=== PATIENT | female | born 1940 | race Caucasian/White ===

== ENCOUNTER 2023-01-08 13:36 | Outpatient (CLI) | payer MEDICARE, SELFPAY | END 2023-01-08 13:37 | disposition home or self-care (01) | LOC: NFLDREF 01-11 08:54 | PROVIDERS: PCP Internal Medicine; Referring Provider Internal Medicine; Visit Provider Advanced Practice Midwife | DX: N89.8 Other specified noninflammatory disorders of vagina (principal); R30.9 Painful micturition, unspecified | CPT/HCPCS: 87086 ==

== ENCOUNTER 2023-02-09 12:08 | Outpatient (CLI) | payer MEDICARE, SELFPAY | END 2023-02-09 12:09 | disposition home or self-care (01) | LOC: NFLDREF 02-10 09:38 | PROVIDERS: PCP Internal Medicine; Referring Provider Internal Medicine; Visit Provider Nurse Practitioner Family | DX: Z00.00 Encounter for general adult medical examination without abnormal findings (principal); R53.82 Chronic fatigue, unspecified; F41.9 Anxiety disorder, unspecified; G89.29 Other chronic pain; Z79.899 Other long term (current) drug therapy; E66.9 Obesity, unspecified | CPT/HCPCS: 80053; 82306; 84443 ==

== ENCOUNTER 2023-03-13 16:26 | Emergency (ER) | payer MEDICARE, SELFPAY ==
[2023-03-13 16:36] VITALS: BP 166/85; PULSE 86; RESP 18; TEMP 36.4; O2SAT 95; BMI 30.5
--- NOTE | 2023-03-13 17:07 | CRLHL7_ITS ---
For Patients: As a result of the Century Cures Act, medical imaging exams and procedure reports are released immediately into your electronic medical record. You may view this report before your referring provider. If you have questions, please contact your health care provider. INDICATION: Abdominal pain TECHNIQUE: CT abdomen and pelvis acquired with IV contrast. COMPARISON: CT 03/13/2021 FINDINGS: Lower chest: Unremarkable. Liver: Unremarkable. Spleen: Unremarkable. Pancreas: Unremarkable. Gallbladder and bile ducts: Unremarkable. Kidneys: Too small to characterize low-attenuation lesions in kidneys nonobstructing small left renal calculus. Adrenal glands: Nodularity and nodules within the adrenal glands appear unchanged from the prior study. GI tract: Hiatal hernia. Diverticulosis. Normal appendix appeared Vascular structures: Negative. No sign of aneurysm. Lymph nodes: Unremarkable. Miscellaneous: Small fat containing inguinal hernias. Small fat containing umbilical hernia. Pelvic Organs: Unremarkable. Bones: Unremarkable for age. IMPRESSION: 1. No acute findings in the abdomen or pelvis. Please note that all CT scans at this facility use dose modulation, iterative reconstruction, and/or weight-based dosing when appropriate to reduce radiation dose to as low as reasonably achievable. Dictated by Linn Baron MD @ 03/13/2023 8:05:13 PM (Electronically Signed)
--- NOTE | 2023-03-13 17:09 | ED.ABDPAIN ---
HPI - Abdominal Pain General Chief Complaint: Abdominal Pain Stated Complaint: stomach pain,nausea,fatigue,eye pain Time Seen by Provider: 03/13/23 16:38 History of Present Illness HPI narrative: This 82-year-old female comes in reporting worsening abdominal pain over the past couple days. She states that she has been having persistent abdominal pain that seems to come and go but over the past few days that is worsened. This morning she awoke at 2:30 a.m. in the morning and did not sleep thereafter because of this abdominal pain. She also reports some urinary frequency. She does not have any diarrhea or vomiting but does have some nausea symptoms. She has anxiety regarding her health and did start BuSpar own a couple weeks ago but this did not sit well with her so she discontinued it after a couple days. He also has [place] syndrome but is not currently taking any treatments for this. Related Data Home Medications Medication Instructions Recorded Confirmed famotidine 20 mg tablet 20 mg PO .Bedtime 04/30/22 02/09/23 hydrochlorothiazide 12.5 mg tablet 12.5 mg PO QAM 04/30/22 02/09/23 multivitamin (Multiple Vitamins 1 tab PO QAM 04/30/22 02/09/23 tablet) polyethylene glycol 3350 17 g PO DAILY 04/30/22 02/09/23 gram/dose oral powder acetaminophen 500 mg capsule 500 mg PO DAILY PRN 07/02/22 02/09/23 cholecalciferol (vitamin D3) 25 25 mcg PO QDAY PRN 07/02/22 02/09/23 mcg (1,000 unit) capsule melatonin 3 mg capsule 3 mg PO QHS 07/02/22 02/09/23 rosuvastatin 40 mg tablet 40 mg PO QDAY 07/02/22 02/09/23 vit C 250 mg-vit E 90 mg-zinc 40 1 tab PO BID 07/02/22 02/09/23 mg-copper 1 en-cywnfd-odiual capsule (PreserVision AREDS-2) valsartan 160 mg tablet 160 mg PO QDAY 07/06/22 02/09/23 Previous Rx's Medication Instructions Recorded clopidogrel 75 mg tablet 75 mg PO QDAY #90 tabs 04/30/22 omeprazole 20 mg tablet,delayed 20 mg PO DAILY #90 tabs 05/06/22 release amlodipine 10 mg tablet 10 mg PO QDAY #30 tabs 10/27/22 buspirone 7.5 mg tablet 7.5 mg PO BID #60 tabs 03/09/23 Allergies Allergy/AdvReac Type Severity Reaction Status Date / Time tramadol Allergy Intermediate nausea, Verified 03/13/23 16:36 vomiting codeine AdvReac Unknown Nausea Verified 03/13/23 16:36 Review of Systems Status of ROS Reports: 10 or more systems reviewed and unremarkable except as noted in History and below Narrative Constitutional: No fevers, no weight gain or loss. Eyes: No discharge. No vision changes. HENT: No congestion, no sore throat, no ear pain. Cardiovascular: No chest pain, no palpitations. Respiratory: No shortness of breath, no wheezes, no cough. Gastrointestinal: Chronic abdominal pain. Nausea. No vomiting or diarrhea. Genitourinary: No hematuria. Increased urinary frequency. Musculoskeletal: Normal range of motion. She has history of back pain but this is improved with some recent treatments. Skin: No rashes, no pruritis. Neurological: No dizziness, weakness, sensory change, speech change. Endo/Heme/Allergies: No bruising or bleeding. No polydipsia. Pysch: She reports anxiety regarding her health. All other systems reviewed and are negative. [facility] Medical History (Updated 03/13/23 @ 20:07 by Ash Hagen MD) Pes planus of both feet ?M21.41 - Flat foot [pes planus] (acquired), right foot (ICD-10) ?M21.42 - Flat foot [pes planus] (acquired), left foot (ICD-10) Adductor tendinitis of both hips ?M76.891 - Other specified enthesopathies of right lower limb, excluding foot (ICD-10) ?M76.892 - Other specified enthesopathies of left lower limb, excluding foot (ICD-10) Greater trochanteric bursitis of both hips ?M70.61 - Trochanteric bursitis, right hip (ICD-10) ?M70.62 - Trochanteric bursitis, left hip (ICD-10) Lumbar degenerative disc disease ?M51.36 - Other intervertebral disc degeneration, lumbar region (ICD-10) History of renal calculi ?Z87.442 - Personal history of urinary calculi (ICD-10) Surgical History History of cataract surgery ?Z98.49 - Cataract extraction status, unspecified eye (ICD-10) 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.2 - Postprocedural hypoparathyroidism (ICD-10) Social History Smoking Status: Never smoker Do you use any of these nicotine containing products: None Second hand tobacco smoke exposure: Yes (youth) How often do you have a drink containing alcohol: 4 or more times a week How many standard drinks containing alcohol do you have on a typical day: 1 or 2 How often do you have six or more drinks on one occasion: Never AUDIT-C Alcohol total score: 4 Non-prescribed substance use: denies use Little interest or pleasure in doing things: not at all Feeling down, depressed, or hopeless: not at all service: No Exam Narrative: Exam Narrative: Constitutional: Well-developed, well-nourished, no acute distress. HEENT: Normocephalic, atraumatic. Neck: Normal range of motion. Nontender. Supple. Heart: Regular. No murmurs. Normal rate. Intact distal pulses. Lungs: Clear to auscultation. No chest discomfort. No wheezes, rhonchi, or rales. Abdomen: Normal bowel sounds. Mild tenderness. No rebound tenderness. Genitalia: Deferred. Back: No midline tenderness. Normal range of motion. Extremities: Normal range of motion. No injury. Skin: Intact. No rash. Warm. No erythema or pallor. Neurologic: No altered sensation. No weakness. Alert and oriented. Psychiatric: No suicidality. Nursing notes and vitals signs are reviewed. Const: Vital Signs, click to edit/add: Vital Signs - 24 hr 03/13/23 16:36 03/13/23 18:51 Temperature 97.5 F L Pulse Rate [Pulse Oximeter] 86 78 Respiratory Rate 18 18 Blood Pressure [Ri ght Upper Arm] 166/85 H 179/96 H Pulse Oximetry 95 99 Oxygen Delivery Me thod Room Air Room Air Course Vital Signs Vital signs: Initial Vital Signs Temperature 97.5 F L 03/13/23 16:36 Temperature Source Temporal Artery Scan 03/13/23 16:36 Pulse Rate 86 03/13/23 16:36 Pulse Rhythm Regular 03/13/23 16:36 Respiratory Rate 18 03/13/23 16:36 Blood Pressure 166/85 H 03/13/23 16:36 Blood Pressure Mean 112 H 03/13/23 16:36 Blood Pressure Position Sitting 03/13/23 16:36 Pulse Oximetry 95 03/13/23 16:36 Oxygen Delivery Method Room Air 03/13/23 16:36 Vital Signs Temperature 97.5 F L 03/13/23 16:36 Pulse Rate 86 03/13/23 16:36 Respiratory Rate 18 03/13/23 16:36 Blood Pressure 166/85 H 03/13/23 16:36 Pulse Oximetry 95 03/13/23 16:36 Oxygen Delivery Method Room Air 03/13/23 16:36 Temperature 97.5 F L 03/13/23 16:36 Pulse Rate 78 03/13/23 18:51 Respiratory Rate 18 03/13/23 18:51 Blood Pressure 179/96 H 03/13/23 18:51 Pulse Oximetry 99 03/13/23 18:51 Oxygen Delivery Method Room Air 03/13/23 18:51 MDM - Abdominal Pain MDM Narrative Medical decision making narrative: This patient comes in with some diffuse abdominal pain and generalized malaise. She does feel some fatigue also. She has some anxiety about her health. An IV was established and labs are acquired. These returned with reassuring results except she does have potassium this is a bit low at 3.0. She is taking hydrochlorothiazide which is likely contributing to this. This may explain some of her fatigue. CT imaging of the abdomen and pelvis by my review shows no acute findings to explain her symptoms. Radiology report is pending and the overnight physician will look after results for any remarkable findings that would need some attention. The patient is otherwise encouraged to follow-up with her primary physician and to take foods that are rich in potassium. Lab Data Labs: Lab Results 03/13/23 03/13/23 Range/Units 17:47 19:00 WBC 9.29 (4.50-11.00) K/uL RBC 4.75 (4.00-5.20) m/uL Hgb 14.6 (12.0-16.0) gm/dL Hct 44.6 (33.0-51.0) % MCV 94 (80-100) fL MCH 31 (26-34) pg MCHC 33 (32-36) gm/dL RDW Coeff of Fidencio 15.1 (11.5-15.5) % Plt Count 456 H (140-440) K/uL Neut % (Auto) 72.9 H (42.0-72.0) % Lymph % (Auto) 16.1 L (20-44) % Bates % (Auto) 10.0 (0.0-11.0) % Eos % (Auto) 0.2 (0.0-7.0) % Baso % (Auto) 0.2 (0.0-3.0) % Neut # (Auto) 6.80 (1.7-7.0) K/uL Lymph # (Auto) 1.50 (0.90-2.90) K/uL Bates # (Auto) 0.90 (0.00-0.90) K/UL Eos # (Auto) 0.02 (0.00-0.50) K/uL Baso # (Auto) 0.02 (0.00-0.30) K/uL Abs Immat Gran (auto) 0.06 (0.00-0.30) K/uL Imm/Tot Granulo (auto) 0.6 % Sodium 130 L (135-149) mmol/L Potassium 3.9 (3.6-5.1) mmol/L Chloride 93 L (96-114) mmol/L Carbon Dioxide 27 (20-32) mmol/L BUN 22 (7-30) mg/dL Creatinine 1.2 (0.5-1.5) mg/dL Estimated Creat Clear 30.42 Estimated GFR 45 ml/min Glucose 114 (60-115) mg/dL Calcium 10.3 (8.4-10.6) mg/dL Magnesium 2.2 (1.5-2.6) mg/dL Total Bilirubin 0.8 (0.1-1.5) mg/dL Direct Bilirubin 0.1 (0.0-0.5) mg/dL AST 26 (12-35) U/L ALT 26 (4-35) U/L Alkaline Phosphatase 71 (40-150) U/L Total Protein 8.2 (6.0-8.3) g/dL Albumin 4.8 (3.3-5.0) g/dL Urine Color Yellow (Yellow) Urine Appearance Clear (Clear) Urine pH 6.0 (5.0-8.5) Ur Specific [place] 1.010 (1.000-1.030) Urine Protein Negative (Negative) Urine Glucose (UA) Negative (Negative) Urine Ketones Negative (Negative) Urine Blood Negative (Negative) Urine Nitrite Negative (Negative) Urine Bilirubin Negative (Negative) Urine Urobilinogen 0.2 (0.2-1.0) Ur Leukocyte Esterase Trace A (Negative) Urine RBC 0-2 (0-2) Urine WBC 5-10 A (0-5) Ur Squamous Epith Cells Few (None-Few) Urine Bacteria None (None) Discharge Plan Discharge Clinical Impression: Hypokalemia Patient Disposition: Home, Self-Care Condition: Stable Additional Instructions: Take foods and liquids that have extra of sources of potassium. Follow-up with primary physician for ongoing management. Return if worsening. Prescriptions: No Action multivitamin [Multiple Vitamins] Tablet 1 tab PO QAM famotidine 20 mg tablet 20 mg PO .Bedtime polyethylene glycol 3350 17 gram/dose powder PO DAILY hydrochlorothiazide 12.5 mg tablet 12.5 mg PO QAM clopidogrel 75 mg tablet 75 mg PO QDAY Qty: 90 3RF omeprazole 20 mg tablet,delayed release (DR/EC) 20 mg PO DAILY Qty: 90 3RF rosuvastatin 40 mg tablet 40 mg PO QDAY PreserVision AREDS-2 250-90-40-1 mg capsule 1 tab PO BID melatonin 3 mg capsule 3 mg PO QHS acetaminophen 500 mg capsule 500 mg PO DAILY PRN cholecalciferol (vitamin D3) 25 mcg (1,000 unit) capsule 25 mcg PO QDAY PRN Patient Comments: only in the winter valsartan 160 mg tablet 160 mg PO QDAY amlodipine 10 mg tablet 10 mg PO QDAY Qty: 30 5RF buspirone 7.5 mg tablet 7.5 mg PO BID Qty: 60 0RF Follow Up/Referrals: Annie Brown MD [Primary Care Provider] - Stand Alone Forms: [employer] Info Instructions
[2023-03-13 17:56] LABS: Basophils Absolute Auto 0.02 K/uL (0.00-0.30); Basophils Percent Auto 0.2 % (0.0-3.0); Eosinophils Absolute Auto 0.02 K/uL (0.00-0.50); Eosinophils Percent Auto 0.2 % (0.0-7.0); Hematocrit 44.6 % (33.0-51.0); Hemoglobin* 14.6 gm/dL (12.0-16.0); Immature Granulocytes Abs Auto 0.06 K/uL (0.00-0.30); Immature Granulocytes Pct Auto 0.6 %; Lymphocytes Percent Auto 16.1 % (20-44); Mean Corpuscular HGB Conc 33 gm/dL (32-36); Mean Corpuscular Hemoglobin 31 pg (26-34); Mean Corpuscular Volume 94 fL (80-100); Neutrophils Percent Auto 72.9 % (42.0-72.0); Platelet Count* 456 K/uL (140-440); RDW Coefficient of Variation % 15.1 % (11.5-15.5); Red Blood Count 4.75 m/uL (4.00-5.20); White Blood Count* 9.29 K/uL (4.50-11.00)
[2023-03-13 17:57] LABS: Slide Review Reflex No
[2023-03-13 18:08] LABS: Albumin* 4.8 g/dL (3.3-5.0); Chloride* 93 mmol/L (96-114); Sodium* 130 mmol/L (135-149)
[2023-03-13 18:09] LABS: Potassium* 3.9 mmol/L (3.6-5.1)
[2023-03-13 18:11] LABS: Alanine Aminotransferase* 26 U/L (4-35); Alkaline Phosphatase* 71 U/L (40-150); Aspartate Amino Transferase* 26 U/L (12-35); Bilirubin Direct* 0.1 mg/dL (0.0-0.5); Bilirubin Total* 0.8 mg/dL (0.1-1.5); Blood Urea Nitrogen* 22 mg/dL (7-30); Carbon Dioxide* 27 mmol/L (20-32); Creatinine* 1.2 mg/dL (0.5-1.5); Est. Creatinine Clearance* 30.42; Estimated Glomerular Filt Rate 45 ml/min; Glucose* 114 mg/dL (60-115); Total Protein* 8.2 g/dL (6.0-8.3)
[2023-03-13 18:12] LABS: Calcium* 10.3 mg/dL (8.4-10.6); Magnesium* 2.2 mg/dL (1.5-2.6)
[2023-03-13 18:51] VITALS: BP 179/96; PULSE 78; RESP 18; O2SAT 99
--- NOTE | 2023-03-13 19:05 | ED.NURSE ---
was able to urinate and ua was sent to lab. denies pain at present.
[2023-03-13 19:07] LABS: Appearance Urine Clear (Clear); Bilirubin Urine Negative (Negative); Blood Urine Negative (Negative); Color Urine Yellow (Yellow); Glucose Urine Negative (Negative); Ketones Urine Negative (Negative); Leukocyte Esterase Urine Trace (Negative); Nitrite Urine Negative (Negative); Protein Urine Negative (Negative); Urobilinogen Urine 0.2 (0.2-1.0)
[2023-03-13 19:14] LABS: RBC Urine 0-2 (0-2); Squamous Epithelial Cell Urine Few (None-Few)
--- NOTE | 2023-03-13 20:00 | ED.NURSE ---
wanted to go home to sleep and eat. denies pain now.
[2023-03-16 21:28] LABS: Cortisol, Serum 26.3 ug/dL
== END 2023-03-13 20:23 | disposition home or self-care (01) ==
PROVIDERS: Emergency Provider Emergency Medicine Emergency Medical Services; PCP Internal Medicine
DX: E87.6 Hypokalemia (principal); R53.83 Other fatigue
CPT/HCPCS: 36415; 74177; 80048; 80076; 81001; 82533; 83735; 85025; 87086; 99283; 99284; Q9967

== ENCOUNTER 2023-04-02 16:21 | Outpatient (RCR) | payer SELFPAY | END 2024-03-28 09:37 | disposition home or self-care (01) | LOC: MOW 16:21 | PROVIDERS: PCP Internal Medicine; Visit Provider Internal Medicine | DX: Z76.0 Encounter for issue of repeat prescription (principal) | CPT/HCPCS: S5170 ==

== ENCOUNTER 2023-04-05 10:43 | Outpatient (RCR) | payer MEDICARE, SELFPAY ==
[2023-01-19 12:39] LABS: Potassium* 4.4 mmol/L (3.6-5.1)
[2023-01-21 01:53] LABS: Adrenocorticotropic Hormone 1.8 pg/mL (7.2-63.3)
[2023-01-21 13:07] LABS: Cortisol, Serum 21.4 ug/dL
[2023-03-17 13:59] LABS: Potassium* 4.3 mmol/L (3.6-5.1)
[2023-03-19 01:39] LABS: Adrenocorticotropic Hormone 2.6 pg/mL (7.2-63.3)
[2023-03-19 06:05] LABS: Cortisol, Serum 21.2 ug/dL
[2023-04-05 12:37] LABS: Potassium* 4.5 mmol/L (3.6-5.1)
[2023-04-05 12:41] LABS: Magnesium* 2.2 mg/dL (1.5-2.6)
[2023-04-07 01:06] LABS: Cortisol, Serum 25.4 ug/dL
[2023-04-07 07:59] LABS: Adrenocorticotropic Hormone 3.1 pg/mL (7.2-63.3)
== END 2024-03-28 09:00 | disposition home or self-care (01) ==
LOC: LAB 10:43
PROVIDERS: Internal Medicine; PCP Internal Medicine
DX: N89.8 Other specified noninflammatory disorders of vagina (principal); R30.9 Painful micturition, unspecified
CPT/HCPCS: 36415; 82024; 82533; 83735; 84132

== ENCOUNTER 2023-04-23 14:33 | Outpatient (CLI) | payer MEDICARE, SELFPAY | END 2023-04-23 14:34 | disposition home or self-care (01) | LOC: NFLDREF 04-25 08:24 | PROVIDERS: PCP Internal Medicine; Referring Provider Internal Medicine; Visit Provider Internal Medicine | DX: E87.1 Hypo-osmolality and hyponatremia (principal) | CPT/HCPCS: 80048 ==

== ENCOUNTER 2023-06-08 11:08 | Outpatient (CLI) | payer MEDICARE, SELFPAY | END 2023-06-08 11:09 | disposition home or self-care (01) | LOC: NFLDREF 22:51 | PROVIDERS: PCP Internal Medicine; Referring Provider Internal Medicine; Visit Provider Internal Medicine | DX: I10 Essential (primary) hypertension (principal) | CPT/HCPCS: 80048 ==

== ENCOUNTER 2023-07-25 21:49 | Emergency (ER) | payer MEDICARE, SELFPAY ==
[2023-07-25 22:05] VITALS: BP 154/98; RESP 16; TEMP 36.7; O2SAT 99; BMI 32.3
--- NOTE | 2023-07-25 22:58 | ED_ITS ---
HPI - Syncope General Chief Complaint: Syncope/Fainted Stated Complaint: syncope Time Seen by Provider: 07/25/23 22:38 History of Present Illness HPI narrative: This 82-year-old female comes in for evaluation of a brief syncopal event that occurred prior to arrival. She states that she was up to get a glass of wine and as she was returning to the chair she started to feel hot and lightheaded. She did have brief loss of consciousness and her saw her laying on the floor. She recovered very quickly and regained consciousness. She did not have any injury because of this. She was able to get up and ambulate eventually. Her did measure her blood pressure with a systolic value of 118 initially and a few minutes later it was 138. Her heart rate was in normal range. The patient feels back to normal at this time. Related Data Home Medications Medication Instructions Recorded Confirmed famotidine 20 mg tablet 20 mg PO .Bedtime 04/30/22 06/10/23 multivitamin (Multiple Vitamins 1 tab PO QAM 04/30/22 06/10/23 tablet) polyethylene glycol 3350 17 g PO DAILY 04/30/22 06/10/23 gram/dose oral powder acetaminophen 500 mg capsule 500 mg PO DAILY PRN 07/02/22 06/10/23 cholecalciferol (vitamin D3) 25 25 mcg PO QDAY PRN 07/02/22 06/10/23 mcg (1,000 unit) capsule melatonin 3 mg capsule 3 mg PO QHS 07/02/22 06/10/23 rosuvastatin 40 mg tablet 40 mg PO QDAY 07/02/22 06/10/23 vit C 250 mg-vit E 90 mg-zinc 40 1 tab PO BID 07/02/22 06/10/23 mg-copper 1 go-peaezm-lmvjpx capsule (PreserVision AREDS-2) valsartan 160 mg tablet 160 mg PO QDAY 07/06/22 06/10/23 osilodrostat 1 mg tablet (Isturisa) 0.5 mg PO BID 05/04/23 06/10/23 Previous Rx's Medication Instructions Recorded clopidogrel 75 mg tablet 75 mg PO QDAY #90 tabs 04/28/23 omeprazole 20 mg capsule,delayed 20 mg PO DAILY #90 caps 05/25/23 release amlodipine 10 mg tablet 10 mg PO DAILY #90 tabs 07/16/23 Allergies Allergy/AdvReac Type Severity Reaction Status Date / Time tramadol Allergy Intermediate nausea, Verified 06/10/23 15:34 vomiting codeine AdvReac Unknown Nausea Verified 06/10/23 15:34 Review of Systems Status of ROS: Reports: 10 or more systems reviewed and unremarkable except as noted in History and below Narrative: Constitutional: No fevers, no weight gain or loss. Eyes: No discharge. No vision changes. HENT: No congestion, no sore throat, no ear pain. Cardiovascular: No chest pain, no palpitations. Respiratory: No shortness of breath, no wheezes, no cough. Gastrointestinal: No abdominal pain, no vomiting, no diarrhea. Genitourinary: No dysuria, no hematuria. Musculoskeletal: Normal range of motion. Skin: No rashes, no pruritis. Neurological: No weakness, sensory change, speech change. Endo/Heme/Allergies: No bruising or bleeding. No polydipsia. Pysch: no suicidality, no anxiety, no insomnia. All other systems reviewed and are negative. [facility] Medical History (Updated 06/10/23 @ 16:03 by Annie Brown MD) Pes planus of both feet ?M21.41 - Flat foot [pes planus] (acquired), right foot (ICD-10) ?M21.42 - Flat foot [pes planus] (acquired), left foot (ICD-10) Adductor tendinitis of both hips ?M76.891 - Other specified enthesopathies of right lower limb, excluding foot (ICD-10) ?M76.892 - Other specified enthesopathies of left lower limb, excluding foot (ICD-10) Greater trochanteric bursitis of both hips ?M70.61 - Trochanteric bursitis, right hip (ICD-10) ?M70.62 - Trochanteric bursitis, left hip (ICD-10) Lumbar degenerative disc disease ?M51.36 - Other intervertebral disc degeneration, lumbar region (ICD-10) History of renal calculi ?Z87.442 - Personal history of urinary calculi (ICD-10) Surgical History (Updated 05/10/23 @ 10:39 by Laurita Vang) History of cataract surgery (2017) ?Z98.49 - Cataract extraction status, unspecified eye (ICD-10) 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.2 - Postprocedural hypoparathyroidism (ICD-10) Family History (Updated 05/10/23 @ 10:36 by Laurita Vang) Father Heart disease Son Heart disease Mother High blood pressure Social History Smoking Status: Never smoker Do you use any of these nicotine containing products: None Second hand tobacco smoke exposure: Yes (youth) How often do you have a drink containing alcohol: 4 or more times a week How many standard drinks containing alcohol do you have on a typical day: 1 or 2 How often do you have six or more drinks on one occasion: Never AUDIT-C Alcohol total score: 4 Non-prescribed substance use: denies use Little interest or pleasure in doing things: not at all Feeling down, depressed, or hopeless: not at all service: No Exam Narrative: Exam Narrative: Constitutional: Well-developed, well-nourished, no acute distress. HEENT: Normocephalic, atraumatic. Neck: Normal range of motion. Nontender. Supple. Heart: Regular. No murmurs. Normal rate. Intact distal pulses. Lungs: Clear to auscultation. No chest discomfort. No wheezes, rhonchi, or rales. Abdomen: Normal bowel sounds. Nontender. No rebound tenderness. Genitalia: Deferred. Back: No midline tenderness. Normal range of motion. Extremities: Normal range of motion. No injury. Skin: Intact. No rash. Warm. No erythema or pallor. Neurologic: No altered sensation. No weakness. Alert and oriented. Psychiatric: No suicidality. No anxiety or depression. No insomnia. Nursing notes and vitals signs are reviewed. Const: Vital Signs, click to edit/add: Vital Signs - 24 hr 07/25/23 22:05 Temperature 98.0 F Respiratory Rate 16 Blood Pressure [Ri ght Upper Arm] 154/98 H Pulse Oximetry 99 Oxygen Delivery Me thod Room Air Course Vital Signs Vital signs: Initial Vital Signs Temperature 98.0 F 07/25/23 22:05 Temperature Source Temporal Artery Scan 07/25/23 22:05 Respiratory Rate 16 07/25/23 22:05 Blood Pressure 154/98 H 07/25/23 22:05 Blood Pressure Mean 116 H 07/25/23 22:05 Blood Pressure Position Sitting 07/25/23 22:05 Pulse Oximetry 99 07/25/23 22:05 Oxygen Delivery Method Room Air 07/25/23 22:05 Vital Signs Temperature 98.0 F 07/25/23 22:05 Respiratory Rate 16 07/25/23 22:05 Blood Pressure 154/98 H 07/25/23 22:05 Pulse Oximetry 99 07/25/23 22:05 Oxygen Delivery Method Room Air 07/25/23 22:05 Temperature 98.0 F 07/25/23 22:05 Respiratory Rate 16 07/25/23 22:05 Blood Pressure 154/98 H 07/25/23 22:05 Pulse Oximetry 99 07/25/23 22:05 Oxygen Delivery Method Room Air 07/25/23 22:05 MDM - Syncope MDM Narrative Medical decision making narrative: This 82-year-old female had a brief syncopal event and now feels back to normal. She did have a normal looking EKG and now has normal exam and vital signs and does not have any complaints. She states that she wants to go home. I did discuss other lab and imaging options which the patient declined. She was able to get up and ambulate without any symptoms of lightheadedness. ECG Data Attestation: I personally reviewed and interpreted this ECG as follows: Interpretation: Normal sinus rhythm. Rate is 83 beats per minute. There are no specific ST or T-wave abnormalities. Discharge Plan Discharge Additional Instructions: Continue current plans. Follow up with MD as scheduled or return if symptoms are recurrent. Prescriptions: No Action multivitamin [Multiple Vitamins] Tablet 1 tab PO QAM famotidine 20 mg tablet 20 mg PO .Bedtime polyethylene glycol 3350 17 gram/dose powder PO DAILY Isturisa 1 mg tablet 0.5 mg PO BID rosuvastatin 40 mg tablet 40 mg PO QDAY PreserVision AREDS-2 250-90-40-1 mg capsule 1 tab PO BID melatonin 3 mg capsule 3 mg PO QHS acetaminophen 500 mg capsule 500 mg PO DAILY PRN cholecalciferol (vitamin D3) 25 mcg (1,000 unit) capsule 25 mcg PO QDAY PRN Patient Comments: only in the winter valsartan 160 mg tablet 160 mg PO QDAY clopidogrel 75 mg tablet 75 mg PO QDAY Qty: 90 0RF omeprazole 20 mg capsule,delayed release(DR/EC) 20 mg PO DAILY Qty: 90 3RF amlodipine 10 mg tablet 10 mg PO DAILY Qty: 90 2RF Follow Up/Referrals: Annie Brown MD [Primary Care Provider] - Stand Alone Forms: [employer] Info Instructions
--- NOTE | 2023-07-25 23:01 | ED.NURSE ---
Patient able to ambulate with minimal assist.
[2023-07-25 23:08] LABS: PCR FLU A Negative PCR FLU A (Negative); PCR FLU B Negative PCR FLU B (Negative); PCR RSV Negative PCR RSV (Negative)
[2023-07-25 23:11] LABS: SARS PCR* Negative SARS-CoV-2 (Negative)
== END 2023-07-25 23:15 | disposition home or self-care (01) ==
PROVIDERS: Emergency Provider Emergency Medicine Emergency Medical Services; PCP Internal Medicine
DX: R55 Syncope and collapse (principal)
CPT/HCPCS: 87631; 99283; 99284

== ENCOUNTER 2023-09-16 16:05 | Outpatient (CLI) | payer MEDICARE, SELFPAY | END 2023-09-16 16:06 | disposition home or self-care (01) | LOC: NFLDREF 16:06 | PROVIDERS: PCP Internal Medicine; Visit Provider Internal Medicine | DX: M81.0 Age-related osteoporosis without current pathological fracture (principal) | CPT/HCPCS: 82306 ==

== ENCOUNTER 2023-10-15 13:45 | Outpatient (REF) | payer MEDICARE, SELFPAY ==
[2023-10-15 14:49] LABS: Calcium* 10.3 mg/dL (8.4-10.6); Phosphorus* 3.6 mg/dL (2.5-4.5)
== END 2023-10-15 13:46 | disposition home or self-care (01) ==
LOC: NPINS 13:45
PROVIDERS: PCP Internal Medicine; Visit Provider Internal Medicine
DX: M81.0 Age-related osteoporosis without current pathological fracture (principal)
CPT/HCPCS: 82310; 84100

== ENCOUNTER 2023-11-28 12:44 | Outpatient (CLI) | payer MEDICARE, SELFPAY ==
--- OUTSIDE RECORDS SUMMARY | 2023-12-02 06:05 | XMS_ITS ---
Author Name Unknown Organization [facility] Address [address] [place] [address] Care Team Providers Care Oil Burner Name Role Phone Unavailable Unavailable Unavailable Surgery Details Not on file Complications Check Surgery Details section. Procedure Estimated Blood Loss Check Surgery Details section. Procedure Findings Check Surgery Details section. Procedure Specimens Taken Check Surgery Details section.
--- OUTSIDE RECORDS SUMMARY | 2023-12-02 06:05 | XMS_ITS | Patient Health Record ---
Author Name Unknown Organization [facility] Address [address] [place] [address] Care Team Providers Care Salvage Machine Operator Name Role Phone KAIT DONATO Primary Care Provider JimmyLolis ochoa Unavailable [phone] ALLERGIES Allergen (clinical drug ingredient) Drug/Non Drug [...] Constipation, unspecified constipation type (K59.00) Active confirmed 14601693 Problem DDD (degenerative disc disease), lumbar (M51.36) Active confirmed 08203881 VITAL SIGNS Heart Rate 80 /min 07/30/2023 Temperature 97.2 degrees Fahrenheit 07/30/2023 Blood pressure diastolic 80 mm Hg 07/30/2023 Oximetry 95 % 07/30/2023 Height 63 in 07/30/2023 Blood pressure systolic 140 mm Hg 07/30/2023 Encounters Encounter Location Date Provider Diagnosis [facility] [address] [place] [address] 07/30/2023 Lolis Jimmy Lumbar pain M54.50 ; [...] Date MEDICARE PART B [address] [place] [address] [phone] [id number] December Self - patient is the insured 7 MEDICATIONS ADMINISTERED Medication Instructions Date of Administration Dosage Notes *Decadron 8mg Inj. 07/30/2023 2 mL *Depo Medrol 80MG Inj. 07/30/2023 1 mL
--- OUTSIDE RECORDS SUMMARY | 2023-12-02 06:05 | XMS_ITS | Clinical Summary ---
Author Name Unknown Organization [facility] Address [address] [place] [address] Care Team Providers Care Environmental Engineering Aide Name Role Phone Elsewhere, Pcp Primary Care Provider Unavailabl e Source Comments Patient records contain information from all sites at [facility]. For routine questions regarding patient records, call [phone] during business hours, M-F 8:00 AM - 5:00 PM Central Time. Record requests for emergency care only can be directed to [phone] at any time.[facility] Allergies Active Allergy Reactions Criticality Noted Date [...] Clinical Communication Department of Infusion Therapy in [place], [place] [address] [place] [address] Joy Cooper, RDavon 10/26/2023 Clinical Communication Division of Endocrinology in [place], [place] [address] [place] [address] Margi Avila M.D. 10/20/2023 Clinical Communication Division of Endocrinology in [place], [place] [address] [place] [address] Margarita, Margi M, M.D. [employer] - Outside Materials 10/20/2023 Clinical Communication Division of Endocrinology in [place], [place] [address] [place] [phone] Margi Avila M.D. Questions 10/19/2023 Orders Only Division of Endocrinology in [place], [place] [address] [place] [phone] Margi Avila M.D. 10/19/2023 Orders Only Division of Endocrinology in [place], [place] [address] [place] [phone] Margi Avila M.D. Osteopenia (Primary Dx); Osteoporosis 10/14/2023 Clinical Communication Division of Endocrinology in [address] [address] Sahra Hester R.N. 10/13/2023 Orders Only Division of Endocrinology in [place], [place] [address] [place] [phone] Margi Avila M.D. Osteoporosis (Primary Dx) 10/07/2023 Clinical Communication Division of General Internal Medicine in [place], [place] [address] [place] [phone] Prescheduling, Provider Triage 10/04/[address] [address] Annie Brown M.D. Malaise (Primary Dx); Fatigue 09/22/2023 12:00 PM [employer] Telemedicine Division of Endocrinology in [place], [place] [address] [place] [phone] Margi Avila M.D. Mass Adrenal (HCC); Hypercortisolemia 09/20/2023 8:15 AM G[employer] Clinical Communication Virtual Review in [address] [phone] Pre-visit Intake from Last 3 Months Family [...] drink = 0.6 oz pur e alcohol) [facility] Utilities Answer Date Recorded In the past 12 months has e electric, gas, oil, or water [employer] threatened to shut off services in your [...] How often do you attend chur or alevism services? Never 08/24/2022 Do you belong to any clubs o r organizations such as rastafarian groups, unions, fraternal or athletic groups, or [...] and heating? Not hard at all 12/24/2022 [facility] Occupat community healthal Health - Occupational Stress Questionnaire Answer Date [...] history exists Medical Devices Implanted Type Area Audit Manager Device Identifier Shelf Expiration Date Model / Serial / Lot Ocular Lens Ocular Lens Bilateral : Eye Procedures Procedure Name Priority Date/Time Associated Diagnosis Comments CREATININE, U Routine 10/13/2023 8:00 AM CDT Mass Adrenal (HCC) Hypercortisolemia CORTISOL, FREE, U Routine 10/13/2023 8:0 0 AM CDT Mass Adrenal (HCC) Hypercortisolemia EXTI BASIC METABOLIC PANEL, S/P Routine 06/24/2022 10:25 AM [employer] from Last 3 Months or Most Recently [...] Margi Avila M.D. LAB URINE ORDERABL ES [facility] [address] [place] [address], [facility] DTL [facility] [address] [place] [address] * Cortisol, Free, 24 hour, Urine (10/13/2023 8:00 AM CDT) Cortisol, U 35 3.5 - 45 mcg/24 h 10/18/2023 8:37 PM CDT [facility] Collection Duration 24 h 10/17 8:37 PM CDT SDSC Urine Volume 1650 mL 10/18/2023 8:37 PM CDT [facility] Comment: ----ADDITIONAL INFORMATION---- This test was developed and its performance characteristics determined by [facility] in a manner consistent with CLIA requirements. This test has not been cleared or approved by the U.S. Food and Drug Administration. Urine (Urine, 24 Hours) 10/13/2023 8:00 AM CDT 10/15/2023 11:42 AM CDT Narrative Resulting Agency Comment Mailed In Specimen Margi Avila M.D. LAB URINE ORDERABL ES [facility] [address] [place] [address] [facility] [address] [place] [address] [place] [address] from Last 3 Months or Most Recently Relevant to Health Maintenance Advance Directives For more information, please contact: [phone] Documents on File Type Date Recorded Patient Smt Operator Expl anation Advance Directives 05/12/2017 12:00 AM Bella rothman document. See document viewer. Care Teams Environmental Engineering Aide Relationship Specialty Start Date End Date Elsewhere, Pcp PCP - General Internal Medicine 12/29/22
--- OUTSIDE RECORDS SUMMARY | 2023-12-02 06:05 | XMS_ITS | Referral Summary ---
Author Name Unknown Organization [facility] Address [address] [place] [address] Care Team Providers Care Solar Designer/Installer Name Role Phone Elsewhere, Pcp Primary Care Provider Unavailabl e Source Comments Patient records contain information from all sites at [facility]. For routine questions regarding patient records, call [phone] during business hours, M-F 8:00 AM - 5:00 PM Central Time. Record requests for emergency care only can be directed to [phone] at any time.[facility] Encounters Date Type Department Care Team Description 11/15/2023 Clinical Communication Department of Infusion Therapy in [place], [place] [address] [place] [address] Joy Cooper, RDavon 10/26/2023 Clinical Communication Division of Endocrinology in [place], [place] [address] [place] [address] Margi Avila M.D. 10/20/2023 Clinical Communication Division of Endocrinology in [place], [place] [address] [place] [address] Margi Avila M.D. [employer]SM - Outside Materials 10/20/2023 Clinical Communication Division of Endocrinology in [place], [place] [address] [place] [address] Margi Avila M.D. Questions 10/19/2023 Orders Only Division of Endocrinology in [place], [place] [address] [place] [phone] Margi Avila M.D. 10/19/2023 Orders Only Division of Endocrinology in [place], [place] [address] [place] [phone] Margi Avila M.D. Osteopenia (Primary Dx); Osteoporosis 10/14/2023 Clinical Communication Division of Endocrinology in [address] [address] Sahra Hester R.N. 10/13/2023 Orders Only Division of Endocrinology in [place], [place] [address] [place] [phone] Margi Avila M.D. Osteoporosis (Primary Dx) 10/07/2023 Clinical Communication Division of General Internal Medicine in [address] [address] Prescheduling, Provider Triage 10/04/[address] [address] Annie Brown M.D. Malaise (Primary Dx); Fatigue 09/22/2023 12:00 PM MACHINE CRATER Telemedicine Division of Endocrinology in [address] [address] Margi Avila M.D. Mass Adrenal (HCC); Hypercortisolemia 09/20/2023 8:15 AM MACHINE CRATER Clinical Communication Virtual Review in [place], [place] [address] [place] [address] Pre-visit Intake from Last 3 Months Allergies [...] drink = 0.6 oz pur e alcohol) [facility] Utilities Answer Date Recorded In the [...] How often do you attend chur or episcopalian services? Never 08/24/2022 Do you belong to any clubs o r organizations such as orthodoxy groups, unions, fraternal or athletic groups, or [...] and heating? Not hard at all 12/24/2022 [facility] of Occupat ional Health - Occupational [...] your living situation today? I have a [facility] place to live 09/17/2023 Education Answer [...] on file Medical Devices Implanted Type Area Process Coach Device Identifier Shelf Expiration Date Model / Serial / Lot Ocular Lens Ocular Lens Bilateral : Eye Procedures Procedure Name Priority Date/Time Associated Diagnosis Comments CREATININE, U Routine 10/13/2023 8:00 AM CDT Mass Adrenal (HCC) Hypercortisolemia CORTISOL, FREE, U Routine 10/13/2023 8:0 0 AM CDT Mass Adrenal (HCC) Hypercortisolemia EXTI BASIC METABOLIC PANEL, S/P Routine 06/24/2022 10:25 AM MACHINE CRATER from Last 3 Months or Most Recently [...] Margi Avila M.D. LAB URINE ORDERABL ES [facility] [address] [place] [address], [facility] DTL [facility] [address] [place] [address] * Cortisol, Free, 24 hour, Urine (10/13/2023 8:00 AM CDT) Cortisol, U 35 3.5 - 45 mcg/24 h 10/18/2023 8:37 PM CDT [facility] Collection Duration 24 h 10/17 8:37 PM CDT [facility] Urine Volume 1650 mL 10/18/2023 8:37 PM CDT [facility] Comment: ----ADDITIONAL INFORMATION---- This test was developed and its performance characteristics determined by [facility] in a manner consistent with CLIA requirements. This test has not been cleared or approved by the U.S. Food and Drug Administration. Urine (Urine, 24 Hours) 10/13/2023 8:00 AM CDT 10/15/2023 11:42 AM CDT Narrative Resulting Agency Comment Mailed In Specimen Margi Avila M.D. LAB URINE ORDERABL ES [facility] [place] [address] [place] [address] [facility] [address] [place] [address] [place] [address] from Last 3 Months or Most Recently Relevant to Health Maintenance Advance Directives For more information, please contact: [phone] Documents on File Type Date Recorded Patient Borematic Machine Operator Expl anation Advance Directives 05/12/2017 12:00 AM Bella rothman document. See document viewer. Care Teams Solar Designer/Installer Relationship Specialty Start Date End Date Elsewhere, Pcp PCP - General Internal Medicine 12/29/22
--- OUTSIDE RECORDS SUMMARY | 2023-12-02 06:06 | XMS_ITS | Encounter Summary ---
Author Name Unknown Organization [facility] Address [address] [place] [address] Care Team Providers Care Sheet Finisher Name Role Phone Elsewhere, Pcp Primary Care Provider Unavailabl e Reason for Visit * Reason Onset Date Comments [employer] - Outside Materials 08/20/2023 Encounter Details Date Type Department Care Team (Latest Contact Info) Description 08/20/2023 Clinical Communication Division of Endocrinology in [place], [place] [address] [place] [address] Margi Avila M.D. [address] [place] [address] [employer] - Outside Materials Social History Tobacco Use Types Packs/Day Years Used Date Smoking Tobacco: Never Passive Smoke Exposure: Never Smokeless Tobacco: Never Comments:As a child Alcohol Use Standard Drinks/Week Comments Yes 7 (1 standard drink = 0.6 oz pur e alcohol) [facility] Utilities Answer Date Recorded In the past [...] How often do you attend chur or adventist services? Never 08/24/2022 Do you belong to any clubs o r organizations such as temple groups, unions, fraternal or athletic groups, or [...] and heating? Not hard at all 12/24/2022 [facility] of Occupat ional Health - Occupational Stress [...] your living situation today? I have a [facility] place to live 09/17/2023 Education Answer [...] on filedocumented in this encounter Care Teams Sheet Finisher Relationship Specialty Start Date End Date Elsewhere, Pcp PCP - General Internal Medicine 12/29/22 documented as of this encounter
--- OUTSIDE RECORDS SUMMARY | 2023-12-02 06:06 | XMS_ITS | Clinical Summary ---
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 Abnormal cardiovascular stress test 04/08/2022 Hyperlipidemia LDL goal <70 04/08/2022 Skin cancer 02/19/2022 Overview: 02/12/22 left wrist , Invasive squamous cell carcinoma, excised 04/29/22 Rosalia Crawford MD Hypertension Osteoporosis Overview: History of hyperparathyroid, status post parathyroidectomy Fosamax begun 2006 GERD (gastroesophageal reflux disease) Overview: EGD 01/2017 large hiatal hernia, Reactive gastropathy, try carafate Urolithiasis Encounters Date Type Department Care Team Description 11/29/2023 4:00 PM CDT Ancillary Procedure [facility] [address] [place] [address] Arrived 11/25/[address] [place] [address] [place] [address] Deep Monzon MD Refill Request (Valsartan) 11/22/2023 2:05 PM CDT Office Visit [facility] [address] [place] [address] Zoran Mosher MD Consult (Fatigue, dizziness and crummy feeling, started about 7 years ago) 11/21/2023 Travel 10/20/2023 10:00 AM CDT Orders Only [facility] [address] [facility] [address] [facility], [place] [facility] 10/20/2023 Travel 10/01/[address] [place] [address] Deep Monzon MD Refill Request (Rosuvastatin) from Last 3 Months Immunizations Name Administration Dates Next Due Amb Influenza, Inactivated A IIV4 (Age 65+ Years) Preserv Free 04/22/2020 COVID-19 Vaccine Spikevax (M oderna 50mcg/0.5mL) 12YO+ 9823-3687 Formula PF 04/22/2023 COVID-19 vaccine (Michael Bieker-Bio NTech 30mcg/0.3mL) WENDY FOSTER 09/25/2020,09/04/2020 Hepatitis A (Adult) 06/12/1998,11/14/1997 Hepatitis A, [...] Comments Blood Pressure 152/77 06/30/2023 1:46 PM UTILITIES OPERATOR Pulse 83 06/30/2023 1:46 PM UTILITIES OPERATOR Temperature 36.6 ??C (97.9 ??F) 04/14/2023 2:25 PM CD T Respiratory Rate 20 04/14/2023 2:25 PM CDT Oxygen Saturation 98% 06/30/2023 1:46 PM UTILITIES OPERATOR Inhaled Oxygen Concentration - - Weight 76.2 kg (168 lb) 04/13/2023 11:22 AM CDT Height 160 cm (5' 3) 04/13/2023 11:22 AM CDT Body Mass Index 29.76 04/13/2023 11:22 AM CDT Plan of Treatment Upcoming Encounters Date Type Department Care Team (Late st Contact Info) Description 12/03/2023 2:00 PM CDT Office Visit [facility] [address] [place] [address] Rico Hunt MD [address] [place] [address] 04/13/2024 1:40 PM CDT Office Visit [facility] [address] [place], [place] [address] Rosalia Crawford MD [address] [place], [place] [id number] Health Maintenance Due Date Last Done Comments [...] Completed 11/28/2021, 09/02/2012 COVID-19 vaccine series Completed 04/22/20 23, 12/01/2022, 05/05/2022, Additional history exists Medical Devices Implanted Type Area Tanning Solution Maker Device Identifier Shelf Expiration Date Model / Serial / Lot Log [id number] - Rossi Zcb00 Lens Iol - 1 - Lens Iol Zcb00 21.0 Implanted:Qty: 1 on 11/09/2011 at [facility] Left: Eye [employer] ZCB00# / [id number] / Iol [place] +21 Tecnis Zcb00 - [id number] Implanted:Qty: 1 on 10/01/2016 by Tian Huggins MD at [facility] Right: Eye [employer] 06/29/2020 ZCB00# / [id number] / Procedures Procedure Name Priority Date/Time Associated Diagnosis Comments ECHO TTE COMPLETE WO CONTRAST Routine 11/29/2023 11:40 AM CDT Near syncope FOLIC ACID Routine 11/22/2023 3:28 PM CDT Nutritional deficiency LYME SCREEN W/REFLEX Routine 11/22/2023 3:28 PM CDT Myalgia [facility] 84 Routine 10/20/2023 9:10 AM CDT Pancreatic insufficiency from Last 3 Months Results * ECHO TTE COMPLETE WO CONTRAST (11/29/2023 11:40 AM CDT) AORTIC VALVE MEAN PG 9 mmHg EJECTION FRACTION 78 % LVEDD 3.2 cm Anatomical Region Laterality Modality Ultrasound 11/29/2023 10:5 9 AM CDT Narrative 11/29/2023 1:10 PM CDT ECHOCARDIOGRAM December BESSIE ? Accession#: ?? [id number] : ?1940 83 years Study Date: ?? 11/29/2023 10:59:00 AM Gender: F ?BP: ? 143/76 mmHg Height: 160.00 cm ?BSA: ?1.78 m? ? ? Weight: 75.00 kg ? Tech: ? MCK ? Referring MD: TESS WEST Site: ? [facility] Reading Location: [facility] Patient Location: Inpatient. Procedure: 2D, Color Doppler and Spectral Doppler. Indication for study: Near syncope Cardiac Rhythm: Regular and with premature ventricular contractions.Study quality: Fair. Final Impressions: 1. Normal left ventricular size, moderately increased wall thickness, hyperdynamic global systolic function, calculated EF of 78 %. 2. Right ventricular cavity size is normal, global systolic RV function is normal. 3. Normal left atrium size. 4. The aortic valve is sclerotic, no stenosis and mild regurgitation. 5. The mitral valve is sclerotic, mild mitral regurgitation. 6. Tricuspid valve is normal. 7. No pericardial effusion. Chamber Sizes and Function Normal left ventricular size, moderately increased wall thickness, hyperdynamic global systolic function, calculated EF of 78 %. Left atrial size is normal. Right ventricular cavity size is normal, global systolic RV function is normal. RV wall thickness is normal. The right atrium is normal. Right atrial volume index is 18 ml/m? ? ?. Right atrial area is 12 cm? ? ?. The pulmonary artery is not well visualized. The sinus of Valsalva is normal sized. The ascending aorta is normal sized. Valves, RV Pressures and Diastolic Function The aortic valve is sclerotic, no stenosis and mild regurgitation. The mitral valve is sclerotic, mild mitral regurgitation. Spectral Doppler shows Grade 1 pattern of LV diastolic filling. The tricuspid valve is normal in structure. Tricuspid regurgitation is trace regurgitation. The pulmonic valve is not well visualized. Trace pulmonary regurgitation. Masses, Effusion, Shunts There is no pericardial effusion. The inferior vena cava is normal sized, respiratory size variation greater than 50%. Interatrial septum is not well visualized. MEASUREMENTS AND CALCULATIONS 2-D Measurements and LV Function: LVID (d) 3.2 cm Planimetered EF 78 % LVID (s) 1.7 cm LV FS% (2D) ? 48 % IVS (d) ??1.5 cm LVOT diameter ?? 2.1 cm LVPW (d) 1.4 cm HR ?71 bpm Ao Sinus 3.2 cm LA Vol index ?17 ml/m2 Asc Ao ?? 3.6 cm RA Vol index ?18 ml/m2 LA ? 3.3 cm RA area ? 12 cm?RV Max 4C (d) ?? 3.3 cm Diastology: Mitral ?Tissue Doppler E Peak 1.2 m/s ??e', Septum ? 0.07 m/s A Peak 1.3 m/s ??e', Lateral ?0.07 m/s E/A ?0.9 ?E/e' Average ?? 16.53 DT ? 243 msec Aortic Valve: Vmax ? 2.0 m/s ??PAUL (V) ?? 2.70 cm? AI P 1/2 295 msec VTI ?0.44 m ?? APUL (I) ?? 3.01 cm? ? ? LVOT V max 1.6 m/s ??Max PG ?16 mmHg LVOT VTI ?? 0.39 m ?? Mean PG ?? 9 mmHg SV ? 132 ml ?? Dim Index 0.90 SV index ?? 74 ml/m? ? ? CO ?9.4 l/min ?CI ?5.3 l/min/m? ? ? Mitral Valve: MVA ?3.1 cm? ? ? MV P 1/2 70 msec Tricuspid Valve and estimated PA pressures: TAPSE 1.8 cm . This study was interpreted by an [facility] accredited facility. CC: HIM (med records) [facility], Med/Surg - IP [facility]. ??Final ?? Procedure Note Tonya Gregory, [facility] - 11/29/2023 ECHOCARDIOGRAM MARIAN LUX : 1940 83 years Study Date: 11/29/2023 10:59:00 AM Gender: F BP: 143/76 mmHg Height: 160.00 cm BSA: 1.78 m? ? ? Weight: 75.00 kg Tech: IZABELA Referring MD: TESS WEST Site: [facility] Reading Location: [facility] Patient Location: Inpatient. Procedure: 2D, Color Doppler and Spectral Doppler. Indication for study: Near syncope Cardiac Rhythm: Regular and with premature ventricular contractions.Studyquality: Fair. Final Impressions: 1. Normal left ventricular size, moderately increased wall thickness,hyperdynamic global systolic function, calculated EF of 78 %. 2. Right ventricular cavity size is normal, global systolic RV functionis normal. 3. Normal left atrium size. 4. The aortic valve is sclerotic, no stenosis and mild regurgitation. 5. The mitral valve is sclerotic, mild mitral regurgitation. 6. Tricuspid valve is normal. 7. No pericardial effusion. Chamber Sizes and Function Normal left ventricular size, moderately increased wall thickness,hyperdynamic global systolic function, calculated EF of 78 %. Left atrialsize is normal. Right ventricular cavity size is normal, global systolicRV function is normal. RV wall thickness is normal. The right atrium isnormal. Right atrial volume index is 18 ml/m? ? ?. Right atrial area is 12cm? ? ?. The pulmonary artery is not well visualized. The sinus of Valsalvais normal sized. The ascending aorta is normal sized. Valves, RV Pressures and Diastolic Function The aortic valve is sclerotic, no stenosis and mild regurgitation. Themitral valve is sclerotic, mild mitral regurgitation. Spectral Dopplershows Grade 1 pattern of LV diastolic filling. The tricuspid valve isnormal in structure. Tricuspid regurgitation is trace regurgitation. Thepulmonic valve is not well visualized. Trace pulmonary regurgitation. Masses, Effusion, Shunts There is no pericardial effusion. The inferior vena cava is normal sized,respiratory size variation greater than 50%. Interatrial septum is notwell visualized. MEASUREMENTS AND CALCULATIONS 2-D Measurements and LV Function: LVID (d) 3.2 cm Planimetered EF 78 % LVID (s) 1.7 cm LV FS% (2D) 48 % IVS (d) 1.5 cm LVOT diameter 2.1 cm LVPW (d) 1.4 cm HR 71 bpm Ao Sinus 3.2 cm LA Vol index 17 ml/m2 Asc Ao 3.6 cm RA Vol index 18 ml/m2 LA 3.3 cm RA area 12 cm? ? ? RV Max 4C (d) 3.3 cm Diastology: Mitral Tissue Doppler E Peak 1.2 m/s e', Septum 0.07 m/s A Peak 1.3 m/s e', Lateral 0.07 m/s E/A 0.9 E/e' Average 16.53 DT 243 msec Aortic Valve: Vmax 2.0 m/s PAUL (V) 2.70 cm? ? ? AI P 1/2 295 msec VTI 0.44 m PAUL (I) 3.01 cm? ? ? LVOT V max 1.6 m/s Max PG 16 mmHg LVOT VTI 0.39 m Mean PG 9 mmHg SV 132 ml Dim Index 0.90 SV index 74 ml/m? ? ? CO 9.4 l/min CI 5.3 l/min/m? ? ? Mitral Valve: MVA 3.1 cm? ? ? MV P 1/2 70 msec Tricuspid Valve and estimated PA pressures: TAPSE 1.8 cm . This study was interpreted by an [facility] accredited facility. CC: HIM (med records) [facility], Med/Surg - IP [facility]. Final Tess West MD ECHO ORD * LYME SCREEN W/REFLEX (11/22/2023 3:28 PM CDT) [facility] LYME SCREEN W/REFLEX Negative Negative 11/24/2023 9:53 AM CD[address] [facility] Comment: No laboratory evidence of infection [...] PM CDT Zoran Mosher MD SEND OUTS Performing Organization Address [facility] Co de Phone Number [facility] [address] [place] [address], * (ABNORMAL) FOLIC ACID (11/22/2023 3:28 PM CDT) Pathologist [facility] FOLIC ACID 35.1(H) 4.6 - 34.8 ng/mL 11/23/2023 4:08 PM CDT [facility] Blood BLOOD SPECIMEN / Unknown Venipuncture / Unknown 11/22/2023 3:28 PM CDT 11/22/2023 3:28 PM CDT Narrative [facility] - 11/23/2023 4:08 PM CDT Biotin supplements may cause clinically significant interference for this test assay. ??If interference is suspected, it is strongly recommended that biotin is discontinued for at least one week prior to retesting. Zoran Mosher MD CHEMISTRY Performing Organization Address [facility] Co de Phone Number [facility] [address] [place] [address], * (ABNORMAL) PANCREATIC ELASTASE FECAL (10/20/2023 9:10 AM CDT) Pathologist [facility] Pancreatic Elast Fecal 117(L) >200 ug Elast./g 10/25/2023 3:06 AM CDT [facility] Comment: ? Severe Pancreatic Insufficiency: ?<100 ? Moderate Pancreatic Insufficiency: ?? 100 - 200 ? Normal: ? >200 Stool STOOL SPECIMEN / Unknown Non-Blood / Unknown 10/20/2023 9:10 AM CDT 10/20/2023 9:52 AM CDT Narrative [facility] ([facility] - 10/25/2023 3:06 AM CDT Performed at: ??01 - [facility] [address] [place] [address] ??[id number] Samples And Repairs Preparer: Koffi Sanches MD, Phone: ??[phone] Rico Hunt MD MICROBIOLOGY Performing Organization Address City/State/[facility] Co de Phone Number [facility] [address] [place] [phone], from Last 3 Months Advance Directives * Full Code (Latest Code Status on File) Date Activated Date Inactivated Comments 10/01/2016 12:21 PM 10/01/2016 5:23 PM * Full Code Date Activated Date Inactivated Comments 11/09/2011 6:35 AM 11/09/2011 11:00 AM Care Teams Employment And Claims Aide Relationship Specialty Start Date End Date Annie Brown MD [address] [place] [address] PCP - General Internal Medicine 03/19/14
--- OUTSIDE RECORDS SUMMARY | 2023-12-02 06:06 | XMS_ITS | Encounter Summary ---
Author Name Unknown Organization [facility] Address [address] [place] [address] Care Team Providers Care Parts Control Clerk Name Role Phone Elsewhere, Pcp Primary Care Provider Unavailabl e Reason for Visit * Reason Onset Date Comments Pre-visit Intake 09/20/2023 Encounter Details Date Type Department Care Team (Latest Contact Info) Description 09/20/2023 8:15 AM CONVERSION MAN Clinical Communication Virtual Review in [place], [place] [address] [place] [address] Pre-visit Intake Social History Tobacco Use Types Packs/Day Years Used Date Smoking Tobacco: Never Passive Smoke Exposure: Never Smokeless Tobacco: Never Tobacco Cessation:Counseling Given: Not Answered Comments:As a child Alcohol Use Standard Drinks/Week Comments Yes 7 (1 standard drink = 0.6 oz pur e alcohol) [facility] Utilities Answer Date Recorded In the past 12 months has [employer] gas, oil, or water [employer] threatened to shut off services in [...] How often do you attend chur or hinduism services? Never 08/24/2022 Do you belong to any clubs o r organizations such as yarsani groups, unions, fraternal or athletic groups, or [...] and heating? Not hard at all 12/24/2022 [facility]at ionnj Health - Occupational Stress Questionnaire Answer Date [...] your living situation today? I have a [facility] place to live 09/17/2023 Education Answer [...] on filedocumented in this encounter Care Teams Parts Control Clerk Relationship Specialty Start Date End Date Elsewhere, Pcp PCP - General Internal Medicine 12/29/22 documented as of this encounter
--- OUTSIDE RECORDS SUMMARY | 2023-12-02 06:06 | XMS_ITS | Encounter Summary ---
Author Name Unknown Organization [facility] Address [address] [place] [address] Care Team Providers Care Pottery Decorator Name Role Phone Elsewhere, Pcp Primary Care Provider Unavailabl e Reason for Visit * Reason Onset Date Comments Triage 10/07/2023 Encounter Details Date Type Department Care Team (Late st Contact Info) Description 10/07/2023 Clinical Communication Division of General Internal Medicine in [place], [place] [address] [place] [address] Prescheduling, Provider Triage Social History Tobacco Use Types Packs/Day Years Used Date Smoking Tobacco: Never Passive Smoke Exposure: Never Smokeless Tobacco: Never Comments:As a child Alcohol Use Standard Drinks/Week Comments Yes 7 (1 standard drink = 0.6 oz pur e alcohol) [facility] Utilities Answer Date Recorded In the past 12 months has [facility] [employer], gas, oil, or water [email or web address] threatened to shut off services in your [...] often do you attend chur ch or pentecostalism services? Never 08/24/2022 Do you belong to [...] and heating? Not hard at all 12/24/2022 [facility] of Occupat ional Health - Occupational Stress [...] your living situation today? I have a [facility] place to live 09/17/2023 Education Answer [...] 10/07/2023 7:09 AM CDT marian lux [id number] years Height: 5 ft. 3 in. Weight: 172 Gender: Female PCP: nena Brown [facility] Who filled out ARF: Patient Request: I have medical symptoms without a clear diagnosis MAIN SYMPTOM Malaise Description: I describe it overall as feeling crummy. I have fatigue, feel dizzy some nausea, eyes often feel weird. I just don't feel good. It is a major problem. 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 Suárez, and now by [...] than 12 months Previous Eval: Yes Location: [facility] locations in [facility], and [facility], Gastroenterology and ENT Have had: Images (X-Rays, [...] causes that either. I have seen an [facility] prenatal nurse and also one visit to [place] to see one also. Duration: More than 12 months Previous Eval: Yes Location: PCP is at [facility]. Dr. Stephanie Bernal in [place] & [place] to see prenatal nurse Dr. Rico Hunt. [facility] in [place] to see prenatal nurse. Have had: Procedures (surgeries, colonoscopies, biopsies, etc.), [...] DIAGNOSIS: Yes Willing to attend [facility] or [facility] appointments - Probably not DAILY MEDS: 14 OPIOIDS: No CURRENT DIALYSIS: No CURRENT HEALTH/PAST YEAR: Fair CONFIDENCE: Somewhat agree NOT AVAILABLE: September, 10/31-11/08, 12/06, 12/30-01/06, 01/30-02/14 PHONE: [phone] documented in this encounter Plan of Treatment Not on file documented as of this encounter Visit Diagnoses Not on filedocumented in this encounter Care Teams Pottery Decorator Relationship Specialty Start Date End Date Elsewhere, Pcp PCP - General Internal Medicine 12/29/22 documented as of this encounter
--- OUTSIDE RECORDS SUMMARY | 2023-12-02 06:06 | XMS_ITS | Encounter Summary ---
Author Name Unknown Organization [facility] Address [address] [place] [address] Care Team Providers Care Mental Telepathist Name Role Phone Elsewhere, Pcp Primary Care Provider Unavailabl e Reason for Visit * Reason Onset Date Comments Questions 10/20/2023 Encounter Details Date Type Department Care Team (Latest Contact Info) Description 10/20/2023 Clinical Communication Division of Endocrinology in [place], [place] [address] [place] [phone] Margi Avila M.D. [address] [place] [phone] Questions Social History Tobacco Use Types Packs/Day Years Used Date Smoking Tobacco: Never Passive Smoke Exposure: Never Smokeless Tobacco: Never Comments:As a child Alcohol Use Standard Drinks/Week Comments Yes 7 (1 standard drink = 0.6 oz pur e alcohol) [facility] Utilities Answer Date Recorded In [...] How often do you attend chur or church services? Never 08/24/2022 Do you [...] heating? Not hard at all 12/24/2022 [facility] of Occupat ional Health - [...] your living situation today? I have a [facility] place to live 09/17/2023 Education Answer [...] on filedocumented in this encounter Care Teams Mental Telepathist Relationship Specialty Start Date End Date Elsewhere, Pcp PCP - General Internal Medicine 12/29/22 documented as of this encounter
--- OUTSIDE RECORDS SUMMARY | 2023-12-02 06:06 | XMS_ITS | Encounter Summary ---
Author Name Unknown Organization [facility] Address [address] [place] [address] Care Team Providers Care Veneer Production Machine Operator Name Role Phone Elsewhere, Pcp Primary Care Provider Unavailabl e Encounter Details Date Type Department Care Team (Late st Contact Info) Description 10/13/2023 Orders Only Division of Endocrinology in [place], [place] [address] [place] [phone] Margi Avila M.D. [address] [place] [phone] Osteoporosis (Primary Dx) Social History Tobacco Use Types Packs/Day Years Used Date Smoking Tobacco: Never Passive Smoke Exposure: Never Smokeless Tobacco: Never Comments:As a child Alcohol Use Standard Drinks/Week Comments Yes 7 (1 standard drink = 0.6 oz pur e alcohol) [facility] Utilities Answer Date Recorded In the past 12 months has [facility] [employer], gas, oil, or water [employer] threatened to shut off services in your [...] 08/24/2022 How often do you attend chur [employer] or moravian services? Never 08/24/2022 Do you belong to any clubs o r organizations such as congregational groups, unions, fraternal or athletic groups, or [...] and heating? Not hard at all 12/24/2022 [facility] of Occupat ional Health - [...] Primary documented in this encounter Care Teams Veneer Production Machine Operator Relationship Specialty Start Date End Date Elsewhere, Pcp PCP - General Internal Medicine 12/29/22 documented as of this encounter
--- OUTSIDE RECORDS SUMMARY | 2023-12-02 06:06 | XMS_ITS | Encounter Summary ---
Author Name Unknown Organization [facility] Address [address] [place] [address] Care Team Providers Care Warp Preparer Name Role Phone Elsewhere, Pcp Primary Care Provider Unavailabl e Encounter Details Date Type Department Care Team (Late st Contact Info) Description 11/15/2023 Clinical Communication Department of Infusion Therapy in [place], [place] [address] [place] [phone] Joy Cooper, R.N. Social History Tobacco Use Types Packs/Day Years Used Date Smoking Tobacco: Never Passive Smoke Exposure: Never Smokeless Tobacco: Never Comments:As a child Alcohol Use Standard Drinks/Week Comments Yes 7 (1 standard drink = 0.6 oz pur e alcohol) [facility] Utilities Answer Date Recorded In the past 12 months has [employer], gas, oil, or water [employer] threatened to shut off services in your [...] often do you attend chur ch or holiness services? Never 08/24/2022 Do you belong to any clubs o r organizations such as scientology groups, unions, fraternal or athletic groups, or [...] and heating? Not hard at all 12/24/2022 [facility] of Occupat ionpr Health - Occupational Stress Questionnaire Answer Date [...] your living situation today? I have a [facility] place to live 09/17/2023 Education Answer [...] on filedocumented in this encounter Care Teams Warp Preparer Relationship Specialty Start Date End Date Elsewhere, Pcp PCP - General Internal Medicine 12/29/22 documented as of this encounter
--- OUTSIDE RECORDS SUMMARY | 2023-12-02 06:06 | XMS_ITS | Encounter Summary ---
Author Name Unknown Organization [facility] Address [address] [place] [address] Care Team Providers Care Optical Lathe Operator Name Role Phone Elsewhere, Pcp Primary Care Provider Unavailabl e Encounter Details Date Type Department Care Team (Latest Contact Info) Description 10/14/2023 Clinical Communication Division of Endocrinology in [place], [place] [address] [place] [phone] Sahra Hester, RAllyssaN. Social History Tobacco Use Types Packs/Day Years Used Date Smoking Tobacco: Never Passive Smoke Exposure: Never Smokeless Tobacco: Never Comments:As a child Alcohol Use Standard Drinks/Week Comments Yes 7 (1 standard drink = 0.6 oz pur e alcohol) [facility] Utilities Answer Date Recorded In the past 12 months has [facility] [employer], gas, oil, or water [employer] threatened to shut off services in your [...] How often do you attend chur or anabaptist services? Never 08/24/2022 Do you belong to any clubs o r organizations such as worship groups, unions, fraternal or athletic groups, or [...] and heating? Not hard at all 12/24/2022 [facility] of Occupat ional Health - Occupational [...] your living situation today? I have a [facility] place to live 09/17/2023 Education [...] on filedocumented in this encounter Care Teams Optical Lathe Operator Relationship Specialty Start Date End Date Elsewhere, Pcp PCP - General Internal Medicine 12/29/22 documented as of this encounter
--- OUTSIDE RECORDS SUMMARY | 2023-12-02 06:06 | XMS_ITS | Encounter Summary ---
Author Name Unknown Organization [facility] Address [address] [place] [address] Care Team Providers Care Furniture Assembler Name Role Phone Elsewhere, Pcp Primary Care Provider Unavailabl e Encounter Details Date Type Department Care Team (Late st Contact Info) Description 10/04/2023 [facility] [address] [place] [address] Annie Brown M.D. [address] [place] [phone] Malaise (Primary Dx); Fatigue Social History Tobacco Use Types Packs/Day Years Used Date Smoking Tobacco: Never Passive Smoke Exposure: Never Smokeless Tobacco: Never Comments:As a child Alcohol Use Standard Drinks/Week Comments Yes 7 (1 standard drink = 0.6 oz pur e alcohol) [facility] Utilities Answer Date Recorded In the past 12 months has [employer], gas, oil, or water [employer] threatened to shut off services in your [...] often do you attend chur ch or orthodoxy services? Never 08/24/2022 Do you belong to any clubs o r organizations such as rastafarian groups, unions, fraOplerno or athletic groups, or school groups? No [...] your living situation today? I have a [facility] place to live 09/17/2023 Education Answer [...] Fatigue documented in this encounter Care Teams Furniture Assembler Relationship Specialty Start Date End Date Elsewhere, Pcp PCP - General Internal Medicine 12/29/22 documented as of this encounter
--- OUTSIDE RECORDS SUMMARY | 2023-12-02 06:06 | XMS_ITS | Encounter Summary ---
Author Name Unknown Organization [facility] Address [address] [place] [address] Care Team Providers Care Dial Refinisher Name Role Phone Elsewhere, Pcp Primary Care Provider Unavailabl e Reason for Visit * Reason Onset Date Comments [employer] 10/20/2023 Encounter Details Date Type Department Care Team (Latest Contact Info) Description 10/20/2023 Clinical Communication Division of Endocrinology in [place], [place] [address] [place] [phone] Margi Avila M.D. [address] [place] [phone] [facility] [employer] Social History Tobacco Use Types Packs/Day Years Used Date Smoking Tobacco: Never Passive Smoke Exposure: Never Smokeless Tobacco: Never Comments:As a child Alcohol Use Standard Drinks/Week Comments Yes 7 (1 standard drink = 0.6 oz pur e alcohol) [facility] Utilities Answer Date Recorded In [...] any clubs o r organizations such as nondenominational groups, unions, fraternal or athletic groups, or [...] and heating? Not hard at all 12/24/2022 [facility] [employer] of Occupat ional Health - Occupational Stress [...] your living situation today? I have a [facility] place to live 09/17/2023 Education Answer [...] on filedocumented in this encounter Care Teams Dial Refinisher Relationship Specialty Start Date End Date Elsewhere, Pcp PCP - General Internal Medicine 12/29/22 documented as of this encounter
--- OUTSIDE RECORDS SUMMARY | 2023-12-02 06:06 | XMS_ITS | Encounter Summary ---
Author Name Unknown Organization [facility] Address [address] [place] [address] Care Team Providers Care Residential Pest Control Technician Name Role Phone Elsewhere, Pcp Primary Care Provider Unavailabl e Reason for Visit * Outpatient (Routine) - Closed Specialty Diagnoses / Procedures Referred By Celena bradley Referred To Contact Endocrinology Diagnoses Mass Adrenal (HCC) Hypercortisolemia Margi Avila M.D. [address] [place] [phone] [facility] Referral ID Status Reason Start Date Expiration Date Visits Re quested Visits Authorized [id number] Closed 07/12/2023 07/11/2026 1 1 Encounter Details Date Type Department Care Team (Latest Contact Info) Description 09/22/2023 12:00 PM POCKETED SPRING MACHINE OPERATOR Telemedicine Division of Endocrinology in [place], [place] [address] [place] [phone] Margi Avila M.D. [address] [place] [phone] Mass Adrenal (HCC); Hypercortisolemia Social History Tobacco Use Types Packs/Day Years Used Date Smoking Tobacco: Never Passive Smoke Exposure: Never Smokeless Tobacco: Never Comments:As a child Alcohol Use Standard Drinks/Week Comments Yes 7 (1 standard drink = 0.6 oz pur e alcohol) [facility] Utilities Answer Date Recorded In the past 12 months has th e [employer], gas, oil, or water [employer] threatened to shut off services in your [...] often do you attend chur ch or latter day services? Never 08/24/2022 Do you belong to [...] and heating? Not hard at all 12/24/2022 [facility] of Occupat ional Health - Occupational Stress [...] your living situation today? I have a [facility] place to live 09/17/2023 Education [...] ACTH (Adrenocorticotropic Hormone); Future; Expected date: 05/22/2024 ETED SPRING MACHINE OPERATOR documented in this encounter Plan of Treatment Scheduled Orders Name Type Priority Associated Diagnoses Orde r Schedule Cortisol Lab Routine Mass Adrenal (HCC) Hypercortisolemia Expected: 05/22/2024, Expires: 09/22/2024 ACTH (Adrenocorticotropic Hormone) Lab Routine Mass Adrenal (HCC) Hypercortisolemia Expected: 05/22/2024, Expires: 09/22/2024 documented as of this encounter Visit Diagnoses Diagnosis Mass Adrenal (HCC) Hypercortisolemia documented in this encounter Care Teams Residential Pest Control Technician Relationship Specialty Start Date End Date Elsewhere, Pcp PCP - General Internal Medicine 12/29/22 documented as of this encounter
--- OUTSIDE RECORDS SUMMARY | 2023-12-02 06:06 | XMS_ITS | Encounter Summary ---
Author Name Unknown Organization [facility] Address [address] [place] [address] Care Team Providers Care Ems Helicopter Pilot Name Role Phone Elsewhere, Pcp Primary Care Provider Unavailabl e Encounter Details Date Type Department Care Team (Latest Contact Info) Description 10/26/2023 Clinical Communication Division of Endocrinology in [place], [place] [address] [place] [phone] Margi Avila M.D. [address] [place] [phone] Social History Tobacco Use Types Packs/Day Years Used Date Smoking Tobacco: Never Passive Smoke Exposure: Never Smokeless Tobacco: Never Comments:As a child Alcohol Use Standard Drinks/Week Comments Yes 7 (1 standard drink = 0.6 oz pur e alcohol) [facility] Utilities Answer Date Recorded In the past 12 months has e [employer], gas, oil, or water [employer] threatened to shut off services in your [...] 08/24/2022 How often do you attend chur [employer] or church services? Never 08/24/2022 Do you belong to any clubs o r organizations such as druze groups, unions, fraternal or athletic groups, or [...] and heating? Not hard at all 12/24/2022 [facility] of Occupat ional Health - [...] your living situation today? I have a [facility] place to live 09/17/2023 Education Answer Date [...] Subsequent documented in this encounter Care Teams Ems Helicopter Pilot Relationship Specialty Start Date End Date Elsewhere, Pcp PCP - General Internal Medicine 12/29/22 documented as of this encounter
--- OUTSIDE RECORDS SUMMARY | 2023-12-02 06:06 | XMS_ITS | Encounter Summary ---
Author Name Unknown Organization [facility] Address [address] [place] [address] Care Team Providers Care Consultant Nurse Name Role Phone Elsewhere, Pcp Primary Care Provider Unavailabl e Encounter Details Date Type Department Care Team (Late st Contact Info) Description 10/19/2023 Orders Only Division of Endocrinology in [place], [place] [address] [place] [phone] Margi Avila M.D. [address] [place] [phone] Osteopenia (Primary Dx); Osteoporosis Social History Tobacco Use Types Packs/Day Years Used Date Smoking Tobacco: Never Passive Smoke Exposure: Never Smokeless Tobacco: Never Comments:As a child Alcohol Use Standard Drinks/Week Comments Yes 7 (1 standard drink = 0.6 oz pur e alcohol) [facility] Utilities Answer Date Recorded In the past [address] [facility] [employer], gas, oil, or water [employer] threatened to shut off services in your [...] 08/24/2022 How often do you attend chur [employer] or zoroastrianism services? Never 08/24/2022 Do you belong to any clubs o r organizations such as oriental orthodox groups, unions, fraShipEarly or athletic groups, or school groups? No [...] and heating? Not hard at all 12/24/2022 [facility] of Occupat ional Health - Occupational [...] your living situation today? I have a [facility] place to live 09/17/2023 Education [...] Osteoporosis documented in this encounter Care Teams Consultant Nurse Relationship Specialty Start Date End Date Elsewhere, Pcp PCP - General Internal Medicine 12/29/22 documented as of this encounter
--- OUTSIDE RECORDS SUMMARY | 2023-12-02 06:06 | XMS_ITS | Encounter Summary ---
Author Name Unknown Organization [facility] Address [address] [place] [address] Care Team Providers Care Manager Activities Name Role Phone Elsewhere, Pcp Primary Care Provider Unavailabl e Encounter Details Date Type Department Care Team (Late st Contact Info) Description 10/19/2023 Orders Only Division of Endocrinology in [place], [place] [address] [place] [phone] Margi Avila M.D. [address] [place] [phone] Social History Tobacco Use Types Packs/Day Years Used Date Smoking Tobacco: Never Passive Smoke Exposure: Never Smokeless Tobacco: Never Comments:As a child Alcohol Use Standard Drinks/Week Comments Yes 7 (1 standard drink = 0.6 oz pur e alcohol) [facility] Utilities Answer Date Recorded In the past 12 months has [employer], gas, oil, or water [employer] threatened to shut off services in your [...] 08/24/2022 How often do you attend chur [employer] or tenriism services? Never 08/24/2022 Do you belong to any clubs o r organizations such as taoism groups, unions, fraternal or athletic groups, or [...] and heating? Not hard at all 12/24/2022 [facility] of Occupat ional Health - [...] your living situation today? I have a [facility] place to live 09/17/2023 Education Answer [...] on filedocumented in this encounter Care Teams Manager Activities Relationship Specialty Start Date End Date Elsewhere, Pcp PCP - General Internal Medicine 12/29/22 documented as of this encounter
== END 2023-11-28 12:45 | disposition home or self-care (01) ==
LOC: AMB 12-02 06:04
PROVIDERS: PCP Internal Medicine; Visit Provider Family Medicine
DX: R55 Syncope and collapse (principal)
CPT/HCPCS: A0425; A0429

== ENCOUNTER 2023-11-28 13:09 | Observation (INO) | payer MEDICARE, SELFPAY ==
[2023-11-28 13:17] VITALS: BP 140/70; PULSE 74; RESP 18; TEMP 36.3; O2SAT 97; BMI 29.2
--- NOTE | 2023-11-28 13:38 | ED_ITS ---
HPI - General Adult General Date Seen: 11/28/23 Chief complaint: Weakness Stated complaint: fainting Time Seen by Provider: 11/28/23 13:26 History of Present Illness HPI narrative: This is an 83-year-old female with a complex past history. Per clinic note from 11/22/2023, past history includes History of parathyroidectomy (Acute) ?E89.2 - Postprocedural hypoparathyroidism (ICD-10)Osteoporosis (Chronic) By DEXA scan in [place] 09/03/23 R femoral neck T-score -2.3. T11 osteoporotic compression fx on 07/25/23 (she had T10 and T11 kyphoplasty through outside spine clinic 09/18 and 08/18), abaloparatide/Tymlos (for 2 years, then needs to go on bisphosphonate) started 09/18, changed to Evenity through [facility] (to be given in [place]), 10/16, but she decided she did want to get things scheduled in [place] and asked to go back on alendronate 11/16 which was done 11/16 ?M81.0 - Age-related osteoporosis without current pathological fracture (ICD- 10)History of compression fracture of spine (Acute) osteoporotic fx T11 from fall on 07/25/23. Had T11 kyphoplasty on 08/13/23 and T10 kyphoplasty on 08/27/23, both in [place]. ?Z87.81 - Personal history of (healed) traumatic fracture (ICD-10)Anxiety (Acute) saw bias machine operator helper, Malika Flores, 02/14, who started duloxetine ?F41.9 - Anxiety disorder, unspecified (ICD-10)Spinal stenosis (Acute) ?M48.00 - Spinal stenosis, site unspecified (ICD-10)Lumbar degenerative disc disease (Acute) ?M51.36 - Other intervertebral disc degeneration, lumbar region (ICD-10)Coronary artery disease (Acute) NM cardiac stress test 02/13 showed medium-sized area of mild ischemia involving the mid and apical anterior and anteroseptal bobby and apex, [facility] cardiology recommended imdur as of 04/16 ?I25.10 - Atherosclerotic heart disease of [place] coronary artery without angina pectoris (ICD-10)Obesity with body mass index 30 or greater (Acute) BMI 31.5 (patient report weight, refused to be weighed on 12/08/2022) ?E66.9 - Obesity, unspecified (ICD-10)Chronic fatigue (Acute) Chronic (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 Suárez 08/14, now seeing Dr. 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 Hunt, GI, 03/11 with reportedly normal EGD (IBS/non-ulcerative dyspepsia) also has nausea, on sucralfate in past, chronic LUQ pain, also saw [facility] 05/12 who felt that she was interpreting malasie as nausea, and no further GI work-up was needed, has especially chronic LUQ pain, Iberogast (herbal preparation) recommended 10/11 ?K58.9 - Irritable bowel syndrome without diarrhea (ICD-10)Gastroesophageal reflux disease (Acute) ?K21.9 - Gastro-esophageal reflux disease without esophagitis (ICD- 10)Exophthalmos of left eye (Acute 2020) See summary letter of Dr. Trey Arnett, ophthalmology, 01/27/2021 indicating the diagnosis of this condition dating back to January 2019. Dr. Arnett recommends MRI of the brain and treatment for Deadwood's which patient refused. ?H05.20 - Unspecified exophthalmos (ICD-10)Excessive daytime sleepiness (Acute) ?G47.19 - Other hypersomnia (ICD-10)Essential hypertension (Acute) on medication since around 1993, HCTZ started 11/14 by underwater welder, Dr. Newby, unable to increase further since Cr 1.1 went to 1.49, [facility] cardiology recommended imdur, underwater welder started HCTZ, which was stopped 05/17 due to hyponatremia ?I10 - Essential (primary) hypertension (ICD-10)Chronic abdominal pain (Acute) 2017, has had a CT scan, endoscopy, and consultation with Dr. Hunt (through 2016), also saw [facility] 05/12 who felt that she was interpreting malaise as nausea, and no further GI work-up was needed, has especially chronic LUQ pain, Iberogast (herbal preparation) recommended 10/11, saw Dr. Hunt 09/17 and he was ruling out maldigestion with fecal elastase, Dr. 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 Suárez recommended CT recheck 03/15 which was stable). ?D35.00 - Benign neoplasm of unspecified adrenal gland (ICD-10)Hyperlipidemia (Acute) Statin started 08/09 after stroke ?E78.5 - Hyperlipidemia, unspecified (ICD-10) She presents to the ER today from her home by EMS, accompanied by her and son. She notes that she has really been feeling unwell for years. Symptoms would include fatigue, dizzy spells, nausea, body aches. 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 She is on a cortisol kristyn medication for. She also has significant osteoporosis and has had falls in the past with compression fractures due to osteoporosis. She had a syncopal event that occurred on 2022 that brought her to the ER here at [place]. She had a preliminary workup that was negative. At the time of her ER visit she was anemic having any pain or injuries. She then traveled to [place], where she spends the winter with her . A few days later, while in for [place] she started having back pain and was diagnosed with a T11 compression fracture. She underwent a kyphoplasty for that and then had ongoing back pain and was diagnosed with a T10 fracture as well. She is now finally recovering from her back pain. She still has ongoing fatigue and achiness. 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 She has not had any further fainting spells or dizzy spells since then. She has been having some new spells of intermittent right posterior ribcage discomfort and then left posterior rib cage discomfort for the past few weeks. She has not had any recent deterioration in her health. No recent respiratory illness or fever or cough or cold. No vomiting or diarrhea. No new fevers or chills. No new swelling in her legs. No new medications other than she started on Fosamax a couple of days ago. She had been on other medications for her osteoporosis but is switching to Fosamax. She was feeling poorly this morning. It sounds like she was at her baseline with fatigue and weakness and dizziness. She was well enough that she was in the kitchen this afternoon fixing lunch which she began to feel very dizzy and presyncopal. She felt her body in getting weak and she felt herself about to pass out. She was barely strong enough but she managed to get herself to a couch where she sat down. Her was with her and responded. He recalls that she seemed to be in and out of consciousness. He grabbed her home pulse oximeter and put it on for her. After some difficulty a did give him a reading of a pulse rate of 35 and an oxygen saturation in the 80s. He checked it on his own finger to make sure it was accurate and it read normally for him. She remained like this for a couple of minutes. He called 911. After a less than 10 minutes she gradually regained consciousness. She does not recall any chest pain, shortness of breath, palpitations, or other symptoms with this event. Since the event she is now feeling back to normal which is somewhat weak, dizzy. She is having achiness in her back and in her right knee. These are fairly chronic problems for her Related Data Home Medications Medication Instructions Recorded Confirmed famotidine 20 mg tablet 20 mg PO .Bedtime 04/30/22 11/22/23 multivitamin (Multiple Vitamins 1 tab PO QAM 04/30/22 11/22/23 tablet) polyethylene glycol 3350 17 g PO DAILY 04/30/22 11/22/23 gram/dose oral powder acetaminophen 500 mg capsule 500 mg PO DAILY PRN 07/02/22 11/22/23 melatonin 3 mg capsule 3 mg PO QHS 07/02/22 11/22/23 rosuvastatin 40 mg tablet 40 mg PO QDAY 07/02/22 11/22/23 vit C 250 mg-vit E 90 mg-zinc 40 1 tab PO BID 07/02/22 11/22/23 mg-copper 1 sw-ldctcc-twicna capsule (PreserVision AREDS-2) valsartan 160 mg tablet 160 mg PO QDAY 07/06/22 11/22/23 osilodrostat 1 mg tablet (Isturisa) 0.5 mg PO BID 05/04/23 11/22/23 gabapentin 100 mg capsule 100 mg PO 3XD 09/16/23 11/22/23 ondansetron 4 mg disintegrating 4 mg PO PRN 09/16/23 11/22/23 tablet calcium citrate 200 mg 3 tab PO QDAY 11/22/23 11/22/23 calcium-vitamin D3 6.25 mcg (250 unit) tablet (Citracal-D3 Petites) Previous Rx's Medication Instructions Recorded omeprazole 20 mg capsule,delayed 20 mg PO DAILY #90 caps 05/25/23 release amlodipine 10 mg tablet 10 mg PO DAILY #90 tabs 07/16/23 clopidogrel 75 mg tablet 75 mg PO QDAY #90 tabs 07/27/23 abaloparatide (Tymlos) 80 mcg (0.04 mL) subcut QDAY #1.56 09/16/23 mL alendronate 70 mg tablet 70 mg PO QWEEK #12 tabs 11/22/23 Allergies Allergy/AdvReac Type Severity Reaction Status Date / Time tramadol Allergy Intermediate nausea, Verified 11/28/23 16:30 vomiting codeine AdvReac Unknown Nausea Verified 11/28/23 16:30 PFSH [facility] Medical History (Updated 11/28/23 @ 18:46 by Roldan West MD) Aortic valve regurgitation ?I35.1 - Nonrheumatic aortic (valve) insufficiency (ICD-10) Chronic hyponatremia ?E87.1 - Hypo-osmolality and hyponatremia (ICD-10) Osteoporosis ?M81.0 - Age-related osteoporosis without current pathological fracture (ICD- 10) History of compression fracture of spine ?Z87.81 - Personal history of (healed) traumatic fracture (ICD-10) Anxiety ?F41.9 - Anxiety disorder, unspecified (ICD-10) Spinal stenosis ?M48.00 - Spinal stenosis, site unspecified (ICD-10) Coronary artery disease ?I25.10 - Atherosclerotic heart disease of [place] coronary artery without angina pectoris (ICD-10) Obesity with body mass index 30 or greater ?E66.9 - Obesity, unspecified (ICD-10) Chronic fatigue ?R53.82 - Chronic fatigue, unspecified (ICD-10) Premature atrial contractions ?I49.1 - Atrial premature depolarization (ICD-10) 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) History of ischemic stroke ?Z86.73 - Personal history of transient ischemic attack (TIA), and cerebral infarction without residual deficits (ICD-10) Unsteady gait ?R26.81 - Unsteadiness on feet (ICD-10) Irritable bowel syndrome ?K58.9 - Irritable bowel syndrome without diarrhea (ICD-10) Gastroesophageal reflux disease ?K21.9 - Gastro-esophageal reflux disease without esophagitis (ICD-10) Exophthalmos of left eye (2020) ?H05.20 - Unspecified exophthalmos (ICD-10) Excessive daytime sleepiness ?G47.19 - Other hypersomnia (ICD-10) Essential hypertension ?I10 - Essential (primary) hypertension (ICD-10) Chronic abdominal pain ?R10.9 - Unspecified abdominal pain (ICD-10) ?G89.29 - Other chronic pain (ICD-10) Adrenal adenoma ?D35.00 - Benign neoplasm of unspecified adrenal gland (ICD-10) Hyperlipidemia ?E78.5 - Hyperlipidemia, unspecified (ICD-10) Pes planus of both feet ?M21.41 - Flat foot [pes planus] (acquired), right foot (ICD-10) ?M21.42 - Flat foot [pes planus] (acquired), left foot (ICD-10) Adductor tendinitis of both hips ?M76.891 - Other specified enthesopathies of right lower limb, excluding foot (ICD-10) ?M76.892 - Other specified enthesopathies of left lower limb, excluding foot (ICD-10) Greater trochanteric bursitis of both hips ?M70.61 - Trochanteric bursitis, right hip (ICD-10) ?M70.62 - Trochanteric bursitis, left hip (ICD-10) Lumbar degenerative disc disease ?M51.36 - Other intervertebral disc degeneration, lumbar region (ICD-10) History of renal calculi ?Z87.442 - Personal history of urinary calculi (ICD-10) Surgical History 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 - Acquired absence of eye (ICD-10) History of kyphoplasty (08/13/23) ?Z98.890 - Other specified postprocedural states (ICD-10) History of cataract surgery (2017) ?Z98.49 - Cataract extraction status, unspecified eye (ICD-10) 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.2 - Postprocedural hypoparathyroidism (ICD-10) Family History Father Heart disease Son Heart disease Mother High blood pressure Social History What is your current living situation?: I presently have a place to live Problems where you live: no known problems Problems where you live details: NA In the past 12 months, utilities in danger of being shut off: no In past 12 months, lack of transportation kept you from medical appts, meetings, work, or getting things needed for daily living: no In the past 12 mos, have been you worried that your food would run out before you had money to buy more?: never true In the past 12 mos, the food you bought just didn't last and you didn't have money to buy more?: never true Highest level of school completed/degree received: Associate degree: academic program Smoking Status: Never smoker Do you use any of these nicotine containing products: None Second hand tobacco smoke exposure: Yes (youth) How often do you have a drink containing alcohol: 4 or more times a week Alcohol type: wine Alcohol type details: one glass of wine per night How many standard drinks containing alcohol do you have on a typical day: 1 or 2 How often do you have six or more drinks on one occasion: Never AUDIT-C Alcohol total score: 4 Non-prescribed substance use: denies use Caffeine: Yes (Coffee in AM) How often does anyone, including family, friends and others, physically hurt you : never How often does anyone, including family, friends and others, insult or talk down to you: never How often does anyone, including family, friends and others, threaten you with harm: never How often does anyone, including family, friends and others, scream or curse at you: never Little interest or pleasure in doing things: not at all Feeling down, depressed, or hopeless: not at all service: No Exam Narrative: Exam Narrative: Constitutional: Appears well-developed and well-nourished. Alert. Conversant. Non toxic. HENT: Head: Atraumatic. Nose: Nose normal. Mouth/Throat: Oral mucosa is clear and moist. no trismus. Pharynx normal. Tonsils symmetric. No tonsillar enlargement, erythema, or exudate. Eyes: Conjunctivae normal. EOM normal. Pupils equal, round, and reactive to light. No scleral icterus. Neck: Normal range of motion. Neck supple. No tracheal deviation present. Cardiovascular: Normal rate, regular rhythm. No gallop. No friction rub. Soft systolic murmur heard. Symmetric radial and PT artery pulses . No JVD Pulmonary/Chest: Effort normal. No stridor. No respiratory distress. No wheezes. No rales. No rhonchi . No tenderness. Abdominal: Soft. No distension. No mass. No tenderness. No rebound. No guarding. Musculoskeletal: RUE: Normal range of motion. No tenderness. No deformity LUE: Normal range of motion. No tenderness. No deformity RLE: Normal range of motion. No edema. No tenderness. No deformity LLE: Normal range of motion. No edema. No tenderness. No deformity No posterior bruising. No midline step-off in the back Neurological: Alert and oriented to person, place, and time. Normal strength. CN II-VII intact. No sensory deficit. GCS eye subscore is 4. GCS verbal subscore is 5. GCS motor subscore is 6. Normal coordination Skin: Skin is warm and dry. No rash noted. No pallor. Normal capillary refill. Psychiatric: Normal mood. Normal affect. Const: Vital Signs, click to edit/add: Vital Signs - 24 hr 11/28/23 13:17 Temperature 97.4 F L Pulse Rate [Right Pulse Oximeter] 74 Respiratory Rate 18 Blood Pressure [Ri t Upper Arm] 140/70 H Pulse Oximetry 97 Oxygen Delivery Me thod Room Air Course Vital Signs Vital signs: Initial Vital Signs Temperature 97.4 F L 11/28/23 13:17 Temperature Source Temporal Artery Scan 11/28/23 13:17 Pulse Rate 74 11/28/23 13:17 Pulse Rhythm Regular 11/28/23 13:17 Pulse Strength 3+ Normal 11/28/23 13:17 Respiratory Rate 18 11/28/23 13:17 Blood Pressure 140/70 H 11/28/23 13:17 Blood Pressure Mean 93 11/28/23 13:17 Blood Pressure Position Sitting 11/28/23 13:17 Pulse Oximetry 97 11/28/23 13:17 Oxygen Delivery Method Room Air 11/28/23 13:17 Vital Signs Temperature 97.4 F L 11/28/23 13:17 Pulse Rate 74 11/28/23 13:17 Respiratory Rate 18 11/28/23 13:17 Blood Pressure 140/70 H 11/28/23 13:17 Pulse Oximetry 97 11/28/23 13:17 Oxygen Delivery Method Room Air 11/28/23 13:17 Temperature 98.0 F 11/28/23 18:34 Pulse Rate 84 11/28/23 18:50 Respiratory Rate 18 11/28/23 18:34 Blood Pressure 146/71 H 11/28/23 18:50 Pulse Oximetry 97 11/28/23 18:34 Oxygen Delivery Method Room Air 11/28/23 18:34 Medications Administered Medications: Generic Name Dose Route Start Last Admin Trade Name Freq PRN Reason Stop Dose Admin Famotidine 20 mg 11/28/23 21:00 11/28/23 21:19 Famotidine 20 Mg Tablet PO 20 mg BEDTIME JARETH Administration Gabapentin 100 mg 11/28/23 21:00 11/28/23 21:18 Gabapentin 100 Mg Capsule PO 100 mg TID JARETH Administration Sodium Chloride 1,000 mls @ 75 mls/hr 11/28/23 18:26 11/28/23 21:17 0.9 % Sodium Chloride 1000 Ml IV 11/29/23 07:45 75 mls/hr .[id number] JARETH Administration Melatonin 3 mg 11/28/23 21:00 11/28/23 21:18 Melatonin 3 Mg Tablet PO 3 mg BEDTIME JARETH Administration Sodium Chloride 5 ml 11/28/23 21:00 11/28/23 21:19 Sodium Chloride 0.9 % (Flush) 10 Ml Syringe IVF 5 ml BID JARETH Administration Discontinued Medications Generic Name Dose Route Start Last Admin Trade Name Ronq PRN Reason Stop Dose Admin Azithromycin 500 mg 11/28/23 18:26 11/28/23 21:18 Azithromycin 250 Mg Tablet PO 11/28/23 18:27 500 mg ONCE ONE Administration Sodium Chloride 1,000 mls @ 1,000 mls/hr 11/28/23 14:30 11/28/23 17:43 0.9 % Sodium Chloride 1000 Ml IV 11/28/23 15:29 Infused .Q1H JARETH Infusion Azithromycin 500 mg/ Sodium 255 mls @ 255 mls/hr 11/28/23 16:47 11/28/23 17:44 Chloride IVPB 11/28/23 16:48 Not Given ONCE ONE Ceftriaxone Sodium 1 gm/ 100 mls @ 200 mls/hr 11/28/23 16:47 11/28/23 17:45 Sodium Chloride IVPB 11/28/23 16:48 Not Given ONCE ONE Medical Decision Making MDM Narrative Medical decision making narrative: This patient presents for evaluation of a near syncopal event. A broad differential was considered. She does have chronic questions disease, parathyroid deficiency, osteoporosis, and long-term fatigue. did a pulse oximetry reading for the patient while she was semiconscious and she had a pulse rate in the 30s suggesting either a marked vagal event with bradycardia or possibly a high-degree AV block. Unfortunately were not able to get any rhythm strip a recording of that event to determine true rhythm. Initial ECG shows normal sinus rhythm and no dysrhythmogenic abnormality such as WPW, prolonged QT, Brugada syndrome, and no ischemia. No symptoms/findings concerning for cardiac ischemia or ACS . EKG nonischemic and troponin normal. She did not have any chest pain. She has been having a lot of posterior thorax pain over recent days or weeks. It sounds like this is increased from her baseline. Symmetric pulses on exam but consider possible dissection causing her syncopal event. CT scan shows no evidence for dissection. No new thoracic fractures. No headache or other neurologic symptoms to suggest subarachnoid , stroke . No reported seizure-like activity or postictal phase. media monitor while the patient here in the ER showed no dysrhythmia or ectopy, episodes of bradycardia, or high-degree AV block. She does have leukocytosis with white count of 19, which is new for her. Urinalysis is abnormal with 10-25 WBC. Few squamous epithelial cells so this is likely a true UTI. Also CT scan of the patient's long shows a left upper lobe infiltrate, possibly a pneumonia. reported that she was hypoxic at home, but she has normal oxygen sats here in the ER. She does not have any r ecent cough. Nonetheless with leukocytosis and weakness and near-syncope, consider possible infection leading to sepsis. She does not have any tachycardia or hypotension here in the ER other clear sepsis physiology. Venous lactic acid is normal at 1.6. Will start antibiotics to treat her UTI and for community-acquired pneumonia. Discussed with our hospitalist, Dr. West, who will accept for admission. Lab Data Labs: Lab Results 11/28/23 11/28/23 11/28/23 Range/Units 14:45 15:00 15:30 WBC 19.65 H (4.50-11.00) K/uL RBC 4.21 (4.00-5.20) m/uL Hgb 12.6 (12.0-16.0) gm/dL Hct 39.8 (33.0-51.0) % MCV 95 (80-100) fL MCH 30 (26-34) pg MCHC 32 (32-36) gm/dL RDW Coeff of Fidencio 15.2 (11.5-15.5) % Plt Count 494 H (140-440) K/uL Neut % (Auto) 79.8 H (42.0-72.0) % Lymph % (Auto) 8.7 L (20-44) % [place] % (Auto) 9.9 (0.0-11.0) % Eos % (Auto) 0.2 (0.0-7.0) % Baso % (Auto) 0.2 (0.0-3.0) % Neut # (Auto) 15.70 H (1.7-7.0) K/uL Lymph # (Auto) 1.70 (0.90-2.90) K/uL [place] # (Auto) 1.90 H (0.00-0.90) K/UL Eos # (Auto) 0.00 (0.00-0.50) K/uL Baso # (Auto) 0.00 (0.00-0.30) K/uL Abs Immat Gran (auto) 0.20 (0.00-0.30) K/uL Imm/Tot Granulo (auto) 1.2 % Sodium 133 L (135-149) mmol/L Potassium 4.1 (3.6-5.1) mmol/L Chloride 100 (96-114) mmol/L Carbon Dioxide 26 (20-32) mmol/L Anion Gap 7 (7-15) mEq/L BUN 24 (7-30) mg/dL Creatinine 1.0 (0.5-1.5) mg/dL Estimated Creat Clear 35.88 Estimated GFR 56 ml/min Glucose 103 (60-115) mg/dL Lactate 1.6 (0.5-1.9) mmol/L Calcium 10.0 (8.4-10.6) mg/dL Troponin I < 0.01 L (0.01-0.04) ng/mL TSH 3.210 (0.270-4.200) uIU/mL Urine Color Yellow (Yellow) Urine Appearance Cloudy A (Clear) Urine pH 7.0 (5.0-8.5) Ur Specific [place] 1.020 (1.000-1.030) Urine Protein 1+ A (Negative) Urine Glucose (UA) Negative (Negative) Urine Ketones Negative (Negative) Urine Blood Negative (Negative) Urine Nitrite Negative (Negative) Urine Bilirubin Negative (Negative) Urine Urobilinogen 0.2 (0.2-1.0) Ur Leukocyte Esterase 1+ A (Negative) Urine RBC 0-2 (0-2) Urine WBC 10-25 A (0-5) Ur Squamous Epith Cells Few (None-Few) Urine Bacteria Few A (None) SARS-CoV-2 (PCR) (Negative) Influenza Type A (PCR) (Negative) Influenza Type B (PCR) (Negative) RSV (PCR) (Negative) 11/28/23 Range/Units 16:55 WBC (4.50-11.00) K/uL RBC (4.00-5.20) m/uL Hgb (12.0-16.0) gm/dL Hct (33.0-51.0) % MCV (80-100) fL MCH (26-34) pg MCHC (32-36) gm/dL RDW Coeff of Fidencio (11.5-15.5) % Plt Count (140-440) K/uL Neut % (Auto) (42.0-72.0) % Lymph % (Auto) (20-44) % [place] % (Auto) (0.0-11.0) % Eos % (Auto) (0.0-7.0) % Baso % (Auto) (0.0-3.0) % Neut # (Auto) (1.7-7.0) K/uL Lymph # (Auto) (0.90-2.90) K/uL [place] # (Auto) (0.00-0.90) K/UL Eos # (Auto) (0.00-0.50) K/uL Baso # (Auto) (0.00-0.30) K/uL Abs Immat Gran (auto) (0.00-0.30) K/uL Imm/Tot Granulo (auto) % Sodium (135-149) mmol/L Potassium (3.6-5.1) mmol/L Chloride (96-114) mmol/L Carbon Dioxide (20-32) mmol/L Anion Gap (7-15) mEq/L BUN (7-30) mg/dL Creatinine (0.5-1.5) mg/dL Estimated Creat Clear Estimated GFR ml/min Glucose (60-115) mg/dL Lactate (0.5-1.9) mmol/L Calcium (8.4-10.6) mg/dL Troponin I (0.01-0.04) ng/mL TSH (0.270-4.200) uIU/mL Urine Color (Yellow) Urine Appearance (Clear) Urine pH (5.0-8.5) Ur Specific [place] (1.000-1.030) Urine Protein (Negative) Urine Glucose (UA) (Negative) Urine Ketones (Negative) Urine Blood (Negative) Urine Nitrite (Negative) Urine Bilirubin (Negative) Urine Urobilinogen (0.2-1.0) Ur Leukocyte Esterase (Negative) Urine RBC (0-2) Urine WBC (0-5) Ur Squamous Epith Cells (None-Few) Urine Bacteria (None) SARS-CoV-2 (PCR) Negative SARS-CoV-2 (Negative) Influenza Type A (PCR) Negative PCR FLU A (Negative) Influenza Type B (PCR) Negative PCR FLU B (Negative) RSV (PCR) Negative PCR RSV (Negative) Imaging Data CT Chest/Ab/Pelvis: Attestation: I have reviewed the pertinent imaging results. Radiologist's impression: IMPRESSION: 1. No evidence of intramural hematoma involving the thoracic aorta. 2. No evidence of acute or chronic pulmonary thromboembolism. 3. No evidence of aortic aneurysm or dissection. 4. Origin of the great vessels is unremarkable. 5. Pulmonary infiltrates left upper lobe; short-term follow-up suggested. 6. Nodular enlargement both adrenal glands; stable in appearance. 7. Cortical cysts left kidney. 8. Diverticulosis sigmoid colon without any CT evidence of diverticulitis or abscess. 9. Vertebroplasty T10 and T11 ECG Data Attestation: I personally reviewed and interpreted this ECG as follows: Interpretation: Normal sinus rhythm Rate: 68 MT: 186 QRS axis: Normal axis ST segment/T wave: No ST segment elevation or depression QTc: 423 Discharge Plan Discharge Clinical Impression: Near syncope, Acute UTI, Pneumonia
--- NOTE | 2023-11-28 14:26 | CT_ITS ---
Patient: RAUL LA Facility:?[facility] RIS Patient ID:?[id number] Site Patient ID:?[id number]. Site :?[id number] Study:?CT-Chest/Abd/Pelvis DISSECTION PROTOCOL-11/28/2023 4:27:12 PM Ordering Physician:?DR. MCDERMOTT Final Report: INDICATION: Upper back pain; syncope. COMPARISON: CT abdomen and pelvis without and with contrast March 09, 2019 and March 13, 2021; CT abdomen and pelvis with intravenous contrast March 13, 2023. TECHNIQUE: CT chest without intravenous contrast; CT angio chest, abdomen and pelvis with intravenous contrast; coronal and sagittal reformats. FINDINGS: Calcific tendinosis right shoulder. Loose joint bodies right shoulder. Osteoarthritis right shoulder. No intramural hematoma involving the thoracic aorta. Coronary artery calcifications. No evidence of aortic aneurysm or dissection. No evidence of pulmonary thromboembolism. Origin of the great vessels is unremarkable. Abdominal aorta and visceral arteries are normal. Pulmonary infiltrates upper lobe left lung. No evidence of pleural effusion or chest wall pathology. No focal hepatic or splenic pathology. No pancreatic pathology. The gallbladder is unremarkable. Nodular enlargement of both adrenal glands; stable dating back to 2019. multiple simple cortical cysts left kidney. Tiny nonobstructing renal calculus left lower pole calyx. No retroperitoneal lymphadenopathy. No evidence of abdominal or pelvic ascites. Diverticulosis sigmoid colon without any CT evidence of diverticulitis with abscess. Status post vertebroplasty T10 and T11. IMPRESSION: 1. No evidence of intramural hematoma involving the thoracic aorta. 2. No evidence of acute or chronic pulmonary thromboembolism. 3. No evidence of aortic aneurysm or dissection. 4. Origin of the great vessels is unremarkable. 5. Pulmonary infiltrates left upper lobe; short-term follow-up suggested. 6. Nodular enlargement both adrenal glands; stable in appearance. 7. Cortical cysts left kidney. 8. Diverticulosis sigmoid colon without any CT evidence of diverticulitis or abscess. 9. Vertebroplasty T10 and T11. Please note that all CT scans at this facility use dose modulation, iterative reconstruction, and/or weight-based dosing when appropriate to reduce radiation dose to as low as reasonably achievable. Dictated by Krzysztof La MD @ 11/28/2023 4:42:01 PM Signed by:?Krzysztof aL MD @11/28/2023 4:42:01 PM (Electronic Signature)
--- OUTSIDE RECORDS SUMMARY | 2023-11-28 14:27 | XMS_ITS | Patient Health Record ---
Author Name Unknown Organization [facility] Address [address] [place] [address] Care Team Providers Care Scalping Machine Operator Name Role Phone KAIT DONATO Primary Care Provider [phone] JimmyLolis ochoa Unavailable [phone] ALLERGIES Allergen (clinical drug ingredient) Drug/Non Drug Allergy documented on EMR Reaction Allergy Type Onset Date Status tramadol traMADol HCl Unknown Drug Allergy Acti ve codeine Codeine Unknown Drug Allergy Active REASON FOR REFERRAL No Information MEDICATIONS Medication SIG (Take, Route, Frequency, Duration) Notes Start Date End Date Status Clopidogrel Bisulfate 75 MG 1 tablet Ora lly Once a day Active MiraLax Active Valsartan 160 MG 1 tablet Orally Once a day Active Vitamin D 25 MCG (1000 UT) 1 tablet Oral ly Once a day Active Omeprazole 20 MG 1 capsule 30 minutes before morning meal Orally Once a day Active Melatonin 3 MG 1 tablet at bedtime as needed Orally Once a day Active hydroCHLOROthiazide 12.5 MG 1 capsule in the morning Orally Once a day Active Lactulose 10 GM/15ML 15 mL as needed Ora lly Once a day for 10 days 07/30/2023 Active Famotidine 20 MG 1 tablet at bedtime as needed Orally Once a day Active amLODIPine Besylate 10 MG 1 tablet Orall y Once a day Active methylPREDNISolone 4 MG as directed Oral ly once daily for 6 days 07/30/2023 Active Rosuvastatin Calcium 40 MG 1 tablet Oral ly Once a day Active SOCIAL HISTORY Tobacco Use: Social History Observation Description Date Details (start date - stop date) Never Smoker NA - NA Sex Assigned At : Social History Observation Description Sex Assigned At Unknown Tobacco Use/Smoking Question Answer Notes Are you a: never smoker PROBLEMS Problem Type ICD Code Onset Dates Problem Status W/U Status Risk SNOMED Code Notes Problem Constipation, unspecified constipation type (K59.00) Active confirmed 14399587 Problem DDD (degenerative disc disease), lumbar (M51.36) Active confirmed 43104475 VITAL SIGNS Heart Rate 80 /min 07/30/2023 Temperature 97.2 degrees Fahrenheit 07/30/2023 Blood pressure diastolic 80 mm Hg 07/30/2023 Oximetry 95 % 07/30/2023 Height 63 in 07/30/2023 Blood pressure systolic 140 mm Hg 07/30/2023 Encounters Encounter Location Date Provider Diagnosis [facility] [address] [place] [address] 07/30/2023 Lolis Jimmy Lumbar pain M54.50 ; DDD (degenerative disc disease), lumbar M51.36 and Constipation, unspecified constipation type K59.00 ASSESSMENTS Encounter Date Diagnosis Assessment Notes Treatment Notes Treatment Clinical Notes 07/30/2023 Lumbar pain (ICD-10 - M54.50) 07/30/2023 DDD (degenerative disc disease), lumbar (ICD-10 - M51.36) Injury has imflammed her chronic condition follow up for any worsening or recurrent symptoms. 07/30/2023 Constipation, unspecified constipation type (ICD-10 - K59.00) Chronic constipation worse with travel and illness. Will add Lactulos to normal bowel regeime. PLAN OF TREATMENT Pending Test Test Name Order Date X ray : Lumbar spine 4 VIEWS 07/30/2023 Insurance Providers Payer Name Payer Address Payer Phone Subscriber Number Group Number Insured Name Patient Relationship to Insured Coverage Start Date Coverage End Date MEDICARE PART B [address] [place] [address] [id number] December Self - patient is the insured 7 MEDICATIONS ADMINISTERED Medication Instructions Date of Administration Dosage Notes *Decadron 8mg Inj. 07/30/2023 2 mL *Depo Medrol 80MG Inj. 07/30/2023 1 mL
--- OUTSIDE RECORDS SUMMARY | 2023-11-28 14:28 | XMS_ITS | Clinical Summary ---
Author Name Unknown Organization [facility] Address [place], [place] [address] Care Team Providers Care Warehouse Order Selector Name Role Phone Annie Brown MD Primary Care Provider [phone] Allergies Active Allergy Reactions Criticality Noted Date Comments Codeine GI Upset 03/11/2010 Tramadol GI Upset,Vomiting 04/24/2019 Medications Medication Sig Dispensed Refills Start Date End Date Status multivitamin (MVI) tablet Take 1 tablet by mouth once daily. 0 2 Active amLODIPine (NORVASC) 10 mg tablet Take 10 mg by mouth once daily. Active clopidogrel (PLAVIX) 75 mg tablet Take 75 mg by mouth once daily. Active medication order composer 1 Drop 4 times daily if needed for Other (Specify). Long Lasting Lubricant Eye Drops (OTC) Active POLYETHYLENE GLYCOL 3350 (MIRALAX ORAL) Take by mouth. As directed, once daily as needed Active famotidine (PEPCID) 20 mg tablet Take 1 Tab by mouth once daily. 7 Active omeprazole (PRILOSEC) 20 mg Delayed-Release capsule Take 1 Capsule (20 mg) by mouth once daily before a meal. 0 1 Active osilodrostat (Isturisa) 1 mg tab 3 Active melatonin 3 mg tablet Take 3 mg by mouth. Active rosuvastatin (CRESTOR) 40 mg tabletIndications:H yperlipidemia, unspecified hyperlipidemia type TAKE 1 TABLET BY MOUTH AT BEDTIME 90 Tablet 2 4 Active calcium citrate/vitamin D3 (CITRACAL-D3 PETITES ORAL) 4 Active gabapentin (NEURONTIN) 100 mg capsule Take 100 mg by mouth 3 times daily if needed. Active ondansetron (ZOFRAN ODT) [address] 4 mg on the tongue every 8 hours if needed. 4 Active valsartan (DIOVAN) 160 mg tabletIndications:H TN (hypertension) Take 1 Tablet (160 mg) by mouth once daily. Due for appt in Mar 2024 90 Tablet 1 4 Active cholecalciferol (VITAMIN D3) 1,000 unit tablet Daily 11/22/19 24 Discontinued(*Pa tient states no longer taking) valsartan (DIOVAN) 160 mg tabletIndications:H TN (hypertension) TAKE 1 TABLET BY MOUTH EVERY DAY 90 Tablet 3 3 11/26/19 24 Discontinued Active Problems Problem Noted Date Diagnosed Date [place]'s disease 11/22/2023 Abnormal cardiovascular stress test 04/08/2022 Hyperlipidemia LDL goal <70 04/08/2022 Skin cancer 02/19/2022 Overview: 02/12/22 left wrist , Invasive squamous cell carcinoma, excised 04/29/22 Rosalia Crawford MD Hypertension Osteoporosis Overview: History of hyperparathyroid, status post parathyroidectomy Fosamax begun 2006 GERD (gastroesophageal reflux disease) Overview: EGD 01/2017 large hiatal hernia, Reactive gastropathy, try carafate Urolithiasis Encounters Date Type Department Care Team Description 11/25/2023 Refill [facility] [address] [place] [address] [address] [place] [address] Deep Monzon MD Refill Request (Valsartan) 11/22/2023 2:05 PM CDT Office Visit [facility] [address] [place], [place] [phone] Zoran Mosher MD Consult (Fatigue, dizziness and crummy feeling, started about 7 years ago) 11/21/2023 Travel 10/20/2023 10:00 AM CDT Orders Only [facility] [address] [place] [address] Lab, [facility] 10/20/2023 Travel 10/01/[address] [place] [address] Deep Monzon MD Refill Request (Rosuvastatin) from Last 3 Months Immunizations Name Administration Dates Next Due Amb Influenza, Inactivated A IIV4 (Age 65+ Years) Preserv Free 04/22/2020 COVID-19 Vaccine Spikevax (M oderna 50mcg/0.5mL) 12YO+ [id number] Formula PF 04/22/2023 COVID-19 vaccine (Pfizer-Bio NTech 30mcg/0.3mL) PF MDV 09/25/2020,09/04/2020 Hepatitis A (Adult) 06/12/1998,11/14/1997 Hepatitis A, Unspecified 06/12/1998,11/14/1997 Hepatitis B (Adult) 04/15/1998,11/14/1997 Hepatitis B, Unspecified 04/15/1998,11/14/1997 Influenza, High-dose Inactivated 05/17/2018,04/26 Influenza, High-dose Quadriv alent Inactivated 04/30/2022,04/22/2020,05/13/2017 Influenza, IIV3 (Age >=3 years) 05/12/20 13,05/01/2009,05/09/2008,05/02,05/20/2006,05/18/2005,05/02/2003 ,06/08/2002,05/23/2001,06/19/2000,04/25 Influenza, IIV4 05/04/2019,05/12/2016 Influenza, Inactivated AIIV4 (Age 65+ Years) Preserv Free 04/27/2023,05/06/2021 Meningococcal Vaccine (Menomune) 11/26/1997 Oral Polio Vaccine 11/14/1997 Pneumococcal Poly,23-Valent (Pneumovax) 05/02/2007 Pneumococcal conj 13-Valent (Prevnar 13) 05/22/2015 RSV, Recombinant ADJ Reconst ituted (Arexvy 120MCG/0.5mL) 05/20/2023 Td (Age >=7 Years) 11/14/1997 Td, Preservative Free (age >= 7 Years) 3 Tdap 11/28/2021,09/02/2012 Zoster (Shingrix-RZV, recombinant) 08/30/2018, Zoster (Zostavax-ZVL, live) 07/06/2006 Family History Medical History Relation Name Comments Heart Disease Father Rheumatic hear t disease Hypertension Mother Other Mother copd, +smoker Heart Disease Son complete heart block Relation Name Status Comments Father Mother Son Social History Tobacco Use Types Packs/Day Years Used Date Smoking Tobacco: Never Smokeless Tobacco: Never Tobacco Cessation:Counseling Given: No Comments:second hand smoke exposure as a child Alcohol Use Standard Drinks/Week Comments Yes 5.8 (1 standard drink = 0.6 oz p ure alcohol) glass of wine nightly Social Connections Answer Date Recorded Frequency of Communication with Friends and Fami ly 0 11/21/2023 Financial Resource Strain Answer Date R ecorded Difficulty of Paying Living Expenses 3 11/21/2023 Difficulty of Paying Living Expenses Not on file 11/21/2023 Food Insecurity Answer Date Recorded Worried About Running Out of Food in the Last Ye ar 1 11/21/2023 Transportation Needs Answer Date Record ed Lack of Transportation (Medical) 1 11/21/2023 Housing Stability Answer Date Recorded Unable to Pay for Housing in the Last Year 1 11/21/2023 Sex and Gender Information Value Date Recorded Sex Assigned at Not on file Gender Identity Not on file Sexual Orientation Not on file Obstetrics History Last Filed Vital Signs Vital Sign Reading Time Taken Comments Blood Pressure 152/77 06/30/2023 1:46 PM WEAVING INSTRUCTOR Pulse 83 06/30/2023 1:46 PM WEAVING INSTRUCTOR Temperature 36.6 ??C (97.9 ??F) 04/14/2023 2:25 PM CD T Respiratory Rate 20 04/14/2023 2:25 PM CDT Oxygen Saturation 98% 06/30/2023 1:46 PM WEAVING INSTRUCTOR Inhaled Oxygen Concentration - - Weight 76.2 kg (168 lb) 04/13/2023 11:22 AM CDT Height 160 cm (5' 3) 04/13/2023 11:22 AM CDT Body Mass Index 29.76 04/13/2023 11:22 AM CDT Plan of Treatment Upcoming Encounters Date Type Department Care Team (Late st Contact Info) Description 12/03/2023 2:00 PM CDT Office Visit [facility] [address] [facility] [address] Rico Hunt MD [address] [place] [address] 04/13/2024 1:40 PM CDT Office Visit [facility] [address] [facility] [address] [place], [place] [phone] Rosalia Crawford MD [address] [facility] [address] [place] [address] Health Maintenance Due Date Last Done Comments Depression screening for age 12+ 1952 DEXA/DXA scan for age 65+ 2006 Medicare Wellness for age 65+ 2006 Influenza for age 65+ 03/26/2024 04/27/2023 , 04/30/2022, 05/06/2021, Additional history exists BMI (ht and wt on same day) for age 18+ 04/13/2024 04/13/2023, 12/02/2021, 05/08/2021, Additional history exists Tetanus booster 11/29/2031 11/28/2021, 02/2013, 09/02/2012, Additional history exists Pneumococcal series for age 65+ Completed 5, 05/02/2007 Zoster (shingles) series for age 50+ Completed 08/30/2018, 04/06/2018, 07/06/2006 Tdap Completed 11/28/2021, 09/02/2012 COVID-19 vaccine series Completed 04/22/20, 12/01/2022, 05/05/2022, Additional history exists Medical Devices Implanted Type Area Microfilm Duplicating Unit Supervisor Device Identifier Shelf Expiration Date Model / Serial / Lot Log [id number] - Rossi Zcb00 Lens Iol - 1 - Lens Iol Zcb00 21.0 Implanted:Qty: 1 on 11/09/2011 at [facility] Left: Eye [employer] ZCB00# / [id number] / Iol [place] +21 Tecnis Zcb00 - [id number] Implanted:Qty: 1 on 10/01/2016 by Tian Huggins MD at [facility] Right: Eye [employer] 06/29/2020 ZCB00# / [id number] / Procedures Procedure Name Priority Date/Time Associated Diagnosis Comments FOLIC ACID Routine 11/22/2023 3:28 PM CDT Nutritional deficiency LYME SCREEN W/REFLEX Routine 11/22/2023 3:28 PM CDT Myalgia [facility] 84 Routine 10/20/2023 9:10 AM CDT Pancreatic insufficiency from Last 3 Months Results * LYME SCREEN W/REFLEX (11/22/2023 3:28 PM CDT) LYME SCREEN W/REFLEX Negative Negative 11/24/2023 9:53 AM CDT [facility] Comment: No laboratory evidence of infection with B. burgdorferi (Lyme disease). Negative results may occur in patients recently infected (less than or equal to 14 days) with B. burgdorferi. If recent infection is suspected, repeat testing on a new sample collected in 7-14 days is recommended. Blood BLOOD SPECIMEN / Unknown Venipuncture / Unknown 11/22/2023 3:28 PM CDT 11/22/2023 3:28 PM CDT Zoran Mosher MD SEND OUTS [facility] [address] [place] [address], * (ABNORMAL) FOLIC ACID (11/22/2023 3:28 PM CDT) FOLIC ACID 35.1(H) 4.6 - 34.8 ng/mL 11/23/2023 4:08 PM CDT [facility] Blood BLOOD SPECIMEN / Unknown Venipuncture / Unknown 11/22/2023 3:28 PM CDT 11/22/2023 3:28 PM CDT Narrative [facility] - 11/23/2023 4:08 PM CDT Biotin supplements may cause clinically significant interference for this test assay. ??If interference is suspected, it is strongly recommended that biotin is discontinued for at least one week prior to retesting. Zoran Mosher MD CHEMISTRY Performing Organization Address [facility] de Phone Number [facility] [address] * (ABNORMAL) PANCREATIC ELASTASE FECAL (10/20/2023 9:10 AM CDT) Pancreatic Elast Fecal 117(L) >200 ug Elast./g 10/25/2023 3:06 AM CDT [facility] Comment: ? Severe Pancreatic Insufficiency: ?<100 ? Moderate Pancreatic Insufficiency: ?? 100 - 200 ? Normal: ? >200 Stool STOOL SPECIMEN / Unknown Non-Blood / Unknown 10/20/2023 9:10 AM CDT 10/20/2023 9:52 AM CDT Narrative [facility] ([facility] - 10/25/2023 3:06 AM CDT Performed at: ??[address] ??[id number] Automatic Washer Mechanic: Koffi Sanches MD, Phone: ??[phone] Rico Hunt MD MICROBIOLOGY Performing Organization Address [facility] de Phone Number [facility] ([facility]) [address] [place] [phone], from Last 3 Months Advance Directives * Full Code (Latest Code Status on File) Date Activated Date Inactivated Comments 10/01/2016 12:21 PM 10/01/2016 5:23 PM * Full Code Date Activated Date Inactivated Comments 11/09/2011 6:35 AM 11/09/2011 11:00 AM Care Teams Warehouse Order Selector Relationship Specialty Start Date End Date Annie Brown MD [address] [place] [address] (work) PCP - General Internal Medicine 03/19/14
--- OUTSIDE RECORDS SUMMARY | 2023-11-28 14:28 | XMS_ITS | Referral Summary ---
Author Name Unknown Organization [facility] Address [address] [place] [address] Care Team Providers Care Beamer Helper Name Role Phone Elsewhere, Pcp Primary Care Provider Unavailabl e Source Comments Patient records contain information from all sites at [facility]. For routine questions regarding patient records, call [phone] during business hours, M-F 8:00 AM - 5:00 PM Central Time. Record requests for emergency care only can be directed to [phone] at any time.[facility] Encounters Date Type Department Care Team Description 11/15/2023 Clinical Communication Department of Infusion Therapy in [place], [place] [address] [place] [address] Joy Cooper, RDavon 10/26/2023 Clinical Communication Division of Endocrinology in [place], [place] [address] [place] [address] Margi Avila M.D. 10/20/2023 Clinical Communication Division of Endocrinology in [place], [place] [address] [place] [phone] Margi Avila M.D. [facility] - Outside Materials 10/20/2023 Clinical Communication Division of Endocrinology in [place], [place] [address] [place] [address] Margi Avila M.D. Questions 10/19/2023 Orders Only Division of Endocrinology in [place], [place] [address] [place] [phone] Margi Avila M.D. 10/19/2023 Orders Only Division of Endocrinology in [place], [place] [address] [place] [phone] Margi Avila M.D. Osteopenia (Primary Dx); Osteoporosis 10/14/2023 Clinical Communication Division of Endocrinology in [address] [address] Sahra Hester R.N. 10/13/2023 Orders Only Division of Endocrinology in [place], [place] [address] [place] [phone] Margi Avila M.D. Osteoporosis (Primary Dx) 10/07/2023 Clinical Communication Division of General Internal Medicine in [address] [address] Prescheduling, Provider Triage 10/04/[address] [address] Annie rBown M.D. Malaise (Primary Dx); Fatigue 09/22/2023 12:00 PM EXECUTIVE WELLNESS PROGRAMS DIRECTOR Telemedicine Division of Endocrinology in [address] [phone] Margi Avila M.D. Mass Adrenal (HCC); Hypercortisolemia 09/20/2023 8:15 AM EXECUTIVE WELLNESS PROGRAMS DIRECTOR Clinical Communication Virtual Review in [place], [place] [address] [place] [address] Pre-visit Intake from Last 3 Months Allergies Active Allergy Reactions Criticality Noted Date Comments Codeine Nausea Only 04/29/2017 vomiting, nausea, felt terrible, slept most of the day Tramadol GI intolerance 04/24/2019 Medications Medication Sig Dispensed Refills Start Date End Date Status amLODIPine (NORVASC) 10 mg tablet Take 1 tablet by mouth daily. 04/29/2017 Active clopidogrel (PLAVIX) 75 mg tablet Take 1 tablet by mouth daily. 04/29/2017 Active famotidine (PEPCID) 20 mg tablet Take 1 tablet by mouth daily. 04/29/2017 Active polyethylene glycol (MIRALAX) 17 gram powder packet Take 1 Package by mouth daily. 04/29/2017 Active multivitamin tablet Take 1 tablet by mouth daily. 04/29/2017 Active omeprazole (PriLOSEC) 20 mg capsule Take 1 capsule by mouth daily. 04/29/2017 Active ondansetron ODT (ZOFRAN-ODT) 4 mg disintegrating tablet Take 1 tablet by mouth every 6 (six) hours as needed. When needed 04/29/2017 Active vit A/vit C/vit E/zinc/copper (PRESERVISION AREDS ORAL) Take 1 tablet by mouth 2 (two) times a day. 04/29/2017 Active acetaminophen (TYLENOL 8 HOUR ORAL) Take 1 tablet by mouth as needed. When needed 04/29/2017 Active rosuvastatin (CRESTOR) 40 mg tablet Take 40 mg by mouth daily. Active valsartan (DIOVAN) 160 mg tablet Take 160 mg by mouth daily. 05/12/2021 Active peg 400-propylene glycol, PF, (SYSTANE) 0.4-0.3 % ophthalmic solution 1 drop 3 (three) times a day as needed for dry eyes. Active melatonin 3 mg tablet Take 3 mg by mouth at bedtime. Active cholecalciferol, vitamin D3, 25 mcg (1,000 Unit) tablet Take 25 mcg by mouth daily. Active diphenhydramine HCl (BENADRYL ORAL) Take 1 tablet by mouth as needed. Active osilodrostat 1 mg tablet Take 0.5 mg by mouth 2 (two) times a day. 30 tablet 11 03/11/2023 Active gabapentin (NEURONTIN) 100 mg capsule Take 100 mg by mouth 3 (three) times a day. 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 No 09/17/2023 Humiliation, Afraid, Rape, and Kick questionnair e Answer Date Recorded Within the last year, have y ou been afraid of your partner or ex-partner? No 12/24/2022 Within the last year, have y ou been humiliated or emotionally abused in other ways by your partner or ex-partner? No Within the last year, have y ou been kicked, hit, slapped, or otherwise physically hurt by your partner or ex-partner? No 12/24/2022 Within the last year, have y ou been raped or forced to have any kind of sexual activity by your partner or ex-partner? No 12/24/2022 Social Connection and Isolat ion Panel [NHANES] Answer Date Recorded In a typical week, how many times do you talk on the phone with family, friends, or neighbors? More than three times a week 08/24/2022 How often do you get togethe r with friends or relatives? Once a week 08/24/2022 How often do you attend chur or sikhism services? Never 08/24/2022 Do you belong to any clubs o r organizations such as catholic groups, unions, fraternal or athletic groups, or school groups? No 08/24/2022 How often do you attend meet ings of the clubs or organizations you belong to? Never 08/24/2022 Are you , , di vorced, , never , or living with a partner? 08/24/2022 AUDIT-C Answer Date Recorded Q1: How often do you have a drink containing alcohol? 4 or more times a week 08/24/2022 Q2: How many drinks containi ng alcohol do you have on a typical day when you are drinking? 1 or 2 3 Q3: How often do you have si x or more drinks on one occasion? Never 08/24/2022 Overall Financial Resource Strain (CARDIA) Answe r Date Recorded How hard is it for you to pa y for the very basics like food, housing, medical care, and heating? Not hard at all 12/24/2022 [facility] of Occupat ional Health - Occupational Stress Questionnaire Answer Date Recorded Do you feel stress - tense, restless, nervous, or anxious, or unable to sleep at night because your mind is troubled all the time - these days? To some extent 08/24/2022 Exercise Vital Sign Answer Date Recorde d On average, how many days pe r week do you engage in moderate to strenuous exercise (like a brisk walk)? 0 days 09/17/2023 On average, how many minutes do you engage in exercise at this level? 0 min 09/17/2023 Hunger Vital Sign Answer Date Recorded Within the past 12 months, y ou worried that your food would run out before you got the money to buy more. Never true 09/17/19 Within the past 12 months, t he food you bought just didn't last and you didn't have money to get more. Never true 09/17/2023 PRAPARE - Transportation Answer Date Re corded In the past 12 months, has l ack of transportation kept you from medical appointments or from getting medications? No 08/27 In the past 12 months, has l ack of transportation kept you from meetings, work, or from getting things needed for daily living? No 09/17/2023 Nutrition Answer Date Recorded Nutrition: EVOO Fat Source No 09/17 On average, how many serving s of fruits and vegetables do you eat per day (serving size is equal to 1 cup or approximately the size of a tennis ball)? 3-5 09/17/2023 Dental Answer Date Recorded Dental: Regular Dentist Yes 07/31/19 Employment Answer Date Recorded Employment status Retired 09/17/2023 Housing Stability Answer Date Recorded What is your living situation today? I have a [facility] place to live 09/17/2023 Education Answer Date Recorded What is the highest level of school you have completed or the highest degree you have received? Associate degree: academic program 04/21/2019 Sex and Gender Information Value Date Recorded Sex Assigned at Female 12/01/2017 11:21 AM CDT Gender Identity Female 12/01/2017 11:21 AM CDT Sexual Orientation Straight 12/01/2017 11 :21 AM CDT Last Filed Vital Signs Vital Sign Reading Time Taken Comments Blood Pressure 162/84 04/24/2019 10:33 AM CDT Pulse 69 04/24/2019 10:33 AM CDT Temperature 35.9 ??C (96.6 ??F) 10/22/2020 11:32 AM C DT Respiratory Rate - - Oxygen Saturation - - Inhaled Oxygen Concentration - - Weight 73.5 kg (162 lb 0.6 oz) 10/22/2020 11:32 AM CDT Height 159 cm (5' 2.6) 10/22/2020 11:32 AM CDT Body Mass Index 29.07 10/22/2020 11:32 AM CDT Plan of Treatment Not on file Medical Devices Implanted Type Area Electrical Prospecting Supervisor Device Identifier Shelf Expiration Date Model / Serial / Lot Ocular Lens Ocular Lens Bilateral : Eye Procedures Procedure Name Priority Date/Time Associated Diagnosis Comments CREATININE, U Routine 10/13/2023 8:00 AM CDT Mass Adrenal (HCC) Hypercortisolemia CORTISOL, FREE, U Routine 10/13/2023 8:0 0 AM CDT Mass Adrenal (HCC) Hypercortisolemia EXTI BASIC METABOLIC PANEL, S/P Routine 06/24/2022 10:25 AM EXECUTIVE WELLNESS PROGRAMS DIRECTOR from Last 3 Months or Most Recently Relevant to Health Maintenance Results * Creatinine, 24 hour, Urine (10/13/2023 8:00 AM CDT) Creatinine, 24 HR, U 759 603 - 1783 mg/24 h 10/15/2023 9:54 AM CDT DTL Collection Duration 24 h 10/15/2023 8:37 AM CDT DTL Urine Volume 1650 mL 10/15/2023 8:37 AM CDT DTL Creatinine Conc 46 mg/dL 9:54 AM CDT DTL Urine (Urine, 24 Hours) 10/13/2023 8:00 AM CDT 10/15/2023 8:36 AM CDT Narrative Resulting Agency Comment Mailed In Specimen Margi Avila M.D. LAB URINE ORDERABL ES [facility] [address] [place] [address], [facility] DTL [facility] [address] [place] [address] * Cortisol, Free, 24 hour, Urine (10/13/2023 8:00 AM CDT) Cortisol, U 35 3.5 - 45 mcg/24 h 10/18/2023 8:37 PM CDT SDSC Collection Duration 24 h 10/17 8:37 PM CDT SDSC Urine Volume 1650 mL 10/18/2023 8:37 PM CDT SDSC Comment: ----ADDITIONAL INFORMATION---- This test was developed and its performance characteristics determined by [facility] in a manner consistent with CLIA requirements. This test has not been cleared or approved by the U.S. Food and Drug Administration. Urine (Urine, 24 Hours) 10/13/2023 8:00 AM CDT 10/15/2023 11:42 AM CDT Narrative Resulting Agency Comment Mailed In Specimen Margi Avila M.D. LAB URINE ORDERABL ES [facility] SU[employer] [address] [place] [address] [facility] [address] [place] [address] [place] [address] from Last 3 Months or Most Recently Relevant to Health Maintenance Advance Directives For more information, please contact: [phone] Documents on File Type Date Recorded Patient Decoration Checker Expl anation Advance Directives 05/12/2017 12:00 AM Bella rothman document. See document viewer. Care Teams Beamer Helper Relationship Specialty Start Date End Date Elsewhere, Pcp PCP - General Internal Medicine 12/29/22
--- OUTSIDE RECORDS SUMMARY | 2023-11-28 14:28 | XMS_ITS | Encounter Summary ---
Author Name Unknown Organization [facility] Address [address] [place] [address] Care Team Providers Care Tube Cleaner Name Role Phone Elsewhere, Pcp Primary Care Provider Unavailabl e Reason for Visit * Reason Onset Date Comments [facility] - Outside Materials 10/20/2023 Encounter Details Date Type Department Care Team (Latest Contact Info) Description 10/20/2023 Clinical Communication Division of Endocrinology in [place], [place] [address] [place] [address] Margi Avila M.D. [address] [place] [address] [facility] - Outside Materials Social History Tobacco Use Types Packs/Day Years Used Date Smoking Tobacco: Never Passive Smoke Exposure: Never Smokeless Tobacco: Never Comments:As a child Alcohol Use Standard Drinks/Week Comments Yes 7 (1 standard drink = 0.6 oz pur e alcohol) [facility] Utilities Answer Date Recorded In the past 12 months has e electric, gas, oil, or water company [...] How often do you attend chur or protestant services? Never 08/24/2022 Do you belong to any clubs o r organizations such as buddhist groups, unions, fraternal or athletic groups, or [...] and heating? Not hard at all 12/24/2022 [facility] [place] of Occupat ional Health - Occupational Stress [...] money to buy more. Never true 09/17/19 24 Within the past 12 months, t he [...] your living situation today? I have a [facility] place to live 09/17/2023 Education Answer Date Recorded What is the highest level of school you have completed or the highest degree you have received? Associate degree: academic program 04/21/2019 Sex and Gender Information Value Date Recorded Sex Assigned at Female 12/01/2017 11:21 AM CDT Gender Identity Female 12/01/2017 11:21 AM CDT Sexual Orientation Straight 12/01/2017 11 :21 AM CDT documented as of this encounter Plan of Treatment Not on file documented as of this encounter Visit Diagnoses Not on filedocumented in this encounter Care Teams Tube Cleaner Relationship Specialty Start Date End Date Elsewhere, Pcp PCP - General Internal Medicine 12/29/22 documented as of this encounter
--- OUTSIDE RECORDS SUMMARY | 2023-11-28 14:28 | XMS_ITS | Encounter Summary ---
Author Name Unknown Organization [facility] Address [address] [place] [address] Care Team Providers Care Tariff Publishing Agent Name Role Phone Elsewhere, Pcp Primary Care Provider Unavailabl e Encounter Details Date Type Department Care Team (Late st Contact Info) Description 10/19/2023 Orders Only Division of Endocrinology in [place], [place] [address] [place] [phone] Margi Avila M.D. [address] [place] [address] Social History Tobacco Use Types Packs/Day Years Used Date Smoking Tobacco: Never Passive Smoke Exposure: Never Smokeless Tobacco: Never Comments:As a child Alcohol Use Standard Drinks/Week Comments Yes 7 (1 standard drink = 0.6 oz pur e alcohol) [facility] Utilities Answer Date Recorded In the past 12 months has [employer], gas, oil, or water [employer] threatened to shut off services in your [...] 08/24/2022 How often do you attend chur [employer] or baptism services? Never 08/24/2022 Do you belong to any clubs o r organizations such as baptism groups, unions, fraternal or athletic groups, or [...] and heating? Not hard at all 12/24/2022 [facility] of Occupat ional Health - [...] your living situation today? I have a [facility] place to live 09/17/2023 Education Answer [...] on filedocumented in this encounter Care Teams Tariff Publishing Agent Relationship Specialty Start Date End Date Elsewhere, Pcp PCP - General Internal Medicine 12/29/22 documented as of this encounter
--- OUTSIDE RECORDS SUMMARY | 2023-11-28 14:28 | XMS_ITS | Encounter Summary ---
Author Name Unknown Organization [facility] Address [address] [place] [address] Care Team Providers Care Sales Account Representative Name Role Phone Elsewhere, Pcp Primary Care Provider Unavailabl e Reason for Visit * Reason Onset Date Comments [facility] - Outside Materials 08/20/2023 Encounter Details Date Type Department Care Team (Latest Contact Info) Description 08/20/2023 Clinical Communication Division of Endocrinology in [place], [place] [address] [place] [address] Margi Avila M.D. [address] [place] [address] [facility] - Outside Materials Social History Tobacco Use Types Packs/Day Years Used Date Smoking Tobacco: Never Passive Smoke Exposure: Never Smokeless Tobacco: Never Comments:As a child Alcohol Use Standard Drinks/Week Comments Yes 7 (1 standard drink = 0.6 oz pur e alcohol) [facility] Utilities Answer Date Recorded In the past [...] How often do you attend chur or gnosticism services? Never 08/24/2022 Do you belong to any clubs o r organizations such as quaker groups, unions, fraternal or athletic groups, or [...] and heating? Not hard at all 12/24/2022 [facility] [place] of Occupat ional Health - Occupational Stress [...] your living situation today? I have a [facility] place to live 09/17/2023 Education Answer [...] on filedocumented in this encounter Care Teams Sales Account Representative Relationship Specialty Start Date End Date Elsewhere, Pcp PCP - General Internal Medicine 12/29/22 documented as of this encounter
--- OUTSIDE RECORDS SUMMARY | 2023-11-28 14:28 | XMS_ITS | Encounter Summary ---
Author Name Unknown Organization [facility] Address [address] [place] [address] Care Team Providers Care Health And Safety Trainer Name Role Phone Elsewhere, Pcp Primary Care Provider Unavailabl e Encounter Details Date Type Department Care Team (Late st Contact Info) Description 10/13/2023 Orders Only Division of Endocrinology in [place], [place] [address] [place] [phone] Margi Avila M.D. [address] [place] [phone] Osteoporosis (Primary Dx) Social History Tobacco Use Types Packs/Day Years Used Date Smoking Tobacco: Never Passive Smoke Exposure: Never Smokeless Tobacco: Never Comments:As a child Alcohol Use Standard Drinks/Week Comments Yes 7 (1 standard drink = 0.6 oz pur e alcohol) [facility] Utilities Answer Date Recorded In the past 12 months has [facility] [employer], gas, oil, or water [employer] threatened to shut off services in your [...] 08/24/2022 How often do you attend chur [employer] or adventist services? Never 08/24/2022 Do you belong to any clubs o r organizations such as episcopal groups, unions, fraternal or athletic groups, or [...] and heating? Not hard at all 12/24/2022 [facility] of Occupat ional Health - Occupational Stress [...] your living situation today? I have a [facility] place [facility] 09/17/2023 Education Answer Date [...] documented as of this encounter Visit Diagnoses Diagnosis Osteoporosis- Primary documented in this encounter Care Teams Health And Safety Trainer Relationship Specialty Start Date End Date Elsewhere, Pcp PCP - General Internal Medicine 12/29/22 documented as of this encounter
--- OUTSIDE RECORDS SUMMARY | 2023-11-28 14:28 | XMS_ITS ---
Author Name Unknown Organization [facility] Address [address] [place] [address] Care Team Providers Care Relief Salesperson Name Role Phone Unavailable Unavailable Unavailable Surgery Details Not on file Complications Check Surgery Details section. Procedure Estimated Blood Loss Check Surgery Details section. Procedure Findings Check Surgery Details section. Procedure Specimens Taken Check Surgery Details section.
--- OUTSIDE RECORDS SUMMARY | 2023-11-28 14:28 | XMS_ITS | Encounter Summary ---
Author Name Unknown Organization [facility] Address [address] [place] [address] Care Team Providers Care Insole Channeler Name Role Phone Elsewhere, Pcp Primary Care Provider Unavailabl e Reason for Visit * Reason Onset Date Comments Pre-visit Intake 09/20/2023 Encounter Details Date Type Department Care Team (Latest Contact Info) Description 09/20/2023 8:15 AM INSOLE TACK PULLER HAND Clinical Communication Virtual Review in [place], [place] [address] [place] [address] Pre-visit Intake Social History Tobacco Use Types Packs/Day Years Used Date Smoking Tobacco: Never Passive Smoke Exposure: Never Smokeless Tobacco: Never Tobacco Cessation:Counseling Given: Not Answered Comments:As a child Alcohol Use Standard Drinks/Week Comments Yes 7 (1 standard drink = 0.6 oz pur e alcohol) [facility] Utilities Answer Date Recorded In the past 12 months has [employer] gas, oil, or water [employer] threatened to shut off services in your [...] How often do you attend chur or mormonism services? Never 08/24/2022 Do you belong to any clubs o r organizations such as roman catholic groups, unions, fraternal or athletic groups, [...] and heating? Not hard at all 12/24/2022 [facility] of Occupat ionsd Health - Occupational Stress Questionnaire Answer Date [...] your living situation today? I have a [facility] place to live 09/17/2023 Education Answer [...] on filedocumented in this encounter Care Teams Insole Channeler Relationship Specialty Start Date End Date Elsewhere, Pcp PCP - General Internal Medicine 12/29/22 documented as of this encounter
--- OUTSIDE RECORDS SUMMARY | 2023-11-28 14:28 | XMS_ITS | Encounter Summary ---
Author Name Unknown Organization [facility] Address [address] [place] [address] Care Team Providers Care Director Industrial Name Role Phone Elsewhere, Pcp Primary Care Provider Unavailabl e Encounter Details Date Type Department Care Team (Latest Contact Info) Description 10/26/2023 Clinical Communication Division of Endocrinology in [place], [place] [address] [place] [address] Margi Avila M.D. [address] [place] [address] Social History Tobacco Use Types Packs/Day Years Used Date Smoking Tobacco: Never Passive Smoke Exposure: Never Smokeless Tobacco: Never Comments:As a child Alcohol Use Standard Drinks/Week Comments Yes 7 (1 standard drink = 0.6 oz pur e alcohol) [facility] Utilities Answer Date Recorded In the past 12 months has e [employer], gas, oil, or water [employer] threatened to shut off services in your [...] 08/24/2022 How often do you attend chur [employer]YU[employer] or church services? Never 08/24/2022 Do you belong to any clubs o r organizations such as christian groups, unions, fraternal or athletic groups, or [...] and heating? Not hard at all 12/24/2022 [facility] of Occupat ional Health - [...] your living situation today? I have a [facility] place to live 09/17/2023 Education [...] as of this encounter Visit Diagnoses Diagnosis Hypercortisolemia- Primary Osteoporosis Fracture Vertebra Compression Lumbar Closed Subsequent documented in this encounter Care Teams Director Industrial Relationship Specialty Start Date End Date Elsewhere, Pcp PCP - General Internal Medicine 12/29/22 documented as of this encounter
--- OUTSIDE RECORDS SUMMARY | 2023-11-28 14:28 | XMS_ITS | Clinical Summary ---
Author Name Unknown Organization [facility] Address [address] [place] [address] Care Team Providers Care Process Development Associate Name Role Phone Elsewhere, Pcp Primary Care Provider Unavailabl e Source Comments Patient records contain information from all sites at [facility]. For routine questions regarding patient records, call [phone] during business hours, M-F 8:00 AM - 5:00 PM Central Time. Record requests for emergency care only can be directed to [phone] at any time.[facility] Allergies Active Allergy Reactions Criticality Noted Date [...] Date Resolved Date Adenoma Adrenal Right 12/01/20172017 Encounters Date Type Department Care Team Description 11/15/2023 Clinical Communication Department of Infusion Therapy in [place], [place] [address] [place] [address] Joy Cooper, RDavon 10/26/2023 Clinical Communication Division of Endocrinology in [place], [place] [address] [place] [address] Margi Avila M.D. 10/20/2023 Clinical Communication Division of Endocrinology in [place], [place] [address] [place] [address] Margarita, Margi M, M.D. [facility] - Outside Materials 10/20/2023 Clinical Communication Division of Endocrinology in [place], [place] [address] [place] [phone] Margi Avila M.D. Questions 10/19/2023 Orders Only Division of Endocrinology in [place], [place] [address] [place] [phone] Margi Avila M.D. 10/19/2023 Orders Only Division of Endocrinology in [place], [place] [address] [place] [phone] Margi Avila M.D. Osteopenia (Primary Dx); Osteoporosis 10/14/2023 Clinical Communication Division of Endocrinology in [address] [phone] Sahra Hester R.N. 10/13/2023 Orders Only Division of Endocrinology in [place], [place] [address] [place] [phone] Margi Avila M.D. Osteoporosis (Primary Dx) 10/07/2023 Clinical Communication Division of General Internal Medicine in [place], [place] [address] [place] [phone] Prescheduling, Provider Triage 10/04/[address] [address] Annie Brown M.D. Malaise (Primary Dx); Fatigue 09/22/2023 12:00 PM CHURN OPERATOR MARGARINE Telemedicine Division of Endocrinology in [place], [place] [address] [place] [phone] Margi Avila M.D. Mass Adrenal (HCC); Hypercortisolemia 09/20/2023 8:15 AM CHURN OPERATOR MARGARINE Clinical Communication Virtual Review in [address] [phone] Pre-visit Intake from Last 3 Months Family History Medical History Relation Name Comments Obesity Brother joana nicolas Other cancer Brother joana nicolas Hodgkins, thymu s Ulcerative colitis Brother joana nicolas Coronary artery disease Father maggie nicolas Coronary artery disease Father's Brother ramana nicolas Hypertension Mother muna nicolas Stroke Paternal Grandfather darren nicolas Colon cancer Paternal Grandmother manju nicolas Migraines Sister kay regalado Asthma Son 1 shantal lux Sleep apnea Son 1 shantal lux Migraines Son 2 nely lux Relation Name Status Comments Brother joana nicolas Father maggie nicolas Father's Brother ramana nicolas Mother muna nicolas Paternal Grandfather darren nicolas Paternal Grandmother manju nicolas Sister kay regalado Son 1 shantal lux Son 2 nely lux Social History Tobacco Use Types Packs/Day Years Used Date Smoking Tobacco: Never Passive Smoke Exposure: Never Smokeless Tobacco: Never Tobacco Cessation:Counseling Given: Not Answered Comments:As a child Alcohol Use Standard Drinks/Week Comments Yes 7 (1 standard drink = 0.6 oz pur e alcohol) [facility] Utilities Answer Date Recorded In the past 12 months has e electric, gas, oil, or water [employer] threatened to shut off services in your [...] How often do you attend chur or voodoo services? Never 08/24/2022 Do you belong to any clubs o r organizations such as religion groups, unions, fraternal or athletic groups, or [...] when you are drinking? 1 or 2 Q3: How often do you have si x or more drinks on one occasion? Never 08/24/2022 Overall Financial Resource Strain (CARDIA) Answe r Date Recorded How hard is it for you to pa y for the very basics like food, housing, medical care, and heating? Not hard at all 12/24/2022 [facility] - Occupational Stress Questionnaire Answer Date [...] your living situation today? I have a [facility] place to live 09/17/2023 Education Answer Date [...] 10/22/2020 11:32 AM CDT Plan of Treatment Health Maintenance Due Date Last Done Comments Creatinine Level (Kidney Fun ction Test) 06/24/2023 06/24/2022, 03/31/2022, 12/16/2021, Additional history exists Potassium Level 06/24/2023 06/24/2022, 09/0 12/2021, 12/16/2021, Additional history exists Sodium Level 06/24/2023 06/24/2022, 09/0 12/2021, 12/16/2021, Additional history exists Depression Screening (Annual PHQ-2) 07/26/2023 Fall Risk Screen (Annual) 07/26/2023 COVID-19 Vaccine (2022-08 4 season) 2023 04/22/2023, 12/01/2022, 05/05/2022, Additional history exists DTaP,Tdap,and Td Vaccines (4 - Td or Tdap) 11/29/2031 11/28/2021, 09/02/2012, 09/02/2012 Pneumococcal vaccine (65+ years) Completed 05/22/20 15, 05/02/2007 Zoster Vaccines Completed 08/30/2018, 03/26, 07/06/2006 Influenza Vaccine Completed 04/27/2023, , 05/06/2021, Additional history exists Medical Devices Implanted Type Area Coffee Maker Servicer Device Identifier Shelf Expiration Date Model / Serial / Lot Ocular Lens Ocular Lens Bilateral : Eye Procedures Procedure Name Priority Date/Time Associated Diagnosis Comments CREATININE, U Routine 10/13/2023 8:00 AM CDT Mass Adrenal (HCC) Hypercortisolemia CORTISOL, FREE, U Routine 10/13/2023 8:0 0 AM CDT Mass Adrenal (HCC) Hypercortisolemia EXTI BASIC METABOLIC PANEL, S/P Routine 06/24/2022 10:25 AM CHURN OPERATOR MARGARINE from Last 3 Months or Most Recently [...] Margi Avila M.D. LAB URINE ORDERABL ES [facility] [place] [address] [place] [address], [facility] DTL [facility] [address] [place] [address] * Cortisol, Free, 24 hour, Urine (10/13/2023 8:00 AM CDT) Cortisol, U 35 3.5 - 45 mcg/24 h 10/18/2023 8:37 PM CDT [facility] Collection Duration 24 h 10/17 8:37 PM CDT [facility]SC Urine Volume 1650 mL 10/18/2023 8:37 PM CDT [facility] Comment: ----ADDITIONAL INFORMATION---- This test was developed and its performance characteristics determined by [facility] in a manner consistent with CLIA requirements. This test has not been cleared or approved by the U.S. Food and Drug Administration. Urine (Urine, 24 Hours) 10/13/2023 8:00 AM CDT 10/15/2023 11:42 AM CDT Narrative Resulting Agency Comment Mailed In Specimen Margi Avila M.D. LAB URINE ORDERABL ES [facility] [address] [place] [address] [facility] [address] [place] [address] [place] [address] from Last 3 Months or Most Recently Relevant to Health Maintenance Advance Directives For more information, please contact: [phone] Documents on File Type Date Recorded Patient Field Laborer Expl anation Advance Directives 05/12/2017 12:00 AM Bella rothman document. See document viewer. Care Teams Process Development Associate Relationship Specialty Start Date End Date Elsewhere, Pcp PCP - General Internal Medicine 12/29/22
--- OUTSIDE RECORDS SUMMARY | 2023-11-28 14:28 | XMS_ITS | Encounter Summary ---
Author Name Unknown Organization [facility] Address [address] [place] [address] Care Team Providers Care Pairer Name Role Phone Elsewhere, Pcp Primary Care Provider Unavailabl e Encounter Details Date Type Department Care Team (Latest Contact Info) Description 10/14/2023 Clinical Communication Division of Endocrinology in [place], [place] [address] [place] [address] Sahra Hester, RAllyssaN. Social History Tobacco Use Types Packs/Day Years Used Date Smoking Tobacco: Never Passive Smoke Exposure: Never Smokeless Tobacco: Never Comments:As a child Alcohol Use Standard Drinks/Week Comments Yes 7 (1 standard drink = 0.6 oz pur e alcohol) [facility] Utilities Answer Date Recorded In the past 12 months has [facility] [employer], gas, oil, or water [employer] threatened to shut off services in your [...] How often do you attend chur or amish services? Never 08/24/2022 Do you belong to [...] and heating? Not hard at all 12/24/2022 [facility] of Occupat ional Health - Occupational [...] your living situation today? I have a [facility] place to live 09/17/2023 Education Answer [...] on filedocumented in this encounter Care Teams Pairer Relationship Specialty Start Date End Date Elsewhere, Pcp PCP - General Internal Medicine 12/29/22 documented as of this encounter
--- OUTSIDE RECORDS SUMMARY | 2023-11-28 14:28 | XMS_ITS | Encounter Summary ---
Author Name Unknown Organization [facility] Address [address] [place] [address] Care Team Providers Care Hospital Fellow Name Role Phone Elsewhere, Pcp Primary Care Provider Unavailabl e Reason for Visit * Reason Onset Date Comments Questions 10/20/2023 Encounter Details Date Type Department Care Team (Latest Contact Info) Description 10/20/2023 Clinical Communication Division of Endocrinology in [place], [place] [address] [place] [phone] Margi Avila M.D. [address] [place] [address] Questions Social History Tobacco Use Types Packs/Day Years Used Date Smoking Tobacco: Never Passive Smoke Exposure: Never Smokeless Tobacco: Never Comments:As a child Alcohol Use Standard Drinks/Week Comments Yes 7 (1 standard drink = 0.6 oz pur e alcohol) [facility] Utilities Answer Date Recorded In the past [...] How often do you attend chur or roman catholic services? Never 08/24/2022 Do you belong to any clubs o r organizations such as restorationist groups, unions, fraternal or athletic groups, or [...] and heating? Not hard at all 12/24/2022 [facility] of Occupat ional Health - Occupational [...] your living situation today? I have a [facility] place to live 09/17/2023 Education Answer [...] on filedocumented in this encounter Care Teams Hospital Fellow Relationship Specialty Start Date End Date Elsewhere, Pcp PCP - General Internal Medicine 12/29/22 documented as of this encounter
--- OUTSIDE RECORDS SUMMARY | 2023-11-28 14:28 | XMS_ITS | Encounter Summary ---
Author Name Unknown Organization [facility] Address [address] [place] [address] Care Team Providers Care Brand Mgr Name Role Phone Elsewhere, Pcp Primary Care Provider Unavailabl e Encounter Details Date Type Department Care Team (Late st Contact Info) Description 10/19/2023 Orders Only Division of Endocrinology in [place], [place] [address] [place] [phone] Margi Avila M.D. [address] [place] [phone] Osteopenia (Primary Dx); Osteoporosis Social History Tobacco Use Types Packs/Day Years Used Date Smoking Tobacco: Never Passive Smoke Exposure: Never Smokeless Tobacco: Never Comments:As a child Alcohol Use Standard Drinks/Week Comments Yes 7 (1 standard drink = 0.6 oz pur e alcohol) [facility] Utilities Answer Date Recorded In the past 12 months has [facility] [employer], gas, oil, or water [employer] threatened to shut off services in your [...] 08/24/2022 How often do you attend chur [employer] or quaker services? Never 08/24/2022 Do you belong to any clubs o r organizations such as caodaism groups, unions, [employer] Yield or athletic groups, or school groups? No [...] and heating? Not hard at all 12/24/2022 [facility] of Occupat ional Health - Occupational [...] your living situation today? I have a [facility] place to live 09/17/2023 Education Answer [...] as of this encounter Plan of Treatment Scheduled Orders Name Type Priority Associated Diagnoses Orde r Schedule Calcium, Total Lab Routine Osteoporosis Expected: 01/19/2024, Expires: 01/18/2025 Calcium, Total Lab Routine Osteoporosis Expected: 04/20/2024, Expires: 01/18/2025 Calcium, Total Lab Routine Osteoporosis Expected: 07/20/2024, Expires: 01/18/2025 documented as of this encounter Visit Diagnoses Diagnosis Osteopenia- Primary Osteoporosis documented in this encounter Care Teams Brand Mgr Relationship Specialty Start Date End Date Elsewhere, Pcp PCP - General Internal Medicine 12/29/22 documented as of this encounter
--- OUTSIDE RECORDS SUMMARY | 2023-11-28 14:28 | XMS_ITS | Encounter Summary ---
Author Name Unknown Organization [facility] Address [address] [place] [address] Care Team Providers Care Eligibility And Occupancy Interviewer Name Role Phone Elsewhere, Pcp Primary Care Provider Unavailabl e Encounter Details Date Type Department Care Team (Late st Contact Info) Description 11/15/2023 Clinical Communication Department of Infusion Therapy in [place], [place] [address] [place] [phone] Joy Cooper, R.N. Social History Tobacco Use Types Packs/Day Years Used Date Smoking Tobacco: Never Passive Smoke Exposure: Never Smokeless Tobacco: Never Comments:As a child Alcohol Use Standard Drinks/Week Comments Yes 7 (1 standard drink = 0.6 oz pur e alcohol) [facility] Utilities Answer Date Recorded In the past 12 months has [employer], gas, oil, or water [employer] threatened to shut off services in your [...] 08/24/2022 How often do you attend chur ch or buddhism services? Never 08/24/2022 Do you belong to any clubs o r organizations such as taoist groups, unions, fraternal or athletic groups, or [...] 12/24/2022 [facility] - Occupational Stress Questionnaire Answer Date [...] on filedocumented in this encounter Care Teams Eligibility And Occupancy Interviewer Relationship Specialty Start Date End Date Elsewhere, Pcp PCP - General Internal Medicine 12/29/22 documented as of this encounter
--- OUTSIDE RECORDS SUMMARY | 2023-11-28 14:28 | XMS_ITS | Encounter Summary ---
Author Name Unknown Organization [facility] Address [address] [place] [address] Care Team Providers Care Community Arts Officer Name Role Phone Elsewhere, Pcp Primary Care Provider Unavailabl e Reason for Visit * Reason Onset Date Comments Triage 10/07/2023 Encounter Details Date Type Department Care Team (Late st Contact Info) Description 10/07/2023 Clinical Communication Division of General Internal Medicine in [place], [place] [address] [place] [address] Prescheduling, Provider Triage Social History Tobacco Use Types Packs/Day Years Used Date Smoking Tobacco: Never Passive Smoke Exposure: Never Smokeless Tobacco: Never Comments:As a child Alcohol Use Standard Drinks/Week Comments Yes 7 (1 standard drink = 0.6 oz pur e alcohol) [facility] Utilities Answer Date Recorded In the past 12 months has [facility], gas, oil, or water [employer] threatened to shut off services in your [...] often do you attend chur ch or voodoo services? Never 08/24/2022 Do you belong to any clubs o r organizations such as pentecostal groups, unions, fraternal or athletic groups, or [...] and heating? Not hard at all 12/24/2022 [facility] of Occupat ional Health - Occupational [...] your living situation today? I have a [facility] place to live 09/17/2023 Education Answer [...] AM CDT documented as of this encounter Miscellaneous Notes * Telephone Encounter - Mariluz De Guzman - 10/07/2023 7:09 AM CDT marian lux [id number] years Height: 5 ft. 3 in. Weight: 172 Gender: Female PCP: nena Brown [facility] Who filled out ARF: Patient Request: I have medical symptoms without a clear diagnosis MAIN SYMPTOM Malaise Description: I describe it overall as feeling crummy. I have fatigue, feel dizzy some nausea, eyes often feel weird. I just don't feel good. It is a major problem. 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 Initially it was thought that these symptoms were mostly or entirely caused by my Juan Pablo's syndrome. However, as testing and treatments with 2 medications have proceeded it has seemed more and more likely that there is some other problem or problems causing my malaise. We have done a lot of checking on possible causes with our PCPand other medical specialists without finding a likely cause or causes. Dr. Avila now thinks it islikely that there is some other undiagnosed problem and my PCP Dr. Brown (internal medicine training) thinks it would be useful to have a different internal medicine person(s) review my situation. Ihave a difficult situation and am hoping with your experience you can help me. Duration: More than 12 months Previous Eval: Yes Location: [facility] locations in [facility], and [facility], Gastroenterology and ENT Have had: Images (X-Rays, CT scan, MRI scan, etc.), Blood or urine tests Diagnosis: Outcome: We don't know the cause at this point. We hope to identify the cause or causes and hopefully cure the problem. Expectations: Hopefully discover what is making me feel so crummy and improve how I feel. ADDITIONAL - 1 G. I. issues Description: I have bloating almost all the time and no specific cause is known. I have GERD, but that is mostlyunder control with medications. I have Diarrhea occasionally, and don't know what causes that either. I have seen an [facility] order builder loader and also one visit to [facility] to see one also. Duration: More than 12 months Previous Eval: Yes Location: PCP is at [facility] Dr. Stephanie Bernal in [place] to see order builder loader Dr. Rico Hunt. [facility] in [place] to see order builder loader. Have had: Procedures (surgeries, colonoscopies, biopsies, etc.), Images (X-Rays, CT scan, MRI scan, etc.), Blood or urine tests Diagnosis: Outcome: The bloating is not diagnosed and is not under control. This is not painful so it is mostly mentally irritating and looks bad. Expectations: This is not a major issue for me, but if something could be done that would be a good thing. ADDITIONAL - 2 Description: Duration: Previous Eval: Location: Have had: Diagnosis: Outcome: Expectations: ADDITIONAL - 3 Description: Duration: Previous Eval: Location: Have had: Diagnosis: Outcome: Expectations: ADDITIONAL - 4 Description: Duration: Previous Eval: Location: Have had: Diagnosis: Outcome: Expectations: ADDITIONAL CONCERNS: LIFESTYLE MEDICINE CONSULTATION: Yes CONDITIONS: Depression, Anxiety, Pain, Fatigue BOTHERED BY: Feeling nervous, anxious or on edge - Several days Not being able to control or stop worrying - Several days Little interest or pleasure in doing things - Not at all Feeling down, depressed, or helpless - Several days Willing to speak to a mental health professional - PAIN LONGER THAN 3 MONTHS: Yes CARE PROVIDERS TO DATE: 5 or more LOWEST PAIN LAST 7 DAYS (0 to 10): 2 PAIN INTERFERENCE PAST 3 MONTHS (0 to 10): 8 PAIN AREAS: Lower BACK, Right HIP, Right KNEE FATIGUE A MAIN REASON FOR VISIT: Yes FATIGUE/HOW LONG: More than 12 months PROBLEMS WITH SLEEP: No SLEEP PROBLEMS LAST 2 WEEKS: SLEEP APNEA DIAGNOSIS: Yes Willing to attend [facility] or [facility] appointments - Probably not DAILY MEDS: 14 OPIOIDS: No CURRENT DIALYSIS: No CURRENT HEALTH/PAST YEAR: Fair CONFIDENCE: Somewhat agree NOT AVAILABLE: September, 10/31-11/08, 12/06, 12/30-01/06, 01/30-02/14 PHONE: [phone] documented in this encounter Plan of Treatment Not on file documented as of this encounter Visit Diagnoses Not on filedocumented in this encounter Care Teams Community Arts Officer Relationship Specialty Start Date End Date Elsewhere, Pcp PCP - General Internal Medicine 12/29/22 documented as of this encounter
--- OUTSIDE RECORDS SUMMARY | 2023-11-28 14:28 | XMS_ITS | Encounter Summary ---
Author Name Unknown Organization [facility] Address [address] [place] [id number] Care Team Providers Care Multi Slide Machine Tender Name Role Phone Elsewhere, Pcp Primary Care Provider Unavailabl e Reason for Visit * Outpatient (Routine) - Closed Specialty Diagnoses / Procedures Referred By Celena bradley Referred To Contact Endocrinology Diagnoses Mass Adrenal (HCC) Hypercortisolemia Margi Avila M.D. [address] [place] [phone] [facility] Referral ID Status Reason Start Date Expiration Date Visits Re quested Visits Authorized [id number] Closed 07/12/2023 07/11/2026 1 1 Encounter Details Date Type Department Care Team (Latest Contact Info) Description 09/22/2023 12:00 PM PSYCHOLOGIST Telemedicine Division of Endocrinology in [place], [place] [address] [place] [phone] Margi Avila M.D. [address] [place] [phone] Mass Adrenal (HCC); Hypercortisolemia Social History Tobacco Use Types Packs/Day Years Used Date Smoking Tobacco: Never Passive Smoke Exposure: Never Smokeless Tobacco: Never Comments:As a child Alcohol Use Standard Drinks/Week Comments Yes 7 (1 standard drink = 0.6 oz pur e alcohol) [facility] Utilities Answer Date Recorded In the past 12 months has th e electric, gas, oil, or water [employer] threatened to shut off services in your [...] often do you attend chur ch or jew services? Never 08/24/2022 Do you belong to any clubs o r organizations such as confucianism groups, unions, fraternal or athletic groups, or [...] and heating? Not hard at all 12/24/2022 [facility] Occupat [facility] - Occupational Stress [...] your living situation today? I have a [facility] place to live 09/17/2023 Education Answer [...] AM CDT documented as of this encounter Progress Notes * Margi Avila M.D. - 09/22/2023 12:00 PM CST SUBJECTIVE CHIEF COMPLAINT / REASON FOR VISIT Marian Lux is a 83 y.o. female who presents for evaluation of mild autonomous cortisol secretion and osteoporosis. HISTORY OF PRESENT ILLNESS Ms. Lux is an 82-year-old woman with a history of hypertension, prediabetes, low bone density, who presents for a follow-up visit. Please see my previous clinical notes for details. Essentially, Ms. 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 A 1 mg overnight dexamethasone suppression test is abnormal with a morning cortisol of 16 mcg/dL in 2017 and 14 mcg/dL in 2018. ACTH has been suppressed for the last several years. Workup on her last visit showed a 24 hour urine cortisol of 46.7 mcg/dL, morning cortisol of 22.5 mcg/dL. She is previously tried mifepristone, which had some symptom improvement but she developed side effects. She was having significant symptoms and signs of excess cortisol on physical exam. We discussed another trial of medical therapy. She has been on osilodrostat 0.5 mg twice daily since around March of 2023. Ms. Lux has been tolerating osilodrostat well. She has not noticed any symptom improvement though since starting the medication. Unfortunately, a few months ago she had a fall and developed worsening back pain in the following days. A CT scan showed a T11 compression fracture. She had a kyphoplasty completed by a neurosurgeon in [place]. Unfortunately, the kyphoplasty cause a subsequent fracture of the T10 vertebrae. She then had a kyphoplasty of this completed. Her back pain is improving since the procedures, but her mobility has been fairly limited. In terms of her bone health, she has been on alendronate in the past and took this for around 4-5 years. She thinks she started a bisphosphonate holiday around 2018 or 2018. Most recent bone mineral density in 2020 showed a lumbar spine T-score of-2.1, left femoral neck-1.9, total hip-1.4, right femoral neck-2.4, total hip-1.4. Last year, I recommended an updated bone mineral density with her primary care provider. She had a bone mineral density completed at a different facility a month or 2 ago. This showed a lumbar spine T-score of-1.8, right femur neck T-score of-2.3, and left femur neck T-score of- 1.4. She gets some calcium inher diet, as well as a little bit of calcium through her multivitamin. She does get vitamin-D with her multivitamin, and recent levels were normal. She also had normal calcium testing recently. The following portions of the patient's history were reviewed and updated as appropriate: allergies, current medications, family history, medical history, social history, surgical history, and problem list. OBJECTIVE Physical Exam General: Very pleasant woman in no acute distress ASSESSMENT / PLAN #1 Bilateral macronodular adrenal hyperplasia #2 Mild autonomous cortisol secretion #3 Hypertension #4 Prediabetes #5 Osteoporosis with T11, T10 compression fracture, high risk of fracture Ms. Lux presents today for follow-up. She is going to continue osilodrostat 0.5 mg twice daily for now. She is going to complete a 24 hour urine cortisol test. If the cortisol testing is normal, Iwould be inclined to stop the osilodrostat since she has not had any symptom improvement. Our goal was to use the medication to improve her quality of life, and if it is not helping, I think it is reasonable to stop this. We will see how the urine testing looks. Medical therapy for mild autonomous cortisol secretion is still evolving. We may find there are medical therapies available in the coming years, but I would be inclined to observe things for now if we decide to stop the osilodrostat. We spent the bulk of our discussion talking about her bone health. She does have osteoporosis and unfortunately had 2 fragility fractures. She is extremely high risk of fracture given these fracturesas well as her ongoing mild autonomous cortisol secretion. A prescription for abaloparatide has been sent to her insurance by her primary care provider. I do think an anabolic agent is best in this scenario given her recent fractures as well as the cortisol excess. We can see impaired function of osteoblast in cortisol excess, and this is best treated with anabolic therapy. It may be challenging to get abaloparatide approved based on her bone mineral density. I will add that she had radiation treatment to a plantar wart when she was 7 years old. This was a single treatment, and she has had nosequelae or complications from the radiation. Abaloparatide has been associated with osteosarcoma, and the risk maybe slightly increased because of her previous radiation. However, with her fracture risk being as high as it is an osteosarcoma risk being relatively low, it may still be a reasonable c onsideration. She is aware of the risk, and feels she would still use the medication if it is approved. Another consideration would be romosozumab (Evenity). This can help reduce the risk of fracture by 60% in postmenopausal women who are high risk for fracture. She has a remote history of stroke, but no contraindications to Evenity. She does have a molar which is being watched closely by her dentist, and we discussed the importance of dental health to reduce the risk of osteonecrosis. She will talk with her dentist about whether or not intervention is needed. Lastly, we discussed that if anabolic therapy is not approved, she would warrant some treatment. Zoledronic acid as a yearly infusion for 3 years would help reduce her risk of fracture. It would not be as impactful in helping with the cortisol effects, but would reduce her risk of fracture by 50%. We also discussed the importance of getting adequate calcium 1200 mg daily through some combination of diet and supplement. She can continue her vitamin-D supplement. Return Date: 8-9 months for repeat labs and in-person visit Telehealth: No Return to: Self Orders mail in: No Medications: None prescribed Refills requests: PCP Controlled substance prescriptions: No Additional recommendations: none Orders placed for next visit: #1 Mass Adrenal (HCC) #2 Hypercortisolemia Other orders - Endocrinology office visit (clinic) - Cortisol; Future; Expected date: 05/22/2024 - ACTH (Adrenocorticotropic Hormone); Future; Expected date: 05/22/2024 HOLOGIST documented in this encounter Plan of Treatment Scheduled Orders Name Type Priority Associated Diagnoses Orde r Schedule Cortisol Lab Routine Mass Adrenal (HCC) Hypercortisolemia Expected: 05/22/2024, Expires: 09/22/2024 ACTH (Adrenocorticotropic Hormone) Lab Routine Mass Adrenal (HCC) Hypercortisolemia Expected: 05/22/2024, Expires: 09/22/2024 documented as of this encounter Visit Diagnoses Diagnosis Mass Adrenal (HCC) Hypercortisolemia documented in this encounter Care Teams Multi Slide Machine Tender Relationship Specialty Start Date End Date Elsewhere, Pcp PCP - General Internal Medicine 12/29/22 documented as of this encounter
--- OUTSIDE RECORDS SUMMARY | 2023-11-28 14:28 | XMS_ITS | Encounter Summary ---
Author Name Unknown Organization [facility] Address [address] [place] [address] Care Team Providers Care Animal Groomer Name Role Phone Elsewhere, Pcp Primary Care Provider Unavailabl e Encounter Details Date Type Department Care Team (Late st Contact Info) Description 10/04/2023 [facility] [address] [place] [address] Annie Brown M.D. [address] [place] [phone] Malaise (Primary Dx); Fatigue Social History Tobacco Use Types Packs/Day Years Used Date Smoking Tobacco: Never Passive Smoke Exposure: Never Smokeless Tobacco: Never Comments:As a child Alcohol Use Standard Drinks/Week Comments Yes 7 (1 standard drink = 0.6 oz pur e alcohol) [facility] Utilities Answer Date Recorded In the past 12 months has [employer], gas, oil, or water [employer] threatened to shut off services in your [...] often do you attend chur ch or tenriism services? Never 08/24/2022 Do you belong to any clubs o r organizations such as jain groups, unions, fraciValue or athletic groups, or school groups? No [...] and heating? Not hard at all 12/24/2022 [facility] - Occupational [...] your living situation today? I have a [facility] place to live 09/17/2023 Education [...] as of this encounter Visit Diagnoses Diagnosis Malaise- Primary Fatigue documented in this encounter Care Teams Animal Groomer Relationship Specialty Start Date End Date Elsewhere, Pcp PCP - General Internal Medicine 12/29/22 documented as of this encounter
[2023-11-28 14:55] LABS: Appearance Urine Cloudy (Clear); Bilirubin Urine Negative (Negative); Blood Urine Negative (Negative); Color Urine Yellow (Yellow); Glucose Urine Negative (Negative); Ketones Urine Negative (Negative); Leukocyte Esterase Urine 1+ (Negative); Nitrite Urine Negative (Negative); Protein Urine 1+ (Negative); Urobilinogen Urine 0.2 (0.2-1.0)
[2023-11-28 15:02] LABS: Bacteria Urine Few; RBC Urine 0-2 (0-2); Squamous Epithelial Cell Urine Few (None-Few)
[2023-11-28 15:07] LABS: Lactate* 1.6 mmol/L (0.5-1.9)
[2023-11-28 15:39] LABS: Basophils Percent Auto 0.2 % (0.0-3.0); Eosinophils Percent Auto 0.2 % (0.0-7.0); Hematocrit 39.8 % (33.0-51.0); Hemoglobin* 12.6 gm/dL (12.0-16.0); Immature Granulocytes Pct Auto 1.2 %; Lymphocytes Percent Auto 8.7 % (20-44); Mean Corpuscular HGB Conc 32 gm/dL (32-36); Mean Corpuscular Hemoglobin 30 pg (26-34); Mean Corpuscular Volume 95 fL (80-100); Monocytes Percent Auto 9.9 % (0.0-11.0); Neutrophils Percent Auto 79.8 % (42.0-72.0); Platelet Count* 494 K/uL (140-440); RDW Coefficient of Variation % 15.2 % (11.5-15.5); Red Blood Count 4.21 m/uL (4.00-5.20); White Blood Count* 19.65 K/uL (4.50-11.00)
[2023-11-28 15:44] LABS: Slide Review Reflex No
[2023-11-28 15:53] LABS: Chloride* 100 mmol/L (96-114); Sodium* 133 mmol/L (135-149)
[2023-11-28 15:54] LABS: Potassium* 4.1 mmol/L (3.6-5.1)
[2023-11-28 15:56] LABS: Anion Gap 7 mEq/L (7-15); Carbon Dioxide* 26 mmol/L (20-32); Est. Creatinine Clearance* 35.88; Estimated Glomerular Filt Rate 56 ml/min
[2023-11-28 15:57] LABS: Blood Urea Nitrogen* 24 mg/dL (7-30); Glucose* 103 mg/dL (60-115)
[2023-11-28 16:10] LABS: Troponin I* < 0.01 ng/mL (0.01-0.04)
[2023-11-28] MEDS: 0.9 % SODIUM CHLORIDE 1000 ml 1,000 ML IV (16:39)
[2023-11-28 17:37] LABS: PCR FLU A Negative PCR FLU A (Negative); PCR FLU B Negative PCR FLU B (Negative); PCR RSV Negative PCR RSV (Negative); SARS PCR* Negative SARS-CoV-2 (Negative)
--- NOTE | 2023-11-28 18:15 | PM.IMHP1 ---
Hospitalist- H&P: [facility] History of Present Illness Date Seen: 11/28/23 Chief complaint: fainting Narrative: Marian Lux is a 83 year old woman presents to our emergency department this afternoon after a near syncopal episode in her home without fall or injury. She was in the kitchen preparing a meal when she had the sudden onset of lightheadedness and nausea. Denies chest heaviness, pressure, tightness, or pain. No vomiting. No palpitations or chest fluttering. Denies fevers, rigors, diaphoresis. As she was standing and working in the kitchen she suddenly felt weak and lightheaded. Walked about 10 steps to the couch and sat down. assisted her. She was not very responsive for a few minutes. In a relatively short period of time, placed home pulse oximeter on her finger. Initially unable to get any reading. He then place it on his own finger and was able to get a meaningful reading. He placed the device back on her finger and initially it did not read again but when it did start to read heart rate was around 35 and oxygen saturation reportedly in the mid 80s. He promptly called 911. By the time the EMS staff arrived at the home patient was essentially back to baseline. notes that the 1st blood pressure reading was reported as 85 over 50 mmHg. She is brought into the [facility] Emergency Department for further assessment. By the time she arrives here all her vitals have been stable and her ability to interact has been baseline. Review of Systems Status of ROS: Reports: 10 or more systems reviewed and unremarkable except as noted in History and below Narrative: No recent travel, trauma, or injury. No recent blood loss of any sort. Has fairly complex active medical problems including [place]'s disease and associated osteoporosis. Last echocardiogram obtained was on 06/11/2022 and demonstrated the followin. Normal LV chamber size, moderately increased wall thickness, normal global systolic function, EF 63%. 2. Grade 2 pattern LV diastolic dysfunction. 3. Right ventricular cavity size normal, global systolic RV function normal. 4. Sclerotic aortic valve with no stenosis and mild to moderate regurgitation. 5. Mild mitral regurgitation with normal mitral valve appearance. Denies gastrointestinal or genitourinary symptoms. Denies cough or dyspnea. No neurologic symptoms. Baseline level of aches and pains including in her back and legs. No new myalgias or arthralgias. Designates her , Alhaji, as her primary power of transactional attorney for health should that be required. Designates her son, Alhaji, as her secondary power of transactional attorney for health should that be required. Requests full resuscitation in the event of cardiopulmonary demise. Indicates she does not want to be kept in a persistent vegetative state. [facility] Medical History (Updated 11/28/23 @ 18:46 by Roldan West MD) Aortic valve regurgitation ?I35.1 - Nonrheumatic aortic (valve) insufficiency (ICD-10) Chronic hyponatremia ?E87.1 - Hypo-osmolality and hyponatremia (ICD-10) Osteoporosis ?M81.0 - Age-related osteoporosis without current pathological fracture (ICD-10) History of compression fracture of spine ?Z87.81 - Personal history of (healed) traumatic fracture (ICD-10) Anxiety ?F41.9 - Anxiety disorder, unspecified (ICD-10) Spinal stenosis ?M48.00 - Spinal stenosis, site unspecified (ICD-10) Coronary artery disease ?I25.10 - Atherosclerotic heart disease of jackson coronary artery without angina pectoris (ICD-10) Obesity with body mass index 30 or greater ?E66.9 - Obesity, unspecified (ICD-10) Chronic fatigue ?R53.82 - Chronic fatigue, unspecified (ICD-10) Premature atrial contractions ?I49.1 - Atrial premature depolarization (ICD-10) [place]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) History of ischemic stroke ?Z86.73 - Personal history of transient ischemic attack (TIA), and cerebral infarction without residual deficits (ICD-10) Unsteady gait ?R26.81 - Unsteadiness on feet (ICD-10) Irritable bowel syndrome ?K58.9 - Irritable bowel syndrome without diarrhea (ICD-10) Gastroesophageal reflux disease ?K21.9 - Gastro-esophageal reflux disease without esophagitis (ICD-10) Exophthalmos of left eye (2020) ?H05.20 - Unspecified exophthalmos (ICD-10) Excessive daytime sleepiness ?G47.19 - Other hypersomnia (ICD-10) Essential hypertension ?I10 - Essential (primary) hypertension (ICD-10) Chronic abdominal pain ?R10.9 - Unspecified abdominal pain (ICD-10) ?G89.29 - Other chronic pain (ICD-10) Adrenal adenoma ?D35.00 - Benign neoplasm of unspecified adrenal gland (ICD-10) Hyperlipidemia ?E78.5 - Hyperlipidemia, unspecified (ICD-10) Pes planus of both feet ?M21.41 - Flat foot [pes planus] (acquired), right foot (ICD-10) ?M21.42 - Flat foot [pes planus] (acquired), left foot (ICD-10) Adductor tendinitis of both hips ?M76.891 - Other specified enthesopathies of right lower limb, excluding foot (ICD-10) ?M76.892 - Other specified enthesopathies of left lower limb, excluding foot (ICD-10) Greater trochanteric bursitis of both hips ?M70.61 - Trochanteric bursitis, right hip (ICD-10) ?M70.62 - Trochanteric bursitis, left hip (ICD-10) Lumbar degenerative disc disease ?M51.36 - Other intervertebral disc degeneration, lumbar region (ICD-10) History of renal calculi ?Z87.442 - Personal history of urinary calculi (ICD-10) Surgical History 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 - Acquired absence of eye (ICD-10) History of kyphoplasty (08/13/23) ?Z98.890 - Other specified postprocedural states (ICD-10) History of cataract surgery (2017) ?Z98.49 - Cataract extraction status, unspecified eye (ICD-10) 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.2 - Postprocedural hypoparathyroidism (ICD-10) Family History Father Heart disease Son Heart disease Mother High blood pressure Social History Smoking Status: Never smoker Do you use any of these nicotine containing products: None Second hand tobacco smoke exposure: Yes (youth) How often do you have a drink containing alcohol: 4 or more times a week How many standard drinks containing alcohol do you have on a typical day: 1 or 2 How often do you have six or more drinks on one occasion: Never AUDIT-C Alcohol total score: 4 Non-prescribed substance use: denies use Little interest or pleasure in doing things: not at all Feeling down, depressed, or hopeless: not at all service: No Meds Home Medications and Allergies Home Medications Medication Instructions Recorded Confirmed Type famotidine 20 mg tablet 20 mg PO .Bedtime 04/30/22 11/22/23 History multivitamin (Multiple Vitamins 1 tab PO QAM 04/30/22 11/22/23 History tablet) polyethylene glycol 3350 17 g PO DAILY 04/30/22 11/22/23 History gram/dose oral powder acetaminophen 500 mg capsule 500 mg PO DAILY PRN 07/02/22 11/22/23 History melatonin 3 mg capsule 3 mg PO QHS 07/02/22 11/22/23 History rosuvastatin 40 mg tablet 40 mg PO QDAY 07/02/22 11/22/23 History vit C 250 mg-vit E 90 mg-zinc 40 1 tab PO BID 07/02/22 11/22/23 History mg-copper 1 pg-[id number]-[id number] capsule (PreserVision AREDS-2) valsartan 160 mg tablet 160 mg PO QDAY 07/06/22 11/22/23 History osilodrostat 1 mg tablet (Isturisa) 0.5 mg PO BID 05/04/23 11/22/23 History gabapentin 100 mg capsule 100 mg PO 3XD 09/16/23 11/22/23 History ondansetron 4 mg disintegrating 4 mg PO PRN 09/16/23 11/22/23 History tablet calcium citrate 200 mg 3 tab PO QDAY 11/22/23 11/22/23 History calcium-vitamin D3 6.25 mcg (250 unit) tablet (Citracal-D3 Petites) Allergies Allergy/AdvReac Type Severity Reaction Status Date / Time tramadol Allergy Intermediate nausea, Verified 11/28/23 16:30 vomiting codeine AdvReac Unknown Nausea Verified 11/28/23 16:30 Exam Narrative: Exam Narrative: Examined patient in the emergency department. Her Bill and her Bill are both with her. Patient appears comfortable and in no acute distress. Vision and hearing are grossly normal. Alert and oriented to self, place, time, situation. Articulate and cooperative. Well cared for. Has facial makeup on. Conjugate vision. No icterus or conjunctival injection. Pupils equally round and reactive to light and accommodation. Normal nasal and buccal mucosa. Dentition in good repair. Neck is supple. No JVD or hepatojugular reflux. No carotid bruits. No head and neck lymphadenopathy. No lymphadenopathy in the axilla. Lungs are clear to auscultation without wheezing, rhonchi, or rales. Chest wall excursions are full. No CVA tenderness. Heart tones with regular rhythm, normal S1-S2. Grade 2/6 systolic murmur in right upper sternal border. PMI not laterally displaced. Abdomen with active bowel sounds, soft, nontender. Extremities without edema. Moves all 4 extremities. Able to feed herself and drink without any difficulties. Cranial nerves 3-12 grossly normal. Skin is warm, dry, intact. No jaundice, cyanosis, petechiae, or rashes. Const: Vital Signs, click to edit/add: Vital Signs - 24 hr 11/28/23 13:17 Temperature 97.4 F L Pulse Rate [Right Pulse Oximeter] 74 Respiratory Rate 18 Blood Pressure [Ri ght Upper Arm] 140/70 H Pulse Oximetry 97 Oxygen Delivery Me thod Room Air Documenting provider has reviewed patient's vital signs: yes Hospitalist - H&P: Result Labs Labs: Short CBC 11/28/23 Range/Units 15:30 WBC 19.65 H (4.50-11.00) K/uL Hgb 12.6 (12.0-16.0) gm/dL Hct 39.8 (33.0-51.0) % Plt Count 494 H (140-440) K/uL BMP 11/28/23 15:30 Sodium 133 L Potassium 4.1 Chloride 100 Carbon Dioxide 26 BUN 24 Creatinine 1.0 Glucose 103 Calcium 10.0 Cardiac Enzymes 11/28/23 Range/Units 15:30 Troponin I < 0.01 L (0.01-0.04) ng/mL Urine 11/28/23 Range/Units 14:45 Urine Color Yellow (Yellow) Urine Appearance Cloudy A (Clear) Urine pH 7.0 (5.0-8.5) Ur Specific [place] 1.020 (1.000-1.030) Urine Protein 1+ A (Negative) Urine Glucose (UA) Negative (Negative) ECG Attestation: I personally reviewed and interpreted this ECG as follows: ECG interpretation date: 11/28/23 Interpretation: Normal sinus rhythm. No evidence for acute or prior infarction or ischemia. Imaging CT Chest/Ab/Pelvis: Radiologist's impression: IMPRESSION: 1. No evidence of intramural hematoma involving the thoracic aorta. 2. No evidence of acute or chronic pulmonary thromboembolism. 3. No evidence of aortic aneurysm or dissection. 4. Origin of the great vessels is unremarkable. 5. Pulmonary infiltrates left upper lobe; short-term follow-up suggested. 6. Nodular enlargement both adrenal glands; stable in appearance. 7. Cortical cysts left kidney. 8. Diverticulosis sigmoid colon without any CT evidence of diverticulitis or abscess. 9. Vertebroplasty T10 and T11. Assessment and Plan Assessment and plan (1) Near syncope: Problem comment: - etiology not yet determined. Differential diagnosis include cardiac dysrhythmia, evolution of aortic regurgitation with complications associated there with, progression of concentric left ventricular hypertrophy with possible outflow obstruction development, complications associated with Juan Pablo syndrome, etc. - admit for observation. Telemetry. Recheck echocardiogram. Monitor orthostatic blood pressures and pulses. Serial trop I and ECGs. - physical therapy and occupational therapy to assist with assessment and recommendations. - venous thromboembolism prophylaxis with compression stockings and sequential compression devices of calves at night. Status: Acute (2) Pneumonia: Problem comment: - CT scan of chest, abdomen, pelvis on 11/28/2023: IMPRESSION: 1. No evidence of intramural hematoma involving the thoracic aorta. 2. No evidence of acute or chronic pulmonary thromboembolism. 3. No evidence of aortic aneurysm or dissection. 4. Origin of the great vessels is unremarkable. 5. Pulmonary infiltrates left upper lobe; short-term follow-up suggested. 6. Nodular enlargement both adrenal glands; stable in appearance. 7. Cortical cysts left kidney. 8. Diverticulosis sigmoid colon without any CT evidence of diverticulitis or abscess. 9. Vertebroplasty T10 and T11. - white blood cell count 88878, with no fever, rigors, diaphoresis. - blood cultures ordered. - ceftriaxone 1 g IV started emergency department and then daily thereafter, plus started azithromycin 500 mg orally on day 1 then 250 mg daily starting on day 2 through day 5. Status: Acute (3) Acute UTI: Problem comment: - clean catch urinalysis on 11/28/2023 demonstrated the following: Negative nitrite, 1+ leukocyte esterase, 10-25 white blood cells per high-power field, many bacteria. - urine culture ordered, results pending. - initiated ceftriaxone 1 g IV daily. Status: Acute (4) Aortic valve regurgitation: Problem comment: - mild to moderate per echocardiogram obtained May 2022 with concentric LVH and EF of 63%. - recheck transthoracic echocardiogram while in hospital. Status: Acute (5) Chronic hyponatremia: Problem comment: - monitor serum sodium. Status: Acute (6) Essential hypertension: Problem comment: on medication since around 1993, HCTZ started 11/14 by computer recycling worker, Dr. 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 Suárez 08/14, now seeing Dr. Avila at [place], started on osilodrostat/Isturisa 04/17 Status: Acute Plan 1. Reviewed impression with patient, , and son. 2. Answered their questions. 3. They are agreeable with above stated plans and recommendations. Total Time Spent Total Time Spent: 70 minutes
[2023-11-28 18:34] VITALS: BP 155/70; PULSE 97; RESP 18; TEMP 36.7; O2SAT 97
[2023-11-28 18:50] VITALS: BP 125/71; BP 141/77; BP 146/71; PULSE 107; PULSE 84; PULSE 92
--- NOTE | 2023-11-28 19:33 | PC.NURSE ---
(Shift 18-193) Pt arrived to M/S floor at 1800. Pt accompanied by and son. Pt assist of one with walker and gait belt. Pt settled and admission started.
[2023-11-28] MEDS: 0.9 % SODIUM CHLORIDE 1000 ml 1,000 ML 75 ML IV (21:17)
[2023-11-28] MEDS: GABAPENTIN 100 MG CAPSULE PO (21:18)
[2023-11-28] MEDS: MELATONIN 3 MG TABLET PO (21:18)
[2023-11-28] MEDS: AZITHROMYCIN 250 MG TABLET 500 MG PO (21:18)
[2023-11-28] MEDS: FAMOTIDINE 20 MG TABLET PO (21:19)
[2023-11-28] MEDS: SODIUM CHLORIDE 0.9 % (FLUSH) 10 ML SYRINGE 5 ML IVF (21:19)
[2023-11-28] MEDS: ACETAMINOPHEN 325 MG TABLET 650 MG PO (22:27)
[2023-11-28] MEDS: AMLODIPINE 10 MG TABLET PO (22:29)
[2023-11-28] MEDS: VALSARTAN 160 MG TABLET PO (22:29)
[2023-11-28 23:00] VITALS: PULSE 82; RESP 16; O2SAT 91
[2023-11-29] VITALS (8 sets, daily range): BP systolic 118–147; BP diastolic 55–76; PULSE 70–92; RESP 16–18; TEMP 36.2–37.1; O2SAT 88–96
[2023-11-29] MEDS: ACETAMINOPHEN 325 MG TABLET 650 MG PO ×2 (04:29→15:39)
[2023-11-29 06:48] LABS: HCO3 VBG 27 mmol/L (21-28); Lactate* 0.7 mmol/L (0.5-1.9); PCO2 VBG 43 mmHG (40-50); PO2 VBG 53.5 mmHG (25-47); pH VBG 7.402 (7.32-7.43)
[2023-11-29 07:07] LABS: Hematocrit 34.1 % (33.0-51.0); Hemoglobin* 10.9 gm/dL (12.0-16.0); Mean Corpuscular HGB Conc 32 gm/dL (32-36); Mean Corpuscular Hemoglobin 30 pg (26-34); Mean Corpuscular Volume 95 fL (80-100); Platelet Count* 462 K/uL (140-440); White Blood Count* 10.03 K/uL (4.50-11.00)
[2023-11-29 07:12] LABS: Slide Review Reflex No
[2023-11-29 07:13] LABS: Chloride* 107 mmol/L (96-114); Potassium* 4.2 mmol/L (3.6-5.1); Sodium* 135 mmol/L (135-149)
[2023-11-29 07:16] LABS: Anion Gap 2 mEq/L (7-15); Carbon Dioxide* 26 mmol/L (20-32); Creatinine* 0.9 mg/dL (0.5-1.5); Est. Creatinine Clearance* 35.88; Estimated Glomerular Filt Rate 64 ml/min
[2023-11-29 07:17] LABS: Blood Urea Nitrogen* 19 mg/dL (7-30); Calcium* 9.1 mg/dL (8.4-10.6); Glucose* 96 mg/dL (60-115); Magnesium* 2.3 mg/dL (1.5-2.6); Phosphorus* 3.5 mg/dL (2.5-4.5)
[2023-11-29 07:20] LABS: C Reactive Protein* 3.2 mg/dL (0.5-1.0)
[2023-11-29 07:31] LABS: Procalcitonin* 0.64 ng/mL (<0.50)
[2023-11-29 07:32] LABS: NT Pro B Type NatriureticPept* 240 pg/mL; Troponin I* < 0.01 ng/mL (0.01-0.04)
[2023-11-29] MEDS: ROSUVASTATIN CALCIUM 10 MG TABLET 40 MG PO (08:35)
[2023-11-29] MEDS: AZITHROMYCIN 250 MG TABLET PO (08:35)
[2023-11-29] MEDS: CLOPIDOGREL 75 MG TABLET PO (08:36)
[2023-11-29] MEDS: OMEPRAZOLE 20 MG CAPSULE DR PO (08:36)
[2023-11-29] MEDS: polyethylene glycoL 3350 17 GM PACK PO (08:36)
--- NOTE | 2023-11-29 10:40 | PM.IMPN1 ---
Progress Note: A&P Assessment and plan (1) Pneumonia: Problem details: - CT scan of chest, abdomen, pelvis on 11/28/2023: IMPRESSION: 1. No evidence of intramural hematoma involving the thoracic aorta. 2. No evidence of acute or chronic pulmonary thromboembolism. 3. No evidence of aortic aneurysm or dissection. 4. Origin of the great vessels is unremarkable. 5. Pulmonary infiltrates left upper lobe; short-term follow-up suggested. 6. Nodular enlargement both adrenal glands; stable in appearance. 7. Cortical cysts left kidney. 8. Diverticulosis sigmoid colon without any CT evidence of diverticulitis or abscess. 9. Vertebroplasty T10 and T11. - white blood cell count [id number], with no fever, rigors, diaphoresis. - blood cultures ordered. - ceftriaxone 1 g IV started emergency department and then daily thereafter, plus started azithromycin 500 mg orally on day 1 then 250 mg daily starting on day 2 through day 5. - 11/28 Her white count on admission yesterday was markedly elevated (predominantly neutrophils), her prolactin and CRP are also elevated this morning. She has a left pulmonary infiltrate on CT yesterday. Continue ceftriaxone and azithromycin. Possible d/c tomorrow morning if she continues to do well. Stop IVF today. Status: Acute (2) Near syncope: Problem details: - etiology not yet determined. Differential diagnosis include cardiac dysrhythmia, evolution of aortic regurgitation with complications associated there with, progression of concentric left ventricular hypertrophy with possible outflow obstruction development, complications associated with Juan Pablo syndrome, etc. - admit for observation. Telemetry. Recheck echocardiogram. Monitor orthostatic blood pressures and pulses. Serial trop I and ECGs. - physical therapy and occupational therapy to assist with assessment and recommendations. - venous thromboembolism prophylaxis with compression stockings and sequential compression devices of calves at night. - 11/28 no events overnight, telemetry unremarkable. Serial troponins unremarkable. Echocardiogram pending, scheduled for today. Status: Acute (3) Acute UTI: Problem details: - clean catch urinalysis on 11/28/2023 demonstrated the following: Negative nitrite, 1+ leukocyte esterase, 10-25 white blood cells per high-power field, many bacteria. - urine culture showed mixed timur. Status: Ruled-out (4) Aortic valve regurgitation: Problem details: - mild to moderate per echocardiogram obtained May 2022 with concentric LVH and EF of 63%. - recheck transthoracic echocardiogram while in hospital. Status: Acute (5) Chronic hyponatremia: Problem details: - monitor serum sodium. 135 today. Status: Acute (6) Essential hypertension: Problem details: on medication since around 1993, HCTZ started 11/14 by felt finishing supervisor, Dr. 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 Suárez 08/14, now seeing Dr. Avila at [place], started on osilodrostat/Isturisa 04/17, self discontinued this 2 weeks ago. 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 Echocardiogram pending, serial troponins and telemetry unremarkable. UTI ruled out. Suspect pneumonia with left infiltrate seen on CT on admission along with leukocytosis, predominantly neutrophils, elevated prolactin, and elevated CRP. Treating with ceftriaxone and azithromycin. No hypoxia. Anticipate possible discharge tomorrow. PT and OT evaluations pending. Subjective Time Seen by Provider: 09:10 Date Seen: 11/29/23 Interval history: Marian feels well today and asked several times about going home. We discussed suspected pneumonia, suspected urinary tract infection, and ongoing workup for etiology of near syncope. She told me that this is her 2nd such event, the 1st being July 24 of last year when she had a very similar near syncopal event. She was seen in our ER that time. She denies any shortness of breath, cough, fever, or urinary symptoms. Her white count on admission yesterday was markedly elevated, her prolactin and CRP are also elevated this morning. She has a left pulmonary infiltrate on CT yesterday and an abnormal urinalysis. She has been following with Dr. Brown for osteoporosis, Juan Pablo's disease, osteoarthritis of the right knee, etc.. She also sees Dr. Avila at [facility] for Endocrinology. She tells me that she stopped taking Istersa (osilodrostat) about two weeks ago because feels she does not need it since her cortisol levels were normal on a few checks. She also feels that it has not made any difference in her symptoms which started about 7 years ago and think she needs to see somebody else in Internal Medicine at [place] for yet another opinion, although she admits she has had many different opinions over the years and still has not been able to figure out a diagnosis that has improved her symptoms. Exam Const: Vital Signs, click to edit/add: Vital Signs - 24 hr 11/28/23 13:17 11/28/23 18:34 11/28/23 18:50 Temperature 97.4 F L 98.0 F Pulse Rate Pulse Rate [Pulse Oximeter] 97 Pulse Rate [Right Pulse Oximeter] 74 Pulse Rate [orthos tatic lying Left P ulse Oximeter] 84 Pulse Rate [orthos tatic sitting Left Pulse Oximeter] 92 Pulse Rate [orthos tatic standing Lef t Pulse Oximeter] 107 H Respiratory Rate 18 18 Blood Pressure [Ri ght Arm] 155/70 H Blood Pressure [Ri ght Upper Arm] 140/70 H Blood Pressure [or thostatic lying Ri ght Arm] 146/71 H Blood Pressure [or thostatic sitting Right Arm] 141/77 H Blood Pressure [or thostatic standing Right Arm] 125/71 Pulse Oximetry 97 97 Oxygen Delivery Me thod Room Air Room Air 11/28/23 23:00 11/28/23 23:00 11/29/23 01:00 Temperature Pulse Rate 82 Pulse Rate [Pulse Oximeter] 92 Pulse Rate [Right Pulse Oximeter] Pulse Rate [orthos tatic lying Left P ulse Oximeter] Pulse Rate [orthos tatic sitting Left Pulse Oximeter] Pulse Rate [orthos tatic standing Lef t Pulse Oximeter] Respiratory Rate 16 16 Blood Pressure [Ri ght Arm] Blood Pressure [Ri ght Upper Arm] Blood Pressure [or thostatic lying Ri ght Arm] Blood Pressure [or thostatic sitting Right Arm] Blood Pressure [or thostatic standing Right Arm] Pulse Oximetry 91 Oxygen Delivery Me thod Room Air 11/29/23 01:00 11/29/23 01:00 11/29/23 06:00 Temperature 98.4 F 98.1 F Pulse Rate Pulse Rate [Pulse Oximeter] 87 79 Pulse Rate [Right Pulse Oximeter] Pulse Rate [orthos tatic lying Left P ulse Oximeter] Pulse Rate [orthos tatic sitting Left Pulse Oximeter] Pulse Rate [orthos tatic standing Lef t Pulse Oximeter] Respiratory Rate 16 16 16 Blood Pressure [Ri ght Arm] 136/72 140/70 H Blood Pressure [Ri ght Upper Arm] Blood Pressure [or thostatic lying Ri ght Arm] Blood Pressure [or thostatic sitting Right Arm] Blood Pressure [or thostatic standing Right Arm] Pulse Oximetry 91 92 91 Oxygen Delivery Me thod Room Air Room Air Room Air 11/29/23 07:00 11/29/23 07:00 11/29/23 07:00 Temperature 97.6 F Pulse Rate 72 Pulse Rate [Pulse Oximeter] 90 Pulse Rate [Right Pulse Oximeter] Pulse Rate [orthos tatic lying Left P ulse Oximeter] Pulse Rate [orthos tatic sitting Left Pulse Oximeter] Pulse Rate [orthos tatic standing Lef t Pulse Oximeter] Respiratory Rate 18 Blood Pressure [Ri ght Arm] 143/76 H Blood Pressure [Ri ght Upper Arm] Blood Pressure [or thostatic lying Ri ght Arm] Blood Pressure [or thostatic sitting Right Arm] Blood Pressure [or thostatic standing Right Arm] Pulse Oximetry 96 96 Oxygen Delivery Me thod Room Air Room Air Labs Labs: Laboratory Results - last 24 hr 11/28/23 11/28/23 11/28/23 14:45 15:00 15:30 WBC 19.65 H RBC 4.21 Hgb 12.6 Hct 39.8 MCV 95 MCH 30 MCHC 32 RDW Coeff of Fidencio 15.2 Plt Count 494 H Neut % (Auto) 79.8 H Lymph % (Auto) 8.7 L [place] % (Auto) 9.9 Eos % (Auto) 0.2 Baso % (Auto) 0.2 Neut # (Auto) 15.70 H Lymph # (Auto) 1.70 [place] # (Auto) 1.90 H Eos # (Auto) 0.00 Baso # (Auto) 0.00 Abs Immat Gran (auto) 0.20 Imm/Tot Granulo (auto) 1.2 VBG pH VBG pCO2 VBG pO2 VBG HCO3 Sodium 133 L Potassium 4.1 Chloride 100 Carbon Dioxide 26 Anion Gap 7 BUN 24 Creatinine 1.0 Estimated Creat Clear 35.88 Estimated GFR 56 Glucose 103 Lactate 1.6 Calcium 10.0 Phosphorus Magnesium Troponin I < 0.01 L C-Reactive Protein NT-Pro-B Natriuret Pep Procalcitonin TSH 3.210 Urine Color Yellow Urine Appearance Cloudy A Urine pH 7.0 Ur Specific [place] 1.020 Urine Protein 1+ A Urine Glucose (UA) Negative Urine Ketones Negative Urine Blood Negative Urine Nitrite Negative Urine Bilirubin Negative Urine Urobilinogen 0.2 Ur Leukocyte Esterase 1+ A Urine RBC 0-2 Urine WBC 10-25 A Ur Squamous Epith Cells Few Urine Bacteria Few A SARS-CoV-2 (PCR) Influenza Type A (PCR) Influenza Type B (PCR) RSV (PCR) 11/28/23 11/29/23 16:55 05:44 WBC 10.03 RBC 3.60 L Hgb 10.9 L Hct 34.1 MCV 95 MCH 30 MCHC 32 RDW Coeff of Fidencio Plt Count 462 H Neut % (Auto) Lymph % (Auto) [place] % (Auto) Eos % (Auto) Baso % (Auto) Neut # (Auto) Lymph # (Auto) [place] # (Auto) Eos # (Auto) Baso # (Auto) Abs Immat Gran (auto) Imm/Tot Granulo (auto) VBG pH 7.402 VBG pCO2 43 VBG pO2 53.5 H VBG HCO3 27 Sodium 135 Potassium 4.2 Chloride 107 Carbon Dioxide 26 Anion Gap 2 L BUN 19 Creatinine 0.9 Estimated Creat Clear 35.88 Estimated GFR 64 Glucose 96 Lactate 0.7 Calcium 9.1 Phosphorus 3.5 Magnesium 2.3 Troponin I < 0.01 L C-Reactive Protein 3.2 H NT-Pro-B Natriuret Pep 240 Procalcitonin 0.64 H TSH 1.960 Urine Color Urine Appearance Urine pH Ur Specific [place] Urine Protein Urine Glucose (UA) Urine Ketones Urine Blood Urine Nitrite Urine Bilirubin Urine Urobilinogen Ur Leukocyte Esterase Urine RBC Urine WBC Ur Squamous Epith Cells Urine Bacteria SARS-CoV-2 (PCR) Negative SARS-CoV-2 Influenza Type A (PCR) Negative PCR FLU A Influenza Type B (PCR) Negative PCR FLU B RSV (PCR) Negative PCR RSV
[2023-11-29] MEDS: cefTRIAXone 1 GM in 0.9 % SODIUM CHLORIDE Mini-bag 100 ML IVPB (17:58)
--- NOTE | 2023-11-29 18:54 | PC.NURSE ---
End of Shift: The patient is pleasant and alert and orientated. The patient reports mild pain in her R lower back and R knee... Tylenol PRN. VSS on RA slightly HTN. IV fluids discontinued. Appetite is reassuring. No reports of SOB or cough. LL lobe crackles upon auscultation. Calls appropriately. SBA w/ 4 wheel walker. Alhaji is quite involved with the patients care and they like to know any new results and updates. IV ABX infused this evening. Echo was completed today as well. Fauzia HEREDIA BSN
[2023-11-29] MEDS: AMLODIPINE 10 MG TABLET PO (21:26)
[2023-11-29] MEDS: FAMOTIDINE 20 MG TABLET PO (21:28)
[2023-11-29] MEDS: GABAPENTIN 100 MG CAPSULE PO (21:28)
[2023-11-29] MEDS: MELATONIN 3 MG TABLET PO (21:28)
[2023-11-29] MEDS: VALSARTAN 80 MG TABLET 160 MG PO (21:30)
[2023-11-29] MEDS: SODIUM CHLORIDE 0.9 % (FLUSH) 10 ML SYRINGE 5 ML IVF (21:30)
[2023-11-30] MEDS: ACETAMINOPHEN 325 MG TABLET 650 MG PO (03:21)
[2023-11-30 03:30] VITALS: BP 149/68; PULSE 76; RESP 16; TEMP 36.7; O2SAT 90
--- NOTE | 2023-11-30 06:22 | PC.NURSE ---
End of shift note [id number]: Pt noted to be alert & oriented x 4 and able to make needs known. She transfers/ambulates with SBA using 4WW and gait belt. PRN Tylenol given for c/o 3/10 chronic pain to R knee. VSS and pt has been afebrile. Pt has been continent of bladder. IV to R forearm patent and SL. Pt on telemetry with NSR with BBB noted. Pt had DAGOBERTO stockings taken off at HS though has declined to put back on when approached.
[2023-11-30 07:00] VITALS: PULSE 63
[2023-11-30 07:07] LABS: Hematocrit 34.1 % (33.0-51.0); Hemoglobin* 10.9 gm/dL (12.0-16.0); Mean Corpuscular HGB Conc 32 gm/dL (32-36); Mean Corpuscular Hemoglobin 30 pg (26-34); Mean Corpuscular Volume 95 fL (80-100); Platelet Count* 473 K/uL (140-440); Red Blood Count 3.59 m/uL (4.00-5.20); White Blood Count* 8.48 K/uL (4.50-11.00)
[2023-11-30 07:17] LABS: Slide Review Reflex No
[2023-11-30 07:18] LABS: Chloride* 109 mmol/L (96-114); Sodium* 139 mmol/L (135-149)
[2023-11-30 07:21] LABS: Anion Gap 4 mEq/L (7-15); Blood Urea Nitrogen* 22 mg/dL (7-30); Carbon Dioxide* 26 mmol/L (20-32); Creatinine* 1.1 mg/dL (0.5-1.5); Est. Creatinine Clearance* 32.62; Estimated Glomerular Filt Rate 50 ml/min; Glucose* 93 mg/dL (60-115)
[2023-11-30 07:22] LABS: Calcium* 9.3 mg/dL (8.4-10.6)
[2023-11-30 08:40] VITALS: BP 151/81; PULSE 92; RESP 16; TEMP 36.8; O2SAT 96
[2023-11-30] MEDS: OMEPRAZOLE 20 MG CAPSULE DR PO (08:48)
[2023-11-30] MEDS: polyethylene glycoL 3350 17 GM PACK PO (08:48)
[2023-11-30] MEDS: CLOPIDOGREL 75 MG TABLET PO (08:48)
[2023-11-30] MEDS: AZITHROMYCIN 250 MG TABLET PO (08:48)
[2023-11-30] MEDS: ROSUVASTATIN CALCIUM 10 MG TABLET 40 MG PO (08:48)
[2023-11-30] MEDS: SODIUM CHLORIDE 0.9 % (FLUSH) 10 ML SYRINGE 5 ML IVF (08:49)
--- NOTE | 2023-11-30 10:47 | PM.DS1 ---
DS: Providers Provider Time Seen by Provider: 09:05 Date Seen: 11/30/23 Date of admission: 11/28/23 17:45 Primary care physician: Annie Brown MD Admitting Clinician: Roldan West MD Consults: 11/28/23 18:26 Consult to Occupational Therapy [CONS] Routine Comment: Reason(s) for OT Consult:: Evaluate and Treat Any Restrictions?:: No Restrictions Consult to Physical Therapy [CONS] Routine Comment: Reason(s) for PT Consult:: Evaluate and Treat Any Restrictions?:: No Restrictions Attending Physician on discharge: Amna Campuzano MD Date of Discharge: 11/30/23 DS: Diagnosis Discharge Diagnosis (1) Pneumonia: Status: Acute Problem details: - CT scan of chest, abdomen, pelvis on 11/28/2023: IMPRESSION: 1. No evidence of intramural hematoma involving the thoracic aorta. 2. No evidence of acute or chronic pulmonary thromboembolism. 3. No evidence of aortic aneurysm or dissection. 4. Origin of the great vessels is unremarkable. 5. Pulmonary infiltrates left upper lobe; short-term follow-up suggested. 6. Nodular enlargement both adrenal glands; stable in appearance. 7. Cortical cysts left kidney. 8. Diverticulosis sigmoid colon without any CT evidence of diverticulitis or abscess. 9. Vertebroplasty T10 and T11. - white blood cell count 68059, with no fever, rigors, diaphoresis. - blood cultures ordered. - ceftriaxone 1 g IV started emergency department and then daily thereafter, plus started azithromycin 500 mg orally on day 1 then 250 mg daily starting on day 2 through day 5. - 11/28 Her white count on admission yesterday was markedly elevated (predominantly neutrophils), her prolactin and CRP are also elevated this morning. She has a left pulmonary infiltrate on CT yesterday. Continue ceftriaxone and azithromycin. Possible d/c tomorrow morning if she continues to do well. Stop IVF today. - 11/29 Doing well. No hypoxia, no fevers. D/c home today on po cephalosporin and azithromycin. (2) Acute UTI: Status: Ruled-out Problem details: - clean catch urinalysis on 11/28/2023 demonstrated the following: Negative nitrite, 1+ leukocyte esterase, 10-25 white blood cells per high-power field, many bacteria. - urine culture showed mixed timur. (3) Near syncope: Status: Acute Problem details: - etiology not yet determined. Differential diagnosis include cardiac dysrhythmia, evolution of aortic regurgitation with complications associated there with, progression of concentric left ventricular hypertrophy with possible outflow obstruction development, complications associated with Moccasin syndrome, etc. - admit for observation. Telemetry. Recheck echocardiogram. Monitor orthostatic blood pressures and pulses. Serial trop I and ECGs. - physical therapy and occupational therapy to assist with assessment and recommendations. - venous thromboembolism prophylaxis with compression stockings and sequential compression devices of calves at night. - 5/6 no events overnight, telemetry unremarkable. Serial troponins unremarkable. Echocardiogram unremarkable. Due to hyperdynamic function on final read and LVH on preliminary, I spoke with Dr. Emily Huff, cardiology at [place], who said no outflow obstruction was seen and this was likely secondary to acute illness or dehydration, and not likely the cause of syncope/near syncope. I spoke with the patient and her regarding this. (4) Aortic valve regurgitation: Status: Acute Problem details: - mild to moderate per echocardiogram obtained May 2022 with concentric LVH and EF of 63%. - recheck transthoracic echocardiogram while in hospital - complete. (5) Chronic hyponatremia: Status: Chronic Problem details: - monitor serum sodium. 139 today on discharge. (6) Essential hypertension: Status: Chronic Problem details: on medication since around 1993, HCTZ started 11/14 by stonemason supervisor, Dr. 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 Suárez 08/14, now seeing Dr. Avila at [facility], started on osilodrostat/Isturisa 04/17, self discontinued this 2 weeks ago. 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 Suárez recommended CT recheck 03/15 which was stable). Also stable on CT on admission 11/28/23. DS: Summary Hospital Course Hospital Course: Per H&P 11/28/2023: December Maci is a 83 year old woman presents to our emergency department this afternoon after a near syncopal episode in her home without fall or injury. She was in the kitchen preparing a meal when she had the sudden onset of lightheadedness and nausea. Denies chest heaviness, pressure, tightness, or pain. No vomiting. No palpitations or chest fluttering. Denies fevers, rigors, diaphoresis. As she was standing and working in the kitchen she suddenly felt weak and lightheaded. Walked about 10 steps to the couch and sat down. assisted her. She was not very responsive for a few minutes. In a relatively short period of time, placed home pulse oximeter on her finger. Initially unable to get any reading. He then place it on his own finger and was able to get a meaningful reading. He placed the device back on her finger and initially it did not read again but when it did start to read heart rate was around 35 and oxygen saturation reportedly in the mid 80s. He promptly called 911. By the time the EMS staff arrived at the home patient was essentially back to baseline. notes that the 1st blood pressure reading was reported as 85 over 50 mmHg. She is brought into the [facility] Emergency Department for further assessment. By the time she arrives here all her vitals have been stable and her ability to interact has been baseline. She was admitted for treatment of pneumonia, suspected UTI, and monitoring and further workup in the setting of a near-syncope. Patient remained stable on room air with no hypoxia noted. Urine culture came back negative. Workup for near syncope was unremarkable. Patient is discharged in improved condition. Please see above for further details. Time Spent with Patient Time attestation: Total time spent providing and/or coordinating discharge services: 60 minutes, 45 minutes in two separate conversations with patient and . Exam Narrative: Exam Narrative: General: No acute distress. Awake, alert, oriented x3. No pallor. No jaundice. Oropharynx: Clear. Mucous membranes moist. Cardiovascular: Regular rate and rhythm. No murmurs, gallops, or rubs. Respiratory: Crackles in left lung field persistent, but improving. No wheezes. Abdomen: Bowel sounds present. Soft, nondistended, nontender. Extremities: No pedal edema. Const: Vital Signs, click to edit/add: Vital Signs - 24 hr 11/29/23 11:00 11/29/23 15:00 11/29/23 15:00 Temperature 98.7 F Pulse Rate Pulse Rate [Pulse Oximeter] 85 83 Respiratory Rate 18 16 18 Blood Pressure [Le ft Arm] Blood Pressure [Ri ght Arm] 147/68 H 133/69 Pulse Oximetry 88 93 93 Oxygen Delivery Me thod Room Air Room Air Room Air 11/29/23 15:00 11/29/23 19:00 11/29/23 23:00 Temperature 98.7 F Pulse Rate 84 Pulse Rate [Pulse Oximeter] 79 Respiratory Rate 18 16 Blood Pressure [Le ft Arm] 129/68 Blood Pressure [Ri ght Arm] Pulse Oximetry 95 92 Oxygen Delivery Me thod Room Air Room Air 11/29/23 23:00 11/29/23 23:00 11/29/23 23:44 Temperature 97.2 F L Pulse Rate 70 Pulse Rate [Pulse Oximeter] 76 76 Respiratory Rate 16 16 Blood Pressure [Le ft Arm] Blood Pressure [Ri ght Arm] 118/55 L Pulse Oximetry 92 Oxygen Delivery Me thod Room Air 11/30/23 03:30 11/30/23 08:40 11/30/23 08:40 Temperature 98.0 F 98.3 F Pulse Rate Pulse Rate [Pulse Oximeter] 76 92 Respiratory Rate 16 16 16 Blood Pressure [Le ft Arm] 151/81 H Blood Pressure [Ri ght Arm] 149/68 H Pulse Oximetry 90 96 96 Oxygen Delivery Me thod Room Air Room Air Room Air DS: Data Data Completed and Pending Labs on day of discharge: Labs from last 24 hours 11/30/23 05:55 WBC 8.48 RBC 3.59 L Hgb 10.9 L Hct 34.1 MCV 95 MCH 30 MCHC 32 Plt Count 473 H Sodium 139 Potassium 4.0 Chloride 109 Carbon Dioxide 26 Anion Gap 4 L BUN 22 Creatinine 1.1 Estimated Creat Clear 32.62 Estimated GFR 50 Glucose 93 Calcium 9.3 Preliminary micro results at discharge 11/28/23 17:44 Blood Culture - Preliminary Blood NO GROWTH AFTER 24 HOURS 11/28/23 17:44 Blood Culture - Preliminary Blood NO GROWTH AFTER 24 HOURS 11/28/2023 EKG: Normal sinus rhythm, 60 beats per minute. 11/29/2023 echocardiogram: Normal left ventricular size, moderately increased wall thickness, hyperdynamic global systolic function, calculated EF of 70%. Right ventricular cavity size is normal, global systolic RV function is normal. Normal left atrial size. Aortic valve is sclerotic, no stenosis and mild regurgitation. Mitral valve is sclerotic, mild mitral regurgitation. Tricuspid valve is normal. No pericardial effusion. Study: CT-Chest/Abd/Pelvis DISSECTION PROTOCOL-11/28/2023 4:27:12 PM Ordering Physician: DR. MCDERMOTT Final Report: INDICATION: Upper back pain; syncope. COMPARISON: CT abdomen and pelvis without and with contrast March 09, 2019 and March 13, 2021; CT abdomen and pelvis with intravenous contrast March 13, 2023. TECHNIQUE: CT chest without intravenous contrast; CT angio chest, abdomen and pelvis with intravenous contrast; coronal and sagittal reformats. FINDINGS: Calcific tendinosis right shoulder. Loose joint bodies right shoulder. Osteoarthritis right shoulder. No intramural hematoma involving the thoracic aorta. Coronary artery calcifications. No evidence of aortic aneurysm or dissection. No evidence of pulmonary thromboembolism. Origin of the great vessels is unremarkable. Abdominal aorta and visceral arteries are normal. Pulmonary infiltrates upper lobe left lung. No evidence of pleural effusion or chest wall pathology. No focal hepatic or splenic pathology. No pancreatic pathology. The gallbladder is unremarkable. Nodular enlargement of both adrenal glands; stable dating back to 2018. multiple simple cortical cysts left kidney. Tiny nonobstructing renal calculus left lower pole calyx. No retroperitoneal lymphadenopathy. No evidence of abdominal or pelvic ascites. Diverticulosis sigmoid colon without any CT evidence of diverticulitis with abscess. Status post vertebroplasty T10 and T11. IMPRESSION: 1. No evidence of intramural hematoma involving the thoracic aorta. 2. No evidence of acute or chronic pulmonary thromboembolism. 3. No evidence of aortic aneurysm or dissection. 4. Origin of the great vessels is unremarkable. 5. Pulmonary infiltrates left upper lobe; short-term follow-up suggested. 6. Nodular enlargement both adrenal glands; stable in appearance. 7. Cortical cysts left kidney. 8. Diverticulosis sigmoid colon without any CT evidence of diverticulitis or abscess. 9. Vertebroplasty T10 and T11. Please note that all CT scans at this facility use dose modulation, iterative reconstruction, and/or weight-based dosing when appropriate to reduce radiation dose to as low as reasonably achievable. Dictated by Krzysztof La MD @ 11/28/2023 4:42:01 PM Signed by: Krzysztof La MD @11/28/2023 4:42:01 PM (Electronic Signature) Discharge Plan Discharge Disposition: Home, Self-Care Date of Admission: 11/28/23 17:45 Attending Provider on Discharge: Amna Campuzano Primary Care Provider: Annie Brown Condition: Improved Anticipated Discharge Date/Time: 11/30/23 11:12 Discharge Medications: New azithromycin 250 mg Tablet 250 mg PO Q24H 3 Days Qty: 3 0RF Taper: Z-MARIA L 250 mg Q24H for 3 Days and 0 Hour cefpodoxime 200 mg tablet 200 mg PO BID 5 Days Qty: 10 0RF Rx Instructions: must administer with a meal/food Continued calcium citrate-vitamin D3 [Citracal-D3 Petites] 200 mg-6.25 mcg (250 unit) tablet 3 tab PO DAILY Rx Instructions: 600 mg daily alendronate 70 mg tablet 70 mg PO QWEEK Qty: 12 3RF multivitamin [Multiple Vitamins] Tablet 1 tab PO QAM famotidine 20 mg tablet 20 mg PO HS polyethylene glycol 3350 17 gram/dose powder 17 g PO DAILY gabapentin 100 mg capsule 100 mg PO TID PRN Patient Comments: PATIENT TAKES AT BEDTIME FOR RESTLESS LEGS clopidogrel 75 mg tablet 75 mg PO DAILY rosuvastatin 40 mg tablet 40 mg PO DAILY PreserVision AREDS-2 250-90-40-1 mg capsule 1 tab PO BID melatonin 3 mg capsule 3 mg PO QHS acetaminophen 500 mg capsule 500 mg PO DAILY PRN valsartan 160 mg tablet 160 mg PO DAILY omeprazole 20 mg capsule,delayed release(DR/EC) 20 mg PO DAILY Qty: 90 3RF amlodipine 10 mg tablet 10 mg PO DAILY Qty: 90 2RF Discharge Orders: Discharge Order (Routine); Ordered 11/30/23 Ordered By: Amna Campuzano Activity Level: No Restrictions Discharge Diet: Regular Follow Up Appointments: Annie Brown MD [Primary Care Provider] - (This after 2pm or Wednesday morning with CXR for f/u CHARLES pneumonia) Forms: [employer] Info Instructions
--- NOTE | 2023-11-30 14:40 | PC.NURSE ---
Discharge Assessment: The patient discharged home with her this afternoon with all education regarding follow up, antibiotics, diagnosis and activity as tolerated. IV was removed. The patient was educated on S/S to watch for if she were to get worse. Fauzia HEREDIA BSN
== END 2023-11-30 13:00 | disposition home or self-care (01) ==
LOC: ED 14:25 → MEDSURG 17:46
PROVIDERS: Admitting Provider Internal Medicine; Emergency Provider Emergency Medicine; PCP Internal Medicine; Visit Provider Family Medicine
DX: J18.9 Pneumonia, unspecified organism (principal); R55 Syncope and collapse; N39.0 Urinary tract infection, site not specified; I35.1 Nonrheumatic aortic (valve) insufficiency; E87.1 Hypo-osmolality and hyponatremia; I10 Essential (primary) hypertension; E24.0 Pituitary-dependent Cushing's disease; D35.00 Benign neoplasm of unspecified adrenal gland
CPT/HCPCS: 36415; 71275; 74174; 80048; 81001; 82803; 83605; 83735; 83880; 84100; 84145; 84443; 84484; 85025; 85027; 86140; 87040; 87086; 87631; 93005; 93306; 96361; 96365; 97116; 97161; 97165; 97535; 99284; G0378; A9270; J0696; J7030; Q9967

== ENCOUNTER 2024-01-11 12:37 | Outpatient (REF) | payer MEDICARE, SELFPAY ==
--- OUTSIDE RECORDS SUMMARY | 2024-01-11 12:42 | XMS_ITS | Clinical Summary ---
Author Organization [facility] Address [address] [place] [address] Care Team Providers Care Field Counsel Name Role Phone Elsewhere, Pcp Primary Care Provider Unavailabl e Source Comments Patient records contain information from all sites at [facility]. For routine questions regarding patient records, call [phone] during business hours, M-F 8:00 AM - 5:00 PM Central Time. Record requests for emergency care only can be directed to [phone] at any time.[facility] Allergies Active Allergy Reactions Criticality Noted [...] Encounters Date Type Department Care Team Description 12/08/2023 Orders Only Division of Endocrinology in [place], [place] [address] [place] [address] Margi Avila M.D. 11/15/2023 Clinical Communication Department of Infusion Therapy in [place], [place] [address] [place] [address] Joy Cooper, RDavon 10/26/2023 Clinical Communication Division of Endocrinology in [place], [place] [address] [place] [address] Margi Avila M.D. 10/20/2023 Clinical Communication Division of Endocrinology in [place], [place] [address] [place] [address] Margi Avila M.D. [employer] - Outside Materials 10/20/2023 Clinical Communication Division of Endocrinology in [place], [place] [address] [place] [address] Margi Avila M.D. Questions 10/19/2023 Orders Only Division of Endocrinology in [place], [place] [address] [place] [address] Margi Avila M.D. 10/19/2023 Orders Only Division of Endocrinology in [place], [place] [address] [place] [address] Margi Avila M.D. Osteopenia (Primary Dx); Osteoporosis 10/14/2023 Clinical Communication Division of Endocrinology in [place], [place] [address] [place] [address] Sahra Hester R.N. 10/13/2023 Orders Only Division of Endocrinology in [place], [place] [address] [place] [address] Margi Avila M.D. Osteoporosis (Primary Dx) from Last 3 Months Family History Medical [...] shantal lux Sleep apnea Son 1 shantal osunabey Migraines Son 2 nely altamiranoy Relation Name Status Comments Brother joana nicolas Father maggie nicolas Father's Brother ramana nicolas Mother muna nicolas Paternal Grandfather darren nicolas Paternal Grandmother manju nicolas Sister kay regalado Son 1 shantal osunabey Son 2 nely lux Social History Tobacco Use Types Packs/Day Years Used Date Smoking Tobacco: Never Passive Smoke Exposure: Never Smokeless Tobacco: Never Tobacco Cessation:Counseling Given: Not Answered Comments:As a child Alcohol Use Standard Drinks/Week Comments Yes 7 (1 standard drink = 0.6 oz pur e alcohol) [facility] Utilities Answer Date Recorded In the [...] How often do you attend chur or samaritan services? Never 08/24/2022 Do you belong to any clubs o r organizations such as advent groups, unions, fraternal or athletic groups, or [...] and heating? Not hard at all 12/24/2022 [facility] [place] of Occupat ional Health - Occupational Stress [...] your living situation today? I have a [facility] place to live 09/17/2023 Education Answer [...] PHQ-2) 07/26/2023 Fall Risk Screen (Annual) 07/26/2023 DTaP,Tdap,and Td Vaccines (4 - Td or Tdap) 11/29/2031 11/28/2021, 09/02/2012, 09/02/2012 Pneumococcal vaccine (65+ years) Completed 05/22/20 15, 05/02/2007 Zoster Vaccines Completed 08/30/2018, 03/26, 07/06/2006 Influenza Vaccine Completed 04/27/2023, , 05/06/2021, Additional history exists COVID-19 Vaccine Completed 12/09/2023, , 12/01/2022, Additional history exists Medical Devices Implanted Type Area Clinical Rehab Specialist Device Identifier Shelf Expiration Date Model / Serial / Lot Ocular Lens Ocular Lens Bilateral : Eye Procedures Procedure Name Priority Date/Time Associated Diagnosis Comments CREATININE, U Routine 10/13/2023 8:00 AM CDT Mass Adrenal (HCC) Hypercortisolemia CORTISOL, FREE, U Routine 10/13/2023 8:0 0 AM CDT Mass Adrenal (HCC) Hypercortisolemia EXTI BASIC METABOLIC PANEL, S/P Routine 06/24/2022 10:25 AM MACHINE BUFFER from Last 3 Months or Most Recently [...] Margi Avila [place] [address], [place] [address] * Cortisol, Free, 24 hour, Urine (10/13/2023 8:00 AM CDT) Cortisol, U 35 3.5 - 45 mcg/24 h 10/18/2023 8:37 PM CDT SDSC Collection Duration 24 h 10/17 8:37 PM CDT SDS Urine Volume 1650 mL 10/18/2023 8:37 PM CDT SDSC Comment: ----ADDITIONAL INFORMATION---- This test was developed and its performance characteristics determined by [facility] in a manner consistent with CLIA requirements. This test has not been cleared or approved by the U.S. Food and Drug Administration. Urine (Urine, 24 Hours) 10/13/2023 8:00 AM CDT 10/15/2023 11:42 AM CDT Narrative Resulting Agency Comment Mailed In Specimen Margi Avila M.D. LAB URINE ORDERABL ES [facility] [address] [place] [address] [facility] [address] [place] [address] [place] [address] from Last 3 Months or Most Recently Relevant to Health Maintenance Advance Directives For more information, please contact: [phone] Documents on File Type Date Recorded Patient Drier Take Off Tender Expl anation Advance Directives 05/12/2017 12:00 AM Bella rothman document. See document viewer. Care Teams Field Counsel Relationship Specialty Start Date End Date Elsewhere, Pcp PCP - General Internal Medicine 12/29/22
--- OUTSIDE RECORDS SUMMARY | 2024-01-11 12:43 | XMS_ITS | Encounter Summary ---
Author Organization [facility] Address [address] [place] [address] Care Team Providers Care Quality Control Assistant Name Role Phone Elsewhere, Pcp Primary Care Provider Unavailabl e Encounter Details Date Type Department Care Team (Late st Contact Info) Description 10/19/2023 Orders Only Division of Endocrinology in [place], [place] [address] [place] [address] Margi Avila M.D. [address] [place] [address] Social History Tobacco Use Types Packs/Day Years Used Date Smoking Tobacco: Never Passive Smoke Exposure: Never Smokeless Tobacco: Never Comments:As a child Alcohol Use Standard Drinks/Week Comments Yes 7 (1 standard drink = 0.6 oz pur e alcohol) [facility] Utilities Answer Date Recorded In the past 12 months has e [employer], gas, oil, or water [employer] threatened to shut off services in your [...] 08/24/2022 How often do you attend chur [employer] or holiness services? Never 08/24/2022 Do you belong to any clubs o r organizations such as cheondoism groups, unions, fraternal or athletic groups, or [...] your living situation today? I have a [facility] place to live 09/17/2023 Education [...] on filedocumented in this encounter Care Teams Quality Control Assistant Relationship Specialty Start Date End Date Elsewhere, Pcp PCP - General Internal Medicine 12/29/22 documented as of this encounter
--- OUTSIDE RECORDS SUMMARY | 2024-01-11 12:43 | XMS_ITS | Encounter Summary ---
Author Organization [facility] Address [address] [place] [address] Care Team Providers Care Blood Tester Name Role Phone Elsewhere, Pcp Primary Care Provider Unavailabl e Reason for Visit * Reason Onset Date Comments Triage 10/07/2023 Encounter Details Date Type Department Care Team (Late st Contact Info) Description 10/07/2023 Clinical Communication Division of General Internal Medicine in [place], [place] [address] [place] [address] Prescheduling, Provider Triage Social History Tobacco Use Types Packs/Day Years Used Date Smoking Tobacco: Never Passive Smoke Exposure: Never Smokeless Tobacco: Never Comments:As a child Alcohol Use Standard Drinks/Week Comments Yes 7 (1 standard drink = 0.6 oz pur e alcohol) [facility] Utilities Answer Date Recorded In the past 12 months has [facility] [employer], gas, oil, or water [address] threatened to shut off services in your [...] often do you attend chur ch or jainism services? Never 08/24/2022 Do you belong to any clubs o r organizations such as jewish groups, unions, fraternal or athletic groups, or [...] and heating? Not hard at all 12/24/2022 [facility] of Occupat ional Health - Occupational [...] your living situation today? I have a [facility] place to live 09/17/2023 Education Answer [...] 10/07/2023 7:09 AM CDT marian lux 1940 [id number] years Height: 5 ft. 3 in. Weight: 172 Gender: Female PCP: nena Brown [facility] Who filled out ARF: Patient Request: I have medical symptoms without a clear diagnosis MAIN SYMPTOM Malaise Description: I describe it overall as feeling crummy. I have fatigue, feel dizzy some nausea, eyes often feel weird. I just don't feel good. It is a major problem. 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 I have seen an [facility] api architect and also one visit to [facility] to see one also. Duration: More than 12 months Previous Eval: Yes Location: PCP is at [facility]. Dr. Stephanie Bernal in [place] to see api architect Dr. Rico Hunt. [facility] in [place] to see api architect. Have had: Procedures (surgeries, colonoscopies, biopsies, etc.), [...] DIAGNOSIS: Yes Willing to attend [facility] or [facility] appointments - Probably not DAILY MEDS: 14 OPIOIDS: No CURRENT DIALYSIS: No CURRENT HEALTH/PAST YEAR: Fair CONFIDENCE: Somewhat agree NOT AVAILABLE: September, 10/31-11/08, 12/06, 12/30-01/06, 01/30-02/14 PHONE: [phone] documented in this encounter Plan of Treatment Not on file documented as of this encounter Visit Diagnoses Not on filedocumented in this encounter Care Teams Blood Tester Relationship Specialty Start Date End Date Elsewhere, Pcp PCP - General Internal Medicine 12/29/22 documented as of this encounter
--- OUTSIDE RECORDS SUMMARY | 2024-01-11 12:43 | XMS_ITS | Referral Summary ---
Author Organization [facility] Address [address] [place] [address] Care Team Providers Care Peoplesoft Programmer Name Role Phone Elsewhere, Pcp Primary Care Provider Unavailabl e Source Comments Patient records contain information from all sites at [facility]. For routine questions regarding patient records, call [phone] during business hours, M-F 8:00 AM - 5:00 PM Central Time. Record requests for emergency care only can be directed to [phone] at any time.[facility] Encounters Date Type Department Care Team Description 12/08/2023 Orders Only Division of Endocrinology in [place], [place] [address] [place] [address] Margi Avila M.D. 11/15/2023 Clinical Communication Department of Infusion Therapy in [place], [place] [address] [place] [address] Joy Cooper R.N. 10/26/2023 Clinical Communication Division of Endocrinology in [place], [place] [address] [place] [address] Margi Avila M.D. 10/20/2023 Clinical Communication Division of Endocrinology in [place], [place] [address] [place] [address] Margi Avila M.D. [employer] - Outside Materials 10/20/2023 Clinical Communication Division of Endocrinology in [place], [place] [address] [place] [address] Margi Avila M.D. Questions 10/19/2023 Orders Only Division of Endocrinology in [place], [place] [address] [place] [address] Margi Avila M.D. 10/19/2023 Orders Only Division of Endocrinology in [place], [place] [address] [place] [address] Margi Avila M.D. Osteopenia (Primary Dx); Osteoporosis 10/14/2023 Clinical Communication Division of Endocrinology in [place], [place] [address] [place] [address] Sahra Hester R.N. 10/13/2023 Orders Only Division of Endocrinology in [place], [place] [address] [place] [address] Margi Avila M.D. Osteoporosis (Primary Dx) from Last 3 Months Allergies Active Allergy [...] drink = 0.6 oz pur e alcohol) [facility] Utilities Answer Date Recorded In the past 12 months has [facility] [employer], [employer], or water [employer] threatened to shut off services in your [...] often do you attend chur ch or adventist services? Never 08/24/2022 Do you belong to any clubs o r organizations such as latter-day groups, unions, fraternal or athletic groups, or [...] all 12/24/2022 [facility] of Occupat ional Health - Occupational [...] your living situation today? I have a [facility] place to live 09/17/2023 Education [...] on file Medical Devices Implanted Type Area Shuttler Device Identifier Shelf Expiration Date Model / Serial / Lot Ocular Lens Ocular Lens Bilateral : Eye Procedures Procedure Name Priority Date/Time Associated Diagnosis Comments CREATININE, U Routine 10/13/2023 8:00 AM CDT Mass Adrenal (HCC) Hypercortisolemia CORTISOL, FREE, U Routine 10/13/2023 8:0 0 AM CDT Mass Adrenal (HCC) Hypercortisolemia EXTI BASIC METABOLIC PANEL, S/P Routine 06/24/2022 10:25 AM TREASURY SPECIALIST from Last 3 Months or Most Recently [...] Margi Avila M.D. LAB URINE ORDERABL ES [facility] [address] [place] [address], [facility] [address] [place] [address] * Cortisol, Free, 24 hour, Urine (10/13/2023 8:00 AM CDT) Cortisol, U 35 3.5 - 45 mcg/24 h 10/18/2023 8:37 PM CDT SDSC Collection Duration 24 h 10/17 8:37 PM CDT SDSC Urine Volume 1650 mL 10/18/2023 8:37 PM CDT SDSC Comment: ----ADDITIONAL INFORMATION---- This test was developed and its performance characteristics determined by [facility] in a manner consistent with CLIA requirements. This test has not been cleared or approved by the U.S. Food and Drug Administration. Urine (Urine, 24 Hours) 10/13/2023 8:00 AM CDT 10/15/2023 11:42 AM CDT Narrative Resulting Agency Comment Mailed In Specimen Margi Avila M.D. LAB URINE ORDERABL ES [facility] [address] [place] [address] [facility] [address] [place] [address] [place] [address] from Last 3 Months or Most Recently Relevant to Health Maintenance Advance Directives For more information, please contact: [phone] Documents on File Type Date Recorded Patient Grain Elevator Worker Expl anation Advance Directives 05/12/2017 12:00 AM Bella rothman document. See document viewer. Care Teams Peoplesoft Programmer Relationship Specialty Start Date End Date Elsewhere, Pcp PCP - General Internal Medicine 12/29/22
--- OUTSIDE RECORDS SUMMARY | 2024-01-11 12:43 | XMS_ITS ---
Author Organization [facility] Address [address] [place] [address] Care Team Providers Care Glass Calibrator Name Role Phone Unavailable Unavailable Unavailable Surgery Details Not on file Complications Check Surgery Details section. Procedure Estimated Blood Loss Check Surgery Details section. Procedure Findings Check Surgery Details section. Procedure Specimens Taken Check Surgery Details section.
--- OUTSIDE RECORDS SUMMARY | 2024-01-11 12:43 | XMS_ITS | Encounter Summary ---
Author Organization [facility] Address [address] [place] [address] Care Team Providers Care Silk Spotter Name Role Phone Elsewhere, Pcp Primary Care Provider Unavailabl e Encounter Details Date Type Department Care Team (Late st Contact Info) Description 11/15/2023 Clinical Communication Department of Infusion Therapy in [place], [place] [address] [place] [address] Joy Cooper, R.N. Social History Tobacco Use Types Packs/Day Years Used Date Smoking Tobacco: Never Passive Smoke Exposure: Never Smokeless Tobacco: Never Comments:As a child Alcohol Use Standard Drinks/Week Comments Yes 7 (1 standard drink = 0.6 oz pur e alcohol) [facility] Utilities Answer Date Recorded In the past 12 months has [facility] [employer], gas, oil, or water [employer] threatened to shut off services in your [...] often do you attend chur ch or orthodox services? Never 08/24/2022 Do you belong to any clubs o r organizations such as anabaptism groups, unions, fraternal or athletic groups, or [...] and heating? Not hard at all 12/24/2022 [facility] of Occupat ional Health - Occupational [...] your living situation today? I have a [facility] place to live 09/17/2023 Education Answer [...] on filedocumented in this encounter Care Teams Silk Spotter Relationship Specialty Start Date End Date Elsewhere, Pcp PCP - General Internal Medicine 12/29/22 documented as of this encounter
--- OUTSIDE RECORDS SUMMARY | 2024-01-11 12:43 | XMS_ITS | Encounter Summary ---
Author Organization [facility] Address [address] [place] [address] Care Team Providers Care Top Distribution Executive Name Role Phone Elsewhere, Pcp Primary Care Provider Unavailabl e Reason for Visit * Reason Onset Date Comments [employer] - Outside Materials 10/20/2023 Encounter Details Date Type Department Care Team (Latest Contact Info) Description 10/20/2023 Clinical Communication Division of Endocrinology in [place], [place] [address] [place] [address] Margi Avila M.D. [address] [place] [address] [employer]SM - Outside Materials Social History Tobacco Use Types Packs/Day Years Used Date Smoking Tobacco: Never Passive Smoke Exposure: Never Smokeless Tobacco: Never Comments:As a child Alcohol Use Standard Drinks/Week Comments Yes 7 (1 standard drink = 0.6 oz pur e alcohol) [facility] Utilities Answer Date Recorded In the past [...] How often do you attend chur or temple services? Never 08/24/2022 Do you belong to any clubs o r organizations such as sikh groups, unions, fraternal or athletic groups, or [...] and heating? Not hard at all 12/24/2022 [facility] of Occupat ional Health - Occupational Stress [...] your living situation today? I have a [facility] [employer] [facility] place to live 09/17/2023 Education Answer Date [...] on filedocumented in this encounter Care Teams Top Distribution Executive Relationship Specialty Start Date End Date Elsewhere, Pcp PCP - General Internal Medicine 12/29/22 documented as of this encounter
--- OUTSIDE RECORDS SUMMARY | 2024-01-11 12:43 | XMS_ITS | Clinical Summary ---
Author Organization [employer] [facility] [employer] [facility] Address [place], [place] [address] Care Team Providers Care Coordinator Volunteer Services Name Role Phone Annie Brown MD Primary Care Provider [phone] Allergies Active Allergy Reactions Criticality Noted Date Comments Codeine GI Upset 03/11/2010 Tramadol GI Upset,Vomiting 04/24/2019 Medications Medication Sig Dispensed Refills Start Date End Date Status multivitamin (MVI) tablet Take 1 tablet by mouth once daily. 0 11/03/2011 Active amLODIPine (NORVASC) 10 mg tablet Take [...] Take 1 Tab by mouth once daily. 04/29/2017 Active omeprazole (PRILOSEC) 20 mg Delayed-Release capsule Take 1 Capsule (20 mg) by mouth once daily before a meal. 0 10/24/2020 Active osilodrostat (Isturisa) 1 mg tab 03/11/2023 Activ e melatonin 3 mg tablet Take 3 mg by mouth. Active rosuvastatin (CRESTOR) 40 mg tabletIndications:Hype rlipidemia, unspecified hyperlipidemia type TAKE 1 TABLET BY MOUTH AT BEDTIME 90 Tablet 2 10/01/2023 Active calcium citrate/vitamin D3 (CITRACAL-D3 PETITES ORAL) 10/18/2023 Active gabapentin (NEURONTIN) 100 mg capsule Take 100 mg by mouth 3 times daily if needed. Active ondansetron (ZOFRAN ODT) [address] 4 mg on the tongue every 8 hours if needed. 08/11/2023 Active valsartan (DIOVAN) 160 mg tabletIndications:HTN (hypertension) Take 1 Tablet (160 mg) by mouth once daily. 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 Abnormal cardiovascular stress test 04/08/2022 Hyperlipidemia LDL goal <70 04/08/2022 Skin cancer 02/19/2022 Overview: 02/12/22 left wrist , Invasive squamous cell carcinoma, excised 04/29/22 Rosalia Crawford MD Hypertension Osteoporosis Overview: History of hyperparathyroid, status post parathyroidectomy Fosamax begun 2006 GERD (gastroesophageal reflux disease) Overview: EGD 01/2017 large hiatal hernia, Reactive gastropathy, try carafate Urolithiasis Encounters Date Type Department Care Team Description 12/29/2023 Medical Messaging [facility] [address] [place] [address] Rico Hunt MD Fructose free diet test shows no fructose intolerance 12/09/2023 1:00 PM CDT Nurse/Clinic Staff Only [facility] [address] [place] [address] Immunization/Injectio n (COVID-19 VACCINE ); Immunization/Injectio n 12/09/2023 Travel 12/06/2023 Travel 12/03/2023 2:00 PM CDT Office Visit [facility] [address] [place] [address] Rico Hunt MD Consult (Bloating ongoing, pancreatic insufficiency concerns, saw Dr. Mosher) 12/03/2023 Travel 11/29/2023 4:00 PM CDT Ancillary Procedure [facility] [address] [place] [address] 11/25/[address] [place] [address] Deep Monzon MD Refill Request (Valsartan) 11/22/2023 2:05 PM CDT Office Visit [facility] [address] [place] [address] Zoran Mosher MD Consult (Fatigue, dizziness and crummy feeling, started about 7 years ago) 11/21/2023 Travel 10/20/2023 10:00 AM CDT Orders Only [facility] [address] [place] [address] Lab, [place] 10/20/2023 Travel from Last 3 Months Immunizations Name Administration Dates Next Due Amb Influenza, Inactivated A IIV4 (Age 65+ Years) Preserv Free 04/22/2020 COVID-19 Vaccine Spikevax (M oderna 50mcg/0.5mL) 12YO+ [id number] Formula PF 12/09/2023,04/22/2023 COVID-19 vaccine (Home In[employer] NTech 30mcg/0.3mL) WENDY FOSTER 09/25/2020,09/04/2020 Hepatitis A [...] Sign Reading Time Taken Comments Blood Pressure 155/73 12/03/2023 2:09 PM CDT Pulse 67 12/03/2023 2:09 PM CDT Temperature 36.6 ??C (97.9 ??F) 04/14/2023 2:25 PM CD T Respiratory Rate 20 04/14/2023 2:25 PM CDT Oxygen Saturation 99% 12/03/2023 2:09 PM CDT Inhaled Oxygen Concentration - - Weight 76.2 kg (168 lb) 04/13/2023 11:22 AM CDT Height 160 cm (5' 3) 04/13/2023 11:22 AM CDT Body Mass Index 29.76 04/13/2023 11:22 AM CDT Plan of Treatment Upcoming Encounters Date Type Department Care Team (Late st Contact Info) Description 04/13/2024 1:40 PM CDT Office Visit [facility] [address] [facility] [address] [place], [place] [phone] Rosalia Crawford MD [address] [facility] [address] [place] [address] Health Maintenance Due Date Last Done Comments Depression screening for age 12+ 1952 DEXA/DXA scan for age 65+ 2006 Medicare Wellness for age 65+ 2006 Influenza for age 65+ 03/26/2024 04/27/2023 , 04/30/2022, 05/06/2021, Additional history exists BMI (ht and wt on same day) for age 18+ 04/13/2024 04/13/2023, 12/02/2021, 05/08/2021, Additional history exists Tetanus booster 11/29/2031 11/28/2021, 0202/2013, 09/02/2012, Additional history exists Pneumococcal series for age 65+ Completed 5, 05/02/2007 Zoster (shingles) series for age 50+ Completed 08/30/2018, 04/06/2018, 07/06/2006 Tdap Completed 11/28/2021, 09/02/2012 COVID-19 vaccine series Completed 12/09/19 24, 04/22/2023, 12/01/2022, Additional history exists Medical Devices Implanted Type Area Township Clerk Device Identifier Shelf Expiration Date Model / Serial / Lot Log [id number] - [facility] Zcb00 Lens Iol - 1 - Lens Iol Zcb00 21.0 Implanted:Qty: 1 on 11/09/[address] [facility] Left: Eye [employer] ZCB00# / [id number] / Iol [place] +21 [employer]ecnis Zcb00 - [id number] Implanted:Qty: 1 on 10/01/2016 by Tian Huggins MD at [facility] Right: Eye [employer] 06/29/2020 ZCB00# / [id number] / Procedures Procedure Name Priority Date/Time Associated Diagnosis Comments TISSUE TRANSGLUTAMINASE IGA Routine 12/03/2023 3:11 PM CDT Diarrhea, unspecified type Bloating Fatigue, unspecified type Anemia, unspecified type VITAMIN A BLOOD Routine 12/03/2023 3:11 PM CDT Diarrhea, unspecified type Bloating Fatigue, unspecified type Anemia, unspecified type Pancreatic insufficiency VITAMIN E Routine 12/03/2023 3:11 PM CDT Diarrhea, unspecified type Bloating Fatigue, unspecified type Anemia, unspecified type Pancreatic insufficiency CELIAC DISEASE HLA DQ ASSOC Routine 12/03/2023 3:11 PM CDT Diarrhea, unspecified type Bloating Fatigue, unspecified type Anemia, unspecified type [facility] 121 Routine 12/03/2023 3:11 PM CDT Diarrhea, unspecified type Bloating Fatigue, unspecified type Anemia, unspecified type GLIADIN ANTIBODY IGA Routine 12/03/2023 3:11 PM CDT Diarrhea, unspecified type Bloating Fatigue, unspecified type Anemia, unspecified type CELIAC CASCADE PANEL Routine 12/03/2023 3:11 PM CDT Diarrhea, unspecified type Bloating Fatigue, unspecified type Anemia, unspecified type ECHO TTE COMPLETE WO CONTRAST Routine 11/29/2023 11:40 AM CDT Near syncope FOLIC ACID Routine 11/22/2023 3:28 PM CDT Nutritional deficiency LYME SCREEN W/REFLEX Routine 11/22/2023 3:28 PM CDT Myalgia [facility] 84 Routine 10/20/2023 9:10 AM CDT Pancreatic insufficiency from Last 3 Months Results * CELIAC CASCADE PANEL (12/03/2023 3:11 PM CDT) IGA 272.92 84.50 - 499.00 mg/dL 12/06/2023 7:22 AM CDT [facility] Blood BLOOD SPECIMEN / Unknown Venipuncture / Unknown 12/03/2023 3:11 PM CDT 12/03/2023 3:13 PM CDT Narrative [facility] - 12/06/2023 7:22 AM CDT Reflexed to Tissue Transglutaminase IgA Rico Hunt MD SEND OUTS [facility] [address] [place] [address], * CELIAC DISEASE HLA DQ ASSOC (12/03/2023 3:11 PM CDT) DQ8 (DQA1 03XX, DQB1 0302) Negative 12/13/2023 8:06 PM CDT [facility] Comment: Final Results: DQB1*03:EETKC,- DQA1*03:EFYWB,- Code Translation: - EETKC ?03:03:03:16:1903:2103:2203:24 ? /03:27:28:29:3503:3603:42/03:44 ? /03:46/03:47/03:4803:4903:5003:51/03:52 ? /03:53/03:54/03:55/03:56/03:57/03:58/03:59 ? /03:60/03:69/03:73/03:75/03:76/03:77/03:78 ? /03:82/03:83/03:84N/03:92/03:93/03:94 ? /03:101/03:102/03:103/03:108/03:109/03:114 ? /03:115/03:116/03:118N/03:119/03:120 ? /03:121/03:122/03:127/03:128/03:129/03:130 ? /03:131/03:133/03:134/03:135/03:139/03:140 ? /03:142/03:143/03:144/03:147/03:148/03:151 ? /03:152/03:154/03:157/03:158/03:159/03:160 ? /03:162/03:163/03:164/03:165/03:166/03:167 ? /03:169/03:170/03:171/03:173/03:182/03:183 ? /03:186/03:188/03:191/03:192/03:193/03:196 ? /03:197Q/03:198/03:201/03:202/03:206 ? /03:207/03:208/03:216/03:218/03:219/03:231 ? /03:232/03:235/03:236/03:241/03:242/03:243 ? /03:246/03:252/03:253/03:254/03:255/03:257 ? /03:260/03:264/03:266/03:267/03:268/03:271 ? /03:275/03:276N/03:281/03:284/03:285 ? /03:288/03:290/03:291/03:292/03:293/03:294 ? /03:297/03:302/03:303N/03:305/03:306 ? /03:307/03:309/03:311/03:312/03:314/03:317 ? /03:326/03:328/03:329/03:330/03:331 ? /03:338N/03:340N/03:341/03:342/03:347 ? /03:350/03:353/03:354N/03:358N/03:361 ? /03:366/03:370/03:372/03:373/03:377/03:378 ? /03:380/03:385N/03:387/03:389/03:390 ? /03:391/03:394/03:396/03:399N/03:400N ? /03:404/03:407N/03:408/03:417/03:418 ? /03:419/03:420/03:421/03:423/03:424/03:425 ? /03:426/03:427N/03:428/03:430/03:431 ? /03:432/03:434/03:435/03:436/03:438/03:439 ? /03:448/03:449/03:451/03:454/03:455/03:458 ? /03:460/03:465/03:467/03:468/03:469/03:470 ? /03:472/03:473N/03:475/03:476/03:480Q ? /03:482/03:483/03:486/03:488N/03:491/03:492 EFYWB ?03:02/03:03/03:04/03:05/03:07/03:03:09 ? /03:1103:13/03:14/03:16/:17:03:20 ? /03:21/03:23/03:24/03:26/03:28/03:31 ? /03:32N/03:33/03:34N/03:35/03:37/03:38 The patient is not positive for any of the HLA DQ risk alleles. ??Celiac disease risk from the HLA DQA/DQB genotype is approximately 1:2518 (<0.04%). This result essentially rules out celiac disease. Allele interpretation for all loci based on IMGT/HLA database version 3.54 HLA Lab [place] ID Number [id number] Greater than 95% of celiac patients are positive for either DQ2 or DQ8 (Mario and Laquita, (1993) ??Gastroenterology 105:910-922). However these antigens may also be present in patients who do not have Celiac disease. Comment Celiac HLA Comment 2023 8:[address] [facility] ([facility]) Comment: This test was performed using Polymerase Chain Reaction (PCR) and Sequence Specific Oligonucleotide Probes (SSOP) ([employer]) technique. Sequence Based Typing (SBT) may be used as a supplemental method when necessary. If you have questions, please call HLA customer service at or email at [email or web address]. Addit Info Celiac HLA Comment 12/13/2023 8:06 PM CDT [facility] ([facility]ET) Comment: References: 1. Keshav KEATING and Johnie Hilliard. Celiac Disease. N Eng J Med 2007; ?? 357:7623-3251. 2. Zoila F, Roro B, Bonalitao M et al. HLA-DQ and risk gradient ?? for celiac disease. Hum Immunol 2009; 70:55-59. 3. Pieemily MM, Hadley TC, Carolina FM et al. Stratifying risk ?? for celiac disease in a large at-risk [place] population ?? by using HLA alleles. Clin Gastroenterol Hepatol 2009; 7:966-971. 4. Mario HOLGUIN and Tonja BA. (2005). Celiac Disease Genetics: Current ?? Concepts and Practical Applications. Clin Gastroenterol and ?? Hepat 3:843-851. 5. Shin CL, Valentin DO, Keshav PHR, et al. Celiac Disease. ?? In: Alexis RA, Chente TC, Dez CR, Octaviano K, editors. Azariews ?? (Internet), [facility], [place], January 26, 2008:-27. ?? http://www.ncbi.nlm.nih.gov/bookshelf/br.fcgi?book=genepart=celiac ?? PMID 43339089 (PubMed) 6. Dianne W. Emerging concepts in celiac disease. Curr Opin Pediatr ?? 2004;16:552-559. Blood BLOOD SPECIMEN / Unknown Venipuncture / Unknown 12/03/2023 3:11 PM CDT 12/03/2023 3:13 PM CDT [facility] (CET) - 12/13/2023 8:06 PM CDT Performed at: ??01 - [facility] [address] [place], [place] ??[id number] Solvent Station Attendant: Daisy Montalvo PhD, Phone: ??[phone] Rico Hunt MD SEND OUTS [facility] ([facility]) [address] [place] [id number] * (ABNORMAL) VITAMIN E (12/03/2023 3:11 PM CDT) Vit E Alpha Yaak 21.3 9.0 - 29.0 mg/L 12/07/2023 3:10 PM CDT [facility] ([facility]ET) Vit E Gamma Yaak 0.3(L) 0.5 - 4.9 mg/L 12/07/2023 3:10 PM CDT [facility] ([facility]) Comment: Reference intervals for alpha and gamma-tocopherol determined from National Health and Nutrition Examination Survey, 6645-7779. Individuals with alpha-tocopherol levels less than 5.0 mg/L are considered vitamin E deficient. Blood BLOOD SPECIMEN / Unknown Venipuncture / Unknown 12/03/2023 3:11 PM CDT 12/03/2023 3:13 PM CDT Narrative [facility] (CET) - 12/07/2023 3:10 PM CDT Test(s) 772851-Cdjrmje E(Alpha Tocopherol); 063372- Vitamin E(Gamma Tocopherol) was developed and its performance characteristics determined by [facility]. It has not been cleared or approved by the Food and Drug Administration. Performed at: ??01 - [address] ??[id number] Solvent Station Attendant: Koffi Sanches MD, Phone: ??[phone] Rico Hunt MD SEND OUTS Performing Organization Address [facility] de Phone Number [facility] ([facility]) [address] [place] [address], * ENDOMYSIAL ANTIBODY IGA (12/03/2023 3:11 PM CDT) Pathologist [facility] Endomysial IgA Ab Negative Negative 12/07/2023 8:10 AM CDT [facility] ([facility]) Blood BLOOD SPECIMEN / Unknown Venipuncture / Unknown 12/03/2023 3:11 PM CDT 12/03/2023 3:13 PM CDT [facility] TESTING (CET) - 12/07/2023 8:10 AM CDT Performed at: ??[address] - [address] ??[id number] Solvent Station Attendant: Koffi Sanches MD, Phone: ??[phone] Rico Hunt MD SEND OUTS Performing Organization Address [facility] de Phone Number [facility] (CET) [address] [place] [address] * (ABNORMAL) VITAMIN A BLOOD (12/03/2023 3:11 PM CDT) Pathologist [facility] Vitamin A 88.7(H) 22.0 - 69.5 ug/dL 12/07/2023 3:10 PM CDT [facility] ([facility]) Comment: Reference intervals for vitamin A determined from [facility] internal studies. Individuals with vitamin A less than 20 ug/dL are considered vitamin A deficient and those with serum concentrations less than 10 ug/dL are considered severely deficient. This test was developed and its performance characteristics determined by [facility]. It has not been cleared or approved by the Food and Drug Administration. Blood BLOOD SPECIMEN / Unknown Venipuncture / Unknown 12/03/2023 3:11 PM CDT 12/03/2023 3:13 PM CDT Narrative [facility] (CET) - 12/07/2023 3:10 PM CDT Performed at: ??[address] - [address] ??[id number] Solvent Station Attendant: Koffi Sanches MD, Phone: ??[phone] Rico Hunt MD SEND OUTS [facility] ([facility]) [address] [place], [place] [id number], * GLIADIN ANTIBODY IGA (12/03/2023 3:11 PM CDT) Gliadin IgA <10.0 <20.0 U/ml 12/08/2023 8:19 AM CDT [facility] Blood BLOOD SPECIMEN / Unknown Venipuncture / Unknown 12/03/2023 3:11 PM CDT 12/03/2023 3:13 PM CDT Narrative [facility] - 12/08/2023 8:19 AM CDT Negative ? <20 Weak Positive 20-30 Positive ? >30 Measurements of deamidated gliadin antibodies should not be relied upon exclusively to establish or rule out the diagnosis of celiac disease. ??This test should not be ordered as a replacement for Tissue Transglutaminase Antibodies, IgA and IgG, serum. These results were obtained using the [employer] Lite R h-tTG IgA WILLARD assay. Values obtained from other manufacturers' assay methods may not be used interchangeably. Rico Hunt MD SEND OUTS Performing Organization Address [facility] Co de Phone Number [facility] [address] [place] [address], * TISSUE TRANSGLUTAMINASE IGA (12/03/2023 3:11 PM CDT) TISSUE TRANSGLUTAMINASE IGA <1.2 <4.0 U/ml 12/06/2023 12:03 PM CDT [facility] Comment:Celiac disease unlik jaycee unless IgA deficient. Recommend IgA levels if not already performed. Blood BLOOD SPECIMEN / Unknown Venipuncture / Unknown 12/03/2023 3:11 PM CDT 12/03/2023 3:13 PM CDT Narrative [facility] - 12/06/2023 12:03 PM CDT Negative ?<4.0 Weak Positive ?? 4-10 Positive ?>10.0 This test should not be solely relied upon to establish a diagnosis of celiac disease. Affected individuals who have been on a gluten-free diet prior to testing may have a negative result. These results were obtained using the [employer] Lite R h-tTG IgA WILLARD assay. ??Values obtained from other manufacturers' assay methods may not be used interchangeably. Rico Hunt MD SEND OUTS Performing Organization Address [facility] Co de Phone Number [facility] [address] [place] [address], * ECHO TTE COMPLETE WO CONTRAST (11/29/2023 11:40 AM CDT) AORTIC VALVE MEAN PG 9 mmHg EJECTION FRACTION 78 % LVEDD 3.2 cm Anatomical Region Laterality Modality Ultrasound 11/29/2023 10:5 9 AM CDT Narrative 11/29/2023 1:10 PM CDT ECHOCARDIOGRAM MARIAN LUX ? Accession#: ?? [id number] : ?1940 83 years Study Date: ?? 11/29/2023 10:59:00 AM Gender: F ?BP: ? 143/76 mmHg Height: 160.00 cm ?BSA: ?1.78 m? ? ? Weight: 75.00 kg ? Tech: ? MCK ? Referring MD: TESS WEST Site: ? [facility] Reading Location: [facility] Patient Location: Inpatient. Procedure: 2D, Color Doppler [...] 1/2 295 msec VTI ?0.44 m ?? PAUL (I) ?? 3.01 cm? ? ? LVOT [...] . This study was interpreted by an [facility] accredited facility. CC: HIM (med records) [facility], Med/Surg - IP [facility]. ??Final ?? Procedure Note Tonya Gregory, [facility] - 11/29/2023 ECHOCARDIOGRAM MARIAN LUX : 1940 83 years Study Date: 11/29/2023 10:59:00 AM Gender: F BP: 143/76 mmHg Height: 160.00 cm BSA: 1.78 m? ? ? Weight: 75.00 kg Tech: [facility] Referring MD: TESS WEST Site: [facility] Reading Location: [facility] Patient Location: Inpatient. Procedure: 2D, Color Doppler [...] . This study was interpreted by an [facility] accredited facility. CC: HIM (med records) [facility], Med/Surg - IP [facility]. Final Authorizing Provider Result Deb West MD ECHO ORD * LYME SCREEN W/REFLEX (11/22/2023 3:28 PM CDT) LYME SCREEN W/REFLEX Negative Negative 11/24/2023 9:53 AM CDT [facility] Comment: No laboratory evidence of [...] Mosher MD SEND OUTS Performing Organization Address [facility]/ZIP Co de Phone Number [facility] [address] [place] [address], [place] * (ABNORMAL) FOLIC ACID (11/22/2023 3:28 PM CDT) Pathologist [facility] FOLIC ACID 35.1(H) 4.6 - 34.8 ng/mL 11/23/2023 4:08 PM CDT [facility] Blood BLOOD SPECIMEN / Unknown Venipuncture / Unknown 11/22/2023 3:28 PM CDT 11/22/2023 3:28 PM CDT Narrative [facility] - 11/23/2023 4:08 PM CDT Biotin supplements may cause clinically significant interference for this test assay. ??If interference is suspected, it is strongly recommended that biotin is discontinued for at least one week prior to retesting. Zoran Mosher MD CHEMISTRY Performing Organization Address City/[facility]/ZIP Co de Phone Number [facility] [address] [place] [address], [place] * (ABNORMAL) PANCREATIC ELASTASE FECAL (10/20/2023 9:10 AM CDT) Pathologist [facility] Pancreatic Elast Fecal 117(L) >200 ug Elast./g 10/25/2023 3:06 AM CDT [facility] ([facility]) Comment: ? Severe Pancreatic Insufficiency: ?<100 ? Moderate Pancreatic Insufficiency: ?? 100 - 200 ? Normal: ? >200 Stool STOOL SPECIMEN / Unknown Non-Blood / Unknown 10/20/2023 9:10 AM CDT 10/20/2023 9:52 AM CDT Narrative [facility] ([facility]) - 10/25/2023 3:06 AM CDT Performed at: ??[address] - [address] ??[id number] Solvent Station Attendant: Koffi Sanches MD, Phone: ??[phone] Rico Hunt MD MICROBIOLOGY Performing Organization Address City/State/[facility] Co de Phone Number [facility] ([facility]ET) [address] [place] [phone], from Last 3 Months Advance Directives * Full Code (Latest Code Status on File) Date Activated Date Inactivated Comments 10/01/2016 12:21 PM 10/01/2016 5:23 PM * Full Code Date Activated Date Inactivated Comments 11/09/2011 6:35 AM 11/09/2011 11:00 AM Care Teams Coordinator Volunteer Services Relationship Specialty Start Date End Date Annie Brown MD [address] [place] [address] PCP - General Internal Medicine 03/19/14
--- OUTSIDE RECORDS SUMMARY | 2024-01-11 12:43 | XMS_ITS | Encounter Summary ---
Author Organization [facility] Address [address] [place] [id number] Care Team Providers Care Gis Developer Name Role Phone Elsewhere, Pcp Primary Care Provider Unavailabl e Encounter Details Date Type Department Care Team (Late st Contact Info) Description 10/19/2023 Orders Only Division of Endocrinology in [place], [place] [address] [place] [phone] Margi Avila M.D. [address] [place] [phone] Osteopenia (Primary Dx); Osteoporosis Social History Tobacco Use Types Packs/Day Years Used Date Smoking Tobacco: Never Passive Smoke Exposure: Never Smokeless Tobacco: Never Comments:As a child Alcohol Use Standard Drinks/Week Comments Yes 7 (1 standard drink = 0.6 oz pur e alcohol) [facility] Utilities Answer Date Recorded In the past 12 months has [facility] [employer], gas, oil, or water [employer] threatened to shut off services in your [...] 08/24/2022 How often do you attend chur Agor[employer] or shinto services? Never 08/24/2022 Do you belong to [...] and heating? Not hard at all 12/24/2022 [facility] - Occupational [...] your living situation today? I have a [facility] place to live 09/17/2023 Education Answer [...] Osteoporosis documented in this encounter Care Teams Gis Developer Relationship Specialty Start Date End Date Elsewhere, Pcp PCP - General Internal Medicine 12/29/22 documented as of this encounter
--- OUTSIDE RECORDS SUMMARY | 2024-01-11 12:43 | XMS_ITS | Encounter Summary ---
Author Organization [facility] Address [address] [place] [address] Care Team Providers Care Emergency Medical Technician Name Role Phone Elsewhere, Pcp Primary Care Provider Unavailabl e Encounter Details Date Type Department Care Team (Latest Contact Info) Description 10/14/2023 Clinical Communication Division of Endocrinology in [place], [place] [address] [place] [address] Sahra Hester, RAllyssaN. Social History Tobacco Use Types Packs/Day Years Used Date Smoking Tobacco: Never Passive Smoke Exposure: Never Smokeless Tobacco: Never Comments:As a child Alcohol Use Standard Drinks/Week Comments Yes 7 (1 standard drink = 0.6 oz pur e alcohol) [facility] Utilities Answer Date Recorded In the past 12 months has [facility] [employer], gas, oil, or water [employer] threatened to shut off services in your [...] How often do you attend chur or caodaism services? Never 08/24/2022 Do you belong to any clubs o r organizations such as hindu groups, unions, fraternal or athletic groups, or [...] and heating? Not hard at all 12/24/2022 [facility] of Occupat ional Health - Occupational Stress [...] the money to buy more. Never true 02/23/20 24 Within the past 12 months, t [...] your living situation today? I have a [facility] place to live 09/17/2023 Education Answer [...] on filedocumented in this encounter Care Teams Emergency Medical Technician Relationship Specialty Start Date End Date Elsewhere, Pcp PCP - General Internal Medicine 12/29/22 documented as of this encounter
--- OUTSIDE RECORDS SUMMARY | 2024-01-11 12:43 | XMS_ITS | Encounter Summary ---
Author Organization [facility] Address [address] [place] [address] Care Team Providers Care Chief Accountant Name Role Phone Elsewhere, Pcp Primary Care Provider Unavailabl e Encounter Details Date Type Department Care Team (Late st Contact Info) Description 10/13/2023 Orders Only Division of Endocrinology in [place], [place] [address] [place] [phone] Margi Avila M.D. [address] [place] [address] Osteoporosis (Primary Dx) Social History Tobacco Use Types Packs/Day Years Used Date Smoking Tobacco: Never Passive Smoke Exposure: Never Smokeless Tobacco: Never Comments:As a child Alcohol Use Standard Drinks/Week Comments Yes 7 (1 standard drink = 0.6 oz pur e alcohol) [facility] Utilities Answer Date Recorded In the past 12 months has [employer], gas, oil, or water [employer] threatened to shut off services in your [...] 08/24/2022 How often do you attend chur [employer] or voodoo services? Never 08/24/2022 Do you belong to any clubs o r organizations such as mandaeism groups, unions, fraternal or athletic groups, or [...] and heating? Not hard at all 12/24/2022 [facility] of Occupat ional Health - [...] living situation today? I have a [facility] place to live 09/17/2023 Education [...] Primary documented in this encounter Care Teams Chief Accountant Relationship Specialty Start Date End Date Elsewhere, Pcp PCP - General Internal Medicine 12/29/22 documented as of this encounter
--- OUTSIDE RECORDS SUMMARY | 2024-01-11 12:43 | XMS_ITS | Encounter Summary ---
Author Organization [facility] Address [address] [place] [address] Care Team Providers Care Pneumatic System Conveyor Operator Name Role Phone Elsewhere, Pcp Primary Care Provider Unavailabl e Encounter Details Date Type Department Care Team (Late st Contact Info) Description 12/08/2023 Orders Only Division of Endocrinology in [place], [place] [address] [place] [phone] Margi Avila M.D. [address] [place] [phone] Social History Tobacco Use Types Packs/Day Years Used Date Smoking Tobacco: Never Passive Smoke Exposure: Never Smokeless Tobacco: Never Comments:As a child Alcohol Use Standard Drinks/Week Comments Yes 7 (1 standard drink = 0.6 oz pur e alcohol) [facility] Utilities Answer Date Recorded In the past 12 months has e [employer], gas, oil, or water [employer] threatened to shut off services in your [...] 08/24/2022 How often do you attend chur Dailyevent or mandaen services? Never 08/24/2022 Do you belong to any clubs o r organizations such as confucianist groups, unions, fraternal or athletic groups, or [...] your living situation today? I have a [facility] place to live 09/17/2023 Education [...] on filedocumented in this encounter Care Teams Pneumatic System Conveyor Operator Relationship Specialty Start Date End Date Elsewhere, Pcp PCP - General Internal Medicine 12/29/22 documented as of this encounter
--- OUTSIDE RECORDS SUMMARY | 2024-01-11 12:43 | XMS_ITS | Encounter Summary ---
Author Organization [facility] Address [address] [place] [address] Care Team Providers Care Hvac Sales Representative Name Role Phone Elsewhere, Pcp Primary Care Provider Unavailabl e Reason for Visit * Reason Onset Date Comments Questions 10/20/2023 Encounter Details Date Type Department Care Team (Latest Contact Info) Description 10/20/2023 Clinical Communication Division of Endocrinology in [place], [place] [address] [place] [phone] Margi Avila M.D. [address] [place] [phone] Questions Social History Tobacco Use Types Packs/Day Years Used Date Smoking Tobacco: Never Passive Smoke Exposure: Never Smokeless Tobacco: Never Comments:As a child Alcohol Use Standard Drinks/Week Comments Yes 7 (1 standard drink = 0.6 oz pur e alcohol) [facility] Utilities Answer Date Recorded In the past 12 months has e electric, gas, oil, or water [employer] threatened to shut off services in your [...] any clubs o r organizations such as restoration groups, unions, fraternal or athletic groups, or [...] and heating? Not hard at all 12/24/2022 [facility] of Occupat ional Health - [...] your living situation today? I have a [facility] place to live 09/17/2023 Education Answer [...] on filedocumented in this encounter Care Teams Hvac Sales Representative Relationship Specialty Start Date End Date Elsewhere, Pcp PCP - General Internal Medicine 12/29/22 documented as of this encounter
--- OUTSIDE RECORDS SUMMARY | 2024-01-11 12:43 | XMS_ITS | Encounter Summary ---
Author Organization [facility] Address [address] [place] [address] Care Team Providers Care Billing Analyst Name Role Phone Elsewhere, Pcp Primary Care Provider Unavailabl e Encounter Details Date Type Department Care Team (Late st Contact Info) Description 10/04/2023 [facility] [address] [place] [address] Annie Brown M.D. [address] [place] [phone] Malaise (Primary Dx); Fatigue Social History Tobacco Use Types Packs/Day Years Used Date Smoking Tobacco: Never Passive Smoke Exposure: Never Smokeless Tobacco: Never Comments:As a child Alcohol Use Standard Drinks/Week Comments Yes 7 (1 standard drink = 0.6 oz pur e alcohol) [facility] Utilities Answer Date Recorded In the past 12 months has [facility] [employer], gas, oil, or water [employer] threatened to shut off services in your [...] 08/24/2022 How often do you attend chur [employer] or tenriism services? Never 08/24/2022 Do you belong to any clubs o r organizations such as congregational groups, unions, [employer] or athletic groups, or school groups? No [...] and heating? Not hard at all 12/24/2022 [facility] of Occupat ional Health - [...] your living situation today? I have a [facility] place to live 09/17/2023 Education Answer [...] Fatigue documented in this encounter Care Teams Billing Analyst Relationship Specialty Start Date End Date Elsewhere, Pcp PCP - General Internal Medicine 12/29/22 documented as of this encounter
--- OUTSIDE RECORDS SUMMARY | 2024-01-11 12:43 | XMS_ITS | Encounter Summary ---
Author Organization [facility] Address [address] [place] [address] Care Team Providers Care Pct Name Role Phone Elsewhere, Pcp Primary Care Provider Unavailabl e Encounter Details Date Type Department Care Team (Latest Contact Info) Description 10/26/2023 Clinical Communication Division of Endocrinology in [place], [place] [address] [place] [address] Margi Avila M.D. [address] [place] [address] Social History Tobacco Use Types Packs/Day Years Used Date Smoking Tobacco: Never Passive Smoke Exposure: Never Smokeless Tobacco: Never Comments:As a child Alcohol Use Standard Drinks/Week Comments Yes 7 (1 standard drink = 0.6 oz pur e alcohol) [facility] Utilities Answer Date Recorded In the past 12 months has [employer], gas, oil, or water [employer] threatened to shut off services in your [...] 08/24/2022 How often do you attend chur [employer] or orthodox services? Never 08/24/2022 Do you [...] heating? Not hard at all 12/24/2022 [facility] of Occupat ional Health - [...] your living situation today? I have a [facility] place to live 09/17/2023 Education Answer [...] Subsequent documented in this encounter Care Teams Pct Relationship Specialty Start Date End Date Elsewhere, Pcp PCP - General Internal Medicine 12/29/22 documented as of this encounter
[2024-01-11 13:02] LABS: Potassium* 4.6 mmol/L (3.6-5.1)
[2024-01-11 13:06] LABS: Magnesium* 2.4 mg/dL (1.5-2.6)
[2024-01-12 14:02] LABS: Adrenocorticotropic Hormone 5.4 pg/mL (7.2-63.3)
[2024-01-12 15:53] LABS: Cortisol, Serum 15.9 ug/dL
== END 2024-01-11 12:38 | disposition home or self-care (01) ==
LOC: NPINS 12:37
PROVIDERS: PCP Internal Medicine; Visit Provider Internal Medicine
DX: E27.9 Disorder of adrenal gland, unspecified (principal); R79.89 Other specified abnormal findings of blood chemistry
CPT/HCPCS: 82024; 82533; 83735; 84132

== ENCOUNTER 2024-01-25 12:16 | Emergency (ER) | payer MEDICARE, SELFPAY ==
[2024-01-25 12:29] VITALS: BP 173/94; PULSE 85; RESP 18; TEMP 36.6; O2SAT 95; BMI 29.8
--- NOTE | 2024-01-25 12:40 | CRLHL7_ITS ---
For Patients: As a result of the Century Cures Act, medical imaging exams and procedure reports are released immediately into your electronic medical record. You may view this report before your referring provider. If you have questions, please contact your health care provider. INDICATION: Leg swelling. TECHNIQUE: Ultrasound venous duplex lower right extremity. Compression venous exam was performed using weiss-scale, color Doppler, and spectral Doppler analysis. COMPARISON: None available. FINDINGS: Deep veins: Sonographic imaging demonstrates the right common femoral, deep femoral, superficial femoral, popliteal, posterior tibial, peroneal and the contralateral left common femoral veins to be fully compressible with normal color Doppler blood flow. Superficial veins: Visualized portions of the greater saphenous vein are fully compressible. There is a simple appearing cystic structure along the medial aspect of the right knee measuring 4.9 x 1.3 x 2.4 cm. The origin of this cystic structure is incompletely assessed given the field of view. IMPRESSION: 1. No evidence of right lower extremity deep venous thrombosis. 2. Right popliteal fossa cyst measuring 4.9 cm. Dictated by Charleen Gupta MD @ 01/25/2024 1:25:19 PM (Electronically Signed)
--- NOTE | 2024-01-25 12:50 | ED_ITS ---
HPI - General Adult General Chief complaint: Lower Extremity Swelling Stated complaint: poss deep vein thrombosis Time Seen by Provider: 01/25/24 12:17 History of Present Illness HPI narrative: This 83-year-old female comes in with her stating that she has noted swelling in her right lower extremity over the last day or so. She does not report any injury event and does not have any new pain. 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 She is taking gabapentin and currently tapering down from this medicine as the medicine itself seemed to have more adverse effects and benefits. She does not report any chest pain or shortness of breath. She arrives here with normal vital signs except her blood pressure is somewhat elevated. Related Data Home Medications ?Medication ?Instructions ?Recorded ?Confirmed famotidine 20 mg tablet 20 mg PO HS 04/30/22 12/06/23 multivitamin (Multiple Vitamins 1 tab PO QAM 04/30/22 12/06/23 tablet) polyethylene glycol 3350 17 17 g PO DAILY 04/30/22 12/06/23 gram/dose oral powder acetaminophen 500 mg capsule 500 mg PO DAILY PRN 07/02/22 12/06/23 melatonin 3 mg capsule 3 mg PO QHS 07/02/22 12/06/23 rosuvastatin 40 mg tablet 40 mg PO DAILY 07/02/22 12/06/23 vit C 250 mg-vit E 90 mg-zinc 40 1 tab PO BID 07/02/22 12/06/23 mg-copper 1 [id number]-[id number]-pexyht capsule (PreserVision AREDS-2) valsartan 160 mg tablet 160 mg PO DAILY 07/06/22 12/06/23 gabapentin 100 mg capsule 100 mg PO TID PRN 09/16/23 12/06/23 calcium citrate 200 mg 3 tab PO DAILY 11/22/23 12/06/23 calcium-vitamin D3 6.25 mcg (250 unit) tablet (Citracal-D3 Petites) clopidogrel 75 mg tablet 75 mg PO DAILY 11/29/23 12/06/23 Previous Rx's ?Medication ?Instructions ?Recorded omeprazole 20 mg capsule,delayed 20 mg PO DAILY #90 caps 05/25/23 release amlodipine 10 mg tablet 10 mg PO DAILY #90 tabs 07/16/23 alendronate 70 mg tablet 70 mg PO QWEEK #12 tabs 11/22/23 azithromycin 250 mg tablet 250 mg PO Q24H 3 days #3 tabs 11/30/23 Allergies Allergy/AdvReac Type Severity Reaction Status Date / Time tramadol Allergy Intermediate nausea, Verified 12/06/23 15:32 vomiting codeine AdvReac Unknown Nausea Verified 12/06/23 15:32 Review of Systems Status of ROS: Reports: 10 or more systems reviewed and unremarkable except as noted in History and below Narrative: Constitutional: No fevers, no weight gain or loss. Eyes: No discharge. No vision changes. HENT: No congestion, no sore throat, no ear pain. Cardiovascular: No chest pain, no palpitations. Respiratory: No shortness of breath, no wheezes, no cough. Gastrointestinal: No abdominal pain, no vomiting, no diarrhea. Genitourinary: No dysuria, no hematuria. Musculoskeletal: Normal range of motion. Skin: No rashes, no pruritis. Neurological: No dizziness, weakness, sensory change, speech change. Endo/Heme/Allergies: No bruising or bleeding. No polydipsia. Pysch: no suicidality, no anxiety, no insomnia. All other systems reviewed and are negative. 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.2 - Postprocedural hypoparathyroidism (ICD-10) Family History Father Heart disease Son Heart disease Mother High blood pressure Social History What is your current living situation?: I presently have a place to live Problems where you live: no known problems Problems where you live details: NA In the past 12 months, utilities in danger of being shut off: no In past 12 months, lack of transportation kept you from medical appts, meetings, work, or getting things needed for daily living: no In the past 12 mos, have been you worried that your food would run out before you had money to buy more?: never true In the past 12 mos, the food you bought just didn't last and you didn't have money to buy more?: never true Highest level of school completed/degree received: Associate degree: academic program Smoking Status: Never smoker Do you use any of these nicotine containing products: None Second hand tobacco smoke exposure: Yes (youth) How often do you have a drink containing alcohol: 4 or more times a week Alcohol type: wine Alcohol type details: one glass of wine per night How many standard drinks containing alcohol do you have on a typical day: 1 or 2 How often do you have six or more drinks on one occasion: Never AUDIT-C Alcohol total score: 4 Non-prescribed substance use: denies use Caffeine: Yes (Coffee in AM) How often does anyone, including family, friends and others, physically hurt you : never How often does anyone, including family, friends and others, insult or talk down to you: never How often does anyone, including family, friends and others, threaten you with harm: never How often does anyone, including family, friends and others, scream or curse at you: never Little interest or pleasure in doing things: not at all Feeling down, depressed, or hopeless: not at all service: No Exam Narrative: Exam Narrative: Constitutional: Well-developed, well-nourished, no acute distress. HEENT: Normocephalic, atraumatic. Neck: Normal range of motion. Nontender. Supple. Heart: Intact distal pulses. Lungs: No chest discomfort. No wheezes, rhonchi, or rales. Abdomen: Nontender. Back: Normal range of motion. Extremities: Normal range of motion. No injury. Right lower extremity does have increased swelling compared to the left. There is some ecchymosis also on the medial aspect of her right lower extremity just above the knee. Skin: Intact. No rash. Warm. No erythema or pallor. Neurologic: No altered sensation. No weakness. Alert and oriented. Psychiatric: No suicidality. No anxiety or depression. No insomnia. Nursing notes and vitals signs are reviewed. Const: Vital Signs, click to edit/add: Vital Signs - 24 hr 01/25/24 12:29 Temperature 98 F Pulse Rate [Right Pulse Oximeter] 85 Respiratory Rate 18 Blood Pressure [Le ft Upper Arm] 173/94 H Pulse Oximetry 95 Oxygen Delivery Me thod Room Air Course Vital Signs Vital signs: Initial Vital Signs Temperature 98 F 01/25/24 12:29 Temperature Source Temporal Artery Scan 01/25/24 12:29 Pulse Rate 85 01/25/24 12:29 Pulse Rhythm Regular 01/25/24 12:29 Pulse Strength 3+ Normal 01/25/24 12:29 Respiratory Rate 18 01/25/24 12:29 Blood Pressure 173/94 H 01/25/24 12:29 Blood Pressure Mean 120 H 01/25/24 12:29 Blood Pressure Position Sitting 01/25/24 12:29 Pulse Oximetry 95 01/25/24 12:29 Oxygen Delivery Method Room Air 01/25/24 12:29 Vital Signs Temperature 98 F 01/25/24 12:29 Pulse Rate 85 01/25/24 12:29 Respiratory Rate 18 01/25/24 12:29 Blood Pressure 173/94 H 01/25/24 12:29 Pulse Oximetry 95 01/25/24 12:29 Oxygen Delivery Method Room Air 01/25/24 12:29 Temperature 98 F 01/25/24 12:29 Pulse Rate 85 01/25/24 12:29 Respiratory Rate 18 01/25/24 12:29 Blood Pressure 173/94 H 01/25/24 12:29 Pulse Oximetry 95 01/25/24 12:29 Oxygen Delivery Method Room Air 01/25/24 12:29 Medical Decision Making MDM Narrative Medical decision making narrative: This patient comes in with concern of swelling in her right lower extremity. Th ere is no report of injury event. She does have chronic pain related to degenerative disease of her joints. She is taking Plavix. There is no prior report of deep venous thrombosis in her past history. 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 There is no sign of deep venous thrombosis. The Boyce cyst is likely what is causing her increased swelling. Patient is okay to be discharged home. She has a follow-up appointment with her primary physician immediately following her visit here. She does have connections with a enrichment specialist in Orthopedic Department and can follow-up there also as needed. 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 Return if worsening. Prescriptions: No Action calcium citrate-vitamin D3 [Citracal-D3 Petites] 200 mg-6.25 mcg (250 unit) tablet 3 tab PO DAILY Rx Instructions: 600 mg daily alendronate 70 mg tablet 70 mg PO QWEEK Qty: 12 3RF multivitamin [Multiple Vitamins] Tablet 1 tab PO QAM famotidine 20 mg tablet 20 mg PO HS polyethylene glycol 3350 17 gram/dose powder 17 g PO DAILY gabapentin 100 mg capsule 100 mg PO TID PRN Patient Comments: PATIENT TAKES AT BEDTIME FOR RESTLESS LEGS clopidogrel 75 mg tablet 75 mg PO DAILY azithromycin 250 mg Tablet 250 mg PO Q24H 3 Days Qty: 3 0RF Taper: Z-MARIA L 250 mg Q24H for 3 Days and 0 Hour rosuvastatin 40 mg tablet 40 mg PO DAILY PreserVision AREDS-2 250-90-40-1 mg capsule 1 tab PO BID melatonin 3 mg capsule 3 mg PO QHS acetaminophen 500 mg capsule 500 mg PO DAILY PRN valsartan 160 mg tablet 160 mg PO DAILY omeprazole 20 mg capsule,delayed release(DR/EC) 20 mg PO DAILY Qty: 90 3RF amlodipine 10 mg tablet 10 mg PO DAILY Qty: 90 2RF Follow Up/Referrals: Annie Brown MD [Primary Care Provider] - Stand Alone Forms: [employer] Info Instructions
--- OUTSIDE RECORDS SUMMARY | 2024-01-25 12:50 | XMS_ITS ---
Author Organization [facility] Address [address] [place] [address] Care Team Providers Care Stand Up Forklift Operator Name Role Phone Unavailable Unavailable Unavailable Surgery Details Not on file Complications Check Surgery Details section. Procedure Estimated Blood Loss Check Surgery Details section. Procedure Findings Check Surgery Details section. Procedure Specimens Taken Check Surgery Details section.
--- OUTSIDE RECORDS SUMMARY | 2024-01-25 12:50 | XMS_ITS | Encounter Summary ---
Author Organization [facility] Address [address] [place] [address] Care Team Providers Care Manager Sas Name Role Phone Elsewhere, Pcp Primary Care Provider Unavailabl e Encounter Details Date Type Department Care Team (Late st Contact Info) Description 10/19/2023 Orders Only Division of Endocrinology in [place], [place] [address] [place] [phone] Margi Avila M.D. [address] [place] [address] Social History Tobacco Use Types Packs/Day Years Used Date Smoking Tobacco: Never Passive Smoke Exposure: Never Smokeless Tobacco: Never Comments:As a child Alcohol Use Standard Drinks/Week Comments Yes 7 (1 standard drink = 0.6 oz pur e alcohol) [facility] Utilities Answer Date Recorded In the past 12 months has e [employer], gas, oil, or water [employer] threatened to shut off services in your [...] 08/24/2022 How often do you attend chur [employer] or restorationist services? Never 08/24/2022 Do you belong to any clubs o r organizations such as baptist groups, unions, fraternal or athletic groups, or [...] and heating? Not hard at all 12/24/2022 [facility] of Occupat ional Health - Occupational [...] filedocumented in this encounter Care Teams Manager Sas Relationship Specialty Start Date End Date Elsewhere, Pcp PCP - General Internal Medicine 12/29/22 documented as of this encounter
--- OUTSIDE RECORDS SUMMARY | 2024-01-25 12:50 | XMS_ITS | Encounter Summary ---
Author Organization [facility] Address [address] [place] [address] Care Team Providers Care Director Patient Name Role Phone Elsewhere, Pcp Primary Care Provider Unavailabl e Reason for Visit * Reason Onset Date Comments Triage 10/07/2023 Encounter Details Date Type Department Care Team (Late st Contact Info) Description 10/07/2023 Clinical Communication Division of General Internal Medicine in [place], [place] [address] [place] [phone] Prescheduling, Provider Triage Social History Tobacco Use Types Packs/Day Years Used Date Smoking Tobacco: Never Passive Smoke Exposure: Never Smokeless Tobacco: Never Comments:As a child Alcohol Use Standard Drinks/Week Comments Yes 7 (1 standard drink = 0.6 oz pur e alcohol) [facility] Utilities Answer Date Recorded In the past 12 months has [facility] [employer], gas, oil, or water [employer] threatened to shut off services in your [...] often do you attend chur ch or anabaptist services? Never 08/24/2022 Do you [...] and heating? Not hard at all 12/24/2022 [facility] of Occupat ional Health - [...] your living situation today? I [facility] a [facility] to live 09/17/2023 Education Answer Date [...] Guzman - 10/07/2023 7:09 AM CDT marian cagle 1940 [id number] 83 years Height: 5 ft. 3 in. 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 However, as testing and treatments with [...] than 12 months Previous Eval: Yes Location: [facility] locations in [facility], and [facility], Gastroenterology and ENT Have had: [...] causes that either. I have seen an [facility] president educational institution and also one visit to [facility] to see one also. Duration: More than 12 months Previous Eval: Yes Location: PCP is at [facility]. Dr. Stephanie Bernal in [place] to see president educational institution Dr. Rico Hunt. [facility] in [place] to see president educational institution. Have had: Procedures (surgeries, colonoscopies, biopsies, etc.), [...] DIAGNOSIS: Yes Willing to attend [facility] or [facility] appointments - Probably not DAILY MEDS: 14 OPIOIDS: No CURRENT DIALYSIS: No CURRENT HEALTH/PAST YEAR: Fair CONFIDENCE: Somewhat agree NOT AVAILABLE: September, 10/31-11/08, 12/06, 12/30-01/06, 01/30-02/14 PHONE: [phone] documented in this encounter Plan of Treatment Not on file documented as of this encounter Visit Diagnoses Not on filedocumented in this encounter Care Teams Director Patient Relationship Specialty Start Date End Date Elsewhere, Pcp PCP - General Internal Medicine 12/29/22 documented as of this encounter
--- OUTSIDE RECORDS SUMMARY | 2024-01-25 12:50 | XMS_ITS | Encounter Summary ---
Author Organization [facility] Address [address] [place] [address] Care Team Providers Care Tour Bus Driver/Guide Name Role Phone Elsewhere, Pcp Primary Care Provider Unavailabl e Encounter Details Date Type Department Care Team (Late st Contact Info) Description 11/15/2023 Clinical Communication Department of Infusion Therapy in [place], [place] [address] [place] [phone] Joy Cooper, R.N. Social History Tobacco Use Types Packs/Day Years Used Date Smoking Tobacco: Never Passive Smoke Exposure: Never Smokeless Tobacco: Never Comments:As a child Alcohol Use Standard Drinks/Week Comments Yes 7 (1 standard drink = 0.6 oz pur e alcohol) [facility] Utilities Answer Date Recorded In the past 12 months has [facility] [employer], gas, oil, or water [email or web address] threatened to shut off services in your [...] any clubs o r organizations such as amish groups, unions, fraternal or athletic groups, or [...] and heating? Not hard at all 12/24/2022 [facility] of Occupat ional Health - Occupational [...] on filedocumented in this encounter Care Teams Tour Bus Driver/Guide Relationship Specialty Start Date End Date Elsewhere, Pcp PCP - General Internal Medicine 12/29/22 documented as of this encounter
--- OUTSIDE RECORDS SUMMARY | 2024-01-25 12:50 | XMS_ITS | Encounter Summary ---
Author Organization [facility] Address [address] [place] [address] Care Team Providers Care Assembler Cards And Announcements Name Role Phone Elsewhere, Pcp Primary Care Provider Unavailabl e Encounter Details Date Type Department Care Team (Late st Contact Info) Description 10/13/2023 Orders Only Division of Endocrinology in [place], [place] [address] [place] [phone] Margi Avila M.D. [address] [place] [address] Osteoporosis (Primary Dx) Social History Tobacco Use Types Packs/Day Years Used Date Smoking Tobacco: Never Passive Smoke Exposure: Never Smokeless Tobacco: Never Comments:As a child Alcohol Use Standard Drinks/Week Comments Yes 7 (1 standard drink = 0.6 oz pur e alcohol) [facility] Utilities Answer Date Recorded In the past 12 months has [employer], gas, oil, or water [employer] threatened to shut off services in your [...] 08/24/2022 How often do you attend chur [employer] or judaism services? Never 08/24/2022 Do you belong to any clubs o r organizations such as jehovah's witness groups, unions, fraternal or athletic groups, or [...] and heating? Not hard at all 12/24/2022 [facility] of Occupat ional Health [...] your living situation today? I have a [facility] place to live 09/17/2023 Education Answer [...] Primary documented in this encounter Care Teams Assembler Cards And Announcements Relationship Specialty Start Date End Date Elsewhere, Pcp PCP - General Internal Medicine 12/29/22 documented as of this encounter
--- OUTSIDE RECORDS SUMMARY | 2024-01-25 12:50 | XMS_ITS | Encounter Summary ---
Author Organization [facility] Address [address] [place] [address] Care Team Providers Care Manufacturing Finance Manager Name Role Phone Elsewhere, Pcp Primary Care Provider Unavailabl e Encounter Details Date Type Department Care Team (Latest Contact Info) Description 10/26/2023 Clinical Communication Division of Endocrinology in [place], [place] [address] [place] [address] Margi Avila M.D. [address] [place] [address] Social History Tobacco Use Types Packs/Day Years Used Date Smoking Tobacco: Never Passive Smoke Exposure: Never Smokeless Tobacco: Never Comments:As a child Alcohol Use Standard Drinks/Week Comments Yes 7 (1 standard drink = 0.6 oz pur e alcohol) [facility] Utilities Answer Date Recorded In the past 12 months has [employer], gas, oil, or water [employer] threatened to shut off services in your [...] 08/24/2022 How often do you attend chur [employer] or catholic services? Never 08/24/2022 Do you belong to any clubs o r organizations such as mosque groups, unions, fraternal or athletic groups, or [...] your living situation today? I have a [facility] place to live 09/17/2023 Education [...] Subsequent documented in this encounter Care Teams Manufacturing Finance Manager Relationship Specialty Start Date End Date Elsewhere, Pcp PCP - General Internal Medicine 12/29/22 documented as of this encounter
--- OUTSIDE RECORDS SUMMARY | 2024-01-25 12:50 | XMS_ITS | Encounter Summary ---
Author Organization [facility] Address [address] [place] [address] Care Team Providers Care Canvas Marker Name Role Phone Elsewhere, Pcp Primary Care Provider Unavailabl e Reason for Visit * Reason Onset Date Comments Questions 10/20/2023 Encounter Details Date Type Department Care Team (Latest Contact Info) Description 10/20/2023 Clinical Communication Division of Endocrinology in [place], [place] [address] [place] [phone] Margi Avila M.D. [address] [place] [address] Questions Social History Tobacco Use Types Packs/Day Years Used Date Smoking Tobacco: Never Passive Smoke Exposure: Never Smokeless Tobacco: Never Comments:As a child Alcohol Use Standard Drinks/Week Comments Yes 7 (1 standard drink = 0.6 oz pur e alcohol) [facility] Utilities Answer Date Recorded In the past 12 months has e electric, gas, oil, or water [employer] threatened to shut off services in your [...] How often do you attend chur or bahai services? Never 08/24/2022 Do you belong to any clubs o r organizations such as zoroastrian groups, unions, fraternal or athletic groups, or [...] and heating? Not hard at all 12/24/2022 [facility] of Occupat ional Health - [...] living situation today? I have a [facility] place to live 09/17/2023 Education Answer [...] on filedocumented in this encounter Care Teams Canvas Marker Relationship Specialty Start Date End Date Elsewhere, Pcp PCP - General Internal Medicine 12/29/22 documented as of this encounter
--- OUTSIDE RECORDS SUMMARY | 2024-01-25 12:50 | XMS_ITS | Encounter Summary ---
Author Organization [facility] Address [address] [place] [address] Care Team Providers Care Auto Repair Shop Manager Name Role Phone Elsewhere, Pcp Primary Care Provider Unavailabl e Encounter Details Date Type Department Care Team (Late st Contact Info) Description 12/08/2023 Orders Only Division of Endocrinology in [place], [place] [address] [place] [phone] Margi Avila M.D. [address] [place] [address] Social History Tobacco Use Types Packs/Day Years Used Date Smoking Tobacco: Never Passive Smoke Exposure: Never Smokeless Tobacco: Never Comments:As a child Alcohol Use Standard Drinks/Week Comments Yes 7 (1 standard drink = 0.6 oz pur e alcohol) [facility] Utilities Answer Date Recorded In the past 12 months has e [employer], gas, oil, or water [employer] threatened to shut off services in your [...] 08/24/2022 How often do you attend chur Snap[employer] or catholic services? Never 08/24/2022 Do you belong to any clubs o r organizations such as protestant groups, unions, fraternal or athletic groups, or [...] on filedocumented in this encounter Care Teams Auto Repair Shop Manager Relationship Specialty Start Date End Date Elsewhere, Pcp PCP - General Internal Medicine 12/29/22 documented as of this encounter
--- OUTSIDE RECORDS SUMMARY | 2024-01-25 12:50 | XMS_ITS | Encounter Summary ---
Author Organization [facility] Address [address] [place] [address] Care Team Providers Care Assembler Deck And Hull Name Role Phone Elsewhere, Pcp Primary Care Provider Unavailabl e Encounter Details Date Type Department Care Team (Late st Contact Info) Description 10/19/2023 Orders Only Division of Endocrinology in [place], [place] [address] [place] [phone] Margi Avila M.D. [address] [place] [phone] Osteopenia (Primary Dx); Osteoporosis Social History Tobacco Use Types Packs/Day Years Used Date Smoking Tobacco: Never Passive Smoke Exposure: Never Smokeless Tobacco: Never Comments:As a child Alcohol Use Standard Drinks/Week Comments Yes 7 (1 standard drink = 0.6 oz pur e alcohol) [facility] Utilities Answer Date Recorded In the past 12 months has [facility] [employer], gas, oil, or water [employer] threatened to shut off services in your [...] 08/24/2022 How often do you attend chur [employer] or methodist services? Never 08/24/2022 Do you belong to any clubs o r organizations such as synagogue groups, unions, fraternal or athletic groups, or [...] and heating? Not hard at all 12/24/2022 [facility] of Occupat ional Health - Occupational [...] your living situation today? I have a [facility] place to live 09/17/2023 Education Answer [...] Osteoporosis documented in this encounter Care Teams Assembler Deck And Hull Relationship Specialty Start Date End Date Elsewhere, Pcp PCP - General Internal Medicine 12/29/22 documented as of this encounter
--- OUTSIDE RECORDS SUMMARY | 2024-01-25 12:50 | XMS_ITS | Encounter Summary ---
Author Organization [facility] Address [address] [place] [address] Care Team Providers Care Cost Control Analyst Name Role Phone Elsewhere, Pcp Primary Care Provider Unavailabl e Reason for Visit * Reason Onset Date Comments [facility] - Outside Materials 01/13/2024 Encounter Details Date Type Department Care Team (Latest Contact Info) Description 01/13/2024 Clinical Communication Division of Endocrinology in [place], [place] [address] [place] [phone] Margi Avila M.D. [address] [place] [address] [facility] [employer] Social History Tobacco Use Types Packs/Day Years Used Date Smoking Tobacco: Never Passive Smoke Exposure: Never Smokeless Tobacco: Never Comments:As a child Alcohol Use Standard Drinks/Week Comments Yes 7 (1 standard drink = 0.6 oz pur e alcohol) [facility] Utilities Answer Date Recorded In [...] How often do you attend chur or orthodox services? Never 08/24/2022 Do you belong to any clubs o r organizations such as mormonism groups, unions, fraternal or athletic groups, or [...] and heating? Not hard at all 12/24/2022 [facility] of Occupat ional Health - Occupational Stress [...] your living situation today? I have a [facility] place to live 09/17/2023 Education [...] on filedocumented in this encounter Care Teams Cost Control Analyst Relationship Specialty Start Date End Date Elsewhere, Pcp PCP - General Internal Medicine 12/29/22 documented as of this encounter
--- OUTSIDE RECORDS SUMMARY | 2024-01-25 12:50 | XMS_ITS | Clinical Summary ---
Author Organization [facility] Address [address] [place] [address] Care Team Providers Care Chef De Cuisine Name Role Phone Elsewhere, Pcp Primary Care Provider Unavailabl e Source Comments Patient records contain information from all sites at [facility]. For routine questions regarding patient records, call [phone] during business hours, M-F 8:00 AM - 5:00 PM Central Time. Record requests for emergency care only can be directed to [phone] at any time.[facility] Allergies Active Allergy Reactions Criticality Noted Date [...] Encounters Date Type Department Care Team Description 01/13/2024 Clinical Communication Division of Endocrinology in [place], [place] [address] [place] [address] Margi Avila M.D. [facility] - Outside Materials 12/08/2023 Orders Only Division of Endocrinology in [place], [place] [address] [place] [address] Margi Avila M.D. 11/15/2023 Clinical Communication Department of Infusion Therapy in [place], [place] [address] [place] [address] Joy Cooper, RDavon 10/26/2023 Clinical Communication Division of Endocrinology in [place], [place] [address] [place] [address] Margi Avila M.D. from Last 3 Months Family History Medical [...] = 0.6 oz pur e alcohol) [facility] Utilities Answer Date Recorded In the past 12 months has e [employer], gas, oil, or water [employer] threatened to shut off services in your [...] any clubs o r organizations such as religious groups, unions, fraternal or athletic groups, or [...] your living situation today? I have a [facility] place to live 09/17/2023 Education Answer [...] Additional history exists Potassium Level 06/24/2023 06/24/2022, 12/2021, 12/16/2021, Additional history exists Sodium Level [...] history exists Medical Devices Implanted Type Area Supervisor Slitting And Shipping Device Identifier Shelf Expiration Date Model / Serial / Lot Ocular Lens Ocular Lens Bilateral : Eye Procedures Procedure Name Priority Date/Time Associated Diagnosis Comments EXTI BASIC METABOLIC PANEL, S/P Routine 06/24/2022 10:25 AM BOAT WORKER from Last 3 Months or Most Recently Relevant to Health Maintenance Advance Directives For more information, please contact: [phone] Documents on File Type Date Recorded Patient Pancake Professional Expl anation Advance Directives 05/12/2017 12:00 AM Bella rothman document. See document viewer. Care Teams Chef De Cuisine Relationship Specialty Start Date End Date Elsewhere, Pcp PCP - General Internal Medicine 12/29/22
--- OUTSIDE RECORDS SUMMARY | 2024-01-25 12:50 | XMS_ITS | Referral Summary ---
Author Organization [facility] Address [address] [place] [address] Care Team Providers Care Supervisor Assembling Name Role Phone Elsewhere, Pcp Primary Care Provider Unavailabl e Source Comments Patient records contain information from all sites at [facility]. For routine questions regarding patient records, call [phone] during business hours, M-F 8:00 AM - 5:00 PM Central Time. Record requests for emergency care only can be directed to [phone] at any time.[facility] Encounters Date Type Department Care Team Description 01/13/2024 Clinical Communication Division of Endocrinology in [place], [place] [address] [place] [address] Margi Avila M.D. [facility] - Outside Materials 12/08/2023 Orders Only Division of Endocrinology in [place], [place] [address] [place] [address] Margi Avila M.D. 11/15/2023 Clinical Communication Department of Infusion Therapy in [place], [place] [address] [place] [address] Joy Cooper, R.NAllyssa 10/26/2023 Clinical Communication Division of Endocrinology in [place], [place] [address] [place] [address] Margi Avila M.D. from Last 3 Months Allergies Active Allergy [...] drink = 0.6 oz pur e alcohol) [facility] Utilities Answer Date Recorded In the past 12 months has e [employer], gas, oil, or water [employer] threatened to shut off services in your [...] How often do you attend chur or mu-ism services? Never 08/24/2022 Do you belong to any clubs o r organizations such as methodist groups, unions, fraternal or athletic groups, or [...] hard at all 12/24/2022 [facility] [place] [facility] of Occupat ional Health - [...] living situation today? I have a [facility] place to live 09/17/2023 Education Answer Date [...] on file Medical Devices Implanted Type Area Clinical Biostatistics Director Device Identifier Shelf Expiration Date Model / Serial / Lot Ocular Lens Ocular Lens Bilateral : Eye Procedures Procedure Name Priority Date/Time Associated Diagnosis Comments EXTI BASIC METABOLIC PANEL, S/P Routine 06/24/2022 10:25 AM FRONT END WHEEL LOADER OPERATOR from Last 3 Months or Most Recently Relevant to Health Maintenance Advance Directives For more information, please contact: [phone] Documents on File Type Date Recorded Patient Cone Worker Expl anation Advance Directives 05/12/2017 12:00 AM Bella rothman document. See document viewer. Care Teams Supervisor Assembling Relationship Specialty Start Date End Date Elsewhere, Pcp PCP - General Internal Medicine 12/29/22
--- OUTSIDE RECORDS SUMMARY | 2024-01-25 12:50 | XMS_ITS | Patient Health Record ---
Author Organization [facility] Address [address] [address] [facility] [address] [place] [address] Care Team Providers Care Rheumatology Nurse Name Role Phone KAIT DONATO Primary Care Provider JimmyLolis ochoa Unavailable [phone] ALLERGIES Allergen (clinical drug ingredient) Drug/Non Drug [...] Constipation, unspecified constipation type (K59.00) Active confirmed 09492878 Problem DDD (degenerative disc disease), lumbar (M51.36) Active confirmed 92413838 VITAL SIGNS Heart Rate 80 /min 07/30/2023 Temperature 97.2 degrees Fahrenheit 07/30/2023 Oximetry 95 % 07/30/2023 Blood pressure diastolic 80 mm Hg 07/30/2023 Height 63 in 07/30/2023 Blood pressure systolic 140 mm Hg 07/30/2023 Encounters Encounter Location Date Provider Diagnosis [facility] [address] [place] [address] 07/30/2023 Lolis Jimmy Lumbar pain M54.50 ; [...] Date MEDICARE PART B [address] [place] [address] [id number] December Self - patient is the insured 7 MEDICATIONS ADMINISTERED Medication Instructions Date of Administration Dosage Notes *Decadron 8mg Inj. 07/30/2023 2 mL *Depo Medrol 80MG Inj. 07/30/2023 1 mL
--- OUTSIDE RECORDS SUMMARY | 2024-01-25 12:50 | XMS_ITS | Encounter Summary ---
Author Organization [facility] Address [address] [place] [address] Care Team Providers Care Acid Tank Cleaner Name Role Phone Elsewhere, Pcp Primary Care Provider Unavailabl e Reason for Visit * Reason Onset Date Comments [facility] - Outside Materials 10/20/2023 Encounter Details Date Type Department Care Team (Latest Contact Info) Description 10/20/2023 Clinical Communication Division of Endocrinology in [place], [place] [address] [place] [address] Margi Avila M.D. [address] [place] [address] [employer] - Outside [employer] Social History Tobacco Use Types Packs/Day Years Used Date Smoking Tobacco: Never Passive Smoke Exposure: Never Smokeless Tobacco: Never Comments:As a child Alcohol Use Standard Drinks/Week Comments Yes 7 (1 standard drink = 0.6 oz pur e alcohol) [facility] Utilities Answer Date Recorded In [...] How often do you attend chur or anglican services? Never 08/24/2022 Do you belong to any clubs o r organizations such as judaism groups, unions, fraternal or athletic groups, or [...] and heating? Not hard at all 12/24/2022 [facility] of Occupat ional Health - Occupational Stress [...] your living situation today? I have a [facility] place to live 09/17/2023 Education Answer [...] on filedocumented in this encounter Care Teams Acid Tank Cleaner Relationship Specialty Start Date End Date Elsewhere, Pcp PCP - General Internal Medicine 12/29/22 documented as of this encounter
--- OUTSIDE RECORDS SUMMARY | 2024-01-25 12:50 | XMS_ITS | Clinical Summary ---
Author Organization [facility] Address [place], [place] [address] Care Team Providers Care Aircraft Cleaning Supervisor Name Role Phone Annie Brown MD Primary Care Provider [phone] Allergies Active Allergy Reactions Criticality Noted Date [...] Department Care Team Description 12/29/2023 Medical Messaging [facility] [address] [place] [address] Rico Hunt MD Fructose free diet test shows no fructose intolerance 12/09/2023 1:00 PM CDT Nurse/Clinic Staff Only [facility] [address] [place] [address] Immunization/Injectio n (COVID-19 VACCINE ); Immunization/Injectio n 12/09/2023 Travel 12/06/2023 Travel 12/03/2023 2:00 PM CDT Office Visit [facility] [address] [place] [address] Rico Hunt MD Consult (Bloating ongoing, pancreatic insufficiency concerns, saw Dr. Mosher) 12/03/2023 Travel 11/29/2023 4:00 PM CDT Ancillary Procedure [facility] [address] [place] [address] 11/25/2023 Refill [facility] [address] [place] [address] Deep Monzon MD Refill Request (Valsartan) 11/22/2023 2:05 PM CDT Office Visit [facility] [address] [place] [address] Zoran oMsher MD Consult (Fatigue, dizziness and crummy feeling, started about 7 years ago) 11/21/2023 Travel from Last 3 Months Immunizations Name Administration Dates Next Due Amb Influenza, Inactivated A IIV4 (Age 65+ Years) Preserv Free 04/22/2020 COVID-19 Vaccine Spikevax (M oderna 50mcg/0.5mL) 12YO+ [id number] Formula PF 12/09/2023,04/22/2023 COVID-19 vaccine ([employer] 30mcg/0.3mL) PF, MDV 09/25/2020,09/04/2020 Hepatitis A (Adult) 06/12/1998,11/14/1997 Hepatitis [...] Description 04/13/2024 1:40 PM CDT Office Visit [facility] [address] [facility] [address] [place], [place] [address] Rosalia Crawford MD [address] [facility] [address] [place] [address] Health Maintenance Due Date Last Done [...] history exists Medical Devices Implanted Type Area Mortgage Advisor Device Identifier Shelf Expiration Date Model / Serial / Lot Log [id number] - Rossi Zcb00 Lens Iol - 1 - Lens Iol Zcb00 21.0 Implanted:Qty: 1 on 11/09/2011 at [facility] Left: Eye [employer] ZCB00# / [id number] / Iol Clayton +21 Tecnis Zcb00 - [id number] Implanted:Qty: 1 on 10/01/2016 by Tian Huggins MD at [facility] Right: Eye [employer] 06/29/2020 ZCB00# / [id number] / Procedures Procedure Name Priority Date/Time Associated [...] W/REFLEX Routine 11/22/2023 3:28 PM CDT Myalgia from Last 3 Months Results * CELIAC CASCADE PANEL (12/03/2023 3:11 PM CDT) IGA 272.92 84.50 - 499.00 mg/dL 12/06/2023 7:22 AM CDT [facility] Blood BLOOD SPECIMEN / Unknown Venipuncture / Unknown 12/03/2023 3:11 PM CDT 12/03/2023 3:[address] [facility] - 12/06/2023 7:22 AM CDT Reflexed to Tissue Transglutaminase IgA Rico Hunt MD SEND OUTS [facility] [address] [place] [address], * CELIAC DISEASE HLA DQ ASSOC (12/03/2023 3:11 PM CDT) DQ8 (DQA1 03XX, DQB1 0302) Negative 12/13/2023 8:06 PM CDT [facility] ([facility]) Comment: Final Results: DQB1*03:EETKC,- DQA1*03:EFYWB,- Code Translation: - EETKC ?03:07/28:10:16:11/10:13/10:2203:24 ? /03:27:28:2903:35/03:36/03:42/03:44 ? /03:46/03:47/03:48/03:49/03:50/03:51/03:52 ? /03:53/03:54/03:55/03:56/03:57/03:58/03:59 ? /03:60/03:69/03:73/03:75/03:76/03:77/03:78 ? /03:82/03:83/03:84N/03:92/03:93/03:94 ? [...] ? /03:460/03:465/03:467/03:468/03:469/03:470 ? /03:472/03:473N/03:475/03:476/03:480Q ? /03:482/03:483/03:486/03:488N/03:491/03:492 EFYWB ?03:02/03:03/03:04/03:05/03:07/03:08/03:09 ? /03:11/03:13/03:14/03:16/03:17/03:19/03:20 ? /03:21/03:23/03:24/03:26/03:28/03:31 ? /03:32N/03:33/03:34N/03:35/03:37/03:38 The patient is not positive for any of the HLA DQ risk alleles. ??Celiac disease risk from the HLA DQA/DQB genotype is approximately 1:2518 (<0.04%). This result essentially rules out celiac disease. Allele interpretation for all loci based on IMGT/HLA database version 3.54 HLA [facility] [id number] Greater than 95% of celiac patients are positive for either DQ2 or DQ8 (Mario and Laquita, (1993) ??Gastroenterology 105:910-922). However these antigens may also be present in patients who do not have Celiac disease. Comment Celiac HLA Comment 2023 8:06 PM CDT [facility] ([facility]) Comment: This test was performed using Polymerase Chain Reaction (PCR) and Sequence Specific Oligonucleotide Probes (SSOP) (Madefire) technique. Sequence Based Typing (SBT) may be used as a supplemental method when necessary. If you have questions, please call HLA customer service at or email at [email or web address]. Addit Info Celiac HLA Comment 12/13/2023 8:06 PM CDT [facility] Comment: References: 1. Keshav KEATING and Johnie Hilliard. Celiac Disease. N Eng J Med 2007; ?? 357:5542-2526. 2. Zoila F, Read B, Bonalitao M et al. HLA-DQ and risk gradient ?? for celiac disease. Hum Immunol 2009; 70:55-59. 3. Jammie MM, Steve TC, Carolina FM et al. Stratifying risk ?? for celiac disease in a large at-risk [facility] population ?? by using HLA alleles. Clin Gastroenterol Hepatol 2009; 7:966-971. 4. Mario HOLGUIN and Tonja BA. (2005). Celiac Disease Genetics: Current ?? Concepts and Practical Applications. Clin Gastroenterol and ?? Hepat 3:843-851. 5. Aleida CL, Valentin DO, Green RISHABH, et al. Celiac Disease. ?? In: Alexis RA, Chente TC, Dez CR, Octaviano K, editors. GeneReviews ?? (Internet), [facility], [place], January 26, 2008:1-27. ?? http://www.ncbi.nlm.nih.gov/bookskwesif/br.fcgi?book=genepart=celiac ?? PMID 77835124 (PubMed) 6. Dianne W. Emerging concepts in celiac disease. Curr Opin Pediatr ?? 2004;16:552-559. Blood BLOOD SPECIMEN / Unknown Venipuncture / Unknown 12/03/2023 3:11 PM CDT 12/03/2023 3:13 PM CDT [facility] ([facility]) - 12/13/2023 8:06 PM CDT Performed at: ??01 - [facility] [address] [place], [place] ??[id number] Croze Machine Operator: Daisy Montalvo PhD, Phone: ??[phone] Rico Hunt MD SEND OUTS [facility] ([facility]) [address] [id number], * (ABNORMAL) VITAMIN E (12/03/2023 3:11 PM CDT) Vit E Alpha [place] 21.3 9.0 - 29.0 mg/L 12/07/2023 3:10 PM CDT [facility] ([facility]) Vit E Gamma [place] 0.3(L) 0.5 - 4.9 mg/L 12/07/2023 3:10 PM CDT [facility] ([facility]) Comment: Reference intervals for alpha and gamma-tocopherol determined from National Health and Nutrition Examination Survey, 3243-8182. Individuals with alpha-tocopherol levels less than 5.0 mg/L are considered vitamin E deficient. Blood BLOOD SPECIMEN / Unknown Venipuncture / Unknown 12/03/2023 3:11 PM CDT 12/03/2023 3:[address] [facility] ([facility]) - 12/07/2023 3:10 PM CDT Test(s) 031060-Qbclfhk E(Alpha Tocopherol); 568577- Vitamin E(Gamma Tocopherol) was developed and its performance characteristics determined by [facility]. It has not been cleared or approved by the Food and Drug Administration. Performed at: ??01 - [address] ??[id number] Croze Machine Operator: Koffi Sanches MD, Phone: ??[phone] Rico Hunt MD SEND OUTS Performing Organization Address [facility] Co de Phone Number [facility] ([facility]) [address] [place] [address], * ENDOMYSIAL ANTIBODY IGA (12/03/2023 3:11 PM CDT) Endomysial IgA Ab Negative Negative 12/07/2023 8:10 AM CDT [facility] ([facility]) Blood BLOOD SPECIMEN / Unknown Venipuncture / Unknown 12/03/2023 3:11 PM CDT 12/03/2023 3:13 PM CDT Narrative [facility] ([facility]) - 12/07/2023 8:10 AM CDT Performed at: ??[address] - [address] ??[id number] Croze Machine Operator: Koffi Sanches MD, Phone: ??[phone] Rico Hunt MD SEND OUTS Performing Organization Address [facility] Co de Phone Number [facility] ([facility]) [address] [place] [address] * (ABNORMAL) VITAMIN A BLOOD (12/03/2023 3:11 PM CDT) Vitamin A 88.7(H) 22.0 - 69.5 ug/dL 12/07/2023 3:10 PM CDT [facility] ([facility]) Comment: Reference intervals for vitamin A determined from [facility] internal studies. Individuals with vitamin A less than 20 ug/dL are considered vitamin A deficient and those with serum concentrations less than 10 ug/dL are considered severely deficient. This test was developed and its performance characteristics determined by [facility]. It has not been cleared or approved by the Food and Drug Administration. Blood BLOOD SPECIMEN / Unknown Venipuncture / Unknown 12/03/2023 3:11 PM CDT 12/03/2023 3:[address] [facility] ([facility]) - 12/07/2023 3:10 PM CDT Performed at: ??[address] - [address] ??[id number] Croze Machine Operator: Koffi Sanches MD, Phone: ??[phone] Rico Hunt MD SEND OUTS Performing Organization Address [facility] de Phone Number [facility] ([facility]) [address] [place] [id number], * GLIADIN ANTIBODY IGA (12/03/2023 3:11 PM CDT) Pathologist [facility] Gliadin IgA <10.0 <20.0 U/ml 12/08/2023 8:19 AM CDT [facility] Blood BLOOD SPECIMEN / Unknown Venipuncture / Unknown 12/03/2023 3:11 PM CDT 12/03/2023 3:13 PM CDT [facility] - 12/08/2023 8:19 AM CDT Negative ? <20 Weak Positive 20-30 Positive ? >30 Measurements of deamidated gliadin antibodies should not be relied upon exclusively to establish or rule out the diagnosis of celiac disease. ??This test should not be ordered as a replacement for Tissue Transglutaminase Antibodies, IgA and IgG, serum. These results were obtained using the [employer] Quanta Lite R h-tTG IgA WILLARD assay. Values obtained from other manufacturers' assay methods may not be used interchangeably. Rico Hunt MD SEND OUTS [facility] [address] [place] [address], * TISSUE TRANSGLUTAMINASE IGA (12/03/2023 3:11 PM CDT) TISSUE TRANSGLUTAMINASE IGA <1.2 <4.0 U/ml 12/06/2023 12:03 PM CDT [facility] Comment:Celiac disease unlik jaycee unless IgA deficient. Recommend IgA levels if not already performed. Blood BLOOD SPECIMEN / Unknown Venipuncture / Unknown 12/03/2023 3:11 PM CDT 12/03/2023 3:13 PM CDT Narrative [facility] - 12/06/2023 12:03 PM CDT Negative ?<4.0 Weak Positive ?? 4-10 Positive ?>10.0 This test should not be solely relied upon to establish a diagnosis of celiac disease. Affected individuals who have been on a gluten-free diet prior to testing may have a negative result. These results were obtained using the [employer] Lite R h-tTG IgA WILLARD assay. ??Values obtained from other manufacturers' assay methods may not be used interchangeably. Rico Hunt MD SEND OUTS [facility] [address] [place] [address], * ECHO TTE COMPLETE WO CONTRAST (11/29/2023 11:40 AM CDT) AORTIC VALVE MEAN PG 9 mmHg EJECTION FRACTION 78 % LVEDD 3.2 cm Anatomical Region Laterality Modality Ultrasound 11/29/2023 10:5 9 AM CDT Narrative 11/29/2023 1:10 PM CDT ECHOCARDIOGRAM December BESSIE ? Accession#: ?? [id number] : ?1940 83 years Study Date: ?? 11/29/2023 10:59:00 AM Gender: F ?BP: ? 143/76 mmHg Height: 160.00 cm ?BSA: ?1.78 m? ? ? Weight: 75.00 kg ? Tech: ? MCK ? Referring MD: TESS WEST [facility]: [facility] Patient Location: Inpatient. Procedure: 2D, Color Doppler [...] . This study was interpreted by an [facility] accredited facility. CC: HIM (med records) [facility], Med/Surg - IP [facility]. ??Final ?? Procedure Note Tonya Gregory, [facility] - 11/29/2023 ECHOCARDIOGRAM MARIAN LUX : 1940 83 years Study Date: 11/29/2023 10:59:00 AM Gender: F BP: 143/76 mmHg Height: 160.00 cm BSA: 1.78 m? ? ? Weight: 75.00 kg Tech: [facility] Referring MD: TESS WEST Site: [facility] Reading Location: [facility] Patient Location: Inpatient. Procedure: 2D, Color [...] . This study was interpreted by an [facility] accredited facility. CC: HIM (med records) [facility], Med/Surg - IP [facility]. Final Tess West MD ECHO ORD * LYME SCREEN W/REFLEX (11/22/2023 3:28 PM CDT) [facility] LYME SCREEN W/REFLEX Negative Negative 11/24/2023 9:53 AM CDT [facility] Comment: No laboratory evidence of [...] Mosher MD SEND OUTS Performing Organization Address [facility] Co de Phone Number [facility] [address] [address], * (ABNORMAL) FOLIC ACID (11/22/2023 3:28 PM CDT) FOLIC ACID 35.1(H) 4.6 - 34.8 ng/mL 11/23/2023 4:08 PM CDT [facility] Blood BLOOD SPECIMEN / Unknown Venipuncture / Unknown 11/22/2023 3:28 PM CDT 11/22/2023 3:28 PM CDT Narrative [facility] [facility] - 11/23/2023 4:08 PM CDT Biotin supplements may cause clinically significant interference for this test assay. ??If interference is suspected, it is strongly recommended that biotin is discontinued for at least one week prior to retesting. Zoran Mosher MD CHEMISTRY Performing Organization Address [facility] de Phone Number [facility] [facility] [address] [place] [address], from Last 3 Months Advance Directives * Full Code (Latest Code Status on File) Date Activated Date Inactivated Comments 10/01/2016 12:21 PM 10/01/2016 5:23 PM * Full Code Date Activated Date Inactivated Comments 11/09/2011 6:35 AM 11/09/2011 11:00 AM Care Teams Aircraft Cleaning Supervisor Relationship Specialty Start Date End Date Annie Brown MD [address] [place] [address] PCP - General Internal Medicine 03/19/14
== END 2024-01-25 13:53 | disposition home or self-care (01) ==
PROVIDERS: Emergency Provider Emergency Medicine Emergency Medical Services; PCP Internal Medicine
DX: M71.21 Synovial cyst of popliteal space [Baker], right knee (principal)
CPT/HCPCS: 93971; 99284

== ENCOUNTER 2024-02-17 11:42 | Emergency (ER) | payer MEDICARE, SELFPAY ==
[2024-02-17 11:47] VITALS: BP 175/87; PULSE 74; RESP 16; TEMP 36.6; O2SAT 98; BMI 28.9
--- NOTE | 2024-02-17 12:04 | ED_ITS ---
HPI - General Adult General Time Seen by Provider: 12:04 Date Seen: 02/17/24 Chief complaint: Diarrhea Stated complaint: Abdominal pain, vaginal swelling pain, diarrhea Time Seen by Provider: 02/17/24 11:55 Source: patient, family and RN notes reviewed Mode of arrival: ambulatory Limitations: no limitations History of Present Illness HPI narrative: This 83-year-old female is ambulatory into the ER accompanied by her with concern of intermittent diarrhea over the last 3 weeks. Sounds as if she is had spells of diarrhea over the last 3 weeks. She had another episode this morning. There is no fevers or chills. She has had some pelvic pressure. She describes that her perineum feels like it is burning at times. They wonder if she might have a urinary tract infection, wonder if the urinalysis collected will be looked at. She does feels like something is off. Her appetite is fine, no nausea or vomiting. She feels abdominal bloating. She does have chronic abdominal pain listed in her problem list. She admits that she saw OB Gyne specialist years ago for similar symptoms, was given some type of cream, she states they did all kinds of swabs did not find anything wrong. She admits that this burning the perineum as come and gone at times. Right now just feels like a burning sensation. She also brings up that sometimes her right knee hurts her, she has ongoing left eye pain which they state is not new. She has seen Dr. 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 Reviewed with her if there is no acute her sudden change, that the eye issue really is best managed by a specialist, she is well beyond the expertise of the ER here. She does admit that this is ongoing I issues for which she has seen her an neon sign mechanic for. Her primary concern coming into the ER was her diarrhea and abdominal symptoms. 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 We did discuss that she would be having labs today as they are wondering if we would be doing a laboratory evaluation. She does not think she has ever had colonoscopy, her thought that she maybe had flexible sigmoidoscopy in the past. Related Data Home Medications ?Medication ?Instructions ?Recorded ?Confirmed famotidine 20 mg tablet 20 mg PO HS 04/30/22 01/25/24 multivitamin (Multiple Vitamins 1 tab PO QAM 04/30/22 01/25/24 tablet) polyethylene glycol 3350 17 17 g PO DAILY 04/30/22 01/25/24 gram/dose oral powder acetaminophen 500 mg capsule 500 mg PO DAILY PRN 07/02/22 01/25/24 melatonin 3 mg capsule 3 mg PO QHS 07/02/22 01/25/24 rosuvastatin 40 mg tablet 40 mg PO DAILY 07/02/22 01/25/24 vit C 250 mg-vit E 90 mg-zinc 40 1 tab PO BID 07/02/22 01/25/24 mg-copper 1 [id number]-ottrbp capsule (PreserVision AREDS-2) valsartan 160 mg tablet 160 mg PO DAILY 07/06/22 01/25/24 calcium citrate 200 mg 3 tab PO DAILY 11/22/23 01/25/24 calcium-vitamin D3 6.25 mcg (250 unit) tablet (Citracal-D3 Petites) clopidogrel 75 mg tablet 75 mg PO DAILY 11/29/23 01/25/24 osilodrostat 1 mg tablet (Isturisa) 0.5 mg PO BID 01/25/24 01/25/24 Previous Rx's ?Medication ?Instructions ?Recorded omeprazole 20 mg capsule,delayed 20 mg PO DAILY #90 caps 05/25/23 release alendronate 70 mg tablet 70 mg PO QWEEK #12 tabs 11/22/23 amlodipine 10 mg tablet 10 mg PO DAILY #90 tabs 01/26/24 Allergies Allergy/AdvReac Type Severity Reaction Status Date / Time tramadol Allergy Intermediate nausea, Verified 01/25/24 14:29 vomiting codeine AdvReac Unknown Nausea Verified 01/25/24 14:29 Review of Systems Status of ROS: Reports: 6 or more systems reviewed and unremarkable except as noted in History and below [facility] Medical History History of compression fracture of spine ?Z87.81 - Personal history of (healed) traumatic fracture (ICD-10) History of renal calculi ?Z87.442 - Personal history of urinary calculi (ICD-10) Surgical History 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 - Acquired absence of eye (ICD-10) History of kyphoplasty (08/13/23) ?Z98.890 - Other specified postprocedural states (ICD-10) History of cataract surgery (2017) ?Z98.49 - Cataract extraction status, unspecified eye (ICD-10) 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.2 - Postprocedural hypoparathyroidism (ICD-10) Family History Father Heart disease Son Heart disease Mother High blood pressure Social History What is your current living situation?: I presently have a place to live Problems where you live: no known problems Problems where you live details: NA In the past 12 months, utilities in danger of being shut off: no In past 12 months, lack of transportation kept you from medical appts, meetings, work, or getting things needed for daily living: no In the past 12 mos, have been you worried that your food would run out before you had money to buy more?: never true In the past 12 mos, the food you bought just didn't last and you didn't have money to buy more?: never true Highest level of school completed/degree received: Associate degree: academic program Smoking Status: Never smoker Do you use any of these nicotine containing products: None Second hand tobacco smoke exposure: Yes (youth) How often do you have a drink containing alcohol: 4 or more times a week Alcohol type: wine Alcohol type details: one glass of wine per night How many standard drinks containing alcohol do you have on a typical day: 1 or 2 How often do you have six or more drinks on one occasion: Never AUDIT-C Alcohol total score: 4 Non-prescribed substance use: denies use Caffeine: Yes (Coffee in AM) How often does anyone, including family, friends and others, physically hurt you : never How often does anyone, including family, friends and others, insult or talk down to you: never How often does anyone, including family, friends and others, threaten you with harm: never How often does anyone, including family, friends and others, scream or curse at you: never Little interest or pleasure in doing things: not at all Feeling down, depressed, or hopeless: not at all service: No Exam Const: Vital Signs, click to edit/add: Vital Signs - 24 hr 02/17/24 11:47 02/17/24 13:54 Temperature 97.9 F Pulse Rate [Pulse Oximeter] 74 68 Respiratory Rate 16 17 Blood Pressure [Ri ght Upper Arm] 175/87 H 169/83 H Pulse Oximetry 98 97 Oxygen Delivery Me thod Room Air Room Air This 83-year-old female who is alert, interactive, no apparent distress. Face symmetric, no periorbital swelling or erythema. Pupils look equal round, conjugate gaze, sclera clear. Able speak in complete sentences. Lungs are clear, good air entry, no wheezing crackles. CV regular rate and rhythm, no murmur, normal S1-S2, no S3-S4. Abdomen maybe mildly distended, hyperactive bowel sounds but no rebound or guarding, no organomegaly or masses. No lower extremity edema, moving upper extremities. Skin visualized out any rash. Perineum shows normal postmenopausal mucosa, no exudates or drainage, no vesicles, no skin breakdown. No inguinal adenopathy or masses noted. Documenting provider has reviewed patient's vital signs: yes Course Course ED Course: We will certainly obtain labs. Have reviewed with them that I would like to see labs for electrolytes given she is having some diarrhea and has underlying [place]'s. Will certainly check urinalysis for UTI. Have reviewed with them that I suspect she is suffering from probable irritation from wiping and underlying atrophic vaginitis. We discussed the loss of female hormone and the thinning of the skin in the skin changes that can happen. I see no evidence of any skin breakdown or any infective changes. Topical medicines can be used, will have her follow up with her primary or go back to OB Gyne for further evaluation. This does not need any further intervention emergently. She is quite concerned about the diarrhea and lower pelvic discomfort, have discussed imaging and she is wanting to proceed with a CT of her abdomen and pelvis. Reevaluation(s) Time of Reevaluation #1: 14:24 Reevaluation #1: Reviewed normal laboratory evaluation including urinalysis, reviewed CT imaging, provided them a report. She has no acute concerning change on her CT imaging. There is no evidence of any colitis. After discussing with them, her brought up that she may have irritable bowel syndrome but there is no test for it. We discussed that I do not have any recommendations for diarrhea that is happening intermittently over 3 weeks. She had 1 episode this morning, had not had any since last week. She admits that she has had all these ailments and problems for 8 years, was diagnosed with Juan Pablo's but now record is all is normal, she still does not feel well. 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 She still has knee pain. She states she has had injections. I did palpate her popliteal fossa, feel no mass, see no bruising. 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 Have advised her to see Orthopedics and consider injection, she states she has done this. She also brought up that her toenail was bothering her or her toe on the left foot, specifically the left great toe. When she was wearing a compression stockings, the toe hurt, does not now. All I can see is that toenail is more thickened in comparison to her right foot. Note no erythema, no swelling, nontender at this time. She has a lot of complaints in issues, have recommended she follow up with her primary. Her reports that Dr. Brown had advised a internal medicine referral at [facility] given all her complaints, [facility] declined this. Vital Signs Vital signs: Initial Vital Signs Temperature 97.9 F 02/17/24 11:47 Temperature Source Temporal Artery Scan 02/17/24 11:47 Pulse Rate 74 02/17/24 11:47 Pulse Rhythm Regular 02/17/24 11:47 Respiratory Rate 16 02/17/24 11:47 Blood Pressure 175/87 H 02/17/24 11:47 Blood Pressure Mean 116 H 02/17/24 11:47 Blood Pressure Position Sitting 02/17/24 11:47 Pulse Oximetry 98 02/17/24 11:47 Oxygen Delivery Method Room Air 02/17/24 11:47 Vital Signs Temperature 97.9 F 02/17/24 11:47 Pulse Rate 74 02/17/24 11:47 Respiratory Rate 16 02/17/24 11:47 Blood Pressure 175/87 H 02/17/24 11:47 Pulse Oximetry 98 02/17/24 11:47 Oxygen Delivery Method Room Air 02/17/24 11:47 Temperature 97.9 F 02/17/24 11:47 Pulse Rate 68 02/17/24 13:54 Respiratory Rate 17 02/17/24 13:54 Blood Pressure 169/83 H 02/17/24 13:54 Pulse Oximetry 97 02/17/24 13:54 Oxygen Delivery Method Room Air 02/17/24 13:54 Medical Decision Making Lab Data Lab results reviewed: Yes I reviewed the patient's lab results Labs: Lab Results 02/17/24 02/17/24 02/17/24 Range/Units 11:55 12:23 12:30 WBC 6.97 (4.50-11.00) K/uL RBC 4.61 (4.00-5.20) m/uL Hgb 13.0 (12.0-16.0) gm/dL Hct 41.9 (33.0-51.0) % MCV 91 (80-100) fL MCH 28 (26-34) pg MCHC 31 L (32-36) gm/dL RDW Coeff of Fidencio 15.6 H (11.5-15.5) % Plt Count 399 (140-440) K/uL Neut % (Auto) 61.6 (42.0-72.0) % Lymph % (Auto) 23.1 (20-44) % [place] % (Auto) 13.1 H (0.0-11.0) % Eos % (Auto) 0.9 (0.0-7.0) % Baso % (Auto) 0.4 (0.0-3.0) % Neut # (Auto) 4.30 (1.7-7.0) K/uL Lymph # (Auto) 1.61 (0.90-2.90) K/uL [place] # (Auto) 0.90 (0.00-0.90) K/UL Eos # (Auto) 0.06 (0.00-0.50) K/uL Baso # (Auto) 0.03 (0.00-0.30) K/uL Abs Immat Gran (auto) 0.06 (0.00-0.30) K/uL Imm/Tot Granulo (auto) 0.9 % Sodium 134 L (135-149) mmol/L Potassium 4.1 (3.6-5.1) mmol/L Chloride 101 (96-114) mmol/L Carbon Dioxide 25 (20-32) mmol/L Anion Gap 8 (7-15) mEq/L BUN 24 (7-30) mg/dL Creatinine 1.0 (0.5-1.5) mg/dL Estimated Creat Clear 35.88 Estimated GFR 56 ml/min Glucose 94 (60-115) mg/dL Lactate 1.0 (0.5-1.9) mmol/L Calcium 10.0 (8.4-10.6) mg/dL Magnesium 2.4 (1.5-2.6) mg/dL Total Bilirubin 0.8 (0.1-1.5) mg/dL AST 27 (12-35) U/L ALT 20 (4-35) U/L Alkaline Phosphatase 63 (40-150) U/L C-Reactive Protein < 0.5 L (0.5-1.0) mg/dL Total Protein 7.5 (6.0-8.3) g/dL Albumin 4.7 (3.3-5.0) g/dL Urine Color Yellow (Yellow) Urine Appearance Clear (Clear) Urine pH 7.0 (5.0-8.5) Ur Specific [place] 1.015 (1.000-1.030) Urine Protein Negative (Negative) Urine Glucose (UA) Negative (Negative) Urine Ketones Negative (Negative) Urine Blood Negative (Negative) Urine Nitrite Negative (Negative) Urine Bilirubin Negative (Negative) Urine Urobilinogen 0.2 (0.2-1.0) Ur Leukocyte Esterase Negative (Negative) Urine RBC 0-2 (0-2) Urine WBC 0-2 (0-5) Ur Squamous Epith Cells None (None-Few) Urine Bacteria None (None) Lab Acknowledgement Test Added Imaging Data CT scan - abdomen: Attestation: I have reviewed the pertinent imaging results. Radiologist's impression: Patient: RAUL BESSIE Facility:?[facility] Patient ID:?[id number] Site Patient ID:?[id number]. Site :?[id number] Study:?CT-Abdomen/Pelvis W/ 80CC ISOVUE 370-02/17/2024 1:33:38 PM Ordering Physician:Sari Mckeon Final Report: INDICATION: Intermittent diarrhea for 2-3 weeks, lower abdominal pain. COMPARISON: 11/28/2023, 03/13/2023, 03/09/2019 TECHNIQUE: CT of the abdomen and pelvis with intravenous contrast. Multiplanar axial, coronal, and sagittal reformats were reconstructed. Contrast: 80 mL Isovue 370. FINDINGS: Lung bases: Minimal linear atelectasis in the right lower lobe. Liver: Normal. No mass. Gallbladder and bile ducts: Normal gallbladder. No bile duct dilation. Pancreas: Normal. Spleen: Normal. Adrenal glands: There is a 2 centimeter robustly enhancing left adrenal nodule. This has been stable since 2019. Therefore, no further follow-up is recommended at this time. No new adrenal nodule. Kidneys: Normal renal size and position. Normal overall renal parenchymal enhancement. There are few small bilateral renal cysts. There are nonobstructing left renal calculi that measure up to 6 millimeters. No ureteral calculi. Mildly prominent right extrarenal pelvis is unchanged and appears physiologic. No urinary tract obstruction Urinary bladder: Normal. Pelvis: No cyst or mass. Vessels: Atherosclerotic vascular calcifications. No aortic aneurysm. Patent mesenteric vessels. Bowel: No dilated or inflamed bowel. Heavy diverticular burden in the descending colon and sigmoid colon. Normal appendix. Very small stool burden. Lymph nodes: No adenopathy. Peritoneum: No ascites. Abdominal wall: Tiny fat containing umbilical hernia. Bones: T10 and T11 vertebroplasty. Grade 1 anterolisthesis L5 on S1 with associated disc and facet degeneration. No acute or healing fractures. No focal worrisome bone lesions. IMPRESSION: 1. Very small stool burden consistent with the history. No colonic wall thickening or inflammation. 2. Nonobstructing left nephrolithiasis. 3. Unchanged left adrenal nodule. Given stability over several years, no further follow-up is recommended. Please note that all CT scans at this facility use dose modulation, iterative reconstruction, and/or weight-based dosing when appropriate to reduce radiation dose to as low as reasonably achievable. Dictated by Fátima Pinto MD @ 02/17/2024 1:46:39 PM (Electronic Signature) Discharge Plan Discharge Clinical Impression: Intermittent diarrhea Patient Disposition: Home, Self-Care Condition: Stable Instructions: Nutrition Tips for Relief of Diarrhea (ED) Additional Instructions: Please schedule follow-up with your primary in clinic as soon as possible. Your evaluation here revealed no causative etiology. I would not recommend antidiarrheals for intermittent diarrhea. If you ever develops new diarrhea that is persistent for days, if there is fever or blood in stool with diarrhea, do recommend re-evaluation in the ER. Activity Level: Activity as Tolerated Prescriptions: No Action calcium citrate-vitamin D3 [Citracal-D3 Petites] 200 mg-6.25 mcg (250 unit) tablet 3 tab PO DAILY Rx Instructions: 600 mg daily alendronate 70 mg tablet 70 mg PO QWEEK Qty: 12 3RF multivitamin [Multiple Vitamins] Tablet 1 tab PO QAM famotidine 20 mg tablet 20 mg PO HS polyethylene glycol 3350 17 gram/dose powder 17 g PO DAILY Isturisa 1 mg tablet 0.5 mg PO BID clopidogrel 75 mg tablet 75 mg PO DAILY rosuvastatin 40 mg tablet 40 mg PO DAILY PreserVision AREDS-2 250-90-40-1 mg capsule 1 tab PO BID melatonin 3 mg capsule 3 mg PO QHS acetaminophen 500 mg capsule 500 mg PO DAILY PRN valsartan 160 mg tablet 160 mg PO DAILY omeprazole 20 mg capsule,delayed release(DR/EC) 20 mg PO DAILY Qty: 90 3RF amlodipine 10 mg tablet 10 mg PO DAILY Qty: 90 0RF Follow Up/Referrals: Annie Brown MD [Primary Care Provider] - Stand Alone Forms: MyHealth Info Instructions
--- NOTE | 2024-02-17 12:23 | CRLHL7_ITS ---
For Patients: As a result of the Century Cures Act, medical imaging exams and procedure reports are released immediately into your electronic medical record. You may view this report before your referring provider. If you have questions, please contact your health care provider. INDICATION: Intermittent diarrhea for 2-3 weeks, lower abdominal pain. COMPARISON: 11/28/2023, 03/13/2023, 03/09/2019 TECHNIQUE: CT of the abdomen and pelvis with intravenous contrast. Multiplanar axial, coronal, and sagittal reformats were reconstructed. Contrast: 80 mL Isovue 370. FINDINGS: Lung bases: Minimal linear atelectasis in the right lower lobe. Liver: Normal. No mass. Gallbladder and bile ducts: Normal gallbladder. No bile duct dilation. Pancreas: Normal. Spleen: Normal. Adrenal glands: There is a 2 centimeter robustly enhancing left adrenal nodule. This has been stable since 2019. Therefore, no further follow-up is recommended at this time. No new adrenal nodule. Kidneys: Normal renal size and position. Normal overall renal parenchymal enhancement. There are few small bilateral renal cysts. There are nonobstructing left renal calculi that measure up to 6 millimeters. No ureteral calculi. Mildly prominent right extrarenal pelvis is unchanged and appears physiologic. No urinary tract obstruction Urinary bladder: Normal. Pelvis: No cyst or mass. Vessels: Atherosclerotic vascular calcifications. No aortic aneurysm. Patent mesenteric vessels. Bowel: No dilated or inflamed bowel. Heavy diverticular burden in the descending colon and sigmoid colon. Normal appendix. Very small stool burden. Lymph nodes: No adenopathy. Peritoneum: No ascites. Abdominal wall: Tiny fat containing umbilical hernia. Bones: T10 and T11 vertebroplasty. Grade 1 anterolisthesis L5 on S1 with associated disc and facet degeneration. No acute or healing fractures. No focal worrisome bone lesions. IMPRESSION: 1. Very small stool burden consistent with the history. No colonic wall thickening or inflammation. 2. Nonobstructing left nephrolithiasis. 3. Unchanged left adrenal nodule. Given stability over several years, no further follow-up is recommended. Please note that all CT scans at this facility use dose modulation, iterative reconstruction, and/or weight-based dosing when appropriate to reduce radiation dose to as low as reasonably achievable. Dictated by Fátima Pinto MD @ 02/17/2024 1:46:39 PM (Electronically Signed)
[2024-02-17 12:40] LABS: Appearance Urine Clear (Clear); Bilirubin Urine Negative (Negative); Blood Urine Negative (Negative); Color Urine Yellow (Yellow); Glucose Urine Negative (Negative); Ketones Urine Negative (Negative); Leukocyte Esterase Urine Negative (Negative); Nitrite Urine Negative (Negative); Protein Urine Negative (Negative); Specific Gravity Urine 1.015 (1.000-1.030); Urobilinogen Urine 0.2 (0.2-1.0)
[2024-02-17 12:48] LABS: RBC Urine 0-2 (0-2); WBC Urine 0-2 (0-5)
--- OUTSIDE RECORDS SUMMARY | 2024-02-17 12:52 | XMS_ITS | Encounter Summary ---
Author Organization [facility] Address [address] [place] [id number] Care Team Providers Care Liquid Sugar Fortifier Name Role Phone Elsewhere, Pcp Primary Care Provider Unavailabl e Encounter Details Date Type Department Care Team (Late st Contact Info) Description 12/08/2023 Orders Only Division of Endocrinology in [place], [place] [address] [place] [id number] Margi Avila M.D. [address] [place] [address] Social History Tobacco Use Types Packs/Day Years Used Date Smoking Tobacco: Never Passive Smoke Exposure: Never Smokeless Tobacco: Never Comments:As a child Alcohol Use Standard Drinks/Week Comments Yes 7 (1 standard drink = 0.6 oz pur e alcohol) [facility] Utilities Answer Date Recorded In the past 12 months has [employer], gas, oil, or water [employer] threatened to shut off services in your [...] 08/24/2022 How often do you attend chur Independa or oriental orthodox services? Never 08/24/2022 Do you belong to any clubs o r organizations such as jainism groups, unions, fraternal or athletic groups, or [...] and heating? Not hard at all 12/24/2022 [facility] - Occupational [...] your living situation today? I have a [facility] place to live 09/17/2023 Education Answer [...] on filedocumented in this encounter Care Teams Liquid Sugar Fortifier Relationship Specialty Start Date End Date Elsewhere, Pcp PCP - General Internal Medicine 12/29/22 documented as of this encounter
--- OUTSIDE RECORDS SUMMARY | 2024-02-17 12:52 | XMS_ITS | Referral Summary ---
Author Organization [facility] Address [address] [place] [address] Care Team Providers Care Rn Case Mgr Name Role Phone Elsewhere, Pcp Primary Care Provider Unavailabl e Source Comments Patient records contain information from all sites at [facility]. For routine questions regarding patient records, call [phone] during business hours, M-F 8:00 AM - 5:00 PM Central Time. Record requests for emergency care only can be directed to [phone] at any time.[facility] Encounters Date Type Department Care Team Description 01/13/2024 Clinical Communication Division of Endocrinology in [place], [place] [address] [place] [address] Margi Avila M.D. [facility] - Outside Materials 12/08/2023 Orders Only Division of Endocrinology in [place], [place] [address] [place] [address] Margi Avila M.D. from Last 3 Months [...] = 0.6 oz pur e alcohol) [facility] Utilities Answer Date Recorded In the [...] How often do you attend chur or confucianist services? Never 08/24/2022 Do you belong to any clubs o r organizations such as scientologist groups, unions, fraternal or athletic groups, or [...] and heating? Not hard at all 12/24/2022 [facility] [place] [facility] - Occupational Stress Questionnaire Answer Date Recorded [...] your living situation today? I have a [facility] place to live 09/17/2023 Education Answer [...] on file Medical Devices Implanted Type Area Chief Specialist Leed Device Identifier Shelf Expiration Date Model / Serial / Lot Ocular Lens Ocular Lens Bilateral : Eye Procedures Procedure Name Priority Date/Time Associated Diagnosis Comments SODIUM, S/P Routine 04/29/2017 4:11 PM CDT POTASSIUM, S/P Routine 04/29/2017 4:11 PM CDT CREATININE WITH EGFR, S/P Routine 04/29/2017 4:11 PM CDT from Last 3 Months or Most Recently Relevant to Health Maintenance Results * Sodium (04/29/2017 4:11 PM CDT) Sodium, S 143 135 - 145 MMOL/L [facility] 04/29/2017 4:11 PM CDT 04/29/2017 4:11 PM CDT Linda Suárez M.D., M.S. LAB BLOOD ADD-O N [facility] [address] * Potassium (04/29/2017 4:11 PM CDT) Potassium, S 5.1 3.6 - 5.2 MMOL/L [facility] 04/29/2017 4:11 PM CDT 04/29/2017 4:11 PM CDT Linda Suárez M.D., MAllyssaS. LAB BLOOD ADD-O N Performing Organization Address City/[facility]/ZIP Co de Phone Number [facility] [address] * Creatinine with Estimated GFR (MDRD) (04/29/2017 4:11 PM CDT) Creatinine 1.0 0.6 - 1.1 MG/DL [facility] 04/29/2017 4:11 PM CDT 04/29/2017 4:11 PM CDT Linda Suárez M.D., MAllyssaS. LAB BLOOD ADD-O N Performing Organization Address City/[facility] Co de Phone Number [facility] [address] from Last 3 Months or Most Recently Relevant to Health Maintenance Advance Directives For more information, please contact: [phone] Documents on File Type Date Recorded Patient Territory Supervisor Expl anation Advance Directives 05/12/2017 12:00 AM Bella rothman document. See document viewer. Care Teams Rn Case Mgr Relationship Specialty Start Date End Date Elsewhere, Pcp PCP - General Internal Medicine 12/29/22
--- OUTSIDE RECORDS SUMMARY | 2024-02-17 12:52 | XMS_ITS | Clinical Summary ---
Author Organization [facility] Address [address] [place] [address] Care Team Providers Care Registered Route Associate Name Role Phone Elsewhere, Pcp Primary Care Provider Unavailabl e Source Comments Patient records contain information from all sites at [facility]. For routine questions regarding patient records, call [phone] during business hours, M-F 8:00 AM - 5:00 PM Central Time. Record requests for emergency care only can be directed to [phone] at any time.[facility] Allergies Active Allergy Reactions Criticality Noted Date [...] 01/13/2024 Clinical Communication Division of Endocrinology in [place], [place] [address] [place] [address] Margi Avila M.D. [facility] - Outside Materials 12/08/2023 Orders Only Division of Endocrinology in [place], [place] [address] [place] [address] Margi Avila M.D. from Last 3 Months [...] In the past 12 months has e [employer], gas, oil, or water [employer] threatened to shut off services in your [...] How often do you attend chur or shinto services? Never 08/24/2022 Do you [...] Not hard at all 12/24/2022 [facility] of Occupat ional Health - Occupational Stress [...] living situation today? I have a [facility] place [facility] live 09/17/2023 Education Answer [...] PHQ-2) 07/26/2023 Fall Risk Screen (Annual) 07/26/2023 Influenza Vaccine (#1) 2024 , 04/30/2022, 05/06/2021, Additional history exists DTaP,Tdap,and Td Vaccines (4 - Td or Tdap) 11/29/2031 11/28/2021, 09/02/2012, 09/02/2012 Pneumococcal vaccine (65+ years) Completed 05/22/20 15, 05/02/2007 Zoster Vaccines Completed 08/30/2018, 03/26, 07/06/2006 COVID-19 Vaccine Completed 12/09/2023, , 12/01/2022, Additional history exists Medical Devices Implanted Type Area Manufacturing Maintenance Technician Device Identifier Shelf Expiration Date Model / [...] Sodium, S 143 135 - 145 MMOL/L [facility] 04/29/2017 4:11 PM CDT 04/29/2017 4:11 PM CDT Linda Suárez M.D., M.S. LAB BLOOD ADD-O N Performing Organization Address [facility] Co de Phone Number [facility] [address] * Potassium (04/29/2017 4:11 PM CDT) Potassium, S 5.1 3.6 - 5.2 MMOL/L [facility] 04/29/2017 4:11 PM CDT 04/29/2017 4:11 PM CDT Linda Suárez M.D., M.S. LAB BLOOD ADD-O N [facility] [address] [place], [place] [address] * Creatinine with Estimated GFR (MDRD) (04/29/2017 4:11 PM CDT) Creatinine 1.0 0.6 - 1.1 MG/DL [facility] 04/29/2017 4:11 PM CDT 04/29/2017 4:11 PM CDT Linda Suárez M.D., M.S. LAB BLOOD ADD-O N [facility] [address] from Last 3 Months or Most Recently Relevant to Health Maintenance Advance Directives For more information, please contact: [phone] Documents on File Type Date Recorded Patient Health Administration Teacher Expl anation Advance Directives 05/12/2017 12:00 AM Bella rothman document. See document viewer. Care Teams Registered Route Associate Relationship Specialty Start Date End Date Elsewhere, Pcp PCP - General Internal Medicine 12/29/22
--- OUTSIDE RECORDS SUMMARY | 2024-02-17 12:52 | XMS_ITS | Encounter Summary ---
Author Organization [facility] Address [address] [place] [address] Care Team Providers Care Distribution Coordinator Name Role Phone Elsewhere, Pcp Primary Care Provider Unavailabl e Reason for Visit * Reason Onset Date Comments [facility] - Outside Materials 01/13/2024 Encounter Details Date Type Department Care Team (Latest Contact Info) Description 01/13/2024 Clinical Communication Division of Endocrinology in [place], [place] [address] [place] [address] Margi Avila M.D. [address] [place] [address] [facility] - Outside Materials Social History Tobacco Use Types Packs/Day Years Used Date Smoking Tobacco: Never Passive Smoke Exposure: Never Smokeless Tobacco: Never Comments:As a child Alcohol Use Standard Drinks/Week Comments Yes 7 (1 standard drink = 0.6 oz pur e alcohol) [facility] Utilities Answer Date Recorded In the [...] How often do you attend chur or adventism services? Never 08/24/2022 Do you belong to [...] and heating? Not hard at all 12/24/2022 [facility] of Occupat ional Health - Occupational Stress [...] your living situation today? [facility] live 09/17/2023 Education Answer [...] on filedocumented in this encounter Care Teams Distribution Coordinator Relationship Specialty Start Date End Date Elsewhere, Pcp PCP - General Internal Medicine 12/29/22 documented as of this encounter
--- OUTSIDE RECORDS SUMMARY | 2024-02-17 12:52 | XMS_ITS | Patient Health Record ---
Author Organization [facility] Address [address] [facility] [address] [facility] [address] [place] [address] Care Team Providers Care Plastic Parts Fabricator Name Role Phone KAIT DONATO Primary Care Provider [phone] JimmyLolis ochoa Unavailable [phone] ALLERGIES Allergen (clinical drug ingredient) Drug/Non Drug [...] Constipation, unspecified constipation type (K59.00) Active confirmed 65548360 Problem DDD (degenerative disc disease), lumbar (M51.36) Active confirmed [id number] VITAL SIGNS Heart Rate 80 /min 07/30/2023 Temperature 97.2 degrees Fahrenheit 07/30/2023 Blood pressure diastolic 80 mm Hg 07/30/2023 Oximetry 95 % 07/30/2023 Height 63 in 07/30/2023 Blood pressure systolic 140 mm Hg 07/30/2023 Encounters Encounter Location Date Provider Diagnosis [facility] [address] [place] [address] [place] [address] 07/30/2023 Lolis Jimmy Lumbar pain M54.50 ; [...] Date MEDICARE PART B [address] [place] [address] [phone] [id number] December Self - patient is the insured 7 MEDICATIONS ADMINISTERED Medication Instructions Date of Administration Dosage Notes *Decadron 8mg Inj. 07/30/2023 2 mL *Depo Medrol 80MG Inj. 07/30/2023 1 mL
--- OUTSIDE RECORDS SUMMARY | 2024-02-17 12:52 | XMS_ITS ---
Author Organization [facility] Address [address] [place] [address] Care Team Providers Care Examination Supervisor Name Role Phone Unavailable Unavailable Unavailable Surgery Details Not on file Complications Check Surgery Details section. Procedure Estimated Blood Loss Check Surgery Details section. Procedure Findings Check Surgery Details section. Procedure Specimens Taken Check Surgery Details section.
--- OUTSIDE RECORDS SUMMARY | 2024-02-17 12:53 | XMS_ITS | Clinical Summary ---
Author Organization [facility] Address [place], [place] [address] Care Team Providers Care Embosser Apprentice Name Role Phone Annie Brown MD Primary Care Provider [phone] Allergies Active Allergy Reactions Criticality Noted Date [...] Department Care Team Description 12/29/2023 Medical Messaging [facility] [address] [place] [address] Rico Hunt MD Fructose free diet test shows no fructose intolerance 12/09/2023 1:00 PM CDT Nurse/Clinic Staff Only [facility] [address] [place] [address] Immunization/Injectio n (COVID-19 VACCINE ); Immunization/Injectio n 12/09/2023 Travel 12/06/2023 Travel 12/03/2023 2:00 PM CDT Office Visit [facility] [address] [place] [address] Rico Hunt MD Consult (Bloating ongoing, pancreatic insufficiency concerns, saw Dr. Mosher) 12/03/2023 Travel 11/29/2023 4:00 PM CDT Ancillary Procedure [facility] [address] [place] [address] 11/25/2023 Refill [facility] [address] [place] [address] Deep Monzon MD Refill Request (Valsartan) 11/22/2023 2:05 PM CDT Office Visit [facility] [address] [place] [address] Zoran Mosher MD Consult (Fatigue, dizziness and crummy feeling, started about 7 years ago) 11/21/2023 Travel from Last 3 Months Immunizations Name Administration Dates Next Due Amb Influenza, Inactivated A IIV4 (Age 65+ Years) Preserv Free 04/22/2020 COVID-19 Vaccine Spikevax (M oderna 50mcg/0.5mL) 12YO+ [id number] Formula PF 12/09/2023,04/22/2023 COVID-19 vaccine (Mithridion-Bio NTech 30mcg/0.3mL) PF, MDV 09/25/2020,09/04/2020 Hepatitis A [...] Care Team (Late st Contact Info) Description 03/16/2024 2:00 PM CDT Telemedicine [facility] [address] [place] [phone] Deep Monzon MD [address] [place] [address] 04/13/2024 1:40 PM CDT Office Visit [facility] [address] [facility] [address] [place], [place] [phone] Rosalia Crawford MD [address] [facility] [address] [place], [place] [address] Health Maintenance Due Date Last Done Comments Depression screening for age 12+ 1952 DEXA/DXA scan for age 65+ 2006 Medicare Wellness for age 65+ 2006 Influenza for age 65+ 03/26/2024 04/27/2023 , 04/30/2022, 05/06/2021, Additional history exists BMI (ht and wt on same day) for age 18+ 04/13/2024 04/13/2023, 12/02/2021, 05/08/2021, Additional history exists Tetanus booster 11/29/2031 11/28/2021, 02/02/2013, 09/02/2012, Additional history exists Pneumococcal series for age 65+ Completed 5, 05/02/2007 Zoster (shingles) series for age 50+ Completed 08/30/2018, 04/06/2018, 07/06/2006 Tdap Completed 11/28/2021, 09/02/2012 COVID-19 vaccine series Completed 12/09/19 24, 04/22/2023, 12/01/2022, Additional history exists Medical Devices Implanted Type Area Merchandising Director Device Identifier Shelf Expiration Date Model / Serial / Lot Log [id number] - Rossi Zcb00 Lens Iol - 1 - Lens Iol Zcb00 21.0 Implanted:Qty: 1 on 11/09/2011 at [facility] Left: Eye [employer] ZCB00# / [id number] / Iol [place] +21 Tecnis Zcb00 - [id number] Implanted:Qty: 1 on 10/01/2016 by Tian Huggins MD at [facility] Right: Eye [employer] 06/29/2020 ZCB00# / [id number] / Procedures Procedure Name Priority Date/Time Associated [...] - 499.00 mg/dL 12/06/2023 7:22 AM CDT [facility] Blood BLOOD SPECIMEN / Unknown Venipuncture / Unknown 12/03/2023 3:11 PM CDT 12/03/2023 3:13 PM CDT Narrative [facility] - 12/06/2023 7:22 AM CDT Reflexed to Tissue Transglutaminase IgA Rico Hnut MD SEND OUTS [facility] [address] [place] [address], * CELIAC DISEASE HLA DQ ASSOC (12/03/2023 3:11 PM CDT) DQ8 (DQA1 03XX, DQB1 0302) Negative 12/13/2023 8:06 PM CDT [facility] Comment: Final Results: DQB1*03:EETKC,- DQA1*03:EFYWB,- Code Translation: - EETKC ?03:03:1003:1603:1903:2103:2203:24 ? /03:27:28:29:35/03:36/03:42/03:44 ? /03:46/03:47/03:48/03:49/03:50/03:51/03:52 ? /03:53/03:54/03:55/03:56/03:57/03:58/03:59 ? /03:60/03:69/03:73/03:75/03:76/03:77/03:78 ? [...] ? /03:460/03:465/03:467/03:468/03:469/03:470 ? /03:472/03:473N/03:475/03:476/03:480Q ? /03:482/03:483/03:486/03:488N/03:491/03:492 EFYWB ?03:02/03:03/03:04/03:05/03:07/03:/03:09 ? /03:11/03:13/03:14/03:16/03:17/:/03:20 ? /03:21/03:23/03:24/03:26/03:28/03:31 ? /03:32N/03:33/03:34N/03:35/03:37/03:38 The patient is not positive for any of the HLA DQ risk alleles. ??Celiac disease risk from the HLA DQA/DQB genotype is approximately 1:2518 (<0.04%). This result essentially rules out celiac disease. Allele interpretation for all loci based on IMGT/HLA database version 3.54 HLA Lab [place] ID Number [id number] Greater than 95% of celiac patients are positive for either DQ2 or DQ8 (Mario and Laquita, (1993) ??Gastroenterology 105:910-922). However these antigens may also be present in patients who do not have Celiac disease. Comment Celiac HLA Comment 2023 8:06 PM CDT [facility] Comment: This test was performed using Polymerase Chain Reaction (PCR) and Sequence Specific Oligonucleotide Probes (SSOP) ([employer]) technique. Sequence Based Typing (SBT) may be used as a supplemental method when necessary. If you have questions, please call HLA customer service at or email at [email or web address]. Addit Info Celiac HLA Comment 12/13/2023 8:[address] [facility] ([facility]) Comment: References: 1. Keshav KEATING and Johnie Hilliard. Celiac Disease. N Eng J Med 2007; ?? 357:0133-8991. 2. Zoila F, Roro B, Bonalitao M et al. HLA-DQ and risk gradient ?? for celiac disease. Hum Immunol 2009; 70:55-59. 3. Pieemily MM, Steve TC, Carolina FM et al. Stratifying risk ?? for celiac disease in a large at-risk [facility] population ?? by using HLA alleles. Clin Gastroenterol Hepatol 2009; 7:966-971. 4. Mario HOLGUIN and Tonja POSADAS. (2005). Celiac Disease Genetics: Current ?? Concepts and Practical Applications. Clin Gastroenterol and ?? Hepat 3:843-851. 5. Aleida CL, Valentin DO, Keshav PHR, et al. Celiac Disease. ?? In: Alexis RA, Chente TC, Dez CR, Octaviano K, editors. GeneReviews ?? (Internet), [facility], January 26, 2008:1-27. ?? http://www.ncbi.nlm.nih.gov/bookskwesif/br.fcgi?book=genepart=celiac ?? PMID 77120496 (PubMed) 6. Dianne W. Emerging concepts in celiac disease. Curr Opin Pediatr ?? 2004;16:552-559. Blood BLOOD SPECIMEN / Unknown Venipuncture / Unknown 12/03/2023 3:11 PM CDT 12/03/2023 3:13 PM CDT Narrative [facility] ([facility]) - 12/13/2023 8:06 PM CDT Performed at: ??01 - [facility] [address] [place], [place] ??[id number] Music Assistant: Daisy Montalvo PhD, Phone: ??[phone] Rico Hunt MD SEND OUTS [facility] ([facility]) [address] [place], [place] [id number], * (ABNORMAL) VITAMIN E (12/03/2023 3:11 PM CDT) Vit E Alpha [place] 21.3 9.0 - 29.0 mg/L 12/07/2023 3:[address] [facility] ([facility]) Vit E Gamma [place] 0.3(L) 0.5 - 4.9 mg/L 12/07/2023 3:[address] [facility] ([facility]) Comment: Reference intervals for alpha and gamma-tocopherol determined from National Health and Nutrition Examination Survey, 3588-6090. Individuals with alpha-tocopherol levels less than 5.0 mg/L are considered vitamin E deficient. Blood BLOOD SPECIMEN / Unknown Venipuncture / Unknown 12/03/2023 3:11 PM CDT 12/03/2023 3:13 PM CDT Narrative [facility] ([facility]) - 12/07/2023 3:10 PM CDT Test(s) 253533-Ywjamfy E(Alpha Tocopherol); 674196- Vitamin E(Gamma Tocopherol) was developed and its performance characteristics determined by [facility]. It has not been cleared or approved by the Food and Drug Administration. Performed at: ??01 - [address] ??[id number] Music Assistant: Koffi Sanches MD, Phone: ??[phone] Rico Hunt MD SEND OUTS Performing Organization Address [facility] de Phone Number [facility] ([facility]) [address] [place] [address] * ENDOMYSIAL ANTIBODY IGA (12/03/2023 3:11 PM CDT) Endomysial IgA Ab Negative Negative 12/07/2023 8:10 AM CDT [facility] ([facility]) Blood BLOOD SPECIMEN / Unknown Venipuncture / Unknown 12/03/2023 3:11 PM CDT 12/03/2023 3:13 PM CDT [facility] ([facility]) - 12/07/2023 8:10 AM CDT Performed at: ??01 - [address] ??[id number] Music Assistant: Koffi Sanches MD, Phone: ??[phone] Rico Hunt MD SEND OUTS Performing Organization Address [facility] de Phone Number [facility] ([facility]) [address] [place] [address] * (ABNORMAL) VITAMIN A BLOOD (12/03/2023 3:11 PM CDT) Vitamin A 88.7(H) 22.0 - 69.5 ug/dL 12/07/2023 3:10 PM CDT [facility] ([facility]) Comment: Reference intervals for vitamin A determined from [facility] internal studies. Individuals with vitamin A less than 20 ug/dL are considered vitamin A deficient and those with serum concentrations less than 10 ug/dL are considered severely deficient. This test was developed and its performance characteristics determined by [facility]. It has not been cleared or approved by the Food and Drug Administration. Blood BLOOD SPECIMEN / Unknown Venipuncture / Unknown 12/03/2023 3:11 PM CDT 12/03/2023 3:13 PM CDT Narrative [facility] ([facility]) - 12/07/2023 3:10 PM CDT Performed at: ??01 - [address] ??[id number] Music Assistant: Koffi Sanches MD, Phone: ??[phone] Rico Hunt MD SEND OUTS [facility] ([facility]) [address] [place] [address], * GLIADIN ANTIBODY IGA (12/03/2023 3:11 PM CDT) Gliadin IgA <10.0 <20.0 U/ml 12/08/2023 8:19 AM CDT [facility] Blood BLOOD SPECIMEN / Unknown Venipuncture / Unknown 12/03/2023 3:11 PM CDT 12/03/2023 3:13 PM CDT Narrative [facility] - 12/08/2023 8:19 AM CDT Negative ? <20 Weak Positive 20-30 Positive ? >30 Measurements of deamidated gliadin antibodies should not be relied upon exclusively to establish or rule out the diagnosis of celiac disease. ??This test should not be ordered as a replacement for Tissue Transglutaminase Antibodies, IgA and IgG, serum. These results were obtained using the Aula 7 h-tTG IgA WILLARD assay. Values obtained from other manufacturers' assay methods may not be used interchangeably. Rico Hunt MD SEND OUTS Performing Organization Address [facility] Co de Phone Number [facility] [address] [place] [address], * TISSUE TRANSGLUTAMINASE IGA (12/03/2023 3:11 PM CDT) TISSUE TRANSGLUTAMINASE IGA <1.2 <4.0 U/ml 12/06/2023 12:03 PM CDT [facility] Comment:Celiac disease unlik jaycee unless IgA deficient. Recommend IgA levels if not already performed. Blood BLOOD SPECIMEN / Unknown Venipuncture / Unknown 12/03/2023 3:11 PM CDT 12/03/2023 3:13 PM CDT Narrative [facility] - 12/06/2023 12:03 PM CDT Negative [...] Hunt MD SEND OUTS Performing Organization Address [facility] Co de Phone Number [facility] [address] [place] [address], * ECHO TTE COMPLETE WO CONTRAST (11/29/2023 11:40 AM CDT) AORTIC VALVE MEAN PG 9 mmHg EJECTION FRACTION 78 % LVEDD 3.2 cm Anatomical Region Laterality Modality Ultrasound 11/29/2023 10:5 9 AM CDT Narrative 11/29/2023 1:10 PM CDT ECHOCARDIOGRAM MARIAN LUX ? Accession#: ?? [id number] : ?1940 83 years Study Date: ?? 11/29/2023 10:59:00 AM Gender: F ?BP: ? 143/76 mmHg Height: 160.00 cm ?BSA: ?1.78 m? ? ? Weight: 75.00 kg ? Tech: ? MCK ? Referring MD: TESS WEST Site: ? [facility] Reading Location: [facility] Patient Location: Inpatient. Procedure: 2D, Color Doppler [...] . This study was interpreted by an [facility] accredited facility. CC: HIM (med records) [facility], Med/Surg - IP [facility]. ??Final ?? Procedure Note Tonya Gregory, [facility] - 11/29/2023 ECHOCARDIOGRAM MARIAN LUX : 1940 83 years Study Date: 11/29/2023 10:59:00 AM Gender: F BP: 143/76 mmHg Height: 160.00 cm BSA: 1.78 m? ? ? Weight: 75.00 kg Tech: IZABELA Referring MD: TESS WEST Site: [facility] Reading Location: [facility] Patient Location: Inpatient. Procedure: 2D, Color Doppler [...] . This study was interpreted by an [facility] accredited facility. CC: HIM (med records) [facility], Med/Surg - IP [facility]. Final Authorizing Provider Result Deb West MD ECHO ORD * LYME SCREEN W/REFLEX (11/22/2023 3:28 PM CDT) LYME SCREEN W/REFLEX Negative Negative 11/24/2023 9:53 AM CDT [facility] Comment: No laboratory evidence [...] Mosher MD SEND OUTS Performing Organization Address [facility] Co de Phone Number [facility] [address] [place] [address], * (ABNORMAL) FOLIC ACID (11/22/2023 3:28 PM CDT) Pathologist [facility] FOLIC ACID 35.1(H) 4.6 - 34.8 ng/mL 11/23/2023 4:08 PM CDT [facility] Blood BLOOD SPECIMEN / Unknown Venipuncture / Unknown 11/22/2023 3:28 PM CDT 11/22/2023 3:28 PM CDT Narrative [facility] - 11/23/2023 4:08 PM CDT Biotin supplements may cause clinically significant interference for this test assay. ??If interference is suspected, it is strongly recommended that biotin is discontinued for at least one week prior to retesting. Zoran Mosher MD CHEMISTRY Performing Organization Address City/[facility]/ZIP Co de Phone Number [facility] [address] [place] [address], from Last 3 Months Advance Directives * Full Code (Latest Code Status on File) Date Activated Date Inactivated Comments 10/01/2016 12:21 PM 10/01/2016 5:23 PM * Full Code Date Activated Date Inactivated Comments 11/09/2011 6:35 AM 11/09/2011 11:00 AM Care Teams Embosser Apprentice Relationship Specialty Start Date End Date Annie Brown MD [address] [place] [address] PCP - General Internal Medicine 03/19/14
--- OUTSIDE RECORDS SUMMARY | 2024-02-17 12:53 | XMS_ITS | Encounter Summary ---
Author Organization [facility] Address [address] [place] [address] Care Team Providers Care Permanent Waver Name Role Phone Elsewhere, Pcp Primary Care Provider Unavailabl e Encounter Details Date Type Department Care Team (Late st Contact Info) Description 11/15/2023 Clinical Communication Department of Infusion Therapy in [place], [place] [address] [place] [phone] Joy Cooper, R.N. Social History Tobacco Use Types Packs/Day Years Used Date Smoking Tobacco: Never Passive Smoke Exposure: Never Smokeless Tobacco: Never Comments:As a child Alcohol Use Standard Drinks/Week Comments Yes 7 (1 standard drink = 0.6 oz pur e alcohol) [facility] Utilities Answer Date Recorded In the past 12 months has [employer], gas, oil, or water [employer] threatened to shut off services in your [...] often do you attend chur ch or rastafarian services? Never 08/24/2022 Do you belong to any clubs o r organizations such as latter day groups, unions, fraternal or athletic groups, or [...] all 12/24/2022 [facility] of Occupat ionhi Health - Occupational Stress Questionnaire Answer Date [...] on filedocumented in this encounter Care Teams Permanent Waver Relationship Specialty Start Date End Date Elsewhere, Pcp PCP - General Internal Medicine 12/29/22 documented as of this encounter
--- OUTSIDE RECORDS SUMMARY | 2024-02-17 12:53 | XMS_ITS | Encounter Summary ---
Author Organization [facility] Address [address] [place] [address] Care Team Providers Care Day Guard Name Role Phone Elsewhere, Pcp Primary Care Provider Unavailabl e Reason for Visit * Reason Onset Date Comments OSM - Outside Materials 10/20/2023 Encounter Details Date Type Department Care Team (Latest Contact Info) Description 10/20/2023 Clinical Communication Division of Endocrinology in [place], [place] [address] [place] [address] Margi Avila M.D. [address] [place] [address] [facility]SM - Outside Materials Social History Tobacco Use Types Packs/Day Years Used Date Smoking Tobacco: Never Passive Smoke Exposure: Never Smokeless Tobacco: Never Comments:As a child Alcohol Use Standard Drinks/Week Comments Yes 7 (1 standard drink = 0.6 oz pur e alcohol) [facility] Utilities Answer Date Recorded In the [...] How often do you attend chur or taoist services? Never 08/24/2022 Do you belong to [...] and heating? Not hard at all 12/24/2022 [facility] of Occupat ional Health - Occupational Stress [...] living situation today? I have a [facility] place to live 09/17/2023 Education Answer [...] on filedocumented in this encounter Care Teams Day Guard Relationship Specialty Start Date End Date Elsewhere, Pcp PCP - General Internal Medicine 12/29/22 documented as of this encounter
--- OUTSIDE RECORDS SUMMARY | 2024-02-17 12:53 | XMS_ITS | Encounter Summary ---
Author Organization [facility] Address [address] [place] [address] Care Team Providers Care Assistant Director Of Financial Aid Name Role Phone Elsewhere, Pcp Primary Care Provider Unavailabl e Reason for Visit * Reason Onset Date Comments Triage 10/07/2023 Encounter Details Date Type Department Care Team (Late st Contact Info) Description 10/07/2023 Clinical Communication Division of General Internal Medicine in [place], [place] [address] [place] [address] Prescheduling, Provider Triage Social History Tobacco Use Types Packs/Day Years Used Date Smoking Tobacco: Never Passive Smoke Exposure: Never Smokeless Tobacco: Never Comments:As a child Alcohol Use Standard Drinks/Week Comments Yes 7 (1 standard drink = 0.6 oz pur e alcohol) [facility] Utilities Answer Date Recorded In the past 12 months has [facility] [employer], gas, oil, or water [employer] threatened to shut off services in your [...] often do you attend chur ch or caodaism services? Never 08/24/2022 Do you belong to any clubs o r organizations such as zoroastrianism groups, unions, fraternal or athletic groups, or [...] and heating? Not hard at all 12/24/2022 [facility] of Occupat ional Health - [...] your living situation today? I have a [facility] place to live 09/17/2023 Education Answer Date [...] 10/07/2023 7:09 AM CDT marian lux 1940 [id number] years Height: 5 ft. 3 in. Weight: 172 Gender: Female PCP: nena Brown [facility] Who filled out ARF: Patient Request: I have medical symptoms without a clear diagnosis MAIN SYMPTOM Malaise Description: I describe it overall as feeling crummy. I have fatigue, feel dizzy some nausea, eyes often feel weird. I just don't feel good. It is a major problem. 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 Suárez, and now by [...] than 12 months Previous Eval: Yes Location: [facility]Note 3] locations in [facility], and [facility], Gastroenterology and ENT Have had: Images (X-Rays, [...] causes that either. I have seen an [facility] qa analyst and also one visit to [facility] to see one also. Duration: More than 12 months Previous Eval: Yes Location: PCP is at [facility]. Dr. Stephanie Bernal in [place] to see qa analyst Dr. Rico Hunt. [facility] in [place] to see qa analyst. Have had: Procedures (surgeries, colonoscopies, biopsies, etc.), [...] DIAGNOSIS: Yes Willing to attend [facility] or [facility] appointments - Probably not DAILY MEDS: 14 OPIOIDS: No CURRENT DIALYSIS: No CURRENT HEALTH/PAST YEAR: Fair CONFIDENCE: Somewhat agree NOT AVAILABLE: September, 10/31-11/08, 12/06, 12/30-01/06, 01/30-02/14 PHONE: [phone] documented in this encounter Plan of Treatment Not on file documented as of this encounter Visit Diagnoses Not on filedocumented in this encounter Care Teams Assistant Director Of Financial Aid Relationship Specialty Start Date End Date Elsewhere, Pcp PCP - General Internal Medicine 12/29/22 documented as of this encounter
--- OUTSIDE RECORDS SUMMARY | 2024-02-17 12:53 | XMS_ITS | Encounter Summary ---
Author Organization [facility] Address [address] [place] [address] Care Team Providers Care Mold Preparer Name Role Phone Elsewhere, Pcp Primary Care Provider Unavailabl e Encounter Details Date Type Department Care Team (Latest Contact Info) Description 10/26/2023 Clinical Communication Division of Endocrinology in [place], [place] [address] [place] [address] Margi Avila M.D. [address] [place] [address] Social History Tobacco Use Types Packs/Day Years Used Date Smoking Tobacco: Never Passive Smoke Exposure: Never Smokeless Tobacco: Never Comments:As a child Alcohol Use Standard Drinks/Week Comments Yes 7 (1 standard drink = 0.6 oz pur e alcohol) [facility] Utilities Answer Date Recorded In the past 12 months has [employer], gas, oil, or water [employer] threatened to shut off services in your [...] 08/24/2022 How often do you attend chur [employer] or sikh services? Never 08/24/2022 Do you belong to any clubs o r organizations such as sabianist groups, unions, fraternal or athletic groups, or [...] your living situation today? I have a [facility] place to live 09/17/2023 Education [...] Subsequent documented in this encounter Care Teams Mold Preparer Relationship Specialty Start Date End Date Elsewhere, Pcp PCP - General Internal Medicine 12/29/22 documented as of this encounter
--- OUTSIDE RECORDS SUMMARY | 2024-02-17 12:53 | XMS_ITS | Encounter Summary ---
Author Organization [facility] Address [address] [place] [address] Care Team Providers Care Turf Farmer Name Role Phone Elsewhere, Pcp Primary Care Provider Unavailabl e Reason for Visit * Reason Onset Date Comments Questions 10/20/2023 Encounter Details Date Type Department Care Team (Latest Contact Info) Description 10/20/2023 Clinical Communication Division of Endocrinology in [place], [place] [address] [place] [address] Margi Avila M.D. [address] [place] [address] Questions Social History Tobacco Use Types Packs/Day Years Used Date Smoking Tobacco: Never Passive Smoke Exposure: Never Smokeless Tobacco: Never Comments:As a child Alcohol Use Standard Drinks/Week Comments Yes 7 (1 standard drink = 0.6 oz pur e alcohol) [facility] Utilities Answer Date Recorded In the [...] How often do you attend chur or orthodoxy services? Never 08/24/2022 Do you belong to any clubs o r organizations such as presybeterian groups, unions, fraternal or athletic groups, or [...] and heating? Not hard at all 12/24/2022 [facility] of Occupat ional Health - [...] your living situation today? I have a [facility] place to live 09/17/2023 Education [...] on filedocumented in this encounter Care Teams Turf Farmer Relationship Specialty Start Date End Date Elsewhere, Pcp PCP - General Internal Medicine 12/29/22 documented as of this encounter
--- OUTSIDE RECORDS SUMMARY | 2024-02-17 12:53 | XMS_ITS | Encounter Summary ---
Author Organization [facility] Address [address] [place] [address] Care Team Providers Care Hydropress Operator Name Role Phone Elsewhere, Pcp Primary Care Provider Unavailabl e Encounter Details Date Type Department Care Team (Late st Contact Info) Description 10/19/2023 Orders Only Division of Endocrinology in [place], [place] [address] [place] [phone] Margi Avila M.D. [address] [place] [address] Social History Tobacco Use Types Packs/Day Years Used Date Smoking Tobacco: Never Passive Smoke Exposure: Never Smokeless Tobacco: Never Comments:As a child Alcohol Use Standard Drinks/Week Comments Yes 7 (1 standard drink = 0.6 oz pur e alcohol) [facility] Utilities Answer Date Recorded In the past 12 months has [employer], gas, oil, or water [employer] threatened to shut off services in your [...] 08/24/2022 How often do you attend chur [employer] or gnosticism services? Never 08/24/2022 Do you belong to any clubs o r organizations such as hinduism groups, unions, fraternal or athletic groups, or [...] and heating? Not hard at all 12/24/2022 [facility] of Occupat ional Health - Occupational Stress [...] on filedocumented in this encounter Care Teams Hydropress Operator Relationship Specialty Start Date End Date Elsewhere, Pcp PCP - General Internal Medicine 12/29/22 documented as of this encounter
[2024-02-17 12:56] LABS: Chloride* 101 mmol/L (96-114)
[2024-02-17 12:57] LABS: Albumin* 4.7 g/dL (3.3-5.0); Potassium* 4.1 mmol/L (3.6-5.1); Sodium* 134 mmol/L (135-149)
[2024-02-17 12:59] LABS: Est. Creatinine Clearance* 35.88; Estimated Glomerular Filt Rate 56 ml/min
[2024-02-17 13:00] LABS: Alanine Aminotransferase* 20 U/L (4-35); Alkaline Phosphatase* 63 U/L (40-150); Anion Gap 8 mEq/L (7-15); Aspartate Amino Transferase* 27 U/L (12-35); Bilirubin Total* 0.8 mg/dL (0.1-1.5); Blood Urea Nitrogen* 24 mg/dL (7-30); Carbon Dioxide* 25 mmol/L (20-32); Glucose* 94 mg/dL (60-115); Total Protein* 7.5 g/dL (6.0-8.3)
[2024-02-17 13:01] LABS: Magnesium* 2.4 mg/dL (1.5-2.6)
[2024-02-17 13:04] LABS: C Reactive Protein* < 0.5 mg/dL (0.5-1.0)
[2024-02-17 13:11] LABS: Basophils Absolute Auto 0.03 K/uL (0.00-0.30); Basophils Percent Auto 0.4 % (0.0-3.0); Eosinophils Absolute Auto 0.06 K/uL (0.00-0.50); Eosinophils Percent Auto 0.9 % (0.0-7.0); Hematocrit 41.9 % (33.0-51.0); Immature Granulocytes Abs Auto 0.06 K/uL (0.00-0.30); Immature Granulocytes Pct Auto 0.9 %; Lymphocytes Absolute Auto 1.61 K/uL (0.90-2.90); Lymphocytes Percent Auto 23.1 % (20-44); Mean Corpuscular HGB Conc 31 gm/dL (32-36); Mean Corpuscular Hemoglobin 28 pg (26-34); Mean Corpuscular Volume 91 fL (80-100); Monocytes Percent Auto 13.1 % (0.0-11.0); Neutrophils Percent Auto 61.6 % (42.0-72.0); Platelet Count* 399 K/uL (140-440); RDW Coefficient of Variation % 15.6 % (11.5-15.5); Red Blood Count 4.61 m/uL (4.00-5.20); White Blood Count* 6.97 K/uL (4.50-11.00)
[2024-02-17 13:12] LABS: Slide Review Reflex No
[2024-02-17 13:54] VITALS: BP 169/83; PULSE 68; RESP 17; O2SAT 97
== END 2024-02-17 14:41 | disposition home or self-care (01) ==
PROVIDERS: Emergency Provider Family Medicine; PCP Internal Medicine
DX: R19.7 Diarrhea, unspecified (principal)
CPT/HCPCS: 36415; 74177; 80053; 81001; 83605; 83735; 85025; 86140; 99284; Q9967

== ENCOUNTER 2024-03-07 12:02 | Outpatient (REF) | payer MEDICARE, SELFPAY ==
--- OUTSIDE RECORDS SUMMARY | 2024-03-07 12:07 | XMS_ITS | Clinical Summary ---
Author Organization [facility] Address [place], [place] [address] Care Team Providers Care Basket Hand Braider Name Role Phone Annie Brown MD Primary Care Provider [phone] Allergies Active Allergy Reactions Criticality Noted Date [...] Mar 2024 90 Tablet 1 11/26/2023 Active alendronate (FOSAMAX) 70 mg tablet Take 70 mg by mouth. 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 Abnormal cardiovascular stress test 04/08/2022 Hyperlipidemia LDL goal <70 04/08/2022 Skin cancer 02/19/2022 Overview: 02/12/22 left wrist , Invasive squamous cell carcinoma, excised 04/29/22 Rosalia Crawford MD Hypertension Osteoporosis Overview: History of hyperparathyroid, status post parathyroidectomy Fosamax begun 2006 GERD (gastroesophageal reflux disease) Overview: EGD 01/2017 large hiatal hernia, Reactive gastropathy, try carafate Urolithiasis Encounters Date Type Department Care Team Description 03/01/2024 Telephone [facility] [address] [place] [phone] Clinic, [facility] Appointment 02/25/2024 Telephone [facility] [address] [place] [address] Zoran Mosher MD Referral (ENT REFERRAL) 02/23/2024 11:40 AM CDT Office Visit [facility] [place] [facility] [address] [place] [address] Patricio Mauricio MD Follow Up (Follow up chronic fatigue and unsteady gait ) 02/23/2024 Travel 02/17/2024 Orders Only [facility] Scanner 1 scan: (1-Ord) COMPA, MULTIPLE RESULTS, 02/17/2024 12/29/2023 Medical Messaging [facility] [address] [facility] [address] Rico Hunt MD Fructose free diet test shows no fructose intolerance 12/09/2023 1:00 PM CDT Nurse/Clinic Staff Only [facility] [address] [place] [address] Immunization/Inject ion (COVID-19 VACCINE ); Immunization/Inject ion 12/09/2023 Travel 12/06/2023 Travel from Last 3 Months Immunizations Name Administration Dates Next Due Amb Influenza, Inactivated A IIV4 (Age 65+ Years) Preserv Free 04/22/2020 COVID-19 Vaccine Spikevax (M oderna 50mcg/0.5mL) 12YO+ [id number] Formula PF 12/09/2023,04/22/2023 COVID-19 vaccine ([employer] 30mcg/0.3mL) WENDY FOSTER 09/25/2020,09/04/2020 Hepatitis A [...] Never Smokeless Tobacco: Never Tobacco Cessation:Counseling Given: Yes Comments:second hand smoke exposure as a child [...] Sign Reading Time Taken Comments Blood Pressure 153/83 02/23/2024 11:47 AM CDT Pulse 77 02/23/2024 11:47 AM CDT Temperature 36.6 ??C (97.9 ??F) 04/14/2023 2:25 PM CD T Respiratory Rate 20 04/14/2023 2:25 PM CDT Oxygen Saturation 97% 02/23/2024 11:47 AM CDT Inhaled Oxygen Concentration - - Weight 76.2 kg (168 lb) 04/13/2023 11:22 AM CDT Height 160 cm (5' 3) 04/13/2023 11:22 AM CDT Body Mass Index 29.76 04/13/2023 11:22 AM CDT Plan of Treatment Upcoming Encounters Date Type Department Care Team (Late st Contact Info) Description 03/16/2024 2:00 PM CDT Telemedicine [facility] [address] [facility] [address] [place] [phone] Deep Monzon MD [address] [place] [address] 03/23/2024 1:15 PM CDT Office Visit [facility] [address] [place] [address] Linda Millan [facility] [address] [facility] [address] [place] [address] 04/13/2024 1:40 PM CDT Office Visit [facility] [address] [phone] Rosalia Crawford MD [address] [facility] [address] [place] [address] Health Maintenance Due Date Last Done Comments Depression screening for age 12+ 1952 DEXA/DXA scan for age 65+ 2006 Medicare Wellness for age 65+ 2006 Influenza for age 65+ 03/26/2024 04/27/2023 , 04/30/2022, 05/06/2021, Additional history exists BMI (ht and wt on same day) for age 18+ 04/13/2024 04/13/2023, 12/02/2021, 05/08/2021, Additional history exists Tetanus booster 11/29/2031 11/28/2021, 02/0 02/2013, 09/02/2012, Additional history exists Pneumococcal series for age 65+ Completed 5, 05/02/2007 Zoster (shingles) series for age 50+ Completed 08/30/2018, 04/06/2018, 07/06/2006 Tdap Completed 11/28/2021, 09/02/2012 COVID-19 vaccine series Completed 12/09/19 24, 04/22/2023, 12/01/2022, Additional history exists Medical Devices Implanted Type Area Airline Manager Device Identifier Shelf Expiration Date Model / Serial / Lot Log [id number] - Rossi Zcb00 Lens Iol - 1 - Lens Iol Zcb00 21.0 Implanted:Qty: 1 on 11/09/2011 at [facility] Left: Eye [employer] ZCB00# / [id number] / Iol [place] +21 Tecnis Zcb00 - [id number] Implanted:Qty: 1 on 10/01/2016 by Tian Huggins MD at [facility] Right: Eye [employer] 06/29/2020 ZCB00# / [id number] / Procedures Procedure Name Priority Date/Time Associated Diagnosis Comments AMB CONSULT TO GASTROENTEROLOGY Routine 03/01/2024 7:33 PM CDT Diarrhea, unspecified type SCAN-LABORATORY REPORT 12:00 AM CDT from Last 3 Months Results * SCAN-LABORATORY REPORT (02/17/2024 12:00 AM CDT) Scanner OTHER from Last 3 Months Advance Directives * Full Code (Latest Code Status on File) Date Activated Date Inactivated Comments 10/01/2016 12:21 PM 10/01/2016 5:23 PM * Full Code Date Activated Date Inactivated Comments 11/09/2011 6:35 AM 11/09/2011 11:00 AM Care Teams Basket Hand Braider Relationship Specialty Start Date End Date Annie Brown MD [address] [place] [address] PCP - General Internal Medicine 03/19/14
--- OUTSIDE RECORDS SUMMARY | 2024-03-07 12:07 | XMS_ITS | Referral Summary ---
Author Organization [facility] Address [address] [place] [address] Care Team Providers Care Fiscal Assistant Name Role Phone Elsewhere, Pcp Primary Care Provider Unavailabl e Source Comments Patient records contain information from all sites at [facility]. For routine questions regarding patient records, call [phone] during business hours, M-F 8:00 AM - 5:00 PM Central Time. Record requests for emergency care only can be directed to [phone] at any time.[facility] Encounters Date Type Department Care Team Description 02/29/2024 Orders Only Division of Endocrinology in [place], [place] [address] [place] [address] Margi Avila M.D. 02/25/2024 Refill Division of Endocrinology in [place], [place] [address] [place] [phone] Margi Avila M.D. Med Refill 02/23/2024 Orders Only Division of Endocrinology in [place], [place] [address] [place] [phone] Margi Avila M.D. 01/13/2024 Clinical Communication Division of Endocrinology in [place], [place] [address] [place] [phone] Margi Avila M.D. [facility] - Outside Materials 12/08/2023 Orders Only Division of Endocrinology in [place], [place] [address] [place] [phone] Margi Avila M.D. from Last 3 Months [...] 1 tablet by mouth as needed. Active gabapentin (NEURONTIN) 100 mg capsule Take 100 mg by mouth 3 (three) times a day. 04/14/2023 Active osilodrostat (Isturisa) 1 mg tablet Take one-half tablet by mouth 2 times per day. 30 tablet 11 02/29/2024 Active osilodrostat 1 mg tablet Take 0.5 mg by mouth 2 (two) times a day. 30 tablet 11 03/11/2023 4 Discontinued Active Problems Problem Noted Date Diagnosed [...] 0.6 oz pur e alcohol) [facility] Q-goities Answer Date Recorded In the past 12 months has [email or web address], gas, oil, or water [employer] threatened to shut off services in your [...] week 08/24/2022 How often do you attend [facility] or faith services? Never 08/24/2022 Do you belong to any clubs o r organizations such as anabaptist groups, unions, fraternal or athletic groups, or [...] and heating? Not hard at all 12/24/2022 [facility] of Occupat ional Health - Occupational [...] on file Medical Devices Implanted Type Area Real Estate Assessor Device Identifier Shelf Expiration Date Model / [...] Sodium, S 143 135 - 145 MMOL/L [facility] 04/29/2017 4:11 PM CDT 04/29/2017 4:11 PM CDT Linda Suárez M.D., M.S. LAB BLOOD ADD-O N Performing Organization Address City/[facility]/ZIP Co de Phone Number [facility] [address] * Potassium (04/29/2017 4:11 PM CDT) Potassium, S 5.1 3.6 - 5.2 MMOL/L [facility] 04/29/2017 4:11 PM CDT 04/29/2017 4:11 PM CDT Linda Suárez M.D., M.S. LAB BLOOD ADD-O N Performing Organization Address [facility] Co de Phone Number [facility] [address] * Creatinine with Estimated GFR (MDRD) (04/29/2017 4:11 PM CDT) Creatinine 1.0 0.6 - 1.1 MG/DL [facility] 04/29/2017 4:11 PM CDT 04/29/2017 4:11 PM CDT Linda Suárez M.D., M.S. LAB BLOOD ADD-O N Performing Organization Address City/[facility]/ZIP Co de Phone Number [facility] [address] from Last 3 Months or Most Recently Relevant to Health Maintenance Advance Directives For more information, please contact: [phone] Documents on File Type Date Recorded Patient Change Attendant Expl anation Advance Directives 05/12/2017 12:00 AM Bella rothman document. See document viewer. Care Teams Fiscal Assistant Relationship Specialty Start Date End Date Elsewhere, Pcp PCP - General Internal Medicine 12/29/22
--- OUTSIDE RECORDS SUMMARY | 2024-03-07 12:07 | XMS_ITS | Encounter Summary ---
Author Organization [facility] Address [address] [place] [address] Care Team Providers Care Spool Winder Name Role Phone Elsewhere, Pcp Primary Care Provider Unavailabl e Encounter Details Date Type Department Care Team (Late st Contact Info) Description 11/15/2023 Clinical Communication Department of Infusion Therapy in [place], [place] [address] [place] [phone] Joy Cooper, R.N. Social History Tobacco Use Types Packs/Day Years Used Date Smoking Tobacco: Never Passive Smoke Exposure: Never Smokeless Tobacco: Never Comments:As a child Alcohol Use Standard Drinks/Week Comments Yes 7 (1 standard drink = 0.6 oz pur e alcohol) [facility] Utilities Answer Date Recorded In the past 12 months has [employer], gas, oil, or water [employer] threatened to shut off services in [...] often do you attend chur ch or christianity services? Never 08/24/2022 Do you belong to any clubs o r organizations such as mu-ism groups, unions, fraternal or athletic groups, or [...] and heating? Not hard at all 12/24/2022 [facility] of Occupat ionnv Health - Occupational Stress Questionnaire Answer Date [...] your living situation today? I have a [facility] place to live 09/17/2023 Education [...] on filedocumented in this encounter Care Teams Spool Winder Relationship Specialty Start Date End Date Elsewhere, Pcp PCP - General Internal Medicine 12/29/22 documented as of this encounter
--- OUTSIDE RECORDS SUMMARY | 2024-03-07 12:07 | XMS_ITS | Encounter Summary ---
Author Organization [facility] Address [address] [place] [address] Care Team Providers Care Cloth Doffer Name Role Phone Elsewhere, Pcp Primary Care Provider Unavailabl e Encounter Details Date Type Department Care Team (Late st Contact Info) Description 02/23/2024 Orders Only Division of Endocrinology in [place], [place] [address] [place] [phone] Margi Avila M.D. [address] [place] [address] Social History Tobacco Use Types Packs/Day Years Used Date Smoking Tobacco: Never Passive Smoke Exposure: Never Smokeless Tobacco: Never Comments:As a child Alcohol Use Standard Drinks/Week Comments Yes 7 (1 standard drink = 0.6 oz pur e alcohol) [facility] Utilities Answer Date Recorded In the past 12 months has [email or web address], gas, oil, or water [employer] threatened to shut off services in [...] 08/24/2022 How often do you attend chur [employer] or gnosticism services? Never 08/24/2022 Do you [...] your living situation today? I have a [facility] place to live 09/17/2023 Education [...] on filedocumented in this encounter Care Teams Cloth Doffer Relationship Specialty Start Date End Date Elsewhere, Pcp PCP - General Internal Medicine 12/29/22 documented as of this encounter
--- OUTSIDE RECORDS SUMMARY | 2024-03-07 12:07 | XMS_ITS | Encounter Summary ---
Author Organization [facility] Address [address] [place] [address] Care Team Providers Care Knitted Cloth Examiner Name Role Phone Elsewhere, Pcp Primary Care Provider Unavailabl e Encounter Details Date Type Department Care Team (Late st Contact Info) Description 12/08/2023 Orders Only Division of Endocrinology in [place], [place] [address] [place] [phone] Margi Avila M.D. [address] [place] [address] Social History Tobacco Use Types Packs/Day Years Used Date Smoking Tobacco: Never Passive Smoke Exposure: Never Smokeless Tobacco: Never Comments:As a child Alcohol Use Standard Drinks/Week Comments Yes 7 (1 standard drink = 0.6 oz pur e alcohol) [facility] Utilities Answer Date Recorded In the past 12 months has [employer], gas, oil, or water [email or web address] threatened to shut off services in your [...] 08/24/2022 How often do you attend chur [employer] or protestant services? Never 08/24/2022 Do you belong to any clubs o r organizations such as uatsdin groups, unions, fraternal or athletic groups, or [...] and heating? Not hard at all 12/24/2022 [facility] of Occupat ional Health - Occupational [...] your living situation today? I have a [facility] place to live 09/17/2023 Education [...] on filedocumented in this encounter Care Teams Knitted Cloth Examiner Relationship Specialty Start Date End Date Elsewhere, Pcp PCP - General Internal Medicine 12/29/22 documented as of this encounter
--- OUTSIDE RECORDS SUMMARY | 2024-03-07 12:07 | XMS_ITS | Encounter Summary ---
Author Organization [facility] Address [address] [place] [address] Care Team Providers Care Bus Aide Name Role Phone Elsewhere, Pcp Primary Care Provider Unavailabl e Encounter Details Date Type Department Care Team (Late st Contact Info) Description 02/29/2024 Orders Only Division of Endocrinology in [place], [place] [address] [place] [phone] Margi Avila M.D. [address] [place] [address] Social History Tobacco Use Types Packs/Day Years Used Date Smoking Tobacco: Never Passive Smoke Exposure: Never Smokeless Tobacco: Never Comments:As a child Alcohol Use Standard Drinks/Week Comments Yes 7 (1 standard drink = 0.6 oz pur e alcohol) [facility] Utilities Answer Date Recorded In the past 12 months has [employer], gas, oil, or water [employer] threatened to shut off services in your [...] 08/24/2022 How often do you attend chur [employer] or anglican services? Never 08/24/2022 Do you [...] and heating? Not hard at all 12/24/2022 [facility] of Occupat ional Health - Occupational Stress [...] your living situation today? I have a [facility] place to live 09/17/2023 Education [...] on filedocumented in this encounter Care Teams Bus Aide Relationship Specialty Start Date End Date Elsewhere, Pcp PCP - General Internal Medicine 12/29/22 documented as of this encounter
--- OUTSIDE RECORDS SUMMARY | 2024-03-07 12:07 | XMS_ITS | Clinical Summary ---
Author Organization [facility] Address [address] [place] [address] Care Team Providers Care Data Analytics Analyst Name Role Phone Elsewhere, Pcp Primary Care Provider Unavailabl e Source Comments Patient records contain information from all sites at [facility]. For routine questions regarding patient records, call [phone] during business hours, M-F 8:00 AM - 5:00 PM Central Time. Record requests for emergency care only can be directed to [phone] at any time.[facility] Allergies Active Allergy Reactions Criticality Noted Date [...] times a day. 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 02/25/2024 Refill Division of Endocrinology in [place], [place] [address] [place] [address] Margi Avila M.D. Med Refill 02/23/2024 Orders Only Division of Endocrinology in [place], [place] [address] [place] [address] Margi Avila M.D. 01/13/2024 Clinical Communication Division of Endocrinology in [place], [place] [address] [place] [address] Margi Avila M.D. [employer] - Outside Materials 12/08/2023 Orders Only Division of Endocrinology in [place], [place] [address] [place] [address] Margi Avila M.D. from Last 3 Months [...] drink = 0.6 oz pur e alcohol) [facility] Utilities Answer Date Recorded In the past [address] [facility] [employer], gas, oil, or water [employer] threatened to shut off services in your [...] often do you attend chur ch or jain services? Never 08/24/2022 Do you belong to any clubs o r organizations such as episcopal groups, unions, fraJawsome Dive Adventures or athletic groups, or school groups? No [...] 12/24/2022 [facility] of Occupat ional Health - Occupational [...] your living situation today? I have a [facility] place to live 09/17/2023 Education Answer [...] history exists Medical Devices Implanted Type Area Business Ethics Professor Device Identifier Shelf Expiration Date Model / [...] Sodium, S 143 135 - 145 MMOL/L [facility] 04/29/2017 4:11 PM CDT 04/29/2017 4:11 PM CDT Linda Suárez M.D., M.S. LAB BLOOD ADD-O N [facility] [address] * Potassium (04/29/2017 4:11 PM CDT) Potassium, S 5.1 3.6 - 5.2 MMOL/L [facility] 04/29/2017 4:11 PM CDT 04/29/2017 4:11 PM CDT Linda Suárez M.D., M.S. LAB BLOOD ADD-O N Performing Organization Address City/[facility]/ZIP Co de Phone Number [facility] [address] * Creatinine with Estimated GFR (MDRD) (04/29/2017 4:11 PM CDT) Creatinine 1.0 0.6 - 1.1 MG/DL [facility] 04/29/2017 4:11 PM CDT 04/29/2017 4:11 PM CDT Linda Suárez M.D., M.S. LAB BLOOD ADD-O N Performing Organization Address City/[facility]/ZIP Co de Phone Number [facility] [address] from Last 3 Months or Most Recently Relevant to Health Maintenance Advance Directives For more information, please contact: [phone] Documents on File Type Date Recorded Patient Core Shaper Top Expl anation Advance Directives 05/12/2017 12:00 AM Bella rothman document. See document viewer. Care Teams Data Analytics Analyst Relationship Specialty Start Date End Date Elsewhere, Pcp PCP - General Internal Medicine 12/29/22
--- OUTSIDE RECORDS SUMMARY | 2024-03-07 12:07 | XMS_ITS | Encounter Summary ---
Author Organization [facility] Address [address] [place] [address] Care Team Providers Care Butcher Fish Name Role Phone Elsewhere, Pcp Primary Care Provider Unavailabl e Reason for Visit * Reason Comments Med Refill Encounter Details Date Type Department Care Team (Late st Contact Info) Description 02/25/2024 Refill Division of Endocrinology in [place], [place] [address] [place] [phone] Margi Avila M.D. [address] [place] [phone] Med Refill Social History Tobacco Use Types Packs/Day Years Used Date Smoking Tobacco: Never Passive Smoke Exposure: Never Smokeless Tobacco: Never Comments:As a child Alcohol Use Standard Drinks/Week Comments Yes 7 (1 standard drink = 0.6 oz pur e alcohol) [facility] Utilities Answer Date Recorded In the past 12 months has [employer], gas, oil, or water [employer] threatened to shut off services in your [...] r organizations such as jain groups, unions, fraYgrene Energy Fund or athletic groups, or school groups? No [...] your living situation today? I have a [facility] place to live 09/17/2023 Education Answer [...] on filedocumented in this encounter Care Teams Butcher Fish Relationship Specialty Start Date End Date Elsewhere, Pcp PCP - General Internal Medicine 12/29/22 documented as of this encounter
--- OUTSIDE RECORDS SUMMARY | 2024-03-07 12:07 | XMS_ITS | Encounter Summary ---
Author Organization [facility] Address [address] [place] [address] Care Team Providers Care Interlocking Machine Operator Name Role Phone Elsewhere, Pcp Primary Care Provider Unavailabl e Reason for Visit * Reason Onset Date Comments [employer] 01/13/2024 Encounter Details Date Type Department Care Team (Latest Contact Info) Description 01/13/2024 Clinical Communication Division of Endocrinology in [place], [place] [address] [place] [address] Margi Avila M.D. [address] [place] [address] [employer] Social History Tobacco [...] How often do you attend chur or anabaptism services? Never 08/24/2022 Do you belong to any clubs o r organizations such as shinto groups, unions, fraternal or athletic groups, or [...] and heating? Not hard at all 12/24/2022 [facility] [place] of Occupat ional Health - Occupational Stress [...] on filedocumented in this encounter Care Teams Interlocking Machine Operator Relationship Specialty Start Date End Date Elsewhere, Pcp PCP - General Internal Medicine 12/29/22 documented as of this encounter
--- OUTSIDE RECORDS SUMMARY | 2024-03-07 12:07 | XMS_ITS ---
Author Organization [facility] Address [address] [place] [address] Care Team Providers Care Paintless Dent Repair Technician Name Role Phone Unavailable Unavailable Unavailable Surgery Details Not on file Complications Check Surgery Details section. Procedure Estimated Blood Loss Check Surgery Details section. Procedure Findings Check Surgery Details section. Procedure Specimens Taken Check Surgery Details section.
[2024-03-08 21:40] LABS: Adrenocorticotropic Hormone <1.5 pg/mL (7.2-63.3)
[2024-03-09 03:23] LABS: Cortisol, Serum 15.3 ug/dL
== END 2024-03-07 12:03 | disposition home or self-care (01) ==
LOC: NPINS 12:02
PROVIDERS: PCP Internal Medicine; Visit Provider Internal Medicine
DX: E27.9 Disorder of adrenal gland, unspecified (principal); E24.9 Cushing's syndrome, unspecified
CPT/HCPCS: 82024; 82533

== ENCOUNTER 2024-03-28 09:44 | Outpatient (RCR) | payer SELFPAY | END 2025-03-25 23:59 | disposition home or self-care (01) | LOC: MOW 09:44 | PROVIDERS: PCP Internal Medicine; Visit Provider Internal Medicine | DX: Z76.0 Encounter for issue of repeat prescription (principal) | CPT/HCPCS: S5170 ==

== ENCOUNTER 2024-04-07 11:01 | Outpatient (CLI) | payer MEDICARE, SELFPAY ==
--- NOTE | 2024-04-07 11:00 | CRLHL7_ITS ---
For Patients: As a result of the Century Cures Act, medical imaging exams and procedure reports are released immediately into your electronic medical record. You may view this report before your referring provider. If you have questions, please contact your health care provider. Indication: Abdominal bloating Technique: Abdomen 2 view. Comparison: CT 02/17/2024 Findings: Distended loop of bowel is present within the right side of the abdomen containing an air-fluid level. No free intraperitoneal air. No pleural effusion. Posttreatment changes to the thoracic spine. Moderate colonic stool is present throughout the colon. Impression: Moderate colonic stool burden is present. Distended loop of bowel in the right upper abdomen containing an air-fluid level. If symptoms continue would recommend follow-up CT. Dictated by Deep Pelletier MD @ 04/07/2024 11:51:09 AM (Electronically Signed)
--- OUTSIDE RECORDS SUMMARY | 2024-04-07 11:05 | XMS_ITS | Encounter Summary ---
Author Organization [facility] Address [address] [place] [address] Care Team Providers Care Web Press Operator Name Role Phone Elsewhere, Pcp Primary Care Provider Unavailabl e Encounter Details Date Type Department Care Team (Late st Contact Info) Description 02/29/2024 Orders Only Division of Endocrinology in [place], [place] [address] [place] [phone] Margi Avila M.D. [address] [place] [address] Social History Tobacco Use Types Packs/Day Years Used Date Smoking Tobacco: Never Passive Smoke Exposure: Never Smokeless Tobacco: Never Comments:As a child Alcohol Use Standard Drinks/Week Comments Yes 7 (1 standard drink = 0.6 oz pur e alcohol) [facility] Utilities Answer Date Recorded In the past 12 months has [employer], gas, oil, or water [employer] threatened to shut off services in your [...] 08/24/2022 How often do you attend chur [employer] or anglican services? Never 08/24/2022 Do you [...] living situation today? I have a [facility] place to live 09/17/2023 Education [...] as of this encounter Plan of Treatment Upcoming Encounters Date Type Department Care Team (Late st Contact Info) Description 06/20/2024 1:30 PM DIRECT ENTRY MIDWIFE Telemedicine Division of Endocrinology in [place], [place] [address] [place] [address] Margi Avila M.D. [address] [place] [address] documented as of this encounter Visit Diagnoses Not on filedocumented in this encounter Care Teams Web Press Operator Relationship Specialty Start Date End Date Elsewhere, Pcp PCP - General Internal Medicine 12/29/22 documented as of this encounter
--- OUTSIDE RECORDS SUMMARY | 2024-04-07 11:05 | XMS_ITS ---
Author Organization [facility] Address [address] [place] [address] Care Team Providers Care Food And Drink Factory Workers Name Role Phone Unavailable Unavailable Unavailable Surgery Details Not on file Complications Check Surgery Details section. Procedure Estimated Blood Loss Check Surgery Details section. Procedure Findings Check Surgery Details section. Procedure Specimens Taken Check Surgery Details section.
--- OUTSIDE RECORDS SUMMARY | 2024-04-07 11:05 | XMS_ITS | Encounter Summary ---
Author Organization [facility] Address [address] [place] [address] Care Team Providers Care Coach Wirer Name Role Phone Elsewhere, Pcp Primary Care Provider Unavailabl e Encounter Details Date Type Department Care Team (Late st Contact Info) Description 02/23/2024 Orders Only Division of Endocrinology in [place], [place] [address] [place] [phone] Margi Avila M.D. [address] [place] [address] Social History Tobacco Use Types Packs/Day Years Used Date Smoking Tobacco: Never Passive Smoke Exposure: Never Smokeless Tobacco: Never Comments:As a child Alcohol Use Standard Drinks/Week Comments Yes 7 (1 standard drink = 0.6 oz pur e alcohol) [facility] Utilities Answer Date Recorded In the past 12 months has [employer], gas, oil, or water [employer] threatened to shut off services in your [...] 08/24/2022 How often do you attend chur [employer] or pentecostal services? Never 08/24/2022 Do you belong to [...] living situation today? I have a [facility] place to live 09/17/2023 Education Answer [...] st Contact Info) Description 06/20/2024 1:30 PM LANDSCAPE ENGINEER Telemedicine Division of Endocrinology in [place], [place] [address] [place] [address] Margi Avila M.D. [address] [place] [address] documented as of this encounter Visit Diagnoses Not on filedocumented in this encounter Care Teams Coach Wirer Relationship Specialty Start Date End Date Elsewhere, Pcp PCP - General Internal Medicine 12/29/22 documented as of this encounter
--- OUTSIDE RECORDS SUMMARY | 2024-04-07 11:05 | XMS_ITS | Referral Summary ---
Author Organization [facility] Address [address] [place] [address] Care Team Providers Care Manager Employee Benefits Name Role Phone Elsewhere, Pcp Primary Care Provider Unavailabl e Source Comments Patient records contain information from all sites at [facility]. For routine questions regarding patient records, call [phone] during business hours, M-F 8:00 AM - 5:00 PM Central Time. Record requests for emergency care only can be directed to [phone] at any time.[facility] Encounters Date Type Department Care Team Description 03/13/2024 Orders Only Division of Endocrinology in [place], [place] [address] [place] [address] Margi Avila M.D. 02/29/2024 Orders Only Division of Endocrinology in [place], [place] [address] [place] [address] Margi Avila M.D. 02/25/2024 Refill Division of Endocrinology in [place], [place] [address] [place] [address] Margi Avila M.D. Med Refill 02/23/2024 Orders Only Division of Endocrinology in [place], [place] [address] [place] [phone] Margi Avila M.D. 01/13/2024 Clinical Communication Division of Endocrinology in [place], [place] [address] [place] [address] Margi Avila M.D. [employer] - Outside Materials from Last 3 Months Allergies Active Allergy [...] per day. 30 tablet 11 02/29/2024 Active Active Problems Problem Noted Date Diagnosed [...] drink = 0.6 oz pur e alcohol) [facility] Utilities Answer Date Recorded In the past 12 months has e [employer], gas, oil, or water [employer] threatened to shut off services in your [...] often do you attend chur ch or religion services? Never 08/24/2022 Do you belong to any clubs o r organizations such as episcopalian groups, unions, fraternal or athletic groups, or [...] heating? Not hard at all 12/24/2022 [facility] [place] of Occupat ional Health - Occupational Stress [...] your living situation today? I have a [facility] place to live 09/17/2023 Education Answer [...] 10/22/2020 11:32 AM CDT Plan of Treatment Upcoming Encounters Date Type Department Care Team (Late st Contact Info) Description 06/20/2024 1:30 PM APPRENTICE Telemedicine Division of Endocrinology in [place], [place] [address] [place] [address] Margi Avila M.D. [address] [place] [address] Medical Devices Implanted Type Area Reproduction Order Processor Device Identifier Shelf Expiration Date Model / [...] Sodium, S 143 135 - 145 MMOL/L [facility] 04/29/2017 4:11 PM CDT 04/29/2017 4:11 PM CDT Linda Suárez M.D., M.S. LAB BLOOD ADD-O N [facility] [address] * Potassium (04/29/2017 4:11 PM CDT) Potassium, S 5.1 3.6 - 5.2 MMOL/L [facility] 04/29/2017 4:11 PM CDT 04/29/2017 4:11 PM CDT Linda Suárez M.D., M.S. LAB BLOOD ADD-O N Performing Organization Address City/[facility]/ZIP Co de Phone Number [facility] [address] * Creatinine with Estimated GFR (MDRD) (04/29/2017 4:11 PM CDT) Creatinine 1.0 0.6 - 1.1 MG/DL [facility] 04/29/2017 4:11 PM CDT 04/29/2017 4:11 PM CDT Linda Suárez M.D., M.S. LAB BLOOD ADD-O N [facility] [address] from Last 3 Months or Most Recently Relevant to Health Maintenance Advance Directives For more information, please contact: [phone] Documents on File Type Date Recorded Patient Vertical Lathe Operator Expl anation Advance Directives 05/12/2017 12:00 AM Bella rothman document. See document viewer. Care Teams Manager Employee Benefits Relationship Specialty Start Date End Date Elsewhere, Pcp PCP - General Internal Medicine 12/29/22
--- OUTSIDE RECORDS SUMMARY | 2024-04-07 11:05 | XMS_ITS | Patient Health Record ---
Author Organization [facility] Address [address] [facility] [place] [address] Care Team Providers Care Block Operator Name Role Phone KAIT DONATO Primary Care Provider [phone] JimmyLolis ochoa Unavailable [phone] Allergies Allergen (clinical drug ingredient) Drug/Non Drug Allergy documented on EMR Reaction Allergy Type Onset Date Status tramadol traMADol HCl Unknown Drug Allergy Acti ve codeine Codeine Unknown Drug Allergy Active Reason For Referral No Information Medications Medication SIG (Take, Route, Frequency, Duration) Notes Start Date End Date Status Famotidine 20 MG 1 tablet at bedtime as needed Orally Once a day Active amLODIPine Besylate 10 MG 1 tablet Orall y Once a day Active Valsartan 160 MG 1 tablet Orally Once a day Active Clopidogrel Bisulfate 75 MG 1 tablet Ora lly Once a day Active MiraLax Active Melatonin 3 MG 1 tablet at bedtime as needed Orally Once a day Active Lactulose 10 GM/15ML 15 mL as needed Orally Once a day for 10 days As needed 07/30/2023 Active hydroCHLOROthiazide 12.5 MG 1 capsule in the morning Orally Once a day Active Vitamin D 25 MCG (1000 UT) 1 tablet Oral ly Once a day Active Omeprazole 20 MG 1 capsule 30 minutes before morning meal Orally Once a day Active methylPREDNISolone 4 MG as directed Oral ly once daily for 6 days 07/30/2023 Active Rosuvastatin Calcium 40 MG 1 tablet Oral ly Once a day Active Social History Tobacco Use: Social History Observation Description Date Details (start date - stop date) Never Smoker NA - NA Tobacco Use/Smoking Question Answer Notes Are you a: never smoker Problems Problem Type SNOMED Code ICD Code Onset Dates Problem Status W/U Status Risk Notes Problem 48674559 Constipation, unspecified constipation type (K59.00) Active confirmed Problem [id number] DDD (degenerativ e disc disease), lumbar (M51.36) Active confirmed Vital Signs Heart Rate 80 /min 07/30/2023 Temperature 97.2 degrees Fahrenheit 07/30/2023 Oximetry 95 % 07/30/2023 Blood pressure diastolic 80 mm Hg 07/30/2023 Height 63 in 07/30/2023 Blood pressure systolic 140 mm Hg 07/30/2023 Encounters Encounter Location Date Provider Diagnosis [facility] [address] [place] [address] 07/30/2023 Lolis Jimmy Lumbar pain M54.50 ; DDD (degenerative disc disease), lumbar M51.36 and Constipation, unspecified constipation type K59.00 Assessments Encounter Date Diagnosis (ICD Code) Assessment Notes Treatment Notes Treatment Clinical Notes 07/30/2023 Lumbar pain (ICD-10 - M54.50) 07/30/2023 DDD (degenerative disc disease), lumbar (ICD-10 - M51.36) Injury has imflammed her chronic condition follow up for any worsening or recurrent symptoms. 07/30/2023 Constipation, unspecified constipation type (ICD-10 - K59.00) Chronic constipation worse with travel and illness. Will add Lactulos to normal bowel regeime. Plan Of Treatment Pending Test Test Name Order Date X ray : Lumbar spine 4 VIEWS 07/30/2023 Insurance Providers Payer Name Payer Address Payer Phone Subscriber Number Group Number Insured Name Patient Relationship to Insured Coverage Start Date Coverage End Date MEDICARE PART B [address] [place] [address] [phone] [id number] ludivinadecember Self - patient is the insured 7 Medications Administered Medication Instructions Date of Administration Dosage Notes *Decadron 8mg Inj. 07/30/2023 2 mL *Depo Medrol 80MG Inj. 07/30/2023 1 mL
--- OUTSIDE RECORDS SUMMARY | 2024-04-07 11:05 | XMS_ITS | Encounter Summary ---
Author Organization [facility] Address [address] [place] [address] Care Team Providers Care Dry Talc Racker Name Role Phone Elsewhere, Pcp Primary Care Provider Unavailabl e Reason for Visit * Reason Onset Date Comments [employer] 01/13/2024 Encounter Details Date Type Department Care Team (Latest Contact Info) Description 01/13/2024 Clinical Communication Division of Endocrinology in [place], [place] [address] [place] [address] Margi Avila M.D. [address] [place] [address] [employer] Social History Tobacco [...] How often do you attend chur or druze services? Never 08/24/2022 Do you belong to any clubs o r organizations such as faith groups, unions, fraternal or athletic groups, or [...] and heating? Not hard at all 12/24/2022 [facility] [place] of Occupat ional Health - Occupational Stress [...] st Contact Info) Description 06/20/2024 1:30 PM AUTOMOTIVE ASSEMBLER Telemedicine Division of Endocrinology in [place], [place] [address] [place] [address] Margi Avila M.D. [address] [place] [address] documented as of this encounter Visit Diagnoses Not on filedocumented in this encounter Care Teams Dry Talc Racker Relationship Specialty Start Date End Date Elsewhere, Pcp PCP - General Internal Medicine 12/29/22 documented as of this encounter
--- OUTSIDE RECORDS SUMMARY | 2024-04-07 11:05 | XMS_ITS | Encounter Summary ---
Author Organization [facility] Address [address] [place] [address] Care Team Providers Care Narrow Gauge Operator Name Role Phone Elsewhere, Pcp Primary Care Provider Unavailabl e Reason for Visit * Reason Comments Med Refill Encounter Details Date Type Department Care Team (Late st Contact Info) Description 02/25/2024 Refill Division of Endocrinology in [place], [place] [address] [place] [phone] Margi Avila M.D. [address] [place] [phone] Med Refill Social History Tobacco Use Types Packs/Day Years Used Date Smoking Tobacco: Never Passive Smoke Exposure: Never Smokeless Tobacco: Never Comments:As a child Alcohol Use Standard Drinks/Week Comments Yes 7 (1 standard drink = 0.6 oz pur e alcohol) [facility] Utilities Answer Date Recorded In the past 12 months has [employer], gas, oil, or water [employer] threatened to shut off services in your [...] How often do you attend chur or hoahaoism services? Never 08/24/2022 Do you belong to any clubs o r organizations such as sikh groups, unions, fraTarana Wireless or athletic groups, or school groups? No [...] and heating? Not hard at all 12/24/2022 [facility] of Occupat ional Health - Occupational [...] st Contact Info) Description 06/20/2024 1:30 PM ELECTRIC APPLIANCE INSTALLER Telemedicine Division of Endocrinology in [place], [place] [address] [place] [phone] Margi Avila M.D. [address] [place] [address] documented as of this encounter Visit Diagnoses Not on filedocumented in this encounter Care Teams Narrow Gauge Operator Relationship Specialty Start Date End Date Elsewhere, Pcp PCP - General Internal Medicine 12/29/22 documented as of this encounter
--- OUTSIDE RECORDS SUMMARY | 2024-04-07 11:05 | XMS_ITS | Clinical Summary ---
Author Organization [facility] Address [address] [place] [address] Care Team Providers Care Cycle Repairer Name Role Phone Elsewhere, Pcp Primary Care Provider Unavailabl e Source Comments Patient records contain information from all sites at [facility]. For routine questions regarding patient records, call [phone] during business hours, M-F 8:00 AM - 5:00 PM Central Time. Record requests for emergency care only can be directed to [phone] at any time.[facility] Allergies Active Allergy Reactions Criticality Noted Date [...] 03/13/2024 Orders Only Division of Endocrinology in [place], [place] [address] [place] [address] Margi Avila M.D. 02/29/2024 Orders Only Division of Endocrinology in [place], [place] [address] [place] [address] Margi Avila M.D. 02/25/2024 Refill Division of Endocrinology in [place], [place] [address] [place] [address] Margi Avila M.D. Med Refill 02/23/2024 Orders Only Division of Endocrinology in [place], [place] [address] [place] [address] Margi Avila M.D. 01/13/2024 Clinical Communication Division of Endocrinology in [place], [place] [address] [place] [address] Margi Avila M.D. [employer] - Outside Materials from Last 3 Months Family History Medical [...] 0.6 oz pur e alcohol) [facility] Utilities Answer Date Recorded In the past 12 months has [facility] [employer], gas, oil, or water [employer] threatened to shut off services in your [...] How often do you attend chur or latter day services? Never 08/24/2022 Do [...] and heating? Not hard at all 12/24/2022 [facility] of Occupat ional Health - Occupational Stress [...] your living situation today? I have a [facility] place to live 09/17/2023 Education [...] st Contact Info) Description 06/20/2024 1:30 PM MACHINE CLEANER Telemedicine Division of Endocrinology in [place], [place] [address] [place] [address] Margi Avila M.D. [address] [place] [address] Health Maintenance Due Date Last Done Comments Creatinine Level (Kidney Fun ction Test) 06/24/2023 06/24/2022, 03/31/2022, 12/16/2021, Additional history exists Potassium Level 06/24/2023 06/24/2022, 0 12/2021, 12/16/2021, Additional history exists Sodium Level 06/24/2023 06/24/2022, 0 12/2021, 12/16/2021, Additional history exists Depression Screening [...] history exists Medical Devices Implanted Type Area Customer Support Specialist Device Identifier Shelf Expiration Date Model [...] Sodium, S 143 135 - 145 MMOL/L [facility] 04/29/2017 4:11 PM CDT 04/29/2017 4:11 PM CDT Linda Suárez M.D., M.S. LAB BLOOD ADD-O N [facility] [address] * Potassium (04/29/2017 4:11 PM CDT) Potassium, S 5.1 3.6 - 5.2 MMOL/L [facility] 04/29/2017 4:11 PM CDT 04/29/2017 4:11 PM CDT Linda Suárez M.D., M.S. LAB BLOOD ADD-O N Performing Organization Address City/[facility] Co de Phone Number [facility] [address] * Creatinine with Estimated GFR (MDRD) (04/29/2017 4:11 PM CDT) Creatinine 1.0 0.6 - 1.1 MG/DL [facility] 04/29/2017 4:11 PM CDT 04/29/2017 4:11 PM CDT Linda Suárez M.D., M.S. LAB BLOOD ADD-O N [facility] [address] from Last 3 Months or Most Recently Relevant to Health Maintenance Advance Directives For more information, please contact: [phone] Documents on File Type Date Recorded Patient Time Cycle Operator Expl anation Advance Directives 05/12/2017 12:00 AM Bella rothman document. See document viewer. Care Teams Cycle Repairer Relationship Specialty Start Date End Date Elsewhere, Pcp PCP - General Internal Medicine 12/29/22
--- OUTSIDE RECORDS SUMMARY | 2024-04-07 11:05 | XMS_ITS | Clinical Summary ---
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 Abnormal cardiovascular stress test 04/08/2022 Hyperlipidemia LDL goal <70 04/08/2022 Skin cancer 02/19/2022 Overview (04/14/2023): 02/12/22 left wrist , Invasive squamous cell carcinoma, excised 04/29/22 Rosalia Crawford MD Hypertension Osteoporosis Overview (11/03/2011): History of hyperparathyroid, status post parathyroidectomy Fosamax begun 2006 GERD (gastroesophageal reflux disease) Overview (01/29/2017): EGD 01/2017 large hiatal hernia, Reactive gastropathy, try carafate Urolithiasis Encounters Date Type Department Care Team Description 03/23/2024 1:15 PM CDT Office Visit [address] [address] Linda Millan MD Consult (Vertigo) 03/23/2024 12:00 PM CDT Office Visit [address] [address] Krysta Brandon AuD Hearing Problem (Hearing test) 03/23/2024 Travel 03/22/[address] [address] Pcp, No Questions (ACUPUNCTURE) 03/20/2024 Travel 03/16/2024 2:00 PM CDT Telemedicine [facility] [address] [place] [address] Deep Monzon MD 03/16/2024 Travel 03/09/2024 Transcribe Orders [facility] [address] [place] [address] Annie Brown MD 03/01/2024 Telephone [facility] [address] [place] [address] Clinic, [facility] Appointment 02/25/2024 Telephone [facility] [address] [place] [address] Zoran Mosher MD Referral (ENT REFERRAL) 02/23/2024 11:40 AM CDT Office Visit [facility] [place] [facility] [address] [place] [address] Patricio Mauricio MD Follow Up (Follow up chronic fatigue and unsteady gait ) 02/23/2024 Travel 02/17/2024 Orders Only [facility] Scanner 1 scan: (1-Ord) [place], MULTIPLE RESULTS, 02/17/2024 from Last 3 Months Immunizations Name Administration Dates Next Due Amb Influenza, Inactivated A IIV4 (Age 65+ Years) Preserv Free 04/22/2020 COVID-19 VACCINE SPIKEVAX (M ODERNA 50MCG/0.5ML) 12YO+ PFS 12/09/2023,04/22/2023 COVID-19 vaccine ([facility] [employer] 30mcg/0.3mL) PF, MDV 09/25/2020,09/04/2020 Hepatitis A [...] Sign Reading Time Taken Comments Blood Pressure 145/85 03/16/2024 2:10 PM CDT Pulse 70 03/16/2024 2:10 PM CDT Temperature 36.6 ??C (97.9 ??F) 04/14/2023 2:25 PM CD T Respiratory Rate 14 03/16/2024 2:10 PM CDT Oxygen Saturation 97% 02/23/2024 11:47 AM CDT Inhaled Oxygen Concentration - - Weight 76.2 kg (168 lb) 04/13/2023 11:22 AM CDT Height 160 cm (5' 3) 04/13/2023 11:22 AM CDT Body Mass Index 29.76 04/13/2023 11:22 AM CDT Plan of Treatment Upcoming Encounters Date Type Department Care Team (Late st Contact Info) Description 04/13/2024 1:40 PM CDT Office Visit [facility] [address] [phone] Rosalia Crawford MD [address] [facility] [address] [place] [address] Health Maintenance Due Date Last Done Comments [...] 08/30/2018, 04/06/2018, 07/06/2006 Tdap Completed 11/28/2021, 09/02/2012 RSV vaccine for adults or Completed 05/20/2023 COVID-19 vaccine series Completed 12/09/19 24, 04/22/2023, 12/01/2022, Additional history exists Medical Devices Implanted Type Area Director State Pharmacy Device Identifier Shelf Expiration Date Model / Serial / Lot Log [id number] - Rossi Zcb00 Lens Iol - 1 - Lens Iol Zcb00 21.0 Implanted:Qty: 1 on 11/09/2011 at [facility] Left: Eye [employer] ZCB00# / [id number] / Iol Walsh +21 Tecnis Zcb00 - [id number] Implanted:Qty: 1 on 10/01/2016 by Tian Huggins MD at [facility] Right: Eye [employer] 06/29/2020 ZCB00# / [id number] / Procedures Procedure Name Priority Date/Time Associated [...] 6:35 AM 11/09/2011 11:00 AM Care Teams Etl Software Engineer Relationship Specialty Start Date End Date Annie Brown MD [address] [place] [phone] PCP - General Internal Medicine 03/19/14
--- OUTSIDE RECORDS SUMMARY | 2024-04-07 11:05 | XMS_ITS | Encounter Summary ---
Author Organization [facility] Address [address] [place] [address] Care Team Providers Care Or Manager Name Role Phone Elsewhere, Pcp Primary Care Provider Unavailabl e Encounter Details Date Type Department Care Team (Late st Contact Info) Description 03/13/2024 Orders Only Division of Endocrinology in [place], [place] [address] [place] [phone] Margi Avila M.D. [address] [place] [address] Social History Tobacco Use Types Packs/Day Years Used Date Smoking Tobacco: Never Passive Smoke Exposure: Never Smokeless Tobacco: Never Comments:As a child Alcohol Use Standard Drinks/Week Comments Yes 7 (1 standard drink = 0.6 oz pur e alcohol) [facility] Utilities Answer Date Recorded In the past 12 months has [employer], gas, oil, or water [employer] threatened to shut off services in your [...] 08/24/2022 How often do you attend chur [employer] or pentecostal services? Never 08/24/2022 Do you belong to any clubs o r organizations such as moravian groups, unions, fraternal or athletic groups, or [...] living situation today? I have a [facility] place to live 09/17/2023 Education Answer [...] st Contact Info) Description 06/20/2024 1:30 PM WEATHER STRIPPER Telemedicine Division of Endocrinology in [place], [place] [address] [place] [address] Margi Avila M.D. [address] [place] [address] documented as of this encounter Visit Diagnoses Not on filedocumented in this encounter Care Teams Or Manager Relationship Specialty Start Date End Date Elsewhere, Pcp PCP - General Internal Medicine 12/29/22 documented as of this encounter
== END 2024-04-07 11:02 | disposition home or self-care (01) ==
LOC: RAD 11:03
PROVIDERS: PCP Internal Medicine; Visit Provider Internal Medicine Gastroenterology
DX: R14.0 Abdominal distension (gaseous) (principal)
CPT/HCPCS: 74019

== ENCOUNTER 2024-04-25 13:46 | Outpatient (RCR) | payer MEDICARE, SELFPAY | END 2024-08-23 23:59 | disposition home or self-care (01) | PROVIDERS: PCP Internal Medicine; Visit Provider Student in an Organized Health Care Education/Training Program | DX: R26.89 Other abnormalities of gait and mobility (principal); R53.83 Other fatigue; R42 Dizziness and giddiness; Z51.89 Encounter for other specified aftercare | CPT/HCPCS: 97162 ==

== ENCOUNTER 2024-06-13 13:07 | Outpatient (CLI) | payer MEDICARE, SELFPAY ==
--- OUTSIDE RECORDS SUMMARY | 2024-06-13 13:13 | XMS_ITS ---
Author Organization [facility] Address [address] [place] [address] Care Team Providers Care Barber Tool Sharpener Name Role Phone Unavailable Unavailable Unavailable Surgery Details Not on file Complications Check Surgery Details section. Procedure Estimated Blood Loss Check Surgery Details section. Procedure Findings Check Surgery Details section. Procedure Specimens Taken Check Surgery Details section.
--- OUTSIDE RECORDS SUMMARY | 2024-06-13 13:13 | XMS_ITS | Clinical Summary ---
Author Organization [facility] Address [address] [place] [address] Care Team Providers Care Wood Heel Cementer Name Role Phone Elsewhere, Pcp Primary Care Provider Unavailabl e Source Comments Patient records contain information from all sites at [facility]. For routine questions regarding patient records, call [phone] during business hours, M-F 8:00 AM - 5:00 PM Central Time. Record requests for emergency care only can be directed to [phone] at any time.[facility] Allergies Active Allergy Reactions Criticality Noted Date Comments Codeine Nausea Only 04/29/2017 vomiting, nausea, felt terrible, slept most of the day Tramadol GI intolerance 04/24/2019 Medications * This document contains information received from the source organization and may not represent a complete record from that organization. amLODIPine (NORVASC) 10 mg tablet Take 1 tablet by mouth daily. 7 Active clopidogrel (PLAVIX) 75 mg tablet Take 1 tablet by mouth daily. 7 Active famotidine (PEPCID) 20 mg tablet Take 1 tablet by mouth daily. 7 Active polyethylene glycol (MIRALAX) 17 gram powder packet Take 1 Package by mouth daily. 7 Active multivitamin tablet Take 1 tablet by mouth daily. 7 Active omeprazole (PriLOSEC) 20 mg capsule Take 1 capsule by mouth daily. 7 Active ondansetron ODT (ZOFRAN-ODT) 4 mg disintegrating tablet Take 1 tablet by mouth every 6 (six) hours as needed. When needed 7 Active vit A/vit C/vit E/zinc/copper (PRESERVISION AREDS ORAL) Take 1 tablet by mouth 2 (two) times a day. 7 Active acetaminophen (TYLENOL 8 HOUR ORAL) Take 1 tablet by mouth as needed. When needed 7 Active rosuvastatin (CRESTOR) 40 mg tablet Take 40 mg by mouth daily. Active valsartan (DIOVAN) 160 mg tablet Take 160 mg by mouth daily. 1 Active peg 400-propylene glycol, PF, (SYSTANE) 0.4-0.3 [...] by mouth 3 (three) times a day. 3 Active osilodrostat (Isturisa) 1 mg tablet Take one-half tablet by mouth 2 times per day. 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 from Last 3 Months [...] drink = 0.6 oz pur e alcohol) [facility] Utilities Answer Date Recorded In the past 12 months has e [employer], gas, oil, or water [employer] threatened to shut off services in [...] often do you attend chur ch or temple services? Never 08/24/2022 Do you [...] and heating? Not hard at all 12/24/2022 [facility] of Occupat ional Health - Occupational Stress [...] have received? Associate degree: academic program 04/21/2019 Comments Unknown Sex and Gender Information Value Date Recorded Sex Assigned at Female 12/01/2017 11:21 AM CDT Legal Sex Female 10:25 AM CDT Gender Identity Female 12/01/2017 11:21 AM CDT Sexual Orientation Straight 12/01/2017 11 :21 AM CDT Last Filed Vital Signs Vital Sign Reading Time Taken Comments Blood Pressure 162/84 04/24/2019 10:33 AM CDT Pulse 69 04/24/2019 10:33 AM CDT Temperature 35.9 C (96.6 F) 10/22/2020 11:32 AM CDT Respiratory Rate - - Oxygen Saturation - - Inhaled Oxygen Concentration - - Weight 73.5 kg (162 lb 0.6 oz) 10/22/2020 11:32 AM CDT Height 159 cm (5' 2.6) 10/22/2020 11:32 AM CDT Body Mass Index 29.07 10/22/2020 11:32 AM CDT Plan of Treatment Upcoming Encounters Date Type Department Care Team (Latest Contact Info) Description 06/15/2024 9:30 AM STEAM PRESS TENDER Clinical Communication Virtual Review in [place], [place] [address] [place] [phone] 06/20/2024 1:30 PM STEAM PRESS TENDER Telemedicine Division of Endocrinology in [place], [place] [address] [place] [phone] Margi Avila M.D. [address] [place] [phone] Health Maintenance Due Date Last Done Comments IPV Vaccines (2 of 3 - Adult catch-up series) 12/12/1997 11/14/1997 Creatinine Level (Kidney Fun ction Test) 06/24/2023 06/24/2022, 03/31/2022, 12/16/2021, Additional history exists Potassium Level 06/24/2023 06/24/2022, 09/0 12/2021, 12/16/2021, Additional history exists Sodium Level 06/24/2023 06/24/2022, 09/0 12/2021, 12/16/2021, Additional history exists Depression Screening (Annual PHQ-2) 07/26/2023 Fall Risk Screen (Annual) 07/26/2023 COVID-19 Vaccine (2023-2 5 season) 2024 12/09/2023, 04/22/2023, 12/01/2022, Additional history exists Influenza Vaccine (#1) 2024 , 04/30/2022, 05/06/2021, Additional history exists DTaP,Tdap,and Td Vaccines (4 - Td or Tdap) 11/29/2031 11/28/2021, 09/02/2012, 09/02/2012 Pneumococcal vaccine (65+ years) Completed 05/22/20 15, 05/02/2007 Zoster Vaccines Completed 08/30/2018, 03/26, 07/06/2006 RSV vaccine - (32-3 6 weeks) or 60+ years Completed 05/20/2023 Medical Devices Implanted Type Area [employer]ta Device Identifier Shelf Expiration Date Model / [...] Sodium, S 143 135 - 145 MMOL/L [facility] 04/29/2017 4:11 PM CDT 04/29/2017 4:11 PM CDT us Linda Suárez M.D., M.S. LAB BLOOD ADD-ON Final Result Performing Organization Address City/[facility] Co de Phone Number [facility] [address] * Potassium (04/29/2017 4:11 PM CDT) Potassium, S 5.1 3.6 - 5.2 MMOL/L [facility] 04/29/2017 4:11 PM CDT 04/29/2017 4:11 PM CDT us Linda Suárez M.D., M.S. LAB BLOOD ADD-ON Final Result Performing Organization Address [facility] Co de Phone Number [facility] [address] * Creatinine with Estimated GFR (MDRD) (04/29/2017 4:11 PM CDT) Creatinine 1.0 0.6 - 1.1 MG/DL [facility] 04/29/2017 4:11 PM CDT 04/29/2017 4:11 PM CDT Result Any Suárez M.D., M.S. LAB BLOOD ADD-ON Final Result Performing Organization Address [facility] Co de Phone Number [facility] [address] from Last 3 Months or Most Recently Relevant to Health Maintenance Insurance [facility] MEDICARE Advance Directives For more information, please contact: [phone] Documents on File Type Date Recorded Patient Branch Services Manager Expl anation Advance Directives 05/12/2017 12:00 AM Bella rothman document. See document viewer. Care Teams Wood Heel Cementer Relationship Specialty Start Date End Date Elsewhere, Pcp PCP - General Internal Medicine 12/29/22
--- OUTSIDE RECORDS SUMMARY | 2024-06-13 13:13 | XMS_ITS | Encounter Summary ---
Author Organization [facility] Address [address] [place] [address] Care Team Providers Care Cosmetic Sales Assistant Name Role Phone Elsewhere, Pcp Primary Care Provider Unavailabl e Encounter Details Date Type Department Care Team (Late st Contact Info) Description 03/13/2024 Orders Only Division of Endocrinology in [place], [place] [address] [place] [phone] Margi vAila M.D. [address] [place] [phone] Social History Tobacco Use Types Packs/Day Years Used Date Smoking Tobacco: Never Passive Smoke Exposure: Never Smokeless Tobacco: Never Comments:As a child Alcohol Use Standard Drinks/Week Comments Yes 7 (1 standard drink = 0.6 oz pur e alcohol) [facility] Utilities Answer Date Recorded In the past 12 months has [employer], gas, oil, or water [employer] threatened to shut off services in your [...] 08/24/2022 How often do you attend chur [employer] or hinduism services? Never 08/24/2022 Do you [...] your living situation today? I have a [facility] place to live 09/17/2023 Education Answer [...] (Latest Contact Info) Description 06/15/2024 9:30 AM COMPLIANCE FIELD TECHNICIAN Clinical Communication Virtual Review in [place], [place] [address] [place] [phone] 06/20/2024 1:30 PM COMPLIANCE FIELD TECHNICIAN Telemedicine Division of Endocrinology in [place], [place] [address] [place] [phone] Margi Avila M.D. [address] [place] [phone] documented as of this encounter Visit Diagnoses Not on filedocumented in this encounter Care Teams Cosmetic Sales Assistant Relationship Specialty Start Date End Date Elsewhere, Pcp PCP - General Internal Medicine 12/29/22 documented as of this encounter
--- OUTSIDE RECORDS SUMMARY | 2024-06-13 13:13 | XMS_ITS | Referral Summary ---
Author Organization [facility] Address [address] [place] [address] Care Team Providers Care Long Line Teamster Name Role Phone Elsewhere, Pcp Primary Care Provider Unavailabl e Source Comments Patient records contain information from all sites at [facility]. For routine questions regarding patient records, call [phone] during business hours, M-F 8:00 AM - 5:00 PM Central Time. Record requests for emergency care only can be directed to [phone] at any time.[facility] Encounters Date Type Department Care Team Description 03/13/2024 Orders Only Division of Endocrinology in [place], [place] [address] [place] [address] Margi Avila M.D. from Last 3 Months [...] often do you attend chur ch or mu-ism services? Never 08/24/2022 Do you belong to any clubs o r organizations such as evangelical groups, unions, fraternal or athletic groups, or [...] and heating? Not hard at all 12/24/2022 [facility] of Occupat ional Health - Occupational Stress [...] your living situation today? [facility] 09/17/2023 Education Answer [...] (Latest Contact Info) Description 06/15/2024 9:30 AM COPY OPERATOR Clinical Communication Virtual Review in [place], [place] [address] [place] [address] 06/20/2024 1:30 PM COPY OPERATOR Telemedicine Division of Endocrinology in [place], [place] [address] [place] [phone] Margi Avila M.D. [address] [place] [phone] Medical Devices Implanted Type Area Pipe Puller Device Identifier Shelf Expiration Date Model / [...] Sodium, S 143 135 - 145 MMOL/L [facility] 04/29/2017 4:11 PM CDT 04/29/2017 4:11 PM CDT us Linda Suárez M.D., M.S. LAB BLOOD ADD-ON Final Result [facility] [address] * Potassium (04/29/2017 4:11 PM CDT) Potassium, S 5.1 3.6 - 5.2 MMOL/L [facility] 04/29/2017 4:11 PM CDT 04/29/2017 4:11 PM CDT us Linda Suárez M.D., M.S. LAB BLOOD ADD-ON Final Result Performing Organization Address City/[facility]/ZIP Co de Phone Number [facility] [address] * Creatinine with Estimated GFR (MDRD) (04/29/2017 4:11 PM CDT) Creatinine 1.0 0.6 - 1.1 MG/DL [facility] 04/29/2017 4:11 PM CDT 04/29/2017 4:11 PM CDT us Linda Suárez M.D., M.S. LAB BLOOD ADD-ON Final Result Performing Organization Address City/[facility] Co de Phone Number [facility] [address] from Last 3 Months or Most Recently Relevant to Health Maintenance Insurance [facility] MEDICARE Advance Directives For more information, please contact: [phone] Documents on File Type Date Recorded Patient Data Warehouse Developer Expl anation Advance Directives 05/12/2017 12:00 AM Bella rothman document. See document viewer. Care Teams Long Line Teamster Relationship Specialty Start Date End Date Elsewhere, Pcp PCP - General Internal Medicine 12/29/22
--- OUTSIDE RECORDS SUMMARY | 2024-06-13 13:13 | XMS_ITS | Encounter Summary ---
Author Organization [facility] Address [address] [place] [address] Care Team Providers Care Web Publisher Name Role Phone Elsewhere, Pcp Primary Care Provider Unavailabl e Encounter Details Date Type Department Care Team (Late st Contact Info) Description 02/29/2024 Orders Only Division of Endocrinology in [place], [place] [address] [place] [phone] Margi Avila M.D. [address] [place] [address] Social History Tobacco Use Types Packs/Day Years Used Date Smoking Tobacco: Never Passive Smoke Exposure: Never Smokeless Tobacco: Never Comments:As a child Alcohol Use Standard Drinks/Week Comments Yes 7 (1 standard drink = 0.6 oz pur e alcohol) [facility] Utilities Answer Date Recorded In the past 12 months has Want[employer], gas, oil, or water [employer] threatened to shut off services in your [...] 08/24/2022 How often do you attend chur iconDial or congregation services? Never 08/24/2022 Do you belong to any clubs o r organizations such as alevism groups, unions, fraternal or athletic groups, or [...] and heating? Not hard at all 12/24/2022 [facility] - Occupational [...] (Latest Contact Info) Description 06/15/2024 9:30 AM SVP CHIEF MARKETING OFFICER Clinical Communication Virtual Review in [place], [place] [address] [place] [phone] 06/20/2024 1:30 PM SVP CHIEF MARKETING OFFICER Telemedicine Division of Endocrinology in [place], [place] [address] [place] [phone] Margi Avila M.D. [address] [place] [phone] documented as of this encounter Visit Diagnoses Not on filedocumented in this encounter Care Teams Web Publisher Relationship Specialty Start Date End Date Elsewhere, Pcp PCP - General Internal Medicine 12/29/22 documented as of this encounter
--- OUTSIDE RECORDS SUMMARY | 2024-06-13 13:14 | XMS_ITS | Clinical Summary ---
Author Organization [facility] Address [place], [place] [address] Care Team Providers Care Last Pattern Grader Name Role Phone Annie Brown MD Primary Care Provider [phone] Allergies Active Allergy Reactions Criticality Noted Date [...] Encounters Date Type Department Care Team Description 06/08/2024 11:40 AM MAINT MECHANIC Orders Only [facility] 100 [facility] [place] [phone] Lab Mary [facility] Lab 06/07/2024 Travel 06/03/2024 Travel 05/11/2024 3:40 PM CDT Office Visit [facility] [address] [place] [address] [place] [address] Rosalia Crawford MD Derm Problem 05/10/2024 Travel 05/10/2024 Orders Only [facility] [address] [facility] [address] Rico Hunt MD Lab 05/05/2024 2:30 PM CDT Orders Only [facility] [address] [place] [address] Lab, Farm Lab 05/05/2024 Travel 04/24/2024 [facility]phone [facility] [address] [place] [address] Linda Millan MD Questions (Physical Therapy ) 03/23/2024 1:15 PM CDT Office Visit [address] [phone] Linda Millan MD Consult (Vertigo) 03/23/2024 12:00 PM CDT Office Visit [facility] [address] [place] [address] Krysta Brandon AuD Hearing Problem (Hearing test) 03/23/2024 Travel 03/22/2024 Telephone [facility] [address] [place] [phone] Pcp, No Questions (ACUPUNCTURE) 03/20/2024 Travel 03/16/2024 2:00 PM CDT Telemedicine [facility] [address] [facility] [address] [place] [phone] Deep Monzon MD 03/16/2024 Travel from Last 3 Months Immunizations Name Administration Dates Next Due Amb Influenza, Inactivated A IIV4 (Age 65+ Years) Preserv Free 04/22/2020 COVID-19 VACCINE SPIKEVAX (M ODERNA 50MCG/0.5ML) 12YO+ PFS 12/09/2023,04/22/2023 COVID-19 vaccine ([employer]-Bio NTech 30mcg/0.3mL) WENDY FOSTER 09/25/2020,09/04/2020 Hepatitis A [...] Date Smoking Tobacco: Never Passive Smoke Exposure: Past Smokeless Tobacco: Never Tobacco Cessation:Counseling Given: Not Answered Comments:second hand smoke exposure as a child Alcohol Use Standard Drinks/Week Comments Yes 5.8 (1 standard drink = 0.6 oz p ure alcohol) glass of wine nightly Social Connections Answer Date Recorded Do you often feel lonely or isolated from those around you? 0 11/21/2023 Financial Resource Strain Answer Date R ecorded Difficulty of Paying Living Expenses 3 11/21/2023 Difficulty of Paying Living Expenses Not on file 11/21/2023 Food Insecurity Answer Date Recorded Do you worry your food will run out before you are able to buy more? 1 11/21/2023 Transportation Needs Answer Date Record ed Does lack of transportation keep you from medica l appointments? 1 11/21/2023 Does lack of transportation keep you from work, meetings or getting things that you need? 1 11/21/2023 Housing Stability Answer Date Recorded What is your housing situation today? 1 11/21/2023 Sex and Gender Information Value Date Recorded Sex Assigned at Not on file Gender Identity Not on file Sexual Orientation Not on file Obstetrics History Last Filed Vital Signs Vital Sign Reading Time Taken Comments Blood Pressure 145/85 03/16/2024 2:10 PM CDT Pulse 70 03/16/2024 2:10 PM CDT Temperature 36.6 C (97.9 F) 04/14/2023 2:25 PM CDT Respiratory Rate 14 03/16/2024 2:10 PM CDT Oxygen Saturation 97% 02/23/2024 11:47 AM CDT Inhaled Oxygen Concentration - - Weight 76.2 kg (168 lb) 04/13/2023 11:22 AM CDT Height 160 cm (5' 3) 04/13/2023 11:22 AM CDT Body Mass Index 29.76 04/13/2023 11:22 AM CDT Plan of Treatment Upcoming Encounters Date Type Department Care Team (Late st Contact Info) Description 05/11/2025 2:00 PM CDT Office Visit [facility] [address] [place] [address] [place] [address] Rosalia Crawford MD [address] [facility] [address] [place] [address] Health Maintenance Due Date Last Done Comments [...] or Completed 05/20/2023 COVID-19 vaccine series Completed 05/03/20 24, 12/09/2023, 04/22/2023, Additional history exists Medical Devices Implanted Type Area Linen Worker Device Identifier Shelf Expiration Date Model / Serial / Lot Log [id number] - Rossi Zcb00 Lens Iol - 1 - Lens Iol Zcb00 21.0 Implanted:Qty: 1 on 11/09/2011 at [facility] Left: Eye [employer] ZCB00# / [id number] / Iol Wake +21 [employer]ecnis Zcb00 - [id number] Implanted:Qty: 1 on 10/01/2016 by Tian Huggins MD at [facility] Right: Eye [employer] 06/29/2020 ZCB00# / [id number] / Procedures Procedure Name Priority Date/Time Associated Diagnosis Comments VITAMIN E MICRONUTRIENT (QUEST) BLOOD Routine 06/08/2024 11:48 AM MAINT MECHANIC Low serum vitamin E VITAMIN E MICRONUTRIENT (QUEST) BLOOD Routine 05/05/2024 2:31 PM CDT Pancreatic insufficiency Low serum vitamin E from Last 3 Months Results * VITAMIN E MICRONUTRIENT (QUEST) BLOOD (06/08/2024 11:48 AM MAINT MECHANIC) Only the most recent of2 resultswithin the time period is included. VITAMIN E, ALPHA TOCOPHEROL 16.7 5.7 - 19.9 mg/L [facility] [place] [facility] [place] VITAMIN E, BETA GAMMA TOCOPHEROL 2.2 <4.4 mg/L [facility] [employer] [facility] [place] Comment: Vitamin E is used as an antioxidant and influences immune function. It helps to protect cell membranes from damaging oxidative stress. A clinical deficiency of vitamin E may cause motor and sensory neuropathy in adults. One likely cause of vitamin E deficiency is intestinal malabsorption, resulting from bowel disease, pancreatic disease, or chronic cholestasis. Other causes of malabsorption of vitamin E include celiac disease, cystic fibrosis, and intestinal lymphangiectasia. For more information, visit https://ods.od.nih.gov/factsheets/VitaminE-HealthProfes sional/ This test was developed and its analytical performance characteristics have been determined by [employer] [place], [place], [place]. It has not been cleared or approved by the FDA. This assay has been validated pursuant to the CLIA regulations and is used for clinical purposes. Blood BLOOD SPECIMEN / Unknown 06/08/2024 11:48 AM MAINT MECHANIC 06/08/2024 11:49 AM MAINT MECHANIC Narrative [employer] - 06/13/2024 1:30 AM MAINT MECHANIC FASTING:NO FASTING: NO Rico Hunt MD SEND OUTS [employer]/[place] [address] [place], [place] , [email or web address] [facility] [address] [place], [place] from Last 3 Months Advance Directives * Full Code (Latest Code Status on File) Date Activated Date Inactivated Comments 10/01/2016 12:21 PM 10/01/2016 5:23 PM * Full Code Date Activated Date Inactivated Comments 11/09/2011 6:35 AM 11/09/2011 11:00 AM Care Teams Last Pattern Grader Relationship Specialty Start Date End Date Annie Brown MD [address] [place] [address] PCP - General Internal Medicine 03/19/14
[2024-06-13 13:36] LABS: Potassium* 4.7 mmol/L (3.6-5.1)
[2024-06-14 22:57] LABS: Cortisol, Serum 13.6 ug/dL
[2024-06-20 16:45] LABS: Magnesium* 2.2 mg/dL (1.5-2.6)
== END 2024-06-13 13:08 | disposition home or self-care (01) ==
LOC: LAB 13:11
PROVIDERS: PCP Internal Medicine; Visit Provider Internal Medicine
DX: E27.9 Disorder of adrenal gland, unspecified (principal); E24.9 Cushing's syndrome, unspecified
CPT/HCPCS: 36415; 82024; 82533; 83735; 84132

== ENCOUNTER 2024-08-17 12:47 | Outpatient (CLI) | payer MEDICARE, SELFPAY ==
--- NOTE | 2024-08-17 13:00 | CRLHL7_ITS ---
For Patients: As a result of the Century Cures Act, medical imaging exams and procedure reports are released immediately into your electronic medical record. You may view this report before your referring provider. If you have questions, please contact your health care provider. INDICATION: Abdominal pain. COMPARISON: CT abdomen pelvis 11/30/2016, 07/12/2018, 10/25/2018 and 02/17/2024. TECHNIQUE: Precontrast T1 and T2 weighted imaging; T2 haste imaging; diffusion-weighted imaging; in and out of phase imaging; postcontrast imaging including subtraction; 20 cc of dotarem contrast was injected. Findings: No focal hepatic or splenic pathology. A 0.8 cm cyst identified in the body of the pancreas with high signal on the precontrast T2 haste imaging and low signal on the precontrast T1 weighted imaging without enhancement post contrast administration; rule out side-branch IPMN; follow-up MR of the pancreas in 1 year duration suggested. no evidence of pancreatic ductal dilatation. Gallbladder is unremarkable. A 1.6 cm nodule left adrenal and a 1.2 cm nodule in the right adrenal with signal dropout on the out of phase imaging indicated lipid rich adenoma; stable when compared to 2017. Multiple simple cortical cysts both kidneys. No retroperitoneal lymphadenopathy. No evidence of abdominal ascites. Impression: 1. Cause for the patient`s abdominal pain is not evident on the CT study. 2. 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 3. Simple cortical cyst left kidney. 4. A 0.8 centimeter cyst body of the pancreas; side-branch IPMN; follow-up MR of the pancreas in 1 year suggested Dictated by Krzysztof La MD @ 08/17/2024 3:22:26 PM (Electronically Signed)
--- NOTE | 2024-08-17 14:30 | CRLHL7_ITS ---
For Patients: As a result of the Century Cures Act, medical imaging exams and procedure reports are released immediately into your electronic medical record. You may view this report before your referring provider. If you have questions, please contact your health care provider. INDICATION: Unspecified abdominal and pelvic pain; further assessment. COMPARISON: CT abdomen and pelvis 11/30/2016, 11/10/2017, 06/26/2019 and 02/17/2024. TECHNIQUE: MRI of the pelvis without and with intravenous contrast; precontrast T1 and T2 weighted imaging; T2 haste imaging; diffusion-weighted imaging; in- and out of phase imaging; postcontrast imaging in axial, coronal and sagittal projections; 20 cc of dotarem contrast was injected. FINDINGS: No mass lesions identified in the pelvis. The uterus is unremarkable. No adnexal pathology. No abnormal pelvic lymphadenopathy. Diverticulosis sigmoid colon with no diverticulitis or abscess. Impression: 1. Diverticulosis sigmoid colon. 2. Negative MRI of the pelvis without and with intravenous contrast. Dictated by Krzysztof La MD @ 08/17/2024 3:27:55 PM (Electronically Signed)
== END 2024-08-17 12:48 | disposition home or self-care (01) ==
LOC: MRI 12:50
PROVIDERS: PCP Internal Medicine; Visit Provider Internal Medicine
DX: R10.9 Unspecified abdominal pain (principal); K57.30 Diverticulosis of large intestine without perforation or abscess without bleeding; N28.1 Cyst of kidney, acquired; K86.2 Cyst of pancreas; E27.9 Disorder of adrenal gland, unspecified; G89.29 Other chronic pain
CPT/HCPCS: 72197; 74183; A9575

== ENCOUNTER 2024-09-26 13:23 | Outpatient (CLI) | payer MEDICARE, SELFPAY ==
[2024-09-26 15:19] LABS: Potassium* 4.6 mmol/L (3.6-5.1)
[2024-09-26 15:22] LABS: Magnesium* 2.2 mg/dL (1.5-2.6)
[2024-09-27 20:18] LABS: Adrenocorticotropic Hormone 1.8 pg/mL (7.2-63.3)
[2024-09-27 22:40] LABS: Cortisol, Serum 16.3 ug/dL
== END 2024-09-26 13:24 | disposition home or self-care (01) ==
LOC: NPINS 13:26
PROVIDERS: PCP Internal Medicine; Visit Provider Internal Medicine
DX: E27.9 Disorder of adrenal gland, unspecified (principal); E24.9 Cushing's syndrome, unspecified
CPT/HCPCS: 82024; 82533; 83735; 84132

== ENCOUNTER 2024-10-30 14:31 | Outpatient (CLI) | payer MEDICARE, SELFPAY | END 2024-10-30 14:32 | disposition home or self-care (01) | PROVIDERS: PCP Internal Medicine; Visit Provider Internal Medicine | DX: I10 Essential (primary) hypertension (principal); R53.83 Other fatigue; E24.0 Pituitary-dependent Cushing's disease; D64.9 Anemia, unspecified; E66.9 Obesity, unspecified; M81.0 Age-related osteoporosis without current pathological fracture; E78.5 Hyperlipidemia, unspecified | CPT/HCPCS: 80053; 82306; 82550; 82728 ==

== ENCOUNTER 2024-11-09 14:05 | Outpatient (CLI) | payer MEDICARE, SELFPAY ==
--- NOTE | 2024-11-09 14:30 | CRLHL7_ITS ---
For Patients: As a result of the Century Cures Act, medical imaging exams and procedure reports are released immediately into your electronic medical record. You may view this report before your referring provider. If you have questions, please contact your health care provider. Indication: Dizziness Technique: Multiplanar, multisequence MRI of the brain obtained without contrast. Comparison: CT head 10/06/2021, MRI brain 02/24/2017 Findings: Diffuse prominence of the ventricles and cortical sulci, most compatible with generalized cerebral volume loss. Focal and confluent regions of FLAIR hyperintensity throughout the bilateral cerebral white matter and central lorenzo, typical of chronic microangiopathy. A couple of chronic lacunar infarcts are noted in the right posterior frontal lobe, both of which are new from 2017, and 1 of which demonstrates facilitated diffusion. Additional chronic small/lacunar infarcts at the right thalamus and right lateral cerebellar hemisphere, stable from 2017. No acute/subacute ischemia, intracranial hemorrhage, or abnormal extra-axial fluid collection. Punctate susceptibility artifact at the right posterior basal ganglia and left occipital lobe, typical of chronic microhemorrhage. Unremarkable midline structures. Preserved major intracranial arterial flow voids. Normal bone marrow signal. Left maxillary sinus mucous retention cyst/polyp. Mild mucosal thickening throughout the ethmoid air cells. No mastoid effusion. Bilateral lens implants. Impression: 1. No evidence of acute intracranial abnormality. 2. Moderate generalized cerebral volume loss and moderately advanced chronic microangiopathy changes, progressed relative to 10/06/2021. 3. 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 Dictated by Sarahy Carpenter MD @ 11/09/2024 3:20:10 PM (Electronically Signed)
== END 2024-11-09 14:06 | disposition home or self-care (01) ==
LOC: MRI 14:07
PROVIDERS: PCP Internal Medicine; Visit Provider Psychiatry & Neurology Neurology
DX: I63.9 Cerebral infarction, unspecified (principal); R42 Dizziness and giddiness
CPT/HCPCS: 70551

== ENCOUNTER 2024-11-16 09:38 | Outpatient (CLI) | payer MEDICARE, SELFPAY | END 2024-11-16 09:39 | disposition home or self-care (01) | LOC: NFLDREF 11-19 20:28 | PROVIDERS: PCP Internal Medicine; Referring Provider Internal Medicine; Visit Provider Internal Medicine | DX: E78.5 Hyperlipidemia, unspecified (principal); I25.10 Atherosclerotic heart disease of native coronary artery without angina pectoris | CPT/HCPCS: 80061 ==

== ENCOUNTER 2024-11-22 20:59 | Outpatient (CLI) | payer MEDICARE, SELFPAY | END 2024-11-22 21:00 | disposition home or self-care (01) | LOC: SLEEP 21:00 | PROVIDERS: PCP Internal Medicine; Visit Provider Internal Medicine | DX: G47.33 Obstructive sleep apnea (adult) (pediatric) (principal) | CPT/HCPCS: 95810 ==

== ENCOUNTER 2024-11-30 12:00 | Emergency (ER) | payer MEDICARE, SELFPAY ==
[2024-11-30 12:10] VITALS: BP 152/87; PULSE 79; RESP 14; TEMP 36.4; O2SAT 95; BMI 28.5
--- NOTE | 2024-11-30 12:37 | ED_ITS ---
HPI - Extremity Injury (Lower) General Time Seen by Provider: 12:38 Date Seen: 11/30/24 Chief Complaint: Extremity Pain/Injury, Lower Stated Complaint: right leg can't feel much touch Time Seen by Provider: 11/30/24 12:37 Source: patient and RN notes reviewed Mode of arrival: ambulatory Limitations: no limitations History of Present Illness HPI Narrative: Marian is a very pleasant 84-year-old female with multiple medical problems including hyperlipidemia PHILLIP aortic valve regurgitation chronic abdominal pain who comes to the emergency room for evaluation regarding weakness of the right leg. Patient and her describe greater than 1 year of gait issues, right leg dragging when she is walking and unsteady gait. 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 They note that she has also had right hip tendinosis and has had injections in the lumbar spine for an L5-S1 pain as well. Because of all of these issues they were told that this explains why the right leg seems to be chronically weak and dragging when Marian walks with the assistance of a walker. They come in today because patient was trying to get in and out of the car and suddenly did not have any strength in the right leg. She notes there is soreness in both of her legs and attributes this to increased physical therapy over the past few weeks. She denies any radicular-type symptoms. She has not had any recent falls or trauma. She also denies fever and chills. History is very challenging as Marian has multiple medical problems. According to Marian and her she has had a recent abnormal MRI, history of Juan Pablo's disease, history of distended abdomen and chronic abdominal pain. She also had a history of compression fractures in the thoracic spine in late 2022 at which time she underwent kyphoplasty in 2023 but had a complication with a fracture and in an adjacent vertebra. Marian states that they have done recent MRIs of the thoracic and lumbar spine at [facility]. Marian also describes some lightheadedness today but after further discussion it appears that these symptoms have been going on for years. She also notes she has not been sleeping well after a sleep study last week. Notes that she did not sleep well last night. Marian denies any unusual fevers, upper extremity weakness or changes. The weakness in the right leg seems to be acute on chronic per her description with symptoms greater than a year, increasing over the last week, and much worse today. Note nursing triage son states that patient has altered sensation and she does not. Sensation is fully intact. Related Data Home Medications ?Medication ?Instructions ?Recorded ?Confirmed famotidine 20 mg tablet 20 mg PO HS 04/30/22 10/30/24 multivitamin (Multiple Vitamins 1 tab PO QAM 04/30/22 10/30/24 tablet) acetaminophen 500 mg capsule 500 mg PO DAILY PRN 07/02/22 10/30/24 melatonin 3 mg capsule 3 mg PO QHS 07/02/22 10/30/24 rosuvastatin 40 mg tablet 40 mg PO DAILY 07/02/22 10/30/24 vit C 250 mg-vit E 90 mg-zinc 40 1 tab PO BID 07/02/22 10/30/24 mg-copper 1 [id number] capsule (PreserVision AREDS-2) calcium 200 mg (as 3 tab PO DAILY 11/22/23 10/30/24 citrate)-vitamin D3 6.25 mcg (250 unit) tablet (Citracal-D3 Petites) gabapentin 100 mg capsule 100 mg PO 3XD PRN 04/24/24 10/30/24 polyethylene glycol 3350 17 8.5 g PO DAILY 10/30/24 10/30/24 gram/dose oral powder valsartan 160 mg tablet 80 mg PO DAILY 10/30/24 10/30/24 Previous Rx's ?Medication ?Instructions ?Recorded clopidogrel 75 mg tablet 75 mg PO DAILY #90 tabs 08/03/24 omeprazole 20 mg capsule,delayed 20 mg PO DAILY #90 caps 09/29/24 release alendronate 70 mg tablet 70 mg PO QWEEK #12 tabs 11/16/24 amlodipine 10 mg tablet 5 mg (1/2 x 10 mg) PO DAILY #90 11/16/24 tabs Allergies Allergy/AdvReac Type Severity Reaction Status Date / Time tramadol Allergy Intermediate nausea, Verified 11/30/24 12:10 vomiting codeine AdvReac Unknown Nausea Verified 11/30/24 12:10 Review of Systems Status of ROS: Reports: 10 or more systems reviewed and unremarkable except as noted in History and below Const: Denies: fever or chills Eyes: Denies: change in vision ENMT: Denies: nasal congestion Cardio: Reports: lightheadedness (Chronic over many years.); Denies: chest pain, swelling of feet/ankles or shortness of breath with exertion Resp: Denies: shortness of breath or cough GI: Reports: abdominal pain (Chronic) : Denies: painful urination Musculo: Reports: back pain and extremity pain (Right anterior thigh) Integ/Breast: Denies: rash Neuro: Denies: headache or numbness in extremities PFSH PFSH Medical History History of compression fracture of spine ?Z87.81 - Personal history of (healed) traumatic fracture (ICD-10) History of renal calculi ?Z87.442 - Personal history of urinary calculi (ICD-10) Surgical History 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 - Acquired absence of eye (ICD-10) History of kyphoplasty (08/13/23) ?Z98.890 - Other specified postprocedural states (ICD-10) History of cataract surgery (2017) ?Z98.49 - Cataract extraction status, unspecified eye (ICD-10) 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.2 - Postprocedural hypoparathyroidism (ICD-10) Family History Father Heart disease Son Heart disease Mother High blood pressure Social History What is your current living situation?: I presently have a place to live Problems where you live: no known problems Problems where you live details: NA In the past 12 months, utilities in danger of being shut off: no In past 12 months, lack of transportation kept you from medical appts, meetings, work, or getting things needed for daily living: no In the past 12 mos, have been you worried that your food would run out before you had money to buy more?: never true In the past 12 mos, the food you bought just didn't last and you didn't have money to buy more?: never true Highest level of school completed/degree received: Associate degree: academic program Smoking Status: Never smoker Do you use any of these nicotine containing products: None Second hand tobacco smoke exposure: Yes (youth) How often do you have a drink containing alcohol: 4 or more times a week Alcohol type: wine Alcohol type details: one glass of wine per night How many standard drinks containing alcohol do you have on a typical day: 1 or 2 How often do you have six or more drinks on one occasion: Never AUDIT-C Alcohol total score: 4 Non-prescribed substance use: denies use Caffeine: Yes (Coffee in AM) How often does anyone, including family, friends and others, physically hurt you : never How often does anyone, including family, friends and others, insult or talk down to you: never How often does anyone, including family, friends and others, threaten you with harm: never How often does anyone, including family, friends and others, scream or curse at you: never service: No Exam Narrative: Exam Narrative: Marian is alert and oriented. Very well-spoken female mentating normally. Face symmetrical. Head is atraumatic. Heart with a regular rate and rhythm. Lungs are clear. Abdomen is protruded jus but it is soft. Nontender. Palpation down the lumbar spine without significant tenderness. Palpation over the right greater trochanter without discomfort. Quadriceps intact bilaterally. No asymmetrical wasting of the musculature. Lower extremity strength and motor is intact with hip flexion flexion at the knee extension at the knee ankle and great toe intact. Perhaps some slight decreased strength in the left plantar flexion of the great toe compared to the right. Absent right reflex at the knee. No pain with internal external rotation of the hip passive range of motion at this time. Romberg is negative. Upper extremity strength and motor is intact Sensation fully intact. Palpation of lumbar spine bilateral P SIS without discomfort. Actually patient states that it feels better with massage. Const: Vital Signs, click to edit/add: Vital Signs - 24 hr 11/30/24 12:10 11/30/24 14:57 Temperature 97.6 F Pulse Rate [Pulse Oximeter] 79 85 Respiratory Rate 14 16 Blood Pressure [Ri ght Upper Arm] 152/87 H Pulse Oximetry 95 96 Oxygen Delivery Me thod Room Air Room Air Documenting provider has reviewed patient's vital signs: yes Course Course ED Course: MRI from December 2022 of the lumbar spine: 1. Trace grade 1 anterolisthesis of L4 on L5. 2. Grade 1 anterolisthesis of L5 on S1. Otherwise normal alignment. No fractures 3. Lumbar spondylosis. 4. At L4-5, large 8 millimeter synovial cyst arising from the right facet joint indents the dorsal aspect of the thecal sac. Overall severe narrowing of the spinal canal. Mild narrowing of the left neural foramina 5. At L5-S1, moderate to severe narrowing of the spinal canal. Potential impingement of the traversing S1 nerve roots. Moderate to severe right and mild left neural foraminal narrowing. Reevaluation(s) Reevaluation #1: Unable to find any recent films that T CO. Able to find MRI of the lumbar spine from December of 2023 which is included in the ED course. Recent pelvis MRI for chronic abdominal pain does not addressed bony abnormalities. X-ray of the right hip Reevaluation #2: I am able to read the MRI report lumbar spine from 2019 for provided by Marian's . Does appear that she has L5-S1 disc disease and foraminal stenosis at this level. Marian was able to walk around with our walker and she has returned to baseline. She feels that there is no more of loss of strength a compare to normally. Vital Signs Vital signs: Initial Vital Signs Temperature 97.6 F 11/30/24 12:10 Temperature Source Temporal Artery Scan 11/30/24 12:10 Pulse Rate 79 11/30/24 12:10 Respiratory Rate 14 11/30/24 12:10 Blood Pressure 152/87 H 11/30/24 12:10 Blood Pressure Mean 108 H 11/30/24 12:10 Blood Pressure Position Sitting 11/30/24 12:10 Pulse Oximetry 95 11/30/24 12:10 Oxygen Delivery Method Room Air 11/30/24 12:10 Vital Signs Temperature 97.6 F 11/30/24 12:10 Pulse Rate 79 11/30/24 12:10 Respiratory Rate 14 11/30/24 12:10 Blood Pressure 152/87 H 11/30/24 12:10 Pulse Oximetry 95 11/30/24 12:10 Oxygen Delivery Method Room Air 11/30/24 12:10 Temperature 97.6 F 11/30/24 12:10 Pulse Rate 85 11/30/24 14:57 Respiratory Rate 16 11/30/24 14:57 Blood Pressure 152/87 H 11/30/24 12:10 Pulse Oximetry 96 11/30/24 14:57 Oxygen Delivery Method Room Air 11/30/24 14:57 MDM - Extremity Injury (Lower) MDM Narrative Medical decision making narrative: 1. Right leg weakness-patient much improved. Patient had increasing discomfort over the past week with acute increased today. Did not seem consistent with stroke like symptoms but rather seems to be more related to lumbar stenosis and radiculopathy. Fortunately, she has returned to baseline. At this time I also had the pleasure of speaking to her primary Dr. Brown. At this time will discharge patient. I do not feel that she needs MRI of the lumbar spine given the fact that she is much improved. Perhaps this was a positional thing sitting in the car and muscle also acknowledge that she has really been increasing her physical therapy over the last 2 weeks. Would recommend that she approach this with moderation. I certainly want her moving to stay mobile but do not want her over doing it. Further examination shows that knee palpation of the back or legs actually feels good for her and thus I think this is more muscular in etiology. 2. Disposition-will be discharged home at this time. Recommend return to the ER or seek medical attention for recurrent or worsening symptoms. Marian and her seem receptive to this plan. They are planning on going to the [facility] over the weekend. Medical Records Attestation: I reviewed the patient's medical records. Lab Data Attestation: I reviewed the patient's lab results. Labs: Lab Results 11/30/24 11/30/24 Range/Units 13:32 13:55 WBC 6.15 (4.50-11.00) K/uL RBC 4.14 (4.00-5.20) m/uL Hgb 12.4 (12.0-16.0) gm/dL Hct 38.1 (33.0-51.0) % MCV 92 (80-100) fL MCH 30 (26-34) pg MCHC 33 (32-36) gm/dL RDW Coeff of Fidencio 14.4 (11.5-15.5) % Plt Count 376 (140-440) K/uL Neut % (Auto) 60.9 (42.0-72.0) % Lymph % (Auto) 23.3 (20-44) % [place] % (Auto) 13.3 H (0.0-11.0) % Eos % (Auto) 2.0 (0.0-7.0) % Baso % (Auto) 0.3 (0.0-3.0) % Neut # (Auto) 3.75 (1.7-7.0) K/uL Lymph # (Auto) 1.43 (0.90-2.90) K/uL [place] # (Auto) 0.80 (0.00-0.90) K/UL Eos # (Auto) 0.12 (0.00-0.50) K/uL Baso # (Auto) 0.02 (0.00-0.30) K/uL Abs Immat Gran (auto) 0.01 (0.00-0.30) K/uL Imm/Tot Granulo (auto) 0.2 % Sodium 132 L (135-149) mmol/L Potassium 4.1 (3.6-5.1) mmol/L Chloride 97 (96-114) mmol/L Carbon Dioxide 26 (20-32) mmol/L Anion Gap 9 (7-15) mEq/L BUN 23 (7-30) mg/dL Creatinine 1.1 (0.5-1.5) mg/dL Estimated Creat Clear 32.06 Estimated GFR 50 ml/min Glucose 104 (60-115) mg/dL Calcium 9.7 (8.4-10.6) mg/dL Total Bilirubin 0.6 (0.1-1.5) mg/dL AST 28 (12-35) U/L ALT 23 (4-35) U/L Alkaline Phosphatase 57 (40-150) U/L Total Protein 6.7 (6.0-8.3) g/dL Albumin 4.1 (3.3-5.0) g/dL Urine Color Yellow (Yellow) Urine Appearance Clear (Clear) Urine pH 7.0 (5.0-8.5) Ur Specific [place] 1.015 (1.000-1.030) Urine Protein Negative (Negative) Urine Glucose (UA) Negative (Negative) Urine Ketones Negative (Negative) Urine Blood Negative (Negative) Urine Nitrite Negative (Negative) Urine Bilirubin Negative (Negative) Urine Urobilinogen 0.2 (0.2-1.0) Ur Leukocyte Esterase Negative (Negative) Urine RBC 0-2 (0-2) Urine WBC 0-2 (0-5) Ur Squamous Epith Cells None (None-Few) Urine Bacteria None (None) Imaging Data Right hip x-ray: Attestation: I have reviewed the pertinent imaging results. My impression: Arthritic changes but no evidence of a fracture. Radiologist's impression: Mild degenerative changes of the bilateral hips. Lwnq-[id number] degenerative changes of the visualized spine. No acute displaced fracture or malalignment. Moderate vascular calcification. Impression: Mild degenerative changes of the bilateral hips. Mwnd-[id number] degenerative changes of the visualized spine. No acute displaced fracture or malalignment. Discharge Plan Discharge Clinical Impression: Right leg weakness Patient Disposition: Home, Self-Care Condition: Improved Additional Instructions: Return as needed. Suggest modifying physical therapy so it is not as intense daily. Prescriptions: No Action calcium citrate-vitamin D3 [Citracal-D3 Petites] 200 mg-6.25 mcg (250 unit) tablet 3 tab PO DAILY Rx Instructions: 600 mg daily multivitamin [Multiple Vitamins] Tablet 1 tab PO QAM famotidine 20 mg tablet 20 mg PO HS polyethylene glycol 3350 17 gram/dose powder 8.5 g PO DAILY gabapentin 100 mg capsule 100 mg PO 3XD PRN rosuvastatin 40 mg tablet 40 mg PO DAILY PreserVision AREDS-2 250-90-40-1 mg capsule 1 tab PO BID melatonin 3 mg capsule 3 mg PO QHS acetaminophen 500 mg capsule 500 mg PO DAILY PRN clopidogrel 75 mg tablet 75 mg PO DAILY Qty: 90 3RF omeprazole 20 mg capsule,delayed release(DR/EC) 20 mg PO DAILY Qty: 90 0RF valsartan 160 mg tablet 80 mg PO DAILY alendronate 70 mg tablet 70 mg PO QWEEK Qty: 12 0RF amlodipine 10 mg tablet 5 mg PO DAILY Qty: 90 3RF Follow Up/Referrals: Annie Brown MD [Primary Care Provider] - Stand Alone Forms: [employer] Info Instructions
--- NOTE | 2024-11-30 13:23 | CRLHL7_ITS ---
For Patients: As a result of the Cures Act, medical imaging exams and procedure reports are released immediately into your electronic medical record. You may view this report before your referring provider. If you have questions, please contact your health care provider. Indication: Right hip and thigh pain Technique: Single view of the pelvis, two views of the right hip. Comparison: None. Findings: Osteopenia. Mild degenerative changes of the bilateral hips. Jugn-et-[id number] degenerative changes of the visualized spine. No acute displaced fracture or malalignment. Moderate vascular calcification. Impression: Mild degenerative changes of the bilateral hips. Yyec-ix-zyspfkll degenerative changes of the visualized spine. No acute displaced fracture or malalignment. Dictated by Erasmo Wilcox MD @ 11/30/2024 2:12:18 PM (Electronically Signed)
[2024-11-30 13:56] LABS: Albumin* 4.1 g/dL (3.3-5.0); Chloride* 97 mmol/L (96-114); Potassium* 4.1 mmol/L (3.6-5.1); Sodium* 132 mmol/L (135-149)
[2024-11-30 13:58] LABS: Blood Urea Nitrogen* 23 mg/dL (7-30); Creatinine* 1.1 mg/dL (0.5-1.5); Est. Creatinine Clearance* 32.06; Estimated Glomerular Filt Rate 50 ml/min
[2024-11-30 13:59] LABS: Alanine Aminotransferase* 23 U/L (4-35); Alkaline Phosphatase* 57 U/L (40-150); Anion Gap 9 mEq/L (7-15); Aspartate Amino Transferase* 28 U/L (12-35); Basophils Absolute Auto 0.02 K/uL (0.00-0.30); Basophils Percent Auto 0.3 % (0.0-3.0); Bilirubin Total* 0.6 mg/dL (0.1-1.5); Calcium* 9.7 mg/dL (8.4-10.6); Carbon Dioxide* 26 mmol/L (20-32); Eosinophils Absolute Auto 0.12 K/uL (0.00-0.50); Glucose* 104 mg/dL (60-115); Hematocrit 38.1 % (33.0-51.0); Hemoglobin* 12.4 gm/dL (12.0-16.0); Immature Granulocytes Abs Auto 0.01 K/uL (0.00-0.30); Immature Granulocytes Pct Auto 0.2 %; Lymphocytes Absolute Auto 1.43 K/uL (0.90-2.90); Lymphocytes Percent Auto 23.3 % (20-44); Mean Corpuscular HGB Conc 33 gm/dL (32-36); Mean Corpuscular Hemoglobin 30 pg (26-34); Mean Corpuscular Volume 92 fL (80-100); Monocytes Percent Auto 13.3 % (0.0-11.0); Neutrophils Absolute Auto 3.75 K/uL (1.7-7.0); Neutrophils Percent Auto 60.9 % (42.0-72.0); Platelet Count* 376 K/uL (140-440); RDW Coefficient of Variation % 14.4 % (11.5-15.5); Red Blood Count 4.14 m/uL (4.00-5.20); Total Protein* 6.7 g/dL (6.0-8.3); White Blood Count* 6.15 K/uL (4.50-11.00)
[2024-11-30 14:06] LABS: Appearance Urine Clear (Clear); Bilirubin Urine Negative (Negative); Blood Urine Negative (Negative); Color Urine Yellow (Yellow); Glucose Urine Negative (Negative); Ketones Urine Negative (Negative); Leukocyte Esterase Urine Negative (Negative); Nitrite Urine Negative (Negative); Protein Urine Negative (Negative); Specific Gravity Urine 1.015 (1.000-1.030); Urobilinogen Urine 0.2 (0.2-1.0)
[2024-11-30 14:16] LABS: RBC Urine 0-2 (0-2); WBC Urine 0-2 (0-5)
[2024-11-30 14:24] LABS: Slide Review Reflex No
[2024-11-30 14:57] VITALS: PULSE 85; RESP 16; O2SAT 96
--- OUTSIDE RECORDS SUMMARY | 2024-11-30 19:33 | XMS_ITS | Encounter Summary ---
Author Organization [facility] Address [address] [place] [address] Care Team Providers Care Children'S Program Coordinator Name Role Phone Unavailable Primary Care Provider Unavailabl e Reason for Visit * Reason Onset Date Comments [facility] - Outside Materials 09/28/2024 Encounter Details Date Type Department Care Team (Latest Contact Info) Description 09/28/2024 Clinical Communication Division of Endocrinology in [place], [place] [address] [place] [address] Margi Avila M.D. [address] [place] [address] [facility] - Outside Materials Social History Tobacco Use Types Packs/Day Years Used Date Smoking Tobacco: Never Passive Smoke Exposure: Never Smokeless Tobacco: Never Comments:As a child Alcohol Use Standard Drinks/Week Comments Yes 7 (1 standard drink = 0.6 oz pur e alcohol) [facility] Utilities Answer Date Recorded [...] and heating? Not hard at all 12/24/2022 [facility] [place] [facility] Occupat ional [facility] - Occupational Stress [...] living? No 09/17/2023 Nutrition Answer Date Recorded On average, how many serving s of [...] living situation today? I have a [facility] place to live 09/17/2023 Education [...]
--- OUTSIDE RECORDS SUMMARY | 2024-11-30 19:33 | XMS_ITS | Encounter Summary ---
Author Organization [facility] Address [address] [place] [id number] Care Team Providers Care Vocational Education Teacher Name Role Phone Unavailable Primary Care Provider Unavailabl e Encounter Details Date Type Department Care Team (Late st Contact Info) Description 11/13/2024 Order-Scan [facility] [address] [place] [address] [address] [place] [address] Reported, Patient Social History Tobacco Use Types Packs/Day Years Used Date Smoking Tobacco: Never Smokeless Tobacco: Never Alcohol Use Standard Drinks/Week Comments Yes 4 (1 standard drink = 0.6 oz pur e alcohol) Comments Unknown Sex and Gender Information Value Date Recorded Sex Assigned at Not on file 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
--- OUTSIDE RECORDS SUMMARY | 2024-11-30 19:33 | XMS_ITS | Clinical Summary ---
Author Organization [facility] Address [address] [place] [address] Care Team Providers Care Hose Wrapper Name Role Phone Annie Brown MD Primary Care Provider [phone] Allergies Active Allergy Reactions Criticality Noted Date Comments Codeine GI Upset 03/11/2010 Tramadol GI Upset,Vomiting 04/24/2019 Medications * This document contains information received from the source organization and may not represent a complete record from that organization. multivitamin (MVI) tablet Take 1 tablet by mouth once daily. 0 2 Active clopidogrel (PLAVIX) 75 mg tablet Take [...] tablet Take 3 mg by mouth. Active calcium citrate/vitamin D3 (CITRACAL-D3 PETITES ORAL) 4 Active gabapentin (NEURONTIN) 100 mg capsule Take 100 mg by mouth 3 times daily if needed. Active ondansetron (ZOFRAN ODT) [address] 4 mg on the tongue every 8 hours if needed. 4 Active alendronate (FOSAMAX) 70 mg tablet Take 70 mg by mouth. 4 Active rosuvastatin (CRESTOR) 40 mg tabletIndications: Hyperlipidemia, unspecified hyperlipidemia type Take 1 Tablet (40 mg) by mouth at bedtime. 90 Tablet 3 4 Active valsartan 80 mg tabletIndications: HTN (hypertension) Take 1 Tablet (80 mg) by mouth once daily. 90 Tablet 3 5 Active amLODIPine 5 mg tabletIndications: HTN (hypertension) Take 1 Tablet (5 mg) by mouth once daily. 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 Abnormal cardiovascular stress test 04/08/2022 [...] Encounters Date Type Department Care Team Description 11/20/2024 2:30 PM CDT Office Visit [facility] [address] [place] [address] Marlene Arroyo, PhD, Mental Health Intake 11/20/2024 Travel 11/16/2024 Orders Only [address] [place] [address] Kizzy Prabhakar 1 scan: (1-Ord) lipid result from [facility] 09/18/24 11/16/2024 Orders Only [address] [place] [address] Deep Monzon MD <No scans attached> 11/15/2024 Travel 11/10/2024 Transcribe Orders [facility] [place] [phone] Patricio Mauricio MD 10/12/[address] [place] [address] Deep Monzon MD Medication Management 10/12/2024 Telephone [facility] [address] [place] [address] Zoran Mosher MD Error-please disregard from Last 3 Months Immunizations Immunization Administration Dates Next Due Amb Influenza, Inactivated A IIV4 (Age 65+ Years) Preserv Free 04/22/2020 COVID-19 VACCINE SPIKEVAX (M ODERNA 50MCG/0.5ML) 12YO+ PFS 12/09/2023,04/22/2023 COVID-19 vaccine (Pfizer-Bio NTech 30mcg/0.3mL) PF, MDV 09/25/2020,09/04/2020 Hepatitis A [...] p ure alcohol) glass of wine nightly PHQ-2 Answer Date Recorded PHQ-2 TOTAL SCORE 3 11/19/2024 Social Connections Answer Date Recorded Do you [...] is your housing situation today? 1 11/21/2023 Utilities Answer Date Recorded Do you have trouble paying f or utilities (for example, heat, electricity, water, phone)? 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 Gender Identity Not on file Sexual Orientation [...] Care Team (Late st Contact Info) Description 12/01/2024 10:00 AM CDT Ancillary Procedure [facility] [address] [place] [address] 12/12/2024 9:30 AM CDT Telemedicine [address] [place] [address] [place] [address] Deep Monzon MD [address] [facility] [address] [place] [address] 04/24/2025 9:00 AM CDT Office Visit [facility] [address] [place] [address] Christiano Bell PsyD, AVE [address] [place] [address] 05/11/2025 2:00 PM CDT Office Visit [facility] [address] [id number] Rosalia Crawford MD [address] [address] Health Maintenance Due Date Last Done Comments DEXA/DXA scan for age 65+ 2006 Medicare Wellness for age 65+ 2006 BMI (ht and wt on same day) for age 18+ 04/13/2024 04/13/2023, 12/02/2021, 05/08/2021, Additional history exists Influenza Vaccine (Season Ended) 2025 04/27/2023, 05/06/2021, 04/22/2020, Additional history exists Depression screening for age 12+ 11/20/2025 11/21/19, 11/19/2024 Tetanus booster 11/29/2031 11/28/2021, 02/2013, 09/02/2012, Additional history exists Pneumococcal series for age 50+ Completed 5, 05/02/2007 Zoster (shingles) series for age 50+ Completed 08/30/2018, 04/06/2018, 07/06/2006 Tdap Completed 11/28/2021, 09/02/2012 RSV vaccine for adults or Completed 05/20/2023 COVID-19 vaccine series Completed 11/16/19, 05/03/2024, 12/09/2023, Additional history exists Medical Devices Implanted Type Area Bun Panner Device Identifier Shelf Expiration Date Model / Serial / Lot Log [id number] - Rossi Zcb00 Lens Iol - 1 - Lens Iol Zcb00 21.0 Implanted:Qty: 1 on 11/09/2011 at [facility] Left: Eye [employer] ZCB00# / [id number] / Iol [place] +21 Tecnis Zcb00 - [id number] Implanted:Qty: 1 on 10/01/2016 by Tian Huggins MD at [facility] Right: Eye [employer] 06/29/2020 ZCB00# / [id number] / Procedures Procedure Name Priority Date/Time Associated Diagnosis Comments LIPID PANEL Routine 09/18/2024 HTN (hypertension) Pure hypercholesterolemia from Last 3 Months Results * LIPID PANEL (09/18/2024) CHOLESTEROL,TOTAL 196 mg/dL TRIGLYCERIDES 107 mg/dL HDL CHOLESTEROL 99 mg/dL LDL CHOLESTEROL 76 mg/dL CHOL/HDL RATIO Blood BLOOD SPECIMEN / Unknown 09/18/2024 Deep Monzon MD CHEMISTRY Final Result from Last 3 Months Insurance MEDICARE PART B HB ONLY [facility] HB ONLY MEDICARE PB ONLY [facility] PB ONLY MEDICARE PART A HB ONLY MEDICARE PROVIDER BASED [facility] MEDICARE PB ONLY Advance Directives * Full Code (Latest Code Status on File) Date Activated Date Inactivated Comments 10/01/2016 12:21 PM 10/01/2016 5:23 PM * Full Code Date Activated Date Inactivated Comments 11/09/2011 6:35 AM 11/09/2011 11:00 AM Care Teams Hose Wrapper Relationship Specialty Start Date End Date Annie Brown MD [address] [place] [address] PCP - General Internal Medicine 03/19/14
--- OUTSIDE RECORDS SUMMARY | 2024-11-30 19:33 | XMS_ITS | Referral Summary ---
Author Organization [facility] Address [address] [place] [address] Care Team Providers Care Distribution Field Engineer Name Role Phone Unavailable Primary Care Provider Unavailabl e Encounters Date Type Department Care Team Description 11/13/2024 Order-Scan [address] [place] [phone] Reported, Patient 10/10/2024 12:50 PM CDT Office Visit [address] [place] [phone] Cosme Valero MD Other sequelae following unspecified cerebrovascular disease (Primary Dx); Dizziness; Balance disorder from Last 3 Months Allergies Active Allergy Reactions Criticality Noted Date Comments Codeine Vomiting Medium 03/11/2010 Other Reaction(s): Other (see comments) vomiting, nausea, felt terrible and slept most of the day - Tramadol Vomiting Medium 04/24/2019 Other Reaction(s): GI intolerance Medications alendronate (FOSAMAX) 70 mg oral tablet TAKE 1 TABLET BY MOUTH ONCE WEEKLY Active amLODIPine (NORVASC) 10 mg oral tablet Take 1 tablet (10 mg) by mouth once daily. Active cholecalciferol , vitamin D3, 25 mcg, 1000 unit, 25 mcg (1,000 unit) oral tablet Take 1 tablet (25 mcg) by mouth Daily. Active clopidogrel (PLAVIX) 75 mg oral tablet Take 1 tablet (75 mg) by mouth once daily. Active gabapentin (NEURONTIN) 100 mg oral capsule Take 1 capsule (100 mg) by mouth three times a day. Active melatonin 3 mg oral tablet Take 1 tablet (3 mg) by mouth. Active omeprazole (PRILOSEC) 20 mg oral delayed release capsule Take 1 capsule (20 mg) by mouth once daily. 08/18/2024 Active rosuvastatin (CRESTOR) 40 mg oral tablet Take 1 tablet (40 mg) by mouth. at bedtime. Active valsartan (DIOVAN) 160 mg oral tablet Take 1 tablet (160 mg) by mouth once daily. 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 Gender Identity Not on file Sexual Orientation Not on file Last Filed Vital Signs Vital Sign Reading Time Taken Comments Blood Pressure - - Pulse - - Temperature - - Respiratory Rate - - Oxygen Saturation - - Inhaled Oxygen Concentration - - Weight 72.6 kg (160 lb) 10/10/2024 1:03 PM CDT Height 160 cm (5' 3) 10/10/2024 1:03 PM CDT Body Mass Index 28.34 10/10/2024 1:03 PM CDT Plan of Treatment Not on file Procedures Procedure Name Priority Date/Time Associated Diagnosis Comments SCANNED RADIOLOGY Routine 11/09/2024 3:39 PM CDT from Last 3 Months Results * SCANNED RADIOLOGY (11/09/2024 3:39 PM CDT) Anatomical Region Laterality Modality Other us Patient Reported XRAY ORDERABLE Final Result from Last 3 Months Insurance MEDICARE PART A & B [facility] AARP/MEDICARE SUPPLEMENT
--- OUTSIDE RECORDS SUMMARY | 2024-11-30 19:33 | XMS_ITS | Encounter Summary ---
Author Organization [facility] Address [address] [place] [address] Care Team Providers Care Corn Detasseler Machine Operator Name Role Phone Unavailable Primary Care Provider Unavailabl e Encounter Details Date Type Department Care Team (Latest Contact Info) Description 09/27/2024 Results Follow-Up Division of Endocrinology in [place], [place] [address] [place] [address] Margi Avila M.D. [address] [place] [address] Potassium, Magnesium Social History Tobacco Use Types Packs/Day Years Used Date Smoking Tobacco: Never Passive Smoke Exposure: Never Smokeless Tobacco: Never Comments:As a child Alcohol Use Standard Drinks/Week Comments Yes 7 (1 standard drink = 0.6 oz pur e alcohol) [facility] Utilities Answer Date Recorded In the past 12 months has [employer], gas, oil, or water [employer] threatened to shut off services in your [...] 08/24/2022 How often do you attend chur Treato or caodaism services? Never 08/24/2022 Do you belong to any clubs o r organizations such as islam groups, unions, fraternal or athletic groups, or [...] and heating? Not hard at all 12/24/2022 [facility] - Occupational [...] living situation today? I have a [facility] place to live 09/17/2023 Education [...]
--- OUTSIDE RECORDS SUMMARY | 2024-11-30 19:33 | XMS_ITS | Clinical Summary ---
Author Organization [facility] Address [address] [place] [address] Care Team Providers Care Crystal Grinder Name Role Phone Unavailable Primary Care Provider Unavailabl e Source Comments Patient records contain information from all sites at [facility]. For routine questions regarding patient records, call [phone] during business hours, M-F 8:00 AM - 5:00 PM Central Time. Record requests for emergency care only can be directed to [phone] at any time.[facility] Allergies Active Allergy Reactions Criticality Noted Date Comments Codeine Other (see comments) Medium 04/29/2017 vomiting, nausea, felt terrible and slept most of the day - Tramadol GI intolerance Medium 04/24/2019 Medications * This document contains information received from the source organization and may not represent a complete record from that organization. amLODIPine (NORVASC) 10 mg tablet Take 1 tablet by mouth daily. 7 Active clopidogrel (PLAVIX) 75 mg tablet Take 1 tablet by mouth daily. Active famotidine (PEPCID) 20 mg tablet Take 1 tablet by mouth daily. 7 Active polyethylene glycol (MIRALAX) 17 gram powder packet Take 1 Package by mouth daily. 7 Active multivitamin tablet Take 1 tablet by mouth daily. Active omeprazole (PriLOSEC) 20 mg capsule Take 1 capsule by mouth daily. 7 Active ondansetron ODT (ZOFRAN-ODT) 4 mg disintegrating tablet Take 1 tablet by mouth every 6 (six) hours as needed. When needed 7 Active vit A/vit C/vit E/zinc/copper (PRESERVISION AREDS ORAL) Take 1 tablet by mouth 2 (two) times a day. 7 Active rosuvastatin (CRESTOR) 40 mg tablet [...] 3 (three) times a day. 3 Active alendronate (Fosamax) 70 mg tablet Take 70 mg by mouth once a week. Active acetaminophen (TylenoL) 500 mg tablet Take 500 mg by mouth as directed. Patient takes a 500 MG Daily and then if needed will take up to 4 Tablets Daily - Active UNABLE TO FIND Take 1 each by mouth daily. 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 Cortisol, ACTH (Adrenocorticotrop ic Hormone) 09/28/2024 Clinical Communication Division of Endocrinology in [place], [place] [address] [place] [address] Margi Avila M.D. [employer] 09/27/2024 Results Follow-Up Division of Endocrinology in [place], [place] [address] [place] [address] Margi Avila M.D. Potassium, Magnesium 09/26/2024 Orders Only Division of Endocrinology in [place], [place] [address] [place] [address] External, Ordering ProviderFernando 09/26/2024 Orders Only Division of Endocrinology in [place], [place] [address] [place] [address] External, Ordering Provider, Fernando from Last 3 Months Family History Medical [...] e alcohol) [facility] Utilities Answer Date Recorded In the past 12 months has e electric, gas, oil, or water [employer] threatened to shut off services in your [...] How often do you attend chur or episcopal services? Never 08/24/2022 Do you belong to any clubs o r organizations such as gnosticism groups, unions, fraternal or athletic groups, or [...] and heating? Not hard at all 12/24/2022 [facility] [place] [facility] - Occupational Stress [...] 06/24/2023 06/24/2022, 03/31/2022, 12/16/2021, Additional history exists Sodium Level 06/24/2023 06/24/2022, 0912/2021, 12/16/2021, Additional history exists Depression Screening (Annual PHQ-2) 07/26/2024 Fall Risk Screen (Annual) 07/26/2024 COVID-19 Vaccine ( season) 2024 05/03/2024, 12/09/2023, 04/22/2023, Additional history exists Potassium Level 09/26/2025 09/26/2024, 05/28, 03/31/2022, Additional history exists DTaP,Tdap,and Td Vaccines (4 - Td or Tdap) 11/29/2031 11/28/2021, 09/02/2012, 09/02/2012 Pneumococcal vaccine (50+ years) Completed 05/22/20 15, 05/02/2007 Zoster Vaccines Completed 08/30/2018, 03/26, 07/06/2006 RSV vaccine - (32-3 6 weeks) or 60+ years Completed 05/20/2023 Influenza Vaccine Completed 05/08/2024, , 04/30/2022, Additional history exists Medical Devices Implanted Type Area Building Associate Device Identifier Shelf Expiration Date Model / Serial / Lot Ocular Lens-07/26/2013 Implanted:07/2013 (Quantity not on file) Ocular Lens Bilateral : Eye Procedures Procedure Name Priority Date/Time Associated Diagnosis Comments ACTH, P Routine 09/26/2024 1:24 PM HOGSHEAD HEAD MATCHER CORTISOL, S Routine 09/26/2024 1:24 PM HOGSHEAD HEAD MATCHER MAGNESIUM, S Routine 09/26/2024 1:24 PM HOGSHEAD HEAD MATCHER POTASSIUM, S/P Routine 09/26/2024 1:24 PM HOGSHEAD HEAD MATCHER SODIUM, S/P Routine 04/29/2017 4:11 PM CDT CREATININE WITH EGFR, S/P Routine 04/29/2017 4:11 PM CDT from Last 3 Months or Most Recently Relevant to Health Maintenance Results * (ABNORMAL) ACTH (Adrenocorticotropic Hormone) (09/26/2024 1:24 PM HOGSHEAD HEAD MATCHER) EXT Adrenocorticotropic Hormone, P 1.8(L) 7.2 - 63.3 pg/mL SCANNED REPORT 09/26/2024 1:24 PM HOGSHEAD HEAD MATCHER Narrative [facility] - 09/28/2024 2:35 PM HOGSHEAD HEAD MATCHER Source result document attached to Order Number [id number] ([id number]) dated 09/26/2024. External results verified in Extract by Evangelina Negron on 09/28/2024 at 02:24 PM. us Ordering Provider External M.D. LAB BLOOD NON AD D-ON Final Result Performing Organization Address City/[facility]/ZIP Co de Phone Number [facility] NA SCANNED REPORT * Potassium (09/26/2024 1:24 PM HOGSHEAD HEAD MATCHER) EXT Potassium 4.6 3.6 - 5.1 mmol/L [facility] 09/26/2024 1:24 PM HOGSHEAD HEAD MATCHER Narrative [facility] - 09/27/2024 9:54 AM HOGSHEAD HEAD MATCHER External results verified in Extract by Brandi Medellin on 09/27/2024 at 09:48 AM. us Ordering Provider External M.D. LAB BLOOD ADD-ON Final Result [facility] [address] [place] [address] * Magnesium (09/26/2024 1:24 PM HOGSHEAD HEAD MATCHER) EXT Magnesium 2.2 1.5 - 2.6 mg/dL [facility] 09/26/2024 1:24 PM HOGSHEAD HEAD MATCHER Narrative [facility] - 09/27/2024 9:54 AM HOGSHEAD HEAD MATCHER Source result document attached to Order Number [id number] ([id number]) dated 09/26/2024. External results verified in Extract by Brandi Medellin on 09/27/2024 at 09:48 AM. us Ordering Provider Shantell King LAB BLOOD ADD-ON Final Result Performing Organization Address City/[facility]/ZIP Co de Phone Number [facility] [address] [place] [address] * Cortisol (09/26/2024 1:24 PM HOGSHEAD HEAD MATCHER) EXT AM Cortisol 16.3 ug/dL SCANNED REPORT 09/26/2024 1:2 4 PM HOGSHEAD HEAD MATCHER Narrative SCANNED REPORT - 09/28/2024 2:35 PM HOGSHEAD HEAD MATCHER External results verified in Extract by Evangelina Negron on 09/28/2024 at 02:24 PM. us Ordering Provider Shantell King LAB BLOOD ADD-ON Final Result Performing Organization Address City[facility]/ZIP Co de Phone Number SCANNED REPORT * Sodium (04/29/2017 4:11 PM CDT) Sodium, S 143 135 - 145 MMOL/L [facility] 04/29/2017 4:11 PM CDT 04/29/2017 4:11 PM CDT us Linda Suárez M.D., M.S. LAB BLOOD ADD-ON Final Result Performing Organization Address City/[facility]/ZIP Co de Phone Number [facility] [address] * Creatinine with Estimated GFR (MDRD) (04/29/2017 4:11 PM CDT) Creatinine 1.0 0.6 - 1.1 MG/DL [facility] 04/29/2017 4:11 PM CDT 04/29/2017 4:11 PM CDT Linda Suárez M.D., M.S. LAB BLOOD ADD-ON Final Result [facility] [address] [place] [address], [facility] from Last 3 Months or Most Recently Relevant to Health Maintenance Insurance [facility] MEDICARE Advance Directives For more information, please contact: [phone] Documents on File Type Date Recorded Patient Field Pipe Lines Supervisor Expl anation Advance Directives 05/12/2017 12:00 AM Bella rothman document. See document viewer.
--- OUTSIDE RECORDS SUMMARY | 2024-11-30 19:33 | XMS_ITS | Clinical Summary ---
Author Organization [facility] Address [address] [place] [address] Care Team Providers Care Securities Settlement Processor Name Role Phone Unavailable Primary Care Provider Unavailabl e Allergies Active Allergy Reactions Criticality Noted Date [...] 10/10/2024 Stroke 07/26/2013 RLS (restless legs syndrome) Encounters Date Type Department Care Team Description 11/13/2024 Order-Scan [address] [place] [phone] Reported, Patient 10/10/2024 12:50 PM CDT Office Visit [facility] [address] [place] [phone] Cosme Valero MD Other sequelae following unspecified cerebrovascular disease (Primary Dx); Dizziness; Balance disorder from Last 3 Months Social History Tobacco Use Types Packs/Day Years Used Date Smoking Tobacco: Never Smokeless Tobacco: Never Tobacco Cessation:Counseling Given: Not Answered Alcohol Use Standard Drinks/Week Comments Yes 4 (1 standard drink = 0.6 oz pur e alcohol) Comments Unknown Sex and Gender Information Value Date Recorded Sex Assigned at Not on file 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 Gender Identity Not on file Sexual Orientation [...] 10/10/2024 1:03 PM CDT Plan of Treatment Health Maintenance Due Date Last Done Comments Colonoscopy 1940 Medicare Wellness Visit 1940 Osteoporosis Screening 1941 Depression Assessment (PHQ-2) 1942 Yearly Review of HCD 1991 Influenza Vaccine (Season Ended) 2025 04/27/2023, 04/30/2022, 05/06/2021, Additional history exists Adult Tetanus Booster 11/29/2031 11/28/2021 , 09/02/2012, 09/02/2012, Additional history exists Pneumococcal 50+ Years Completed 05/22/2015, 2006 Zoster Vaccine Completed 08/30/2018, 03/26, 07/06/2006 RSV Vaccines Completed 05/20/2023 COVID-19 Vaccine Completed 05/03/2024, , 04/22/2023, Additional history exists Procedures Procedure Name Priority Date/Time Associated Diagnosis Comments SCANNED RADIOLOGY Routine 11/09/2024 3:39 PM CDT from Last 3 Months Results * SCANNED RADIOLOGY (11/09/2024 3:39 PM CDT) Anatomical Region Laterality Modality Other us Patient Reported XRAY ORDERABLE Final Result from Last 3 Months Insurance MEDICARE PART A & B [facility] AARP/MEDICARE SUPPLEMENT
--- OUTSIDE RECORDS SUMMARY | 2024-11-30 19:33 | XMS_ITS | Encounter Summary ---
Author Organization [facility] Address [address] [place] [address] Care Team Providers Care Agent Telegrapher Name Role Phone Unavailable Primary Care Provider Unavailabl e Encounter Details Date Type Department Care Team (Latest Contact Info) Description 09/28/2024 Results Follow-Up Division of Endocrinology in [place], [place] [address] [place] [address] Margi Avila M.D. [address] [place] [address] Cortisol, ACTH (Adrenocorticotropic Hormone) Social History Tobacco Use Types Packs/Day Years Used Date Smoking Tobacco: Never Passive Smoke Exposure: Never Smokeless Tobacco: Never Comments:As a child Alcohol Use Standard Drinks/Week Comments Yes 7 (1 standard drink = 0.6 oz pur e alcohol) [facility] Utilities Answer Date Recorded In the past [address] [facility] [employer], gas, oil, or water [employer] threatened to shut off services in your [...] 08/24/2022 How often do you attend chur [employer] or baptist services? Never 08/24/2022 Do you belong to any clubs o r organizations such as spiritism groups, unions, fraMargherita [employer] or athletic groups, or school groups? No [...] and heating? Not hard at all 12/24/2022 [facility] Occupat ional Health - Occupational Stress [...] living situation today? I have a [facility] place to live 09/17/2023 Education Answer [...]
== END 2024-11-30 15:08 | disposition home or self-care (01) ==
PROVIDERS: Emergency Provider Family Medicine; PCP Internal Medicine
DX: R53.1 Weakness (principal)
CPT/HCPCS: 36415; 73502; 80053; 81001; 85025; 99284

== ENCOUNTER 2024-12-01 10:00 | Outpatient (CLI) | payer MEDICARE, SELFPAY | END 2024-12-01 10:01 | disposition home or self-care (01) | LOC: RAD 10:01 | PROVIDERS: PCP Internal Medicine; Visit Provider Internal Medicine | DX: I35.1 Nonrheumatic aortic (valve) insufficiency (principal) | CPT/HCPCS: 93306 ==

== ENCOUNTER 2025-01-30 08:51 | Outpatient (CLI) | payer MEDICARE, SELFPAY | END 2025-01-30 08:52 | disposition home or self-care (01) | LOC: NFLDREF 14:40 | PROVIDERS: PCP Internal Medicine; Visit Provider Internal Medicine | DX: R79.0 Abnormal level of blood mineral (principal) | CPT/HCPCS: 82728 ==

== ENCOUNTER 2025-05-14 09:00 | Outpatient (CLI) | payer MEDICARE, SELFPAY | END 2025-05-14 09:01 | disposition home or self-care (01) | LOC: AMB 05-15 08:32 | PROVIDERS: PCP Internal Medicine; Visit Provider Emergency Medicine Emergency Medical Services | DX: R53.1 Weakness (principal); R42 Dizziness and giddiness | CPT/HCPCS: A0998 ==

== ENCOUNTER 2025-06-04 09:03 | Outpatient (CLI) | payer MEDICARE, SELFPAY | END 2025-06-04 09:04 | disposition home or self-care (01) | LOC: AMB 06-26 08:33 | PROVIDERS: PCP Internal Medicine; Visit Provider Family Medicine | DX: R41.82 Altered mental status, unspecified (principal); I95.9 Hypotension, unspecified | CPT/HCPCS: A0425; A0427 ==

== ENCOUNTER 2025-06-04 09:32 | Emergency (ER) | payer MEDICARE, SELFPAY ==
[2025-06-04] VITALS (40 sets, daily range): BP systolic 119–130; BP diastolic 60–74; PULSE 69–100; RESP 8–18; TEMP 36.6; O2SAT 85–98
--- OUTSIDE RECORDS SUMMARY | 2025-06-04 09:34 | XMS_ITS | Clinical Summary ---
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 [employer]S Gender Identity Not on file Sexual Orientation [...] (PHQ-2) 1941 Yearly Review of HCD 1991 COVID-19 Vaccine ( season) 2025 05/03/2024, 12/09/2023, 04/22/2023, Additional history exists Influenza Vaccine (#1) 2025 , 04/30/2022, 05/06/2021, Additional history exists Adult Tetanus Booster 11/29/2031 11/28/2021 , 09/02/2012, 09/02/2012, Additional history exists Pneumococcal 50+ Years Completed 05/22/2015, 2006 Zoster Vaccine Completed 08/30/2018, 03/26, 07/06/2006 RSV Vaccines Completed 05/20/2023 Meningococcal B Vaccine Aged Out No l onger eligible based on patient's age to complete this topic Insurance MEDICARE PART A & B [facility] AARP/MEDIC[place] [address] [place] [phone]
--- OUTSIDE RECORDS SUMMARY | 2025-06-04 09:34 | XMS_ITS | Clinical Summary ---
Author Organization [facility] Address [address] [place] [address] Care Team Providers Care Website Project Manager Name Role Phone Unavailable Primary Care Provider Unavailabl e Source Comments Patient records contain information from all sites at [facility]. For routine questions regarding patient records, call [phone] during business hours, M-F 8:00 AM - 5:00 PM Central Time. 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 No 12/24/2022 Hunger Vital Sign Answer Date Recorded Within [...] things needed for daily living? No 09/17/2023 Housing Stability Answer Date Recorded What is your living situation today? I have a [facility] place to live 09/17/2023 Education [...] Additional history exists Sodium Level 06/24/2023 06/24/2022, 12/2021, 12/16/2021, Additional history exists Depression Screening (Annual PHQ-2) 07/26/2024 Fall Risk Screen (Annual) 07/26/2024 COVID-19 Vaccine ( season) 2025 11/15/2024, 05/03/2024, 12/09/2023, Additional history exists Influenza Vaccine (#1) 2025 , 04/27/2023, 04/30/2022, Additional history exists Potassium Level 09/26/2025 09/26/2024, 05/28, 03/31/2022, Additional history exists DTaP,Tdap,and Td Vaccines (4 - Td or Tdap) 11/29/2031 11/28/2021, 09/02/2012, 09/02/2012 Pneumococcal vaccine (50+ years) Completed 05/22/20 15, 05/02/2007 Zoster Vaccines Completed 08/30/2018, 03/26, 07/06/2006 RSV vaccine - (32-3 6 weeks) or 50+ years Completed 05/20/2023 Medical Devices Implanted Type Area Chrome Tanning Drum Operator Device Identifier Shelf Expiration Date Model / Serial / Lot Ocular Lens-07/26/2013 Implanted:07/2013 (Quantity not on file) Ocular Lens Bilateral : Eye Procedures Procedure Name Priority Date/Time Associated Diagnosis Comments POTASSIUM, S/P Routine 09/26/2024 1:24 PM [facility] SODIUM, S/P Routine 04/29/2017 4:11 PM CDT CREATININE WITH EGFR, S/P Routine 04/29/2017 4:11 PM CDT from Last 3 Months or Most Recently Relevant to Health Maintenance Results * Potassium (09/26/2024 1:24 PM [facility]) EXT Potassium 4.6 3.6 - 5.1 mmol/L [facility] 09/26/2024 1:24 PM [facility] Narrative [facility] - 09/27/2024 9:54 AM [facility] External results verified in Extract by Brandi Medellin on 09/27/2024 at 09:48 AM. us Ordering Provider External M.D. LAB BLOOD ADD-ON Final Result [facility] [address] [place] [address], [facility] [phone] * Sodium (04/29/2017 4:11 PM CDT) Sodium, S 143 135 - 145 MMOL/L [facility] 04/29/2017 4:11 PM CDT 04/29/2017 4:11 PM CDT us Linda Suárez M.D., M.S. LAB BLOOD ADD-ON Final Result [facility] [address] * Creatinine with Estimated GFR (MDRD) (04/29/2017 4:11 PM CDT) Creatinine 1.0 0.6 - 1.1 MG/DL [facility] 04/29/2017 4:11 PM CDT 04/29/2017 4:11 PM CDT us Linda Suárez M.D., M.S. LAB BLOOD ADD-ON Final Result Performing Organization Address [facility] Co de Phone Number [facility] [address] from Last 3 Months or Most Recently Relevant to Health Maintenance Insurance [facility] MEDICARE Advance Directives For more information, please contact: [phone] Documents on File Type Date Recorded Patient Traffic Signal Mechanic Expl anation Advance Directives 05/12/2017 12:00 AM Bella rothman document. See document viewer.
--- OUTSIDE RECORDS SUMMARY | 2025-06-04 09:34 | XMS_ITS | Clinical Summary ---
Author Organization [facility] Address [address] [place] [address] Care Team Providers Care Demolition Worker Name Role Phone Annie Brown MD Primary Care Provider [phone] Allergies Active Allergy Reactions Criticality Noted Date [...] daily before a meal. 0 1 Active gabapentin (NEURONTIN) 100 mg capsule Take 100 mg by mouth 3 times daily if needed. Active ondansetron (ZOFRAN ODT) [address] 4 mg on the tongue every 8 hours if needed. 4 Active rosuvastatin (CRESTOR) 40 mg tabletIndications: Hyperlipidemia, unspecified hyperlipidemia type Take 1 Tablet (40 mg) by mouth at bedtime. 90 Tablet 3 4 Active amLODIPine 5 mg tabletIndications: HTN (hypertension) Take 1 Tablet (5 mg) by mouth once daily. 90 Tablet 3 5 Active alendronate 70 mg tablet Take 1 Tablet (70 mg) by mouth once a week in the morning. 5 Active acetaminophen 500 mg tablet Take 1 Tablet (500 mg) by mouth every 6 hours if needed. 5 Active vit-min eye [id number] mg (PreserVision AREDS 2 Plus) capsule Take 1 Capsule by mouth two times daily. 5 Active calcium citrate-vitamin D3 (Citracal Ultradense) 200 mg-6.25 mcg (250 unit) tablet 1 Tablet once daily. 5 Active melatonin 3 mg tablet Take 1 Tablet (3 mg) by mouth at bedtime. 5 Active valsartan (DIOVAN) 80 mg tabletIndications: HTN (hypertension) Take 1 Tablet (80 mg) by mouth once daily. 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 Abnormal cardiovascular stress test 04/08/2022 [...] Encounters Date Type Department Care Team Description 05/15/2025 11:00 AM CDT Office Visit [facility] [address] [address] Rosalia Crawford MD Derm Problem 05/15/2025 Travel 05/10/2025 Travel from Last 3 Months Immunizations Immunization Administration [...] PHQ-2 Answer Date Recorded PHQ-2 TOTAL SCORE 1 02/20/2025 Social Connections Answer Date Recorded Do you [...] on file Legal Sex Female 5:51 AM [employer] Gender Identity Not on file Sexual Orientation Not on file Travel History Travel Start Travel End [place] 05/12/2025 05/12/2025 Obstetrics History Last Filed Vital Signs Vital Sign Reading Time Taken Comments Blood Pressure 183/67 05/15/2025 11:45 AM CDT Pulse 72 05/15/2025 11:45 AM CDT Temperature 36.6 C (97.9 F) 04/14/2023 2:25 PM CDT Respiratory Rate 14 12/12/2024 9:35 AM CDT Oxygen Saturation 97% 02/23/2024 11:47 AM CDT Inhaled Oxygen Concentration - - Weight 76.2 kg (168 lb) 04/13/2023 11:22 AM CDT Height 160 cm (5' 3) 04/13/2023 11:22 AM CDT Body Mass Index 29.76 04/13/2023 11:22 AM CDT Plan of Treatment Health Maintenance Due Date Last Done Comments Hepatitis B series for 19+ ( 3 of 3 - 19+ 3-dose series) 06/10/1998 04/15/1998, 04/15/1998, 11/14/1997, Additional history exists DEXA/DXA scan for age 65+ 2006 Medicare Wellness for age 65+ 2006 BMI (ht and wt on same day) for age 18+ 04/13/2024 04/13/2023, 12/02/2021, 05/08/2021, Additional history exists Influenza Vaccine (#1) 2025 3, 05/06/2021, 04/22/2020, Additional history exists Depression screening for age 12+ 02/20/2026 02/21/20 25, 11/20/2024 Tetanus booster 11/29/2031 11/28/2021, 02/02/2013, 09/02/2012, Additional history exists Pneumococcal series for age 50+ Completed 5, 05/02/2007 Zoster (shingles) series for age 50+ Completed 08/30/2018, 04/06/2018, 07/06/2006 RSV vaccine for adults or Completed 05/20/2023 Medical Devices Implanted Type Area Electrician Office Device Identifier Shelf Expiration Date Model / Serial / Lot Log [id number] - Rossi Zcb00 Lens Iol - 1 - Lens Iol Zcb00 21.0 Implanted:Qty: 1 on 11/09/2011 at [facility] Left: Eye [employer] ZCB00# / [id number] / Iol [place] +21 [employer]ecnis Zcb00 - [id number] Implanted:Qty: 1 on 10/01/2016 by Tian Huggins MD at [facility] Right: Eye [employer] 06/29/2020 ZCB00# / [id number] / Insurance MEDICARE PART B HB ONLY [facility] HB ONLY MEDICARE PB ONLY [facility] PB ONLY MEDICARE PART A HB ONLY MEDICARE PROVIDER BASED [facility] MEDICARE PB ONLY Advance Directives * Full Code (Latest Code Status on File) Date Activated Date Inactivated Comments 10/01/2016 12:21 PM 10/01/2016 5:23 PM * Full Code Date Activated Date Inactivated Comments 11/09/2011 6:35 AM 11/09/2011 11:00 AM Care Teams Demolition Worker Relationship Specialty Start Date End Date Annie Brown MD [address] [place], [place] [id number] PCP - General Internal Medicine 03/19/14
--- NOTE | 2025-06-04 09:56 | ED.GENADULT ---
HPI - General Adult General Chief complaint: Altered Mental Status Stated complaint: fall Time Seen by Provider: 06/04/25 09:56 History of Present Illness HPI narrative: Arrives via EMS after having an episode of LOC at home. EMS reports that the patient was unresponsive seated in a chair for about 10 minutes after they arrived. She is awake on arrival here, reports she does not remember being in the chair she was found in, is disoriented to time and situation, denies pain or neuro symptoms, VSS, ABCs intact. 84-year-old woman presenting to the emergency department with concern of a loss of consciousness. Apparently got upper usual at around 8:00 a.m.. Likely went to the bathroom and then to her motorized chair to go down the stairs where found her not fully responsive but breathing in her chair around 830. Marian apparently has no memory to this event. She had does know where she is at this point. She does not know what happened. admits that this would be the 5th similar occurrence. 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 He says that this morning though with the loss of memory seems different. She is only complaining to me of nausea. Does have chronic dizziness and gait unsteadiness with extensive evaluation. Sees the [facility]. Concern of disconnect between inner ear and her body. Not actually with an inner ear problem apparently. Most recently similar episode resulted in a hospital stay in [place] in [facility] where had extensive CT imaging sounds like MRI imaging as well. Has abnormality of white matter but it does not sound as though there is a solid diagnosis. She has not been vomiting this morning. reports that similar episodes have been attributed to dehydration but does not believe that dehydration would have been associated today. He is quite worried about degree of potential anoxic injury and what consequences of that might be. Locating admission/discharge from September of 2024 was in [place]. Diagnosis was syncope and sounds like there is question of hypertrophic cardiomyopathy. Was recommended for an event monitor. Also had a right-sided pneumonia and right-sided chest wall pain. Related Data Home Medications ?Medication ?Instructions ?Recorded ?Confirmed famotidine 20 mg tablet 20 mg PO HS 04/30/22 06/04/25 multivitamin (Multiple Vitamins 1 tab PO QAM 04/30/22 06/04/25 tablet) acetaminophen 500 mg capsule 500 mg PO DAILY PRN 07/02/22 06/04/25 melatonin 3 mg capsule 3 mg PO QHS 07/02/22 06/04/25 rosuvastatin 40 mg tablet 40 mg PO DAILY 07/02/22 06/04/25 vit C 250 mg-vit E 90 mg-zinc 40 1 tab PO BID 07/02/22 06/04/25 mg-copper 1 [id number]-twwudu-kpzaet capsule (PreserVision AREDS-2) calcium 200 mg (as 3 tab PO DAILY 11/22/23 01/30/25 citrate)-vitamin D3 6.25 mcg (250 unit) tablet (Citracal-D3 Petites) gabapentin 100 mg capsule 100 mg PO 3XD PRN 04/24/24 06/04/25 polyethylene glycol 3350 17 8.5 g PO DAILY 10/30/24 06/04/25 gram/dose oral powder valsartan 160 mg tablet 80 mg PO DAILY 10/30/24 06/04/25 amlodipine 5 mg tablet 5 mg PO DAILY 12/14/24 06/04/25 iron,carbonyl 65 mg-vitamin C 125 1 tab PO .Everyother Day 01/30/25 01/30/25 mg tablet,delayed release (Vitron-C) Previous Rx's ?Medication ?Instructions ?Recorded clopidogrel 75 mg tablet 75 mg PO DAILY #90 tabs 08/03/24 omeprazole 20 mg capsule,delayed 20 mg PO DAILY #90 caps 02/12/25 release alendronate 70 mg tablet 70 mg PO QWEEK #12 tabs 04/07/25 buspirone 7.5 mg tablet 7.5 mg PO BID #180 tabs 05/01/25 Allergies Allergy/AdvReac Type Severity Reaction Status Date / Time tramadol Allergy Intermediate nausea, Verified 06/04/25 09:46 vomiting codeine AdvReac Unknown Nausea Verified 06/04/25 09:46 Review of Systems Status of ROS: Reports: 6 or more systems reviewed and unremarkable except as noted in History and below [facility] Medical History History of compression fracture of spine ?Z87.81 - Personal history of (healed) traumatic fracture (ICD-10) History of renal calculi ?Z87.442 - Personal history of urinary calculi (ICD-10) Surgical History 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 - Acquired absence of eye (ICD-10) History of kyphoplasty (08/13/23) ?Z98.890 - Other specified postprocedural states (ICD-10) History of cataract surgery (2017) ?Z98.49 - Cataract extraction status, unspecified eye (ICD-10) 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.2 - Postprocedural hypoparathyroidism (ICD-10) Family History Father Heart disease Son Heart disease Mother High blood pressure Social History What is your current living situation?: I presently have a place to live Problems where you live: no known problems Problems where you live details: NA In the past 12 months, utilities in danger of being shut off: no In past 12 months, lack of transportation kept you from medical appts, meetings, work, or getting things needed for daily living: no In the past 12 mos, have been you worried that your food would run out before you had money to buy more?: never true In the past 12 mos, the food you bought just didn't last and you didn't have money to buy more?: never true Highest level of school completed/degree received: Associate degree: academic program Smoking Status: Never smoker Do you use any of these nicotine containing products: None Second hand tobacco smoke exposure: Yes (youth) How often do you have a drink containing alcohol: 4 or more times a week Alcohol type: wine Alcohol type details: one glass of wine per night How many standard drinks containing alcohol do you have on a typical day: 1 or 2 How often do you have six or more drinks on one occasion: Never AUDIT-C Alcohol total score: 4 Non-prescribed substance use: denies use Caffeine: Yes (Coffee in AM) How often does anyone, including family, friends and others, physically hurt you: never How often does anyone, including family, friends and others, insult or talk down to you: never How often does anyone, including family, friends and others, threaten you with harm: never How often does anyone, including family, friends and others, scream or curse at you: never service: No Exam Narrative: Exam Narrative: Pleasant. NAD. Speaking fluidly, easily. Does demonstrate a lack of memory of this morning. Again only complaint is nausea. Has lipstick in place. Pupils are 2 mm and equal. Did not test reactivity. She demonstrates some nystagmus to the left. Extraocular movements appear full. Is moving all extremities without difficulty. She does not have lower extremity edema. Abdomen is soft and mildly uncomfortable generally to palpation which apparently is chronic her says. I see irritable bowel and GERD on history. Heart in regular rate and rhythm with trace systolic murmur. Lungs appear clear. Upper back kyphosis. No pain. Head looks atraumatic. Const: Vital Signs, click to edit/add: Vital Signs - 24 hr 06/04/25 09:38 06/04/25 09:49 06/04/25 09:50 Temperature 97.8 F Pulse Rate 76 70 Pulse Rate [Pulse Oximeter] 76 Respiratory Rate 16 Blood Pressure 123/74 Blood Pressure [Ri ght Upper Arm] 127/67 Pulse Oximetry 95 92 92 Oxygen Delivery Me thod Room Air Oxygen Flow Rate 06/04/25 10:00 06/04/25 10:02 06/04/25 10:15 Temperature Pulse Rate 75 73 69 Pulse Rate [Pulse Oximeter] Respiratory Rate Blood Pressure 119/67 Blood Pressure [Ri ght Upper Arm] Pulse Oximetry 91 94 91 Oxygen Delivery Me thod Oxygen Flow Rate 06/04/25 10:17 06/04/25 10:43 06/04/25 10:45 Temperature Pulse Rate 73 75 74 Pulse Rate [Pulse Oximeter] Respiratory Rate Blood Pressure 119/60 Blood Pressure [Ri ght Upper Arm] Pulse Oximetry 88 93 92 Oxygen Delivery Me thod Oxygen Flow Rate 06/04/25 11:00 06/04/25 11:15 06/04/25 11:17 Temperature Pulse Rate 76 73 Pulse Rate [Pulse Oximeter] Respiratory Rate 12 13 15 Blood Pressure 121/63 Blood Pressure [Ri ght Upper Arm] Pulse Oximetry 95 85 L Oxygen Delivery Me thod Oxygen Flow Rate 06/04/25 11:30 06/04/25 11:32 06/04/25 11:33 Temperature Pulse Rate 71 75 75 Pulse Rate [Pulse Oximeter] Respiratory Rate 10 L 8 L 15 Blood Pressure 129/63 Blood Pressure [Ri ght Upper Arm] Pulse Oximetry 92 92 94 Oxygen Delivery Me thod Oxygen Flow Rate 06/04/25 11:43 06/04/25 11:45 06/04/25 11:47 Temperature Pulse Rate 74 80 Pulse Rate [Pulse Oximeter] Respiratory Rate 12 17 Blood Pressure 124/65 Blood Pressure [Ri ght Upper Arm] Pulse Oximetry 91 94 94 Oxygen Delivery Me thod Oxygen Flow Rate 06/04/25 12:00 06/04/25 12:01 06/04/25 12:15 Temperature Pulse Rate 81 82 83 Pulse Rate [Pulse Oximeter] Respiratory Rate 12 14 Blood Pressure 130/66 Blood Pressure [Ri ght Upper Arm] Pulse Oximetry 94 94 94 Oxygen Delivery Me thod Oxygen Flow Rate 06/04/25 12:17 06/04/25 13:14 06/04/25 13:15 Temperature Pulse Rate 86 94 100 Pulse Rate [Pulse Oximeter] Respiratory Rate 14 11 L Blood Pressure 130/69 Blood Pressure [Ri ght Upper Arm] Pulse Oximetry 93 90 89 Oxygen Delivery Me thod Oxygen Flow Rate 06/04/25 13:30 06/04/25 13:45 06/04/25 14:00 Temperature Pulse Rate 95 86 91 Pulse Rate [Pulse Oximeter] Respiratory Rate 11 L 12 16 Blood Pressure Blood Pressure [Ri ght Upper Arm] Pulse Oximetry 96 90 97 Oxygen Delivery Me thod Oxygen Flow Rate 06/04/25 14:15 06/04/25 14:30 06/04/25 14:34 Temperature Pulse Rate 96 91 Pulse Rate [Pulse Oximeter] Respiratory Rate 13 12 Blood Pressure Blood Pressure [Ri ght Upper Arm] Pulse Oximetry 96 96 97 Oxygen Delivery Me thod Nasal Cannula Oxygen Flow Rate 2 06/04/25 14:45 06/04/25 15:00 06/04/25 15:15 Temperature Pulse Rate 89 86 82 Pulse Rate [Pulse Oximeter] Respiratory Rate 16 14 16 Blood Pressure Blood Pressure [Ri ght Upper Arm] Pulse Oximetry 96 97 98 Oxygen Delivery Me thod Oxygen Flow Rate 06/04/25 15:30 06/04/25 15:45 06/04/25 16:47 Temperature Pulse Rate 80 80 86 Pulse Rate [Pulse Oximeter] Respiratory Rate 18 18 Blood Pressure Blood Pressure [Ri ght Upper Arm] Pulse Oximetry 96 98 91 Oxygen Delivery Me thod Oxygen Flow Rate 06/04/25 17:00 06/04/25 17:15 06/04/25 17:30 Temperature Pulse Rate 86 84 91 Pulse Rate [Pulse Oximeter] Respiratory Rate Blood Pressure Blood Pressure [Ri ght Upper Arm] Pulse Oximetry 97 97 97 Oxygen Delivery Me thod Oxygen Flow Rate 06/04/25 17:45 Temperature Pulse Rate 86 Pulse Rate [Pulse Oximeter] Respiratory Rate Blood Pressure Blood Pressure [Ri ght Upper Arm] Pulse Oximetry 97 Oxygen Delivery Me thod Oxygen Flow Rate Documenting provider has reviewed patient's vital signs: yes Course Vital Signs Vital signs: Initial Vital Signs Temperature 97.8 F 06/04/25 09:38 Temperature Source Temporal Artery Scan 06/04/25 09:38 Pulse Rate 76 06/04/25 09:38 Respiratory Rate 16 06/04/25 09:38 Blood Pressure 127/67 06/04/25 09:38 Blood Pressure Mean 87 06/04/25 09:38 Pulse Oximetry 95 06/04/25 09:38 Oxygen Delivery Method Room Air 06/04/25 09:38 Vital Signs Temperature 97.8 F 06/04/25 09:38 Pulse Rate 76 06/04/25 09:38 Respiratory Rate 16 06/04/25 09:38 Blood Pressure 127/67 06/04/25 09:38 Pulse Oximetry 95 06/04/25 09:38 Oxygen Delivery Method Room Air 06/04/25 09:38 Temperature 97.8 F 06/04/25 09:38 Pulse Rate 86 06/04/25 17:45 Respiratory Rate 18 06/04/25 15:45 Blood Pressure 130/69 06/04/25 12:17 Pulse Oximetry 97 06/04/25 17:45 Oxygen Delivery Method Nasal Cannula 06/04/25 14:34 Oxygen Flow Rate 2 06/04/25 14:34 Medications Administered Medications: Discontinued Medications Generic Name Dose Route Start Last Admin Trade Name Freq PRN Reason Stop Dose Admin Acetaminophen 1,000 mg 06/04/25 12:20 06/04/25 13:13 Acetaminophen 500 Mg Tablet PO 06/04/25 12:21 1,000 mg ONCE ONE Administration Diazepam 2.5 mg 06/04/25 10:13 06/04/25 11:12 Diazepam 5 Mg/Ml Inj IV 06/04/25 10:14 2.5 mg ONCE ONE Administration Sodium Chloride 1,000 mls @ 1,000 mls/hr 06/04/25 10:13 06/04/25 12:00 0.9 % Sodium Chloride 1000 Ml IV 06/04/25 11:12 Infused .Q1H ONE Infusion Ceftriaxone Sodium 1 gm/ 100 mls @ 200 mls/hr 06/04/25 14:27 06/04/25 15:24 Sodium Chloride IVPB 06/04/25 14:28 Infused ONCE ONE Infusion Medical Decision Making MDM Narrative Medical decision making narrative: Sounds like complicated, uncertain neurological history. Appears to be demonstrating some transient global amnesia. Is complaining of some nausea. History of GERD and IBS and chronic abdominal pain Sounds as though this sense of dizziness is a chronic circumstance and often as nausea. This might be cardiac event as well. I think more than likely this is some stressor bringing out TGA symptoms. Labs with rather high white count head over 17,000. D-dimer is somewhat elevated. As prior this might represent pulmonary embolus contributing to symptoms as above. On reassessment, does not seem to be clearing it least with improved memory. does note how she got very limited sleep last night. On repeated reassessments does not appear to be clearing cognitively. She has more energy in conversation at least and is no longer complaining of nausea since she received a little Valium. I do clarify that she did receive longer-term cardiac monitoring without finding following this episode in September. Was through [facility]. Chest imaging with inflammatory infectious nodules in right lung. Perhaps this explains the elevated white count. Not found source otherwise. Uncertain if this cleared from hospitalization in November. Imaging with high white count and altered mental status to include CT chest abdomen pelvis as well as contrasted imaging of head and neck. CT noncontrast of the brain showing old right thalamic lacunar infarct. Otherwise similar to appearance with moderate to severe involutional changes. CTA chest with patchy nodular ground-glass opacities throughout the left lung (right lung findings with last imaging in November of this year) Abdomen and pelvis imaging with diverticulosis but no diverticulitis. Stable 1.5 cm left adrenal nodule. Left-sided nephroliths are noted as well. There was question raised by over cyst in the pancreas; plan for MRI follow-up. This is not visualized here least in CT CTA of head and neck in preliminary Significant airspace disease in the left lung probably infectious/inflammatory. Please review the report of the contemporaneous chest CT. No significant angiographic finding in the neck. No dissection. Both vertebral arteries are patent. Intracranial atherosclerosis. No high-grade stenosis. No aneurysm. No large vessel occlusion intracranially I discussed all findings with Neurology on-call. Would further recommend MRI and if this is unremarkable for acute abnormality, then discharge. Indication: Altered mental status. Technique: Multiplanar multisequence noncontrast MR images of the brain. Comparison: CT brain 06/04/2025, MRI brain 11/09/2024. Findings: Danr-[id number] diffuse cerebral volume loss. No mass effect or midline shift. Stable patchy and scattered FLAIR hyperintensities in the supratentorial white matter and lorenzo, typical for moderately advanced chronic microvascular ischemic changes. Stable chronic lacunar infarctions in the right thalamus and lateral right cerebellar hemisphere. Stable chronic microhemorrhage right basal ganglia and right cerebellum. No recent intracranial hemorrhage or pathologic extra-axial fluid collection. No diffusion restriction to suggest acute infarction. The major arterial flow voids of the skull base are preserved. Thinning of the ocular lenses. Mild ethmoid sinus mucosal thickening. Minimal mastoid fluid. Impression: 1. No acute intracranial abnormality. No significant change compared to the prior MRI. 2. Chronic lacunar infarctions in the supratentorial and infratentorial parenchyma. 3. Moderately advanced chronic microvascular ischemic changes and [id number] diffuse cerebral volume loss. Dictated by Ty Araiza MD @ 06/04/2025 4:46:14 PM No acute abnormalities in MRI. Extensive scanning has now been done. Would focus on treating further these pulmonary findings. Continues to clear mentally with more recollection from late yesterday but still not recalling events of earlier this morning. Vitally well. No hypoxia or tachypnea. Has had cough for some months. Giving Rocephin here in the emergency department and will continue on doxycycline. See patient discharge plan for further discussion I would expect your memory to clear over the next 24 hours. I do think it would be good to follow-up with your primary care provider to discuss these events further. Prescribing doxycycline from [facility]. I will call you if your COVID test is positive. Medical Records Medical records reviewed: Yes I reviewed the patient's medical records Lab Data Lab results reviewed: Yes I reviewed the patient's lab results Labs: Lab Results 06/04/25 06/04/25 06/04/25 Range/Units 10:13 10:49 11:00 WBC 17.38 H (4.50-11.00) K/uL RBC 4.34 (4.00-5.20) m/uL Hgb 13.3 (12.0-16.0) gm/dL Hct 41.3 (33.0-51.0) % MCV 95 (80-100) fL MCH 31 (26-34) pg MCHC 32 (32-36) gm/dL RDW Coeff of Fidencio 15.0 (11.5-15.5) % Plt Count 397 (140-440) K/uL Neut % (Auto) 81.4 H (42.0-72.0) % Lymph % (Auto) 7.7 L (20-44) % Riley % (Auto) 9.8 (0.0-11.0) % Eos % (Auto) 0.6 (0.0-7.0) % Baso % (Auto) 0.2 (0.0-3.0) % Neut # (Auto) 14.10 H (1.7-7.0) K/uL Lymph # (Auto) 1.30 (0.90-2.90) K/uL Riley # (Auto) 1.70 H (0.00-0.90) K/UL Eos # (Auto) 0.10 (0.00-0.50) K/uL Baso # (Auto) 0.00 (0.00-0.30) K/uL Abs Immat Gran (auto) 0.10 (0.00-0.30) K/uL Imm/Tot Granulo (auto) 0.3 % D-Dimer Quant (PE/DVT) 1.29 H (0.00-0.50) ug/ml Sodium 131 L (135-149) mmol/L Potassium 3.8 (3.6-5.1) mmol/L Chloride 95 L (96-114) mmol/L Carbon Dioxide 27 (20-32) mmol/L Anion Gap 9 (7-15) mEq/L BUN 21 (7-30) mg/dL Creatinine 1.0 (0.5-1.5) mg/dL Estimated GFR 56 ml/min Glucose 105 (60-115) mg/dL Calcium 9.5 (8.4-10.6) mg/dL Troponin I < 0.01 (0.01-0.04) ng/mL NT-Pro-B Natriuret Pep 348 H (See Note) pg/mL Urine Color (Yellow) Urine Appearance (Clear) Urine pH (5.0-8.5) Ur Specific [place] (1.000-1.030) Urine Protein (Negative) Urine Glucose (UA) (Negative) Urine Ketones (Negative) Urine Blood (Negative) Urine Nitrite (Negative) Urine Bilirubin (Negative) Urine Urobilinogen (0.2-1.0) Ur Leukocyte Esterase (Negative) Urine RBC (0-2) Urine WBC (0-5) Ur Squamous Epith Cells (None-Few) Urine Bacteria (None) Salicylates < 1.0 L (1.0-10) mg/dL Acetaminophen < 10.0 (10.0-30.0) ug/mL Ethyl Alcohol < 0.01 (0.01-0.03) % SARS-CoV-2 (PCR) (Negative) Lab Acknowledgement Test Added POC Troponin I 0.00 L (0.01-0.04) ng/ml 06/04/25 06/04/25 06/04/25 Range/Units 12:58 14:23 17:50 WBC (4.50-11.00) K/uL RBC (4.00-5.20) m/uL Hgb (12.0-16.0) gm/dL Hct (33.0-51.0) % MCV (80-100) fL MCH (26-34) pg MCHC (32-36) gm/dL RDW Coeff of Fidencio (11.5-15.5) % Plt Count (140-440) K/uL Neut % (Auto) (42.0-72.0) % Lymph % (Auto) (20-44) % Riley % (Auto) (0.0-11.0) % Eos % (Auto) (0.0-7.0) % Baso % (Auto) (0.0-3.0) % Neut # (Auto) (1.7-7.0) K/uL Lymph # (Auto) (0.90-2.90) K/uL Riley # (Auto) (0.00-0.90) K/UL Eos # (Auto) (0.00-0.50) K/uL Baso # (Auto) (0.00-0.30) K/uL Abs Immat Gran (auto) (0.00-0.30) K/uL Imm/Tot Granulo (auto) % D-Dimer Quant (PE/DVT) (0.00-0.50) ug/ml Sodium (135-149) mmol/L Potassium (3.6-5.1) mmol/L Chloride (96-114) mmol/L Carbon Dioxide (20-32) mmol/L Anion Gap (7-15) mEq/L BUN (7-30) mg/dL Creatinine (0.5-1.5) mg/dL Estimated GFR ml/min Glucose (60-115) mg/dL Calcium (8.4-10.6) mg/dL Troponin I (0.01-0.04) ng/mL NT-Pro-B Natriuret Pep (See Note) pg/mL Urine Color Yellow (Yellow) Urine Appearance Clear (Clear) Urine pH 7.5 (5.0-8.5) Ur Specific [place] 1.015 (1.000-1.030) Urine Protein Negative (Negative) Urine Glucose (UA) Negative (Negative) Urine Ketones Negative (Negative) Urine Blood Negative (Negative) Urine Nitrite Negative (Negative) Urine Bilirubin Negative (Negative) Urine Urobilinogen 0.2 (0.2-1.0) Ur Leukocyte Esterase Trace A (Negative) Urine RBC 0-2 (0-2) Urine WBC 0-2 (0-5) Ur Squamous Epith Cells Few (None-Few) Urine Bacteria Few A (None) Salicylates (1.0-10) mg/dL Acetaminophen (10.0-30.0) ug/mL Ethyl Alcohol (0.01-0.03) % SARS-CoV-2 (PCR) Negative SARS-CoV-2 (Negative) Lab Acknowledgement Test Added POC Troponin I (0.01-0.04) ng/ml ECG Data Attestation: I personally reviewed and interpreted this ECG as follows: (Sinus rhythm. PAC. Rate of 77. I do not appreciate acute ischemic changes) Discharge Plan Discharge Clinical Impression: Altered mental status, Pneumonia, Transient global amnesia Patient Disposition: Home w/ Parent or Adult Condition: Improved Additional Instructions: I would expect your memory to clear over the next 24 hours. I do think it would be good to follow-up with your primary care provider to discuss these events further. Prescribing doxycycline from [facility]. I will call you if your COVID test is positive. Prescriptions: No Action calcium citrate-vitamin D3 [Citracal-D3 Petites] 200 mg-6.25 mcg (250 unit) tablet 3 tab PO DAILY Rx Instructions: 600 mg daily amlodipine 5 mg tablet 5 mg PO DAILY multivitamin [Multiple Vitamins] Tablet 1 tab PO QAM famotidine 20 mg tablet 20 mg PO HS polyethylene glycol 3350 17 gram/dose powder 8.5 g PO DAILY gabapentin 100 mg capsule 100 mg PO 3XD PRN Vitron-C 65 mg iron- 125 mg tablet,delayed release (DR/EC) 1 tab PO .Everyother Day rosuvastatin 40 mg tablet 40 mg PO DAILY PreserVision AREDS-2 250-90-40-1 mg capsule 1 tab PO BID melatonin 3 mg capsule 3 mg PO QHS acetaminophen 500 mg capsule 500 mg PO DAILY PRN clopidogrel 75 mg tablet 75 mg PO DAILY Qty: 90 3RF valsartan 160 mg tablet 80 mg PO DAILY omeprazole 20 mg capsule,delayed release(DR/EC) 20 mg PO DAILY Qty: 90 1RF alendronate 70 mg tablet 70 mg PO QWEEK Qty: 12 4RF buspirone 7.5 mg tablet 7.5 mg PO BID Qty: 180 0RF Follow Up/Referrals: Annie Brown MD [Primary Care Provider, Internal Medicine] Stand Alone Forms: [facility] Info Instructions
--- NOTE | 2025-06-04 10:13 | CRLHL7_ITS ---
For Patients: As a result of the Century Cures Act, medical imaging exams and procedure reports are released immediately into your electronic medical record. You may view this report before your referring provider. If you have questions, please contact your health care provider. INDICATION: Amnesia COMPARISON: October 06, 2021 TECHNIQUE: CT examination of the head was performed as axial sections without intravenous contrast. Images were obtained from the vertex of the skull through the skull base. Please note that all CT scans at this facility use dose modulation, iterative reconstruction, and/or weight-based dosing when appropriate to reduce radiation dose to as low as reasonably achievable. FINDINGS: The brain shows no sign of mass lesion, mass effect, hemorrhage, or edema. There are involutional changes. There is moderate to severe cortical atrophy and there is moderate to severe white matter disease. There is no hydrocephalus. Old right thalamic lacune again noted The visualized portions of the orbits are normal in appearance. The osseous structures are normal in appearance with no sign of abnormality in the skull base or calvarium. IMPRESSION: Moderate to severe involutional changes consistent with atrophy and white matter disease. Old right thalamic lacunar infarct. Similar overall appearance to October 06, 2021. No acute focal findings. Please note that all CT scans at this facility use dose modulation, iterative reconstruction, and/or weight-based dosing when appropriate to reduce radiation dose to as low as reasonably achievable. Dictated by Pepito Mayfield MD @ 06/04/2025 10:40:04 AM (Electronically Signed)
[2025-06-04 11:09] LABS: Hematocrit* 41.3 % (33.0-51.0); Hemoglobin* 13.3 gm/dL (12.0-16.0); Immature Granulocytes Pct Auto 0.3 %; Mean Corpuscular HGB Conc 32 gm/dL (32-36); Mean Corpuscular Hemoglobin 31 pg (26-34); Mean Corpuscular Volume 95 fL (80-100); RDW Coefficient of Variation % 15.0 % (11.5-15.5); Red Blood Count* 4.34 m/uL (4.00-5.20); White Blood Count* 17.38 K/uL (4.50-11.00)
[2025-06-04] MEDS: diazePAM 5 MG/ML inj 2.5 MG IV (11:12)
[2025-06-04 11:20] LABS: Immature Granulocytes Abs Auto 0.10 K/uL (0.00-0.30); Lymphocytes Absolute Auto 1.30 K/uL (0.90-2.90); Slide Review Reflex No
[2025-06-04 11:21] LABS: Chloride* 95 mmol/L (96-114); Sodium* 131 mmol/L (135-149)
[2025-06-04 11:22] LABS: Potassium* 3.8 mmol/L (3.6-5.1)
[2025-06-04 11:25] LABS: Anion Gap 9 mEq/L (7-15); Blood Urea Nitrogen* 21 mg/dL (7-30); Calcium* 9.5 mg/dL (8.4-10.6); Carbon Dioxide* 27 mmol/L (20-32); Creatinine* 1.0 mg/dL (0.5-1.5); Estimated Glomerular Filt Rate 56 ml/min; Glucose* 105 mg/dL (60-115)
[2025-06-04 11:33] LABS: D Dimer Quantitative* 1.29 ug/ml (0.00-0.50)
[2025-06-04 11:38] LABS: NT Pro B Type NatriureticPept* 348 pg/mL (See Note)
--- NOTE | 2025-06-04 11:49 | CRLHL7_ITS ---
For Patients: As a result of the Century Cures Act, medical imaging exams and procedure reports are released immediately into your electronic medical record. You may view this report before your referring provider. If you have questions, please contact your health care provider. INDICATION: White count, chronic abdominal pain, syncope. TECHNIQUE: CT abdomen and pelvis acquired with 95 cc of Isovue 370 IV contrast. COMPARISON: Chest CT from the same day. Abdominal MRI 08/17/2024. FINDINGS: Lower chest: Dictated separately. Liver: Unremarkable. Normal in size and attenuation. No suspicious masses. Gallbladder and bile ducts: Unremarkable. No stones or inflammation. No biliary dilatation. Pancreas: Unremarkable. No mass or inflammation. Spleen: Unremarkable. Normal in size. No masses. Adrenal glands: Nodular thickening of the bilateral adrenal glands with a 1.5 cm focal nodule in the left adrenal gland, unchanged. Kidneys: Few tiny left-sided nonobstructing nephroliths. Small left renal cysts as well. No hydronephrosis. GI tract: Small hiatal hernia. Diverticulosis without pericolonic inflammation. No obstruction. Moderate colonic stool burden. Normal appendix. Vasculature: Normal caliber abdominal aorta with mild atherosclerotic calcification. Mesenteric arteries are patent. Lymph nodes: No lymphadenopathy. Peritoneum/Abdominal Wall: Unremarkable. No free air or significant free fluid. Pelvis: Unremarkable. Bones: Unremarkable for age. IMPRESSION: 1. No acute findings within the abdomen and pelvis. Colonic diverticulosis without evidence for acute diverticulitis. 2. Stable 1.5 cm left adrenal nodule. Please note that all CT scans at this facility use dose modulation, iterative reconstruction, and/or weight-based dosing when appropriate to reduce radiation dose to as low as reasonably achievable. Dictated by Rudy Nicole MD @ 06/04/2025 1:26:03 PM (Electronically Signed)
--- NOTE | 2025-06-04 11:49 | CRLHL7_ITS ---
For Patients: As a result of the Century Cures Act, medical imaging exams and procedure reports are released immediately into your electronic medical record. You may view this report before your referring provider. If you have questions, please contact your health care provider. INDICATION: Elevated D-dimer, syncope. TECHNIQUE: CT chest PE was acquired with 95 cc Isovue 370 IV contrast. COMPARISON: CT abdomen and pelvis from the same day. FINDINGS: Heart and vasculature: Contrast opacification of the pulmonary arterial tree is adequate. No sign of pulmonary embolism. Heart size is normal. Thoracic aorta and pulmonary artery are normal in caliber. Coronary artery and thoracic aorta atherosclerotic calcification. Lungs and pleura: Patchy nodular and ground-glass opacities scattered throughout the left lung. Mild bilateral lower lobe atelectasis versus scarring. No pleural effusions, pleural thickening, or pneumothorax. Lymph nodes/mediastinum: No mediastinal, hilar, or axillary adenopathy. Small hiatal hernia. Chest wall: No masses. Upper abdomen: Dictated separately. Bones: Prior T10 and T11 compression fractures with vertebroplasty changes. No acute findings. IMPRESSION: 1. No pulmonary embolism. 2. Patchy nodular and ground-glass opacities scattered throughout the left lung, compatible with a multifocal infectious/inflammatory process. Please note that all CT scans at this facility use dose modulation, iterative reconstruction, and/or weight-based dosing when appropriate to reduce radiation dose to as low as reasonably achievable. Dictated by Rudy Nicole MD @ 06/04/2025 1:15:25 PM (Electronically Signed)
[2025-06-04 11:55] LABS: Troponin, Point-of-Care* 0.00 ng/ml (0.01-0.04)
--- NOTE | 2025-06-04 12:16 | CRLHL7_ITS ---
For Patients: As a result of the Century Cures Act, medical imaging exams and procedure reports are released immediately into your electronic medical record. You may view this report before your referring provider. If you have questions, please contact your health care provider. INDICATION: Atraumatic loss of consciousness and memory. TECHNIQUE: CTA head using intravenous contrast with bolus tracking, 3D angiographic rendering using maximum intensity projection (MIP) and images permanently archived. CTA neck using intravenous contrast with bolus tracking, 3D angiographic rendering using maximum intensity projection (MIP) and images permanently archived. FINDINGS: CTA head: There is scattered intracranial atherosclerotic disease. There is normal opacification of the intracranial vasculature. There is no large vessel occlusion or significant intracranial stenosis. No aneurysm is identified. CTA neck: There is no significant carotid artery stenosis or dissection. There is no significant vertebral artery stenosis or dissection. Small indeterminate thyroid nodules are present. Degenerative changes are noted in the cervical spine. IMPRESSION: No acute intracranial abnormality at CTA. No significant carotid or vertebral artery stenosis or dissection. Per preliminary report: Significant airspace disease in the left lung probably infectious/inflammatory. Please review the report of the contemporaneous chest CT. Please note that all CT scans at this facility use dose modulation, iterative reconstruction, and/or weight-based dosing when appropriate to reduce radiation dose to as low as reasonably achievable. Dictated by Burak Kay MD @ 06/05/2025 5:53:38 AM (Electronically Signed)
[2025-06-04 13:13] LABS: Appearance Urine Clear (Clear)
[2025-06-04] MEDS: ACETAMINOPHEN 500 MG TABLET 1000 MG PO (13:13)
[2025-06-04] MEDS: cefTRIAXone 1 GM in 0.9 % SODIUM CHLORIDE Mini-bag 100 ML IVPB (14:47)
[2025-06-04 14:51] LABS: Acetaminophen* < 10.0 ug/mL (10.0-30.0); Ethanol* < 0.01 % (0.01-0.03); Salicylate* < 1.0 mg/dL (1.0-10)
--- NOTE | 2025-06-04 14:53 | CRLHL7_ITS ---
For Patients: As a result of the Cures Act, medical imaging exams and procedure reports are released immediately into your electronic medical record. You may view this report before your referring provider. If you have questions, please contact your health care provider. Indication: Altered mental status. Technique: Multiplanar multisequence noncontrast MR images of the brain. Comparison: CT brain 06/04/2025, MRI brain 11/09/2024. Findings: Lgvs-lj-xfhnqgon diffuse cerebral volume loss. No mass effect or midline shift. Stable patchy and scattered FLAIR hyperintensities in the supratentorial white matter and lorenzo, typical for moderately advanced chronic microvascular ischemic changes. Stable chronic lacunar infarctions in the right thalamus and lateral right cerebellar hemisphere. Stable chronic microhemorrhage right basal ganglia and right cerebellum. No recent intracranial hemorrhage or pathologic extra-axial fluid collection. No diffusion restriction to suggest acute infarction. The major arterial flow voids of the skull base are preserved. Thinning of the ocular lenses. Mild ethmoid sinus mucosal thickening. Minimal mastoid fluid. Impression: 1. No acute intracranial abnormality. No significant change compared to the prior MRI. 2. Chronic lacunar infarctions in the supratentorial and infratentorial parenchyma. 3. Moderately advanced chronic microvascular ischemic changes and hyck-gl-vfulkrhf diffuse cerebral volume loss. Dictated by Ty Araiza MD @ 06/04/2025 4:46:14 PM (Electronically Signed)
[2025-06-04 18:26] LABS: SARS PCR* Negative SARS-CoV-2 (Negative)
== END 2025-06-04 18:04 | disposition home or self-care (01) ==
PROVIDERS: Emergency Provider Family Medicine; PCP Internal Medicine
DX: R41.82 Altered mental status, unspecified (principal); J18.9 Pneumonia, unspecified organism; R41.3 Other amnesia
CPT/HCPCS: 36415; 70450; 70496; 70498; 70551; 71275; 74177; 80048; 80143; 80179; 81001; 82077; 83880; 84484; 85025; 85379; 87086; 87635; 93005; 94761; 96365; 96375; 99284; 99285; A9270; J0696; J3360; J7030; Q9967

== ENCOUNTER 2025-07-06 00:31 | Emergency (ER) | payer MEDICARE, SELFPAY ==
--- OUTSIDE RECORDS SUMMARY | 2025-07-06 00:34 | XMS_ITS | Clinical Summary ---
Author Organization [facility] Address [address] [place] [id number] Care Team Providers Care [employer] Crewmember Name Role Phone Annie Brown MD Primary Care Provider [phone] Allergies Active AllergyReactionsCriticalityNoted DateCommentsCodeineGI Upset03/11/2010 TramadolGI Upset,Lccqfkst15/30/2019 Medications * This document contains information received from the source organization and may not represent a complete record from that organization. MedicationSigDispense QuantityRefillsLast FilledStart DateEnd DateStatus multivitamin (MVI) tablet Take 1 tablet by mouth once daily.ctive clopidogrel (PLAVIX) 75 mg tablet Take 75 mg by mouth once daily.Active medication order composer 1 Drop 4 times daily if needed for Other (Specify). Long Lasting Lubricant Eye Drops (OTC)Active POLYETHYLENE GLYCOL 3350 (MIRALAX ORAL) Take by mouth. As directed, once daily as neededActive famotidine (PEPCID) 20 mg tablet Take 1 Tab by mouth once daily.04/29/2017Active omeprazole (PRILOSEC) 20 mg Delayed-Release capsule Take 1 Capsule (20 mg) by mouth once daily before a meal.ctive gabapentin (NEURONTIN) 100 mg capsule Take 100 mg by mouth 3 times daily if needed.Active ondansetron (ZOFRAN ODT) [address] 4 mg on the tongue every 8 hours if needed.08/11/2023ctive rosuvastatin (CRESTOR) 40 mg tablet Indications:Hyperlipidemia, unspecified hyperlipidemia typeTake 1 Tablet (40 mg) by mouth at bedtime. 90 Tablet 3124Active amLODIPine 5 mg tablet Indications:HTN (hypertension)Take 1 Tablet (5 mg) by mouth once daily. 90 Tablet 5Active alendronate 70 mg tablet Take 1 Tablet (70 mg) by mouth once a week in the morning.5Active acetaminophen 500 mg tablet Take 1 Tablet (500 mg) by mouth every 6 hours if needed.5Active vit-min eye 672pgz-49fzg-5pr-1mg (PreserVision AREDS 2 Plus) capsule Take 1 Capsule by mouth two times daily.5Active calcium citrate-vitamin D3 (Citracal Ultradense) 200 mg-6.25 mcg (250 unit) tablet 1 Tablet once daily.5Active melatonin 3 mg tablet Take 1 Tablet (3 mg) by mouth at bedtime.5Active valsartan (DIOVAN) 80 mg tablet Indications:HTN (hypertension)Take 1 Tablet (80 mg) by mouth once daily. 90 Tablet 5Active Active Problems ProblemNoted DateDiagnosed DateEpisode of recurrent major depressive disorder 5Cushing's crybqty82/29/2024Abnormal cardiovascular stress test 04/08/2022Hyperlipidemia LDL goal <7009kin rjdzim9502/19/2022 Overview (04/14/2023): 02/12/22 left wrist , Invasive squamous cell carcinoma, excised 04/29/22 Rosalia Crawford MD HypertensionOsteoporosis Overview (11/03/2011): History of hyperparathyroid, status post parathyroidectomy Fosamax begun 2006 GERD (gastroesophageal reflux disease) Overview (01/29/2017): EGD 01/2017 large hiatal hernia, Reactive gastropathy, try carafate Urolithiasis Encounters DateTypeDepartmentCare DxllWwjwvhamxdv33/21/2025 11:00 AM CDTOffice [facility] [address] [place] [address] Rosalia Crawford MD Derm Gijatfq6205/15/20258891Xortcu09/16/2025Travelfrom Last 3 Months Immunizations ImmunizationAdministration DatesNext DueAmb Influenza, Inactivated AIIV4 (Age 65+ Years) Preserv Free04/22/2020COVID-19 VACCINE SPIKEVAX (MODERNA 50MCG/0.5ML) 12YO+ PFS12/09/2023,3COVID-19 vaccine (Pfizer-BioNTech 30mcg/0.3mL) PF, MDV09/25/2020,09/04/2020Hepatitis A (Adult)06/12/1998,11/14/1997Hepatitis A, Txvzgexyzab67/18/1998,11/14/1997Hepatitis B (Adult)04/15/1998,11/14/1997 Hepatitis B, Jyrvzzbnyzf09/21/1998,11/14/1997Influenza, High-dose Inactivated 05/17/2018,05/14/2015Influenza, High-dose Quadrivalent Vnquthcpgvj19/06/2022, 04/22/2020,05/13/2017Influenza, IIV3 (Age >=3 years)05/12/2013,05/01/2009, 05/09/2008,05/02/2007,05/20/2006,05/18/2005,05/02/2003,06/08/2002,05/23/2001, 06/19/2000,05/06/1999Influenza, DTQ163/04/2019,05/12/2016Influenza, Inactivated AIIV4 (Age 65+ Years) Preserv Free04/27/2023,05/06/2021Meningococcal Vaccine (Menomune)11/26/1997Oral Polio Xnuhibe4811/14/1997Pneumococcal Poly,23-Valent (Pneumovax)05/02/2007Pneumococcal conj 13-Valent (Prevnar 13)05/22/2015RSV, Recombinant ADJ Reconstituted (Arexvy 120MCG/0.5mL)05/20/2023Td (Age >=7 Years) 11/14/1997Td, Preservative Free (age >= 7 Years)09/02/2012Tdap11/28/2021, 09/02/2012Zoster (Shingrix-RZV, recombinant)08/30/2018,04/06/2018Zoster (Zostavax-ZVL, live)07/06/2006 Family History Medical HistoryRelationNameCommentsHeart DiseaseFatherRheumatic heart disease HypertensionMotherOtherMothercopd, +smokerHeart DiseaseSoncomplete heart block RelationNameStatusCommentsFatherMotherSon Social History Tobacco UseTypesPacks/DayYears UsedDateSmoking Tobacco: NeverPassive Smoke Exposure: PastSmokeless Tobacco: Never Tobacco Cessation:Counseling Given: Not Answered Comments:second hand smoke exposure as a child Alcohol UseStandard Drinks/WeekCommentsYes5.8 (1 standard drink = 0.6 oz pure alcohol)glass of wine nightlyPHQ-2AnswerDate RecordedPHQ-2 TOTAL SCORE1 02/20/2025Social ConnectionsAnswerDate RecordedDo you often feel lonely or isolated from those around you?Financial Resource StrainAnswerDate RecordedDifficulty of Paying Living Zbmvrqsu253ifficulty of Paying Living ExpensesNot on file11/21/2023Food InsecurityAnswerDate RecordedDo you worry your food will run out before you are able to buy more? Transportation NeedsAnswerDate RecordedDoes lack of transportation keep you from medical appointments?oes lack of transportation keep you from work, meetings or getting things that you need?Housing StabilityAnswerDate RecordedWhat is your housing situation today?UtilitiesAnswerDate RecordedDo you have trouble paying for utilities (for example, heat, electricity, water, phone)?regnantCommentsNoSex and Gender InformationValueDate RecordedSex Assigned at BirthNot on fileLegal SexFemale 08/08/2012 5:51 AM CSTGender IdentityNot on fileSexual OrientationNot on file Last Filed Vital Signs Vital SignReadingTime TakenCommentsBlood Fqdfevjx087/6710 11:45 AM CDT Grewt921905/15/2025 11:45 AM PCSVkwedapxlqe89.6 ??C (97.9 ??F)04/14/2023 2:25 PM CDTRespiratory Xahr182212/12/2024 9:35 AM CDTOxygen Hzvmbyqnhr68%02/23/2024 11:47 AM CDTInhaled Oxygen Concentration--Poieeg23.2 kg (168 lb)04/13/2023 11:22 AM EBSRasqvp139 cm (5' 3)04/13/2023 11:22 AM CDTBody Mass Index29.76004/13/2023 11:22 AM CDT Plan of Treatment Health MaintenanceDue DateLast DoneCommentsHepatitis B series for 19+ (3 of 3 - 19+ 3-dose series), 04/15/1998, 11/14/1997, Additional history existsDEXA/DXA scan for age 65+2006Medicare Wellness for age 65+ 2006BMI (ht and wt on same day) for age 18+/, 12/02/2021, 05/08/2021, Additional history existsCOVID-19 vaccine series (2024- season)/, 05/03/2024, 12/09/2023, Additional history existsInfluenza Vaccine (#1)/09/2022, 05/06/2021, 04/22/2020, Additional history existsDepression screening for age 12+/, 11/20/2024Tetanus lemxfal16/12/2021, 09/02/2012, 09/02/2012, Additional history existsPneumococcal series for age 50+Uqlbrofpq91/28/2015, 05/02/2007Zoster (shingles) series for age 50+Fbjqmjihu34/05/2019, 04/06/2018, 07/06/2006RSV vaccine for adults or qjembokfhYutbqqlbi65/26/2023 Medical Devices ImplantedTypeAreaManufacturerDevice IdentifierShelf Expiration DateModel / Serial / LotLog [id number] - Rossi Zcb00 Lens Iol - 1 - Lens Iol Zcb00 21.0 [facility] EyeAdvanced TgiveyvWZX65# / [id number] / Iol [place] +21 Tecnis Zcb00 - [id number] Implanted:Qty: 1 on 10/01/2016 [facility]: EyeAbbott Medical Bhsdyx6806/29/2020ZCB00# / [id number] / Insurance Advance Directives * Full Code (Latest Code Status on File) Date ActivatedDate InactivatedComments10/01/2016 12:21 PM10/01/2016 5:23 PM * Full Code Date ActivatedDate InactivatedComments11/09/2011 6:35 AM11/09/2011 11:00 AM Care Teams Team MemberRelationshipSpecialtyStart DateEnd Date Annie Brown MD [address] [place] [address] PCP - GeneralInternal Medicine03/19/14
--- OUTSIDE RECORDS SUMMARY | 2025-07-06 00:35 | XMS_ITS | Clinical Summary ---
Author Organization [facility] Address [address] [place] [address] Care Team Providers Care Production Crew Supervisor Name Role Phone Unavailable Primary Care Provider Unavailabl e Source Comments Patient records contain information from all sites at [facility]. For routine questions regarding patient records, call [phone] during business hours, M-F 8:00 AM - 5:00 PM Central Time. Record requests for emergency care only can be directed to [phone] at any time.[facility] Allergies Active AllergyReactionsCriticalityNoted DateCommentsCodeineOther (see comments) Iukefj1604/29/2017 vomiting, nausea, felt terrible and slept most of the day - TramadolGI coeybhubawkIimyic29/30/2019 Medications * This document contains information received from the source organization and may not represent a complete record from that organization. MedicationSigDispense QuantityRefillsLast FilledStart DateEnd DateStatus amLODIPine (NORVASC) 10 mg tablet Take 1 tablet by mouth daily.04/29/2017Active clopidogrel (PLAVIX) 75 mg tablet Take 1 tablet by mouth daily.04/29/2017Active famotidine (PEPCID) 20 mg tablet Take 1 tablet by mouth daily.04/29/2017Active polyethylene glycol (MIRALAX) 17 gram powder packet Take 1 Package by mouth daily.04/29/2017Active multivitamin tablet Take 1 tablet by mouth daily.04/29/2017Active omeprazole (PriLOSEC) 20 mg capsule Take 1 capsule by mouth daily.04/29/2017Active ondansetron ODT (ZOFRAN-ODT) 4 mg disintegrating tablet Take 1 tablet by mouth every 6 (six) hours as needed. When rlhdpf8704/29/2017 Active vit A/vit C/vit E/zinc/copper (PRESERVISION AREDS ORAL) Take 1 tablet by mouth 2 (two) times a day.04/29/2017Active rosuvastatin (CRESTOR) 40 mg tablet Take 40 mg by mouth daily.Active valsartan (DIOVAN) 160 mg tablet Take 160 mg by mouth daily.05/12/2021ctive peg 400-propylene glycol, PF, (SYSTANE) 0.4-0.3 % ophthalmic solution 1 drop 3 (three) times a day as needed for dry eyes.Active melatonin 3 mg tablet Take 3 mg by mouth at bedtime.Active cholecalciferol, vitamin D3, 25 mcg (1,000 Unit) tablet Take 25 mcg by mouth daily.Active diphenhydramine HCl (BENADRYL ORAL) Take 1 tablet by mouth as needed.Active gabapentin (NEURONTIN) 100 mg capsule Take 100 mg by mouth 3 (three) times a day.04/14/2023ctive alendronate (Fosamax) 70 mg tablet Take 70 mg by mouth once a week.Active acetaminophen (TylenoL) 500 mg tablet Take 500 mg by mouth as directed. Patient takes a 500 MG Daily and then if needed will take up to 4Tablets Daily -Active UNABLE TO FIND Take 1 each by mouth daily. 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 12/13/2017 Family History Medical HistoryRelationNameCommentsCancerBrotherblake hansonHodgkins, thymus ObesityBrotherblake hansonUlcerative colitisBrotherblake hansonCoronary artery diseaseFatherharley hansonCoronary artery diseaseFather's Brothergordon nicolas HypertensionMothernorma hansonStrokePaternal Grandfatherhenry hansonColon cancer Paternal Grandmotherhalma LettygrromeosSyodit larsonAsthmaSon 1william b libbeySleep apneaSon 1william b libbeyMigrainesSon 2daniel libbeyRelationName StatusCommentsBrotherblake hansonFatherharley hansonFather's Brothergordon judahonMothernorma hansonPaternal Grandfatherhenry hansonPaternal Grandmother manju Knappon 1william b libbeySon 2daniel libbey Social History Tobacco UseTypesPacks/DayYears UsedDateSmoking Tobacco: NeverPassive Smoke Exposure: NeverSmokeless Tobacco: Never Tobacco Cessation:Counseling Given: Not Answered Comments:As a child Alcohol UseStandard Drinks/WeekCommentsYes7 (1 standard drink = 0.6 oz pure alcohol)[facility] UtilitiesAnswerDate RecordedIn the past 12 months has the [employer], gas, oil, or water [employer] threatened to shut off services in your home?No 09/17/2023Humiliation, Afraid, Rape, and Kick questionnaireAnswerDate Recorded Within the last year, have you been afraid of your partner or ex-partner?No 12/24/2022Within the last year, have you been humiliated or emotionally abused in other ways by your partner or ex-partner?No12/24/2022Within the last year, have you been kicked, hit, slapped, or otherwise physically hurt by your partner or ex-partner?No12/24/2022Within the last year, have you been raped or forced to have any kind of sexual activity by your partner or ex-partner?No12/24/2022 Hunger Vital SignAnswerDate RecordedWithin the past 12 months, you worried that your food would run out before you got the money to buymore.Never true09/17/2023 Within the past 12 months, the food you bought just didn't last and you didn't have money to get more.Never true09/17/2023RAPARE - TransportationAnswerDate RecordedIn the past 12 months, has lack of transportation kept you from medical appointments or from getting medications?No09/17/2023In the past 12 months, has lack of transportation kept you from meetings, work, or from getting things needed for daily living?No09/17/2023Housing StabilityAnswerDate RecordedWhat is your living situation today?I have a steady place to live09/17/2023Education AnswerDate RecordedWhat is the highest level of school you have completed or the highest degree you have received?Associate degree: academic ctfdfsz4504/21/2019 CommentsUnknownSex and Gender InformationValueDate RecordedSex Assigned at LumflAggvqe56/09/2018 11:21 AM CDTLegal YhbJkcaxd03/06/2017 10:25 AM CDT Gender UfjokxjnIfbfty04/09/2018 11:21 AM CDTSexual MbvxnudgxmdQlcnbtip60/09/2018 11:21 AM CDT Last Filed Vital Signs Vital SignReadingTime TakenCommentsBlood Ybxpprde173/8404/24/2019 10:33 AM CDT Cqwfx377904/24/2019 10:33 AM DSOGufzaswuopw72.9 ??C (96.6 ??F)10/22/2020 11:32 AM CDTRespiratory Rate--Oxygen Saturation--Inhaled Oxygen Concentration--Jwaanb69.5 kg (162 lb 0.6 oz)10/22/2020 11:32 AM SSMXdecvo530 cm (5' 2.6)10/22/2020 11:32 AM CDTBody Mass Index29.0710/22/2020 11:32 AM CDT Plan of Treatment Health MaintenanceDue DateLast DoneCommentsIPV Vaccines (2 of 3 - Adult catch-up series)Creatinine Level (Kidney Function Test)06/24/2023 06/24/2022, 03/31/2022, 12/16/2021, Additional history existsSodium Level , 03/31/2022, 12/16/2021, Additional history exists Depression Screening (Annual PHQ-2)07/26/2024Fall Risk Screen (Annual)07/26/2024 COVID-19 Vaccine ( season)5011/15/2024, 05/03/2024, 12/09/2023, Additional history existsInfluenza Vaccine (#1)51, 04/27/2023, 04/30/2022, Additional history existsPotassium Level09/26/2025 09/26/2024, 06/24/2022, 03/31/2022, Additional history existsDTaP,Tdap,and Td Vaccines (4 - Td or Tdap), 09/02/2012, 09/02/2012 Pneumococcal vaccine (50+ years)Hybkojoil75/28/2015, 05/02/2007Zoster Vaccines Rjhawigfx36/05/2019, 04/06/2018, 07/06/2006RSV vaccine - (32-36 weeks) or 50+ dwegnIldvkswta36/26/2023 Medical Devices ImplantedTypeAreaManufacturerDevice IdentifierShelf Expiration DateModel / Serial / LotOcular Lens-07/26/2013 Implanted:07/26/2013 (Quantity not on file)Ocular LensBilateral: Eye Procedures Procedure NamePriorityDate/TimeAssociated DiagnosisCommentsPOTASSIUM, S/PRoutine 09/26/2024 1:24 PM [employer] SODIUM, S/LCaglior41/05/2017 4:11 PM CDT CREATININE WITH EGFR, S/DLfdqnhk55/05/2017 4:11 PM CDT from Last 3 Months or Most Recently Relevant to Health Maintenance Results * Potassium (09/26/2024 1:24 PM [employer]ER)ComponentValueRef RangeTest MethodAnalysis TimePerformed AtPathologist SignatureEXT Potassium4.63.6 - 5.1 mmol/L [facility] LABORATORYSpecimen (Source)Anatomical Location / LateralityCollection Method / VolumeCollection TimeReceived Time09/26/2024 1:24 PM BARREL BRANDER Narrative [facility] - 09/27/2024 9:54 AM [employer]REL BRANDER External results verified in Extract by Brandi Medellin on 09/27/2024 at 09:48 AM. Authorizing ProviderResult TypeResult StatusOrdering Provider Shantell KingLAB BLOOD ADD-ONFinal ResultPerforming OrganizationAddressCity/State/ZIP CodePhone Number [facility] [address] [place] [address], [facility] [phone] * Sodium (04/29/2017 4:11 PM CDT)ComponentValueRef RangeTest MethodAnalysis Time Performed AtPathologist SignatureSodium, [id number] - 145 MMOL/LMAYO [facility] HOSPITALSpecimen (Source)Anatomical Location / LateralityCollection Method / VolumeCollection TimeReceived Time04/29/2017 4:11 PM CDT1 4:11 PM CDT Narrative Authorizing ProviderResult TypeResult StatusAlice Y Jose Armando King, M.S.LAB BLOOD ADD-ONFinal ResultPerforming OrganizationAddressCity/State/ZIP CodePhone Number [facility] [place] [address] * Creatinine with Estimated GFR (MDRD) (04/29/2017 4:11 PM CDT)ComponentValueRef RangeTest MethodAnalysis TimePerformed AtPathologist SignatureCreatinine1.00.6 - 1.1 MG/DLFORT [facility]ANDERS [facility] [place]Specimen (Source) Anatomical Location / LateralityCollection Method / VolumeCollection Time Received Time04/29/2017 4:11 PM CDT1 4:11 PM CDT Narrative Authorizing ProviderResult TypeResult StatusAlice Benjamin Suárez M.D., M.S.LAB BLOOD ADD-ONFinal ResultPerforming OrganizationAddressCity/State/ZIP CodePhone Number [facility] [place] [address] from Last 3 Months or Most Recently Relevant to Health Maintenance Insurance Advance Directives For more information, please contact: [phone] TypeDate RecordedPatient RepresentativeExplanationAdvance Vgidcehvky29/18/2017 12:00 AMLegacy document. See document viewer.
--- OUTSIDE RECORDS SUMMARY | 2025-07-06 00:35 | XMS_ITS | Clinical Summary ---
Author Organization [facility] Address [address] [place] [id number] Care Team Providers Care Compounder Helper Name Role Phone Unavailable Primary Care Provider Unavailabl e Allergies Active AllergyReactionsCriticalityNoted DateCommentsCodeineVomitingMedium 03/11/2010 Other Reaction(s): Other (see comments) vomiting, nausea, felt terrible and slept most of the day - IcepvzalLkpxhqifEhmbxt06/30/2019 Other Reaction(s): GI intolerance Medications MedicationSigDispense QuantityRefillsLast FilledStart DateEnd DateStatus alendronate (FOSAMAX) 70 mg oral tablet TAKE 1 TABLET BY MOUTH ONCE WEEKLYActive amLODIPine (NORVASC) 10 mg oral tablet Take 1 tablet (10 mg) by mouth once daily.Active cholecalciferol, vitamin D3, 25 mcg, 1000 unit, 25 mcg (1,000 unit) oral tablet Take 1 tablet (25 mcg) by mouth Daily.Active clopidogrel (PLAVIX) 75 mg oral tablet Take 1 tablet (75 mg) by mouth once daily.Active gabapentin (NEURONTIN) 100 mg oral capsule Take 1 capsule (100 mg) by mouth three times a day.Active melatonin 3 mg oral tablet Take 1 tablet (3 mg) by mouth.Active omeprazole (PRILOSEC) 20 mg oral delayed release capsule Take 1 capsule (20 mg) by mouth once daily.5Active rosuvastatin (CRESTOR) 40 mg oral tablet Take 1 tablet (40 mg) by mouth. at bedtime.Active valsartan (DIOVAN) 160 mg oral tablet Take 1 tablet (160 mg) by mouth once daily.Active Active Problems ProblemNoted DateDiagnosed DateOther sequelae following unspecified cerebrovascular iwnctgf3910/10/20243818Ehvtqbcoe36/18/2025Balance /18/2025 Gkzkib8507/26/2013RLS (restless legs syndrome) Social History Tobacco UseTypesPacks/DayYears UsedDateSmoking Tobacco: NeverSmokeless Tobacco: Never Tobacco Cessation:Counseling Given: Not Answered Alcohol UseStandard Drinks/WeekCommentsYes4 (1 standard drink = 0.6 oz pure alcohol)CommentsUnknownSex and Gender InformationValueDate RecordedSex Assigned at BirthNot on fileLegal UhuBpjluq55/31/2025 2:24 PM CSTGender Identity Not on fileSexual OrientationNot on file Last Filed Vital Signs Vital SignReadingTime TakenCommentsBlood Pressure--Pulse--Temperature-- Respiratory Rate--Oxygen Saturation--Inhaled Oxygen Concentration--Fckkig70.6 kg (160 lb)10/10/2024 1:03 PM EOMVxeuhy587 cm (5' 3)10/10/2024 1:03 PM CDTBody Mass Index28.34010/10/2024 1:03 PM CDT Plan of Treatment Health MaintenanceDue DateLast DtscQvylsllfYpkjgnmgrup78/21/1941Medicare Wellness Visit2Osteoporosis Wggxwmczy50/21/1942Depression Assessment (PHQ-2)1942Yearly Review of [facility]1991COVID-19 Vaccine ( season)/03/2024, 12/09/2023, 04/22/2023, Additional history exists Influenza Vaccine (#1)/09/2022, 04/30/2022, 05/06/2021, Additional history existsAdult Tetanus Ppwqfkd91/12/2021, 09/02/2012, 09/02/2012, Additional history existsPneumococcal 50+ DuaomEybuawyxp19/28/2015, 05/02/2007 Zoster AuvjstyIkogaesto31/05/2019, 04/06/2018, 07/06/2006RSV VaccinesCompleted 05/20/2023Meningococcal B VaccineAged OutNo longer eligible based on patient's age to complete this topic Insurance
--- NOTE | 2025-07-06 00:42 | CRLHL7_ITS ---
For Patients: As a result of the Cures Act, medical imaging exams and procedure reports are released immediately into your electronic medical record. You may view this report before your referring provider. If you have questions, please contact your health care provider. INDICATION: Trauma, fall. Pain on left side. TECHNIQUE: CT chest without contrast. COMPARISON: CTA chest PE 06/04/2025. FINDINGS: Lungs and pleura: Near-complete resolution of previously seen left lung infectious/inflammatory process. No new acute infiltrates. Bibasilar atelectasis/scarring, unchanged. No suspicious nodules. No pleural effusions, pleural thickening, or pneumothorax. Heart and vasculature: Heart size is normal. Thoracic aorta and pulmonary artery are normal in caliber. Coronary artery calcifications with severe calcifications of the LAD. Lymph nodes/mediastinum: No mediastinal, hilar, or axillary adenopathy. Thyroid gland is unremarkable. Chest wall: No masses. Upper abdomen: Small hiatal hernia. Stable bilateral adrenal nodules. Nonobstructive left renal calculus, unchanged. Bones: Mildly displaced fractures of the anterior left 3rd through 5th ribs. Degenerative changes of the spine and shoulders. 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 IMPRESSION: 1. Acute left 3rd through 5th rib fractures. 2. No acute pulmonary infiltrates. Please note that all CT scans at this facility use dose modulation, iterative reconstruction, and/or weight-based dosing when appropriate to reduce radiation dose to as low as reasonably achievable. Dictated by Scotty Eller MD @ 07/06/2025 1:17:29 AM (Electronically Signed)
[2025-07-06 00:43] VITALS: BP 209/94; PULSE 97; RESP 17; TEMP 36.6; O2SAT 97; BMI 28.3
--- NOTE | 2025-07-06 00:51 | ED.FALL ---
HPI - Fall General Chief Complaint: Fall/Minor Trauma Stated Complaint: fall, left side pain Time Seen by Provider: 07/06/25 00:41 History of Present Illness HPI Narrative: Patient is a 84-year-old woman who fell earlier today striking the left side of her thorax on the edge of bathtub. She did not hit her head. She did not lose consciousness. She does have history of osteoporosis. She is left with pain in the mid axillary line on the left. This is the lower chest wall. She has some bruising but no other significant complaints. No other changes from her chronic medical issues. Patient was brought in because her pain is not controlled at home. Pain is severe and sharp located in the left lateral abdomen in the middle axillary line Related Data Home Medications ?Medication ?Instructions ?Recorded ?Confirmed famotidine 20 mg tablet 20 mg PO HS 04/30/22 07/06/25 multivitamin (Multiple Vitamins 1 tab PO QAM 04/30/22 07/06/25 tablet) acetaminophen 500 mg capsule 500 mg PO DAILY PRN 07/02/22 07/06/25 melatonin 3 mg capsule 3 mg PO QHS 07/02/22 07/06/25 rosuvastatin 40 mg tablet 40 mg PO DAILY 07/02/22 07/06/25 vit C 250 mg-vit E 90 mg-zinc 40 1 tab PO BID 07/02/22 07/06/25 mg-copper 1 so-zfgmfp-pnubzp capsule (PreserVision AREDS-2) calcium 200 mg (as 3 tab PO DAILY 11/22/23 07/06/25 citrate)-vitamin D3 6.25 mcg (250 unit) tablet (Citracal-D3 Petites) gabapentin 100 mg capsule 100 mg PO 3XD PRN 04/24/24 07/06/25 polyethylene glycol 3350 17 8.5 g PO DAILY 10/30/24 07/06/25 gram/dose oral powder valsartan 160 mg tablet 80 mg PO DAILY 10/30/24 07/06/25 amlodipine 5 mg tablet 5 mg PO DAILY 12/14/24 07/06/25 iron,carbonyl 65 mg-vitamin C 125 1 tab PO .Everyother Day 01/30/25 07/06/25 mg tablet,delayed release (Vitron-C) simethicone 125 mg chewable tablet 125 mg PO BID-QID PRN 07/06/25 07/06/25 Previous Rx's ?Medication ?Instructions ?Recorded clopidogrel 75 mg tablet 75 mg PO DAILY #90 tabs 08/03/24 omeprazole 20 mg capsule,delayed 20 mg PO DAILY #90 caps 02/12/25 release alendronate 70 mg tablet 70 mg PO QWEEK #12 tabs 04/07/25 Allergies Allergy/AdvReac Type Severity Reaction Status Date / Time tramadol Allergy Intermediate nausea, Verified 07/06/25 00:53 vomiting codeine AdvReac Unknown Nausea Verified 07/06/25 00:53 Review of Systems Status of ROS: Reports: 10 or more systems reviewed and unremarkable except as noted in History and below [facility] Medical History History of compression fracture of spine ?Z87.81 - Personal history of (healed) traumatic fracture (ICD-10) History of renal calculi ?Z87.442 - Personal history of urinary calculi (ICD-10) Surgical History 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 - Acquired absence of eye (ICD-10) History of kyphoplasty (08/13/23) ?Z98.890 - Other specified postprocedural states (ICD-10) History of cataract surgery (2017) ?Z98.49 - Cataract extraction status, unspecified eye (ICD-10) 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.2 - Postprocedural hypoparathyroidism (ICD-10) Family History Father Heart disease Son Heart disease Mother High blood pressure Social History What is your current living situation?: I presently have a place to live Problems where you live: no known problems Problems where you live details: NA In the past 12 months, utilities in danger of being shut off: no In past 12 months, lack of transportation kept you from medical appts, meetings, work, or getting things needed for daily living: no In the past 12 mos, have been you worried that your food would run out before you had money to buy more?: never true In the past 12 mos, the food you bought just didn't last and you didn't have money to buy more?: never true Highest level of school completed/degree received: Associate degree: academic program Smoking Status: Never smoker Do you use any of these nicotine containing products: None Second hand tobacco smoke exposure: Yes (youth) How often do you have a drink containing alcohol: 4 or more times a week Alcohol type: wine Alcohol type details: one glass of wine per night How many standard drinks containing alcohol do you have on a typical day: 1 or 2 How often do you have six or more drinks on one occasion: Never AUDIT-C Alcohol total score: 4 Non-prescribed substance use: denies use Caffeine: Yes (Coffee in AM) How often does anyone, including family, friends and others, physically hurt you: never How often does anyone, including family, friends and others, insult or talk down to you: never How often does anyone, including family, friends and others, threaten you with harm: never How often does anyone, including family, friends and others, scream or curse at you: never service: No Exam Narrative: Exam Narrative: EXAM GENERAL: Patient appears comfortable and well. EYES: No scleral icterus. LYMPH: No supraclavicular or cervical lymphadenopathy. SKIN: Visible skin seen during exam normal or with benign process only. EXT: No dependent lower extremity pedal edema. HEART: Regular rate and rhythm with no murmurs, rubs, or gallops. LUNGS: Clear to auscultation bilaterally with no crackles or wheezes. ABD: Soft, non tender, non distended. PSYCH: Good eye contact, speech is not pressured. Chest wall is tender to palpation on the left. Const: Vital Signs, click to edit/add: Vital Signs - 24 hr 07/06/25 00:43 Temperature 98 F Pulse Rate [Right Pulse Oximeter] 97 Respiratory Rate 17 Blood Pressure [Ri ght Upper Arm] 209/94 H Pulse Oximetry 97 Oxygen Delivery Me thod Room Air Course Course ED Course: Patient seen and examined. CT of the chest without contrast ordered. Vital Signs Vital signs: Initial Vital Signs Temperature 98 F 07/06/25 00:43 Temperature Source Temporal Artery Scan 07/06/25 00:43 Pulse Rate 97 07/06/25 00:43 Pulse Rhythm Regular 07/06/25 00:43 Respiratory Rate 17 07/06/25 00:43 Blood Pressure 209/94 H 07/06/25 00:43 Blood Pressure Mean 132 H 07/06/25 00:43 Blood Pressure Position Supine 07/06/25 00:43 Pulse Oximetry 97 07/06/25 00:43 Oxygen Delivery Method Room Air 07/06/25 00:43 Vital Signs Temperature 98 F 07/06/25 00:43 Pulse Rate 97 07/06/25 00:43 Respiratory Rate 17 07/06/25 00:43 Blood Pressure 209/94 H 07/06/25 00:43 Pulse Oximetry 97 07/06/25 00:43 Oxygen Delivery Method Room Air 07/06/25 00:43 Temperature 98 F 07/06/25 00:43 Pulse Rate 97 07/06/25 00:43 Respiratory Rate 17 07/06/25 00:43 Blood Pressure 209/94 H 07/06/25 00:43 Pulse Oximetry 97 07/06/25 00:43 Oxygen Delivery Method Room Air 07/06/25 00:43 MDM - Fall MDM Narrative Medical decision making narrative: Patient presents after a fall striking the left side of her chest. CT shows no evidence of pneumothorax but she does have fractures of ribs 3 through 5. Patient did not hit her head did not lose consciousness has no neck pain. Do not believe any further testing is needed. I did offer her virtually any pain control she would like to try to help with her pain but she states she does not tolerate any prescription pain medication. We are left with ice Tylenol and Motrin with follow-up with her primary care as needed. Discharge Plan Discharge Clinical Impression: Fracture of rib Patient Disposition: Home, Self-Care Condition: Stable Instructions: Rib Fracture (ED) Additional Instructions: Tylenol Motrin Ice Follow-up with your doctor as needed Make sure the you take deep breaths regularly to prevent pneumonia. Activity Level: No Restrictions Discharge Diet: Regular Prescriptions: No Action calcium citrate-vitamin D3 [Citracal-D3 Petites] 200 mg-6.25 mcg (250 unit) tablet 3 tab PO DAILY Rx Instructions: 600 mg daily amlodipine 5 mg tablet 5 mg PO DAILY multivitamin [Multiple Vitamins] Tablet 1 tab PO QAM famotidine 20 mg tablet 20 mg PO HS polyethylene glycol 3350 17 gram/dose powder 8.5 g PO DAILY gabapentin 100 mg capsule 100 mg PO 3XD PRN Vitron-C 65 mg iron- 125 mg tablet,delayed release (DR/EC) 1 tab PO .Everyother Day simethicone 125 mg tablet,chewable 125 mg PO BID-QID PRN rosuvastatin 40 mg tablet 40 mg PO DAILY PreserVision AREDS-2 250-90-40-1 mg capsule 1 tab PO BID melatonin 3 mg capsule 3 mg PO QHS acetaminophen 500 mg capsule 500 mg PO DAILY PRN clopidogrel 75 mg tablet 75 mg PO DAILY Qty: 90 3RF valsartan 160 mg tablet 80 mg PO DAILY omeprazole 20 mg capsule,delayed release(DR/EC) 20 mg PO DAILY Qty: 90 1RF alendronate 70 mg tablet 70 mg PO QWEEK Qty: 12 4RF Follow Up/Referrals: Annie Brown MD [Primary Care Provider, Internal Medicine] Stand Alone Forms: [facility] Info Instructions
== END 2025-07-06 02:06 | disposition home or self-care (01) ==
LOC: ED 01:31
PROVIDERS: Emergency Provider Internal Medicine; PCP Internal Medicine
DX: S22.42XA Multiple fractures of ribs, left side, initial encounter for closed fracture (principal); W18.00XA Striking against unspecified object with subsequent fall, initial encounter
CPT/HCPCS: 71250; 99283; 99284